=== PATIENT | male | born 1945 | race African-American/Black ===

== ENCOUNTER 2016-12-17 09:57 | Inpatient (IN) | payer MEDICARE ==
[~2016-12-17] VITALS: Ht 193 cm; Wt 99.3 kg
[2016-12-30] MEDS ORDERED: ASPI1TAB69 PO (10:43)
[2016-12-30] MEDS ORDERED: DICL75TA PO (10:43)
[2016-12-30] MEDS ORDERED: ALPR0.5T3 PO (10:43)
[2016-12-30] MEDS ORDERED: ALLO100T PO (10:43)
[2016-12-30] MEDS ORDERED: ALBU.5I NEB (10:43)
[2016-12-30] MEDS ORDERED: VENTAER INH (10:43)
[2016-12-30] MEDS ORDERED: GABA400C5 PO (10:43)
[2016-12-30] MEDS ORDERED: CALC1TAB55 PO (10:43)
[2016-12-30] MEDS ORDERED: LABE200T2 PO (10:44)
[2016-12-30] MEDS ORDERED: HYDR-3583 PO (10:44)
[2016-12-30] MEDS ORDERED: LOSA50TA PO (10:44)
[2016-12-30] MEDS ORDERED: MULT1TAB84 PO (10:46)
[2016-12-30] MEDS ORDERED: VITA10002 PO (10:46)
[2016-12-30] MEDS ORDERED: NITR0.4D2 T-DERMAL (10:46)
[2016-12-30] MEDS ORDERED: PYRI100T PO (10:46)
[2016-12-30] MEDS ORDERED: OMEP20TA PO (10:47)
[2016-12-31 06:30] VITALS: BP 112/68; PULSE 115; RESP 20; TEMP 98.7; O2SAT 94
[2016-12-31] MEDS ORDERED: METOPROLOL TARTRATE 25 MG TAB PO PRN (06:45)
[2016-12-31] MEDS ORDERED: INSULIN HUMAN REGULAR 1,000 UNITS/10 ML VIAL SQ PRN (06:45)
[2016-12-31] MEDS ORDERED: LACTATED RINGER'S 1000 ML IV SCH (06:45)
[2016-12-31] MEDS ORDERED: SODIUM CHLORID 0.9% 500 ML IV SCH (06:45)
[2016-12-31] MEDS ORDERED: CHLORHEXIDINE GLUCONATE 4% SOLN 120 ML BTL TOP SCH (07:00)
[2016-12-31] MEDS ORDERED: ceFAZolin 2 GM PREMIX 50 ML IV SCH (07:00)
[2016-12-31] MEDS ORDERED: VANCOMYCIN 1000 MG/NS 250 ML (for <70 kg) IV SCH ×2 (07:00)
[2016-12-31] MEDS ORDERED: BUPIVACAINE/EPINEPHRINE 0.25% PF 30 ML VIAL ONE (07:07)
[2016-12-31] MEDS ORDERED: GENTAMICIN SULFATE 80 MG/2 ML VIAL ONE (07:07)
[2016-12-31] MEDS ORDERED: ACETAMINOPHEN 1000 MG/100 ML VIAL IV ONE (08:08)
[2016-12-31] MEDS ORDERED: FAMOTIDINE 20 MG/2 ML VIAL ONE (08:08)
[2016-12-31] MEDS ORDERED: TRANEXAMIC ACID IV SCH (09:00)
[2016-12-31] MEDS ORDERED: SODIUM CHLORIDE 0.9% IV SCH (09:00)
[2016-12-31] MEDS ORDERED: EXPAREL PERI-ARTICULAR INJECTION (TOTAL VOL. 60 ML) P-ARTICULR SCH ×2 (09:00)
[2016-12-31] MEDS ORDERED: DICLOFENAC SODIUM 37.5 MG/ML VIAL IV PUSH ONE (09:53)
[2016-12-31] MEDS ORDERED: HYDROmorphone HCL PF 2 MG/ML VIAL ONE (09:53)
[2016-12-31] MEDS ORDERED: KETAMINE HCL 500 MG/5 ML VIAL ONE (09:53)
[2016-12-31] MEDS ORDERED: ALBUTEROL SULFATE 90 MCG/ACT HFA 8 GM INHALER INH PRN (10:30)
[2016-12-31] MEDS ORDERED: ALPRAZolam 0.5 MG TAB PO PRN (10:30)
--- NOTE | 2016-12-31 10:42 | PD.OP ---
cc: Yamil Willoughby MD Operative Report Date of Surgery: Dec 31, 2016 Preoperative Diagnosis: Impending pathologic fracture of left proximal femur secondary to metastatic lesion in proximal femur Postoperative Diagnosis: Procedure: Intramedullary nail fixation of left femur Surgeon: Yamil Willoughby Eye Specialist(s): ERICA Cruz PA-C The surgical procedure was assisted by my physician real estate assistant. My P.A. presence was necessary throughout this case for the manipulation and positioning of the surgical extremity. My P.A. was assisting me throughout the duration of this procedure. The skill set of a physician real estate assistant was medically necessary to complete this procedure. During the surgical case the surgical supply assistant was working at the back table and the physician real estate assistant was directly assisting me. Operation and Findings: Implants used: 12mm x [440]mm Synthes TFNA troch nail Plan of activity: Weight-bear as tolerated Patient was seen and evaluated preoperatively. The patient has significant hip pain from proximal femur impending pathologic fracture. The risk and benefits of surgery were discussed in depth with the patient to include bleeding, infection, nonunion, malunion, need for hip replacement, painful hardware, as well as medical competitions including blood clots, stroke, heart attack, and . Informed consent was obtained. Operative site was marked. Patient was brought to the operating room and placed on fracture table. IV sedation was administered by anesthesiologist. Timeout procedure was performed. Hip and leg were prepped with alcohol followed by DuraPrep and draped in the usual sterile fashion. IV antibiotics were given prior to incision. A 2 inch incision was made proximal to the trochanter. Subcutaneous tissue was dissected bluntly. Guidepin was placed at the tip of the trochanter and advanced into the femoral canal. Fluoroscopy confirmed appropriate guidepin placement. A opening reamer was placed over the guidepin. A long ball tipped guide pin was now placed down the femoral canal into the center of the distal femur. The nail length was now measured. Fluoroscopy confirmed appropriate guidepin placement. Flexible reamers were now passed over the guidepin to ream the intramedullary canal. The Synthes TFNA nail was attached to the insertion handle. Nail was now placed over the guidepin into the femoral canal. Fluoroscopy confirmed appropriate nail placement. A second incision was made over the lateral thigh. Cannulas were placed through the insertion handle down to the femur. Guidepin was now placed through the femoral nail into the center of the femoral head. Fluoroscopy confirmed appropriate guidepin placement. Screw length was measured. Cannulated drill was placed over the guidepin. Appropriate length lag screw was now placed. The set screw was now tightened in static mode. Next, using perfect [place] technique two distal interlocking screws were placed. Screw holes were predrilled and screw lengths were measured. Final fluoroscopy revealed well aligned fracture with well-placed hardware. Incision was closed with 3-0 Vicryl and yessica. Sterile dressings were applied. Patient was awakened and transferred to recovery room. Yamil Willoughby MD Dec 31, 2016 10:42
[2016-12-31] MEDS ORDERED: ONDANSETRON HCL 4 MG/2 ML VIAL IVP PRN (10:45)
[2016-12-31] MEDS ORDERED: SODIUM CHLORIDE 0.9% FLUSH 5 ML FLUSH IVF PRN (10:45)
[2016-12-31] MEDS ORDERED: MIDAZOLAM HCL 2 MG/2 ML VIAL ONE (10:57)
[2016-12-31] MEDS ORDERED: fentaNYL CITRATE 250 MCG/5 ML AMP ONE (10:58)
[2016-12-31] MEDS ORDERED: MORPHINE SULFATE 4 MG/ML INJ ONE (10:58)
--- NOTE | 2016-12-31 11:02 | HHI.FF ---
Face to Face Verification Diagnosis: (1) Lytic bone lesion of left femur Physical Therapy Gait training Hip: Hip fracture, Protocol: Left, Progress to weight bearing Left LE Weight Bearing: WB as tolerated Nursing Dressing Changes: Daily dressing change, 4x4s, Paper tape, Xeroform I have seen patient Roscoe Lombardo on 12/31/16. My clinical findings support the need for the requested home health care services because: Ltd mobility - disease progression I certify that my clinical findings support that this patient is homebound because: Post-op weakness Kodak Howard Dec 31, 2016 11:02
[2016-12-31] MEDS ORDERED: *RESP: ALBUTEROL 2.5 MG/3 ML NEB (PRN) PERIprocedural Use ONLY NEB ONE (11:25)
[2016-12-31] MEDS ORDERED: DO NOT ADM ANY ANTICOAGULANT DRUGS XX PRN (11:30)
[2016-12-31] MEDS: CALCIUM/VITAMIN D 250 MG/125 U TAB PO SCH ×2 (13:00→20:33)
[2016-12-31] MEDS: MORPHINE SULFATE 4 MG/ML INJ IV PUSH PRN ×2 (13:13→20:46)
[2016-12-31] MEDS ORDERED: PHENYLEPH/NS 1000 MCG/10 ML SYR IV ONE (14:06)
[2016-12-31] MEDS ORDERED: PROPOFOL 200 MG/20 ML AMP IV ONE (14:06)
[2016-12-31] MEDS ORDERED: LACTATED RINGER'S 1000 ML INJ 1,000 ML IV ONE (14:07)
--- NOTE | 2016-12-31 14:53 | RADRPT ---
EXAM DATE/TIME: 12/31/2016 10:22 [facility] COMPARISON: No previous studies available for comparison. INDICATIONS : ORIF left femur IM darrian. MEDICAL HISTORY : None. SURGICAL HISTORY : None. ENCOUNTER: Initial ACUITY: 1 day PAIN SCORE: Non-responsive. LOCATION: Left femur. FINDINGS: The patient is status post ORIF of left femur fracture. Surgical hardware appears to be in good posi tion. CONCLUSION: Status post ORIF with hardware in good position. Enmanuel Cooper MD on December 31, 2016 at 14:42 Board Certified Radiologist. This report was verified electronically.
[2016-12-31 17:50] VITALS: BP 120/65; PULSE 96; RESP 18; TEMP 97.3; O2SAT 96
[2016-12-31 19:45] VITALS: BP 112/62; PULSE 98; RESP 16; TEMP 96.8; O2SAT 95
[2016-12-31] MEDS: SODIUM CHLORIDE 0.9% FLUSH 5 ML FLUSH IVF SCH (20:33)
[2016-12-31] MEDS: GABAPENTIN 300 MG CAP PO SCH (20:33)
[2016-12-31] MEDS ORDERED: CALCIUM CARBONATE CHOLECALCIFEROL PO SCH (21:00)
[2017-01-01] VITALS (8 sets, daily range): BP systolic 94–123; BP diastolic 58–67; PULSE 110–132; RESP 17–19; TEMP 97–100.2; O2SAT 90–98
[2017-01-01] MEDS: MORPHINE SULFATE 4 MG/ML INJ IV PUSH PRN ×2 (04:16→08:29)
[2017-01-01] MEDS ORDERED: HYDR-3583 PO (06:38)
[2017-01-01] MEDS ORDERED: XARE10TA PO (06:38)
[2017-01-01] MEDS ORDERED: WALKER WHEELS/F1 MIS (06:39)
--- NOTE | 2017-01-01 07:20 | PD.ORT.PN ---
Subjective Subjective Remarks Pain controlled and doing well overnight Objective Vitals Vital Signs Date Time Temp Pulse Resp B/P Pulse Ox O2 Delivery O2 Flow Rate FiO2 01/01/17 04:00 100.2 110 17 119/63 94 01/01/17 00:00 100.0 123 18 123/67 93 12/31/16 20:51 Nasal Cannula 2.00 12/31/16 19:45 96.8 98 16 112/62 95 12/31/16 17:50 97.3 96 18 120/65 96 12/31/16 17:00 97.8 89 16 118/70 95 Nasal Cannula 3 12/31/16 16:00 88 15 112/69 94 Nasal Cannula 3 12/31/16 15:00 90 15 108/68 93 Nasal Cannula 3 12/31/16 14:00 92 15 107/67 92 Nasal Cannula 3 12/31/16 13:18 16 12/31/16 13:00 98 16 102/67 96 Nasal Cannula 4 12/31/16 12:30 99 16 104/69 95 Nasal Cannula 4 12/31/16 12:00 97.6 100 16 108/69 95 Nasal Cannula 4 12/31/16 11:45 103 16 108/68 94 Nasal Cannula 4 12/31/16 11:30 102 16 115/69 93 Nasal Cannula 4 12/31/16 11:15 101 16 117/72 92 Nasal Cannula 4 12/31/16 11:00 107 16 118/70 98 Simple Mask 8 12/31/16 10:50 97.4 103 27 129/72 97 Simple Mask 8 I/O 12/31/16 12/31/16 12/31/16 01/01/17 01/01/17 01/01/17 07:00 15:00 23:00 07:00 15:00 23:00 Intake Total 1100 ml 630 ml 720 ml Output Total 500 ml 600 ml 1800 ml Balance 600 ml 30 ml -1080 ml Intake Oral 480 ml 720 ml IV Total 150 ml Other 1100 ml Output Urine Total 400 ml 600 ml 1800 ml Estimated Blood Loss 100 ml # Bowel Movements 0 0 Imaging Last Impressions Femur X-Ray 12/31/16 0000 Signed Impressions: Service Date/Time: Saturday, December 31, 2016 10:22 - CONCLUSION: Status post ORIF with hardware in good position. Enmanuel Cooper MD Objective Remarks Left lower extremity: Clean dry dressings intact. Minimal swelling. Minimal pain with movement of hip knee or ankle. Distally intact sensation with good capillary refills Assessment & Plan Ortho Post Op Day #: 1 Problem List: (1) Lytic bone lesion of left femur Assessment and Plan Status post IM nail left femur Physical therapy for weightbearing as tolerated Begin daily dressing changes beginning POD 2 Incentive spirometry Plan for discharge to home with home health care tomorrow if doing well with physical therapy Follow-up with Dr. Willoughby or [place] in 2 weeks SHAHID COLMENARES PA-C Jan 01, 2017 07:20
[2017-01-01] MEDS: PYRIDOXINE HCL 50 MG TAB PO SCH (08:21)
[2017-01-01] MEDS: CYANOCOBALAMIN 1,000 MCG TAB PO SCH (08:21)
[2017-01-01] MEDS: ALLOPURINOL 100 MG TAB PO SCH (08:22)
[2017-01-01] MEDS: ASPIRIN EC 81 MG TABEC PO SCH (08:22)
[2017-01-01] MEDS: CALCIUM/VITAMIN D 250 MG/125 U TAB PO SCH ×3 (08:22→17:54)
[2017-01-01] MEDS: LOSARTAN 50 MG TAB PO SCH (08:22)
[2017-01-01] MEDS: PANTOPRAZOLE SOD 20 MG DELAYED RELEASE TAB PO SCH (08:22)
[2017-01-01] MEDS: GABAPENTIN 300 MG CAP PO SCH ×2 (08:22→21:24)
[2017-01-01 08:27] LABS: HEMATOCRIT 22.6 % (39.0-51.0); REVIEW FLAG FINAL
[2017-01-01] MEDS: ENOXAPARIN SODIUM 30 MG/0.3 ML SYRINGE SQ SCH (08:29)
[2017-01-01] MEDS: REMOVE OLD NITRO-DUR (NITROGLYCERIN) PATCH TD SCH (09:00)
[2017-01-01] MEDS: LABETALOL HCL 200 MG TAB PO SCH (09:00)
[2017-01-01] MEDS: NITROGLYCERIN 0.4 MG/HR PATCH T-DERMAL SCH (09:00)
[2017-01-01] MEDS: SODIUM CHLORIDE 0.9% FLUSH 5 ML FLUSH IVF SCH ×2 (09:00→21:25)
[2017-01-01] MEDS ORDERED: RESP: ALBUTEROL 2.5 MG/3 ML NEB (PRN) NEB (10:15)
[2017-01-01] MEDS: ACETAMINOPHEN/HYDROcodone 325 MG/10 MG TAB PO PRN ×2 (12:37→17:05)
[2017-01-02] VITALS (15 sets, daily range): BP systolic 92–121; BP diastolic 53–83; PULSE 109–131; RESP 16–20; TEMP 96.3–101.4; O2SAT 88–95
[2017-01-02] MEDS: ACETAMINOPHEN/HYDROcodone 325 MG/10 MG TAB PO PRN ×4 (00:19→13:38)
[2017-01-02] MEDS: ACETAMINOPHEN 325 MG TAB PO PRN ×2 (04:08→16:40)
[2017-01-02 04:46] LABS: BLOOD, URINE NEG (NEG); COMMENT (UR) CULT NOT INDICATED; CULTURE IF INDICATED CULT NOT INDICATED; GLUCOSE,URINE NEG (NEG); HYALINE CAST, URINE 1 /lpf (RARE); KETONE, URINE NEG (NEG); MUCUS URINE FEW /lpf (OCC); NITRITE,URINE NEG (NEG); PH, URINE 5.5 (5.0-8.5); URINE COLOR DARK-YELLOW (YELLW/STRAW)
[2017-01-02 05:23] LABS: AUTOMATED NEUTROPHIL # 7.6 TH/MM3 (1.8-7.7); BASOPHIL # 0.1 TH/MM3 (0-0.2); BASOPHIL % 0.6 % (0.0-2.0); EOSINOPHIL # 0.1 TH/MM3 (0-0.4); EOSINOPHIL % 0.9 % (0.0-4.0); LYMPH % 7.7 % (9.0-44.0); LYMPHOCYTE # 0.7 TH/MM3 (1.0-4.8); MEAN CELL VOLUME 84.8 FL (80.0-100.0); MEAN CORPUSCULAR HEMOGLOBIN 27.9 PG (27.0-34.0); MEAN CORPUSCULAR HGB CONC 32.8 % (32.0-36.0); MONO % 10.7 % (0.0-8.0); NEUT % 80.1 % (16.0-70.0); PLATELET COUNT 317 TH/MM3 (150-450); RED BLOOD COUNT 2.48 MIL/MM3 (4.50-5.90); RED CELL DISTRIBUTION WIDTH 17.9 % (11.6-17.2); WHITE BLOOD COUNT 9.5 TH/MM3 (4.0-11.0)
[2017-01-02 05:32] LABS: HEMO FLAGS DIFF FINAL
[2017-01-02 05:59] LABS: BICARBONATE 21.5 MEQ/L (21.0-32.0); POTASSIUM 4.1 MEQ/L (3.5-5.1)
[2017-01-02] MEDS ORDERED: FUROSEMIDE 20 MG/2 ML VIAL IV PUSH PRN (06:15)
--- NOTE | 2017-01-02 06:21 | RADRPT ---
EXAM DATE/TIME: 01/02/2017 05:43 [facility] COMPARISON: CHEST SINGLE AP, June 25, 2016, 15:56. INDICATIONS : Shortness of breath, chest congestion. MEDICAL HISTORY : Congestive heart failure. Carcinoma, lung. SURGICAL HISTORY : None. ENCOUNTER: Subsequent ACUITY: 4 - 6 months PAIN SCORE: 0/10 LOCATION: Bilateral chest FINDINGS: Left upper lobe mass area again seen. Cardiomegaly, nonacute right rib fracture and right-sided phillip catheter are noted. Mild interstitial prominence. CONCLUSION: No significant change has occurred. Jorgito Lynne MD on January 02, 2017 at 6:19 Board Certified Radiologist. This report was verified electronically.
--- NOTE | 2017-01-02 06:37 | PD.ORT.PN ---
Subjective Subjective Remarks POD 2 s/p IMN left hip doing well. pain controlled. out of bed with walker yesterday had critical H/H last night. hospitalist consulted. Objective Vitals Vital Signs Date Time Temp Pulse Resp B/P Pulse Ox O2 Delivery O2 Flow Rate FiO2 01/02/17 04:20 100.9 125 18 115/62 93 01/02/17 01:25 100.5 01/02/17 00:25 101.4 131 18 99/63 93 01/01/17 20:17 97.0 123 19 106/63 96 01/01/17 19:15 97.5 126 18 94/58 95 01/01/17 18:09 Nasal Cannula 3.00 01/01/17 15:25 97.0 122 18 106/65 98 01/01/17 13:14 95 Nasal Cannula 3.00 01/01/17 12:00 99.0 132 18 99/62 90 01/01/17 08:00 100.1 127 18 118/64 94 I/O 01/01/17 01/01/17 01/01/17 01/02/17 01/02/17 01/02/17 07:00 15:00 23:00 07:00 15:00 23:00 Intake Total 720 ml 1200 ml 480 ml Output Total 1800 ml 900 ml Balance -1080 ml 1200 ml -420 ml Intake Oral 720 ml 1200 ml 480 ml Output Urine Total 1800 ml 900 ml # Voids 3 # Bowel Movements 0 0 0 Result Diagram: 01/02/17 0513 01/02/17 0513 Imaging Last Impressions Femur X-Ray 12/31/16 0000 Signed Impressions: Service Date/Time: Saturday, December 31, 2016 10:22 - CONCLUSION: Status post ORIF with hardware in good position. Enmanuel Cooper MD Objective Remarks Left lower extremity: Clean dry dressings intact. Minimal swelling. Minimal pain with movement of hip knee or ankle. Distally intact sensation with good capillary refills Assessment & Plan Problem List: (1) Lytic bone lesion of left femur Assessment and Plan 1) Status post IM nail left femur - POD 2 Physical therapy for weightbearing as tolerated Begin daily dressing changes beginning POD 2 Incentive spirometry Plan for discharge to home with home health care tomorrow if doing well with physical therapy will receive blood today per medical plan for DC after H/H stabilized Follow-up with Dr. Willoughby or [place] in 2 weeks Kodak Howard Jan 02, 2017 06:36
[2017-01-02] MEDS: REMOVE OLD NITRO-DUR (NITROGLYCERIN) PATCH TD SCH (09:00)
[2017-01-02] MEDS: PYRIDOXINE HCL 50 MG TAB PO SCH (10:04)
[2017-01-02] MEDS: GABAPENTIN 300 MG CAP PO SCH ×2 (10:04→20:46)
[2017-01-02] MEDS: LABETALOL HCL 200 MG TAB PO SCH (10:05)
[2017-01-02] MEDS: PANTOPRAZOLE SOD 20 MG DELAYED RELEASE TAB PO SCH (10:05)
[2017-01-02] MEDS: ASPIRIN EC 81 MG TABEC PO SCH (10:05)
[2017-01-02] MEDS: ALLOPURINOL 100 MG TAB PO SCH (10:05)
[2017-01-02] MEDS: CALCIUM/VITAMIN D 250 MG/125 U TAB PO SCH ×3 (10:05→17:28)
[2017-01-02] MEDS: CYANOCOBALAMIN 1,000 MCG TAB PO SCH (10:06)
[2017-01-02] MEDS: LOSARTAN 50 MG TAB PO SCH (10:06)
[2017-01-02] MEDS: NITROGLYCERIN 0.4 MG/HR PATCH T-DERMAL SCH (10:07)
[2017-01-02] MEDS: ENOXAPARIN SODIUM 30 MG/0.3 ML SYRINGE SQ SCH (10:07)
[2017-01-02] MEDS: SODIUM CHLORIDE 0.9% FLUSH 5 ML FLUSH IVF SCH ×2 (10:09→21:00)
[2017-01-02] MEDS ORDERED: BISACODYL EC 5 MG TABEC PO PRN (11:15)
--- NOTE | 2017-01-02 11:37 | PD.CONS ---
HPI Service [facility] Hospitalists Consult Requested By Dr. Yamil Odell Reason for Consult Anemia, Medical management Primary Care Physician Ravin De Paz MD Diagnoses: History of Present Illness Mr. 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 He has completed six cycles of carboplatin, Alimta and bevacizumab but was found to have disease progression in 05/2016. Pt has also received focal radiation treatment to the chest wall. Pt follows with Dr. Cordon and is on second line therapy with IV Zometa for bony disease and immunotherapy with Nivolumab. Review of outpt records revealed his most recent PET/CT on 12/12/16 revealed new metastatic disease in the left proximal femur and right anterior 7th rib costochondral junction. Pt was admitted to [facility] on 12/31/16 for impending pathologic fracture of left proximal femur secondary to metastatic lesion in proximal femur and underwent intramedullary nail fixation of left femur with Dr. Odell. Pt had post-operative labs which noted a decrease to his H/H to 7.5/22.6 which further decreased today to 6.9/21.0. Pt is currently receiving 2 units of PRBCs. He received his last Immunotherapy on 12/17/[address] Cordon. His Hgb at that time was 9.0. Review of Systems Constitutional: COMPLAINS OF: Fever, DENIES: Chills Eyes: DENIES: Vision loss Ears, nose, mouth, throat: DENIES: Hearing loss Cardiovascular: COMPLAINS OF: Palpitations, Lower Extremity Edema (chronic) Gastrointestinal: DENIES: Abdominal pain, Nausea, Vomiting Genitourinary: DENIES: Hematuria, Dysuria Musculoskeletal: COMPLAINS OF: Joint pain Integumentary: DENIES: Rash Neurologic: DENIES: Headache Psychiatric: DENIES: Confusion Past Family Social History Past Medical History Stage IV poorly differentiated [id number] lung cancer diagnosed in early 2015 with mets to the chest wall and bones. Anemia secondary to chemotherapy Chronic left lower extremity edema Osteoarthritis of the left shoulder COPD Systolic and diastolic CHF Gout Hypertension Peripheral Neuropathy Pneumonia in 2014 2D echo (November 2015) - EF 40-45% - Grade 1 diastolic dysfunction Past Surgical History Robotic lung surgery and biopsy of the left chest mass and left upper lung mass on January 02, 2016. Back surgery in 1977 Reported Medications Omeprazole 20 Mg Tab 20 Mg PO DAILY Vitamin B-6 (Pyridoxine HCl) 100 Mg Tab 100 Mg PO DAILY Vitamin B-12 (Cyanocobalamin) 1,000 Mcg Tab 1,000 Mcg PO DAILY Nitroglycerin Patch 24 HR (Nitroglycerin) 0.4 Mg/Hr Patch 0.4 Mg T-DERMAL DAILY 12 HOURS ON AND THEN OFF FOR 12 HOURS Multivitamin Adults (Multiple Vitamins W/ Minerals) 1 Tab 1 Tab PO DAILY Losartan (Losartan Potassium) 50 Mg Tab 50 Mg PO DAILY Labetalol (Labetalol HCl) 200 Mg Tab 200 Mg PO DAILY Gabapentin 400 Mg Cap 400 Cap PO BID Diclofenac Sodium DR (Diclofenac Sodium) 75 Mg Tabdr 75 Mg PO DAILY Calcium 500 +D3 (Calcium Carbonate-Cholecalciferol) 500-600 Mg-Unit Tab 1 Tab PO BID Alprazolam 0.5 Mg Tab 0.5 Mg PO Q6H PRN Ventolin Hfa 18 GM Inh (Albuterol Sulfate) 90 Mcg/Act Aer 2 Puff INH Q4-6H PRN Aspirin 81 Mg Tabdr 81 Mg PO DAILY Allopurinol 100 Mg Tab 100 Mg PO DAILY Albuterol Neb (Albuterol Sulfate) 2.5 Mg/0.5 Ml Neb 2.5 Mg NEB DAILY PRN Note: The Albuterol Sulfate Inhalation Solution is concentrated and must be diluted. Read complete instructions carefully before using. Allergies: Coded Allergies: Contrast Media (Verified Allergy, Severe, ANAPHYLAXIS, 12/31/16) Lisinopril (Unverified Allergy, Severe, VERTIGO, SYNCOPE, 12/31/16) Family History Noncontributory Social History Denies any alcohol or illicit drug use Pt has a hx of tobacco use Physical Exam Vital Signs Vital Signs Date Time Temp Pulse Resp B/P Pulse Ox O2 Delivery O2 Flow Rate FiO2 01/02/17 10:16 97.0 117 16 121/71 95 01/02/17 09:47 97.3 112 20 106/65 93 01/02/17 08:00 97.3 112 20 106/65 93 01/02/17 05:55 98.8 116 18 104/60 94 01/02/17 04:20 100.9 125 18 115/62 93 2/9/17 01:25 100.5 01/02/17 00:25 101.4 131 18 99/63 93 01/01/17 20:17 97.0 123 19 106/63 96 01/01/17 19:15 97.5 126 18 94/58 95 01/01/17 18:09 Nasal Cannula 3.00 01/01/17 15:25 97.0 122 18 106/65 98 01/01/17 13:14 95 Nasal Cannula 3.00 01/01/17 12:00 99.0 132 18 99/62 90 Physical Exam GENERAL: This is a well-nourished, well-developed patient, in no apparent distress. HEENT: Atraumatic. Normocephalic. No temporal or scalp tenderness. No scleral icterus. Airway patent. NECK: Trachea midline, supple, nontender. CARDIO: Regular, tachy. RESP: CTA bilaterally. No wheezes, rales, or rhonchi. ABD: +BS, soft, non-tender, nondistended. EXT: Extremities without clubbing, cyanosis, or edema. NEURO: Awake and alert. Motor and sensory grossly within normal limits. Normal speech. Laboratory Laboratory Tests Test 01/02/17 01/02/17 01/02/17 04:20 05:13 06:05 Urine Color DARK-YELLOW Urine Turbidity HAZY Urine pH 5.5 Urine Specific [place] 1.019 Urine Protein 30 Urine Glucose (UA) NEG Urine Ketones NEG Urine Occult Blood NEG Urine Nitrite NEG Urine Bilirubin SMALL Urine Urobilinogen 8.0 Urine Leukocyte Esterase NEG Urine RBC 1 Urine WBC 4 Urine Hyaline Casts 1 Urine Mucus FEW Microscopic Urinalysis Comment CULT NOT INDICATED White Blood Count 9.5 Red Blood Count 2.48 Hemoglobin 6.9 Hematocrit 21.0 Mean Corpuscular Volume 84.8 Mean Corpuscular Hemoglobin 27.9 Mean Corpuscular Hemoglobin 32.8 Concent Red Cell Distribution Width 17.9 Platelet Count 317 Mean Platelet Volume 6.8 Neutrophils (%) (Auto) 80.1 Lymphocytes (%) (Auto) 7.7 Monocytes (%) (Auto) 10.7 Eosinophils (%) (Auto) 0.9 Basophils (%) (Auto) 0.6 Neutrophils # (Auto) 7.6 Lymphocytes # (Auto) 0.7 Monocytes # (Auto) 1.0 Eosinophils # (Auto) 0.1 Basophils # (Auto) 0.1 CBC Comment DIFF FINAL Differential Comment Sodium Level 131 Potassium Level 4.1 Chloride Level 97 Carbon Dioxide Level 21.5 Anion Gap 13 Blood Urea Nitrogen 17 Creatinine 1.15 Estimat Glomerular Filtration 76 Rate Random Glucose 99 Calcium Level 8.2 Blood Type O POSITIVE Crossmatch Leukocyte-Reduced Red Blood Cells Blood Bank Comment Date/Time Procedure Status Source Growth 01/02/17 05:13 Aerobic Blood Culture Received Blood Peripheral Pending 01/02/17 05:13 Anaerobic Blood Culture Received Blood Peripheral Pending Result Diagram: 01/02/17 0513 01/02/1713 Imaging Last Impressions Chest X-Ray 01/02/17 0000 Signed Impressions: Service Date/Time: December 05:43 - CONCLUSION: No significant change has occurred. Jorgito Lynne MD Femur X-Ray 12/31/16 0000 Signed Impressions: Service Date/Time: Saturday, December 31, 2016 10:22 - CONCLUSION: Status post ORIF with hardware in good position. 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 Odell. - Post-op pain control per Ortho - Pt had post-operative labs which noted a decrease to his H/H to 7.5/22.6 which further decreased today to 6.9/21.0. - Pt is currently receiving 2 units of PRBCs. - He received his last Immunotherapy on 12/17/[address] Cordon. His Hgb at that time was 9.0. - Pt also noted to have some fevers post-operatively, last night Tmax was 101.4 - Blood cultures drawn on 01/02/17 are pending. - Encouraged IS use - Pt has not had a BM in 3 days and requesting laxatives. Colace, MOM PRN, Dulcolax PRN - Pt is noted to be tachycardic, sinus rhythm currently, likely secondary to above. - Will monitor vital signs closely. - Supportive care - DVT prophylaxis with Xarelto (2) Anemia Status: Chronic Plan: - See above. 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 - Post-operatively his H/H decreased today to 6.9/21.0 and is currently receiving 2 units of PRBCs - Monitor H/H closely (3) Non-small cell carcinoma of lung, stage 4 Status: Chronic Plan: - Pt has stage IV poorly differentiated [id number] lung cancer diagnosed in early 2015 with mets to the chest wall and bones - He has completed six cycles of carboplatin, Alimta and bevacizumab but was found to have disease progression in 05/2016. - Pt has also received focal radiation treatment to the chest wall. - Pt follows with Dr. Cordon and is on second line therapy with IV Zometa for bony disease and immunotherapy with Nivolumab. - Review of outpt records revealed his most recent PET/CT on 12/12/16 revealed new metastatic disease in the left proximal femur and right anterior 7th rib costochondral junction. - He last received immunotherapy on 12/17/16 (4) Hypertension Status: Chronic Plan: - Pt is on Labetalol 200mg po daily and Cozaar 50mg po BID as an outpt. - BP is currently low normal (5) COPD (chronic obstructive pulmonary disease) Status: Chronic (6) CHF (congestive heart failure) Status: Chronic Plan: - Pt has chronic systolic and diastolic CHF - 2D echo (November 2015) --> EF 40-45% and Grade 1 diastolic dysfunction - He has chronic LE edema - He is not currently on any diuretic therapy Assessment and Plan Patient examined. Assessment and plan formulated with Hollie Ching PA-C. I agree with the above. pathological femur fx from stage 4 nsclca. pt very painful sinus tach from pain/severe anemia/fever fever down after tylenol. f/u blood cx 2 units blood ordered. pain control. hold d/c today. Problem Qualifiers (1) CHF (congestive heart failure): Qualified Code: I50.42 - Chronic combined systolic and diastolic congestive heart failure Hollie Ching Jan 02, 2017 11:37 Fortunato Demarco MD Jan 02, 2017 12:24
[2017-01-02] MEDS: DOCUSATE SODIUM 100 MG CAP PO SCH ×2 (11:58→20:46)
[2017-01-02] MEDS: MAGNESIUM HYDROXIDE SUSP 30 ML CUP PO PRN ×2 (11:58→20:46)
[2017-01-02] MEDS ORDERED: MORPHINE SULFATE 4 MG/ML INJ IV PUSH PRN (12:30)
[2017-01-02] MEDS: diphenhydrAMINE HCL 25 MG CAP PO PRN (13:01)
[2017-01-02] MEDS: MORPHINE SULFATE 4 MG/ML INJ IV PUSH PRN (13:02)
[2017-01-03] VITALS (10 sets, daily range): BP systolic 87–128; BP diastolic 60–73; PULSE 108–118; RESP 16–22; TEMP 96.5–99; O2SAT 90–98
[2017-01-03] MEDS: ACETAMINOPHEN/HYDROcodone 325 MG/10 MG TAB PO PRN ×4 (05:34→22:51)
[2017-01-03 06:50] LABS: BICARBONATE 28.2 MEQ/L (21.0-32.0); POTASSIUM 4.2 MEQ/L (3.5-5.1)
--- NOTE | 2017-01-03 07:11 | PD.ORT.PN ---
Subjective Subjective Remarks Pain controlled and doing well overnight Objective Vitals Vital Signs Date Time Temp Pulse Resp B/P Pulse Ox O2 Delivery O2 Flow Rate FiO2 01/03/17 06:50 Nasal Cannula 2.00 01/03/17 04:16 94/63 01/03/17 00:20 98.4 108 19 93/60 97 01/02/17 22:25 2.00 01/02/17 21:17 88 Nasal Cannula 01/02/17 20:19 98.9 109 19 94/83 95 01/02/17 16:25 100.3 119 20 92/53 91 01/02/17 16:00 100.0 119 20 94/53 91 01/02/17 13:32 94 Nasal Cannula 2.00 01/02/17 13:32 99.2 121 17 107/69 95 01/02/17 13:17 96.3 123 20 116/70 92 01/02/17 12:34 96.3 123 20 116/70 92 01/02/17 11:37 95 Nasal Cannula 3.00 01/02/17 10:16 97.0 117 16 121/71 95 01/02/17 09:47 97.3 112 20 106/65 93 01/02/17 08:00 97.3 112 20 106/65 93 I/O 01/02/17 01/02/17 01/02/17 01/03/17 01/03/17 01/03/17 07:00 15:00 23:00 07:00 15:00 23:00 Intake Total 120 ml 545 ml 587 ml 240 ml Output Total 200 ml 400 ml 300 ml Balance -80 ml 145 ml 287 ml 240 ml Intake Oral 120 ml 240 ml 240 ml 240 ml Packed Cells 305 ml 347 ml Output Urine Total 200 ml 400 ml 300 ml # Voids 1 # Bowel Movements 0 0 0 1 Result Diagram: 01/02/17 0513 01/03/17 0515 Imaging Last Impressions Femur X-Ray 12/31/16 0000 Signed Impressions: Service Date/Time: Saturday, December 31, 2016 10:22 - CONCLUSION: Status post ORIF with hardware in good position. Enmanuel Cooper MD Objective Remarks Left lower extremity: Clean dry dressings intact. Minimal swelling. Minimal pain with movement of hip knee or ankle. Distally intact sensation with good capillary refills Assessment & Plan Problem List: (1) Lytic bone lesion of left femur Assessment and Plan 1) Status post IM nail left femur - POD 3 Physical therapy for weightbearing as tolerated Begin daily dressing changes beginning POD 3 Incentive spirometry Plan for discharge to home with home health care tomorrow when cleared by medical plan for DC after H/H stabilized Follow-up with Dr. Willoughby or [facility] in 2 weeks SHAHID COLMENARES PA-C Jan 03, 2017 07:11
[2017-01-03] MEDS: SODIUM CHLORIDE 0.9% FLUSH 5 ML FLUSH IVF SCH ×2 (07:50→20:21)
[2017-01-03] MEDS: CALCIUM/VITAMIN D 250 MG/125 U TAB PO SCH ×3 (07:50→16:46)
[2017-01-03] MEDS: ALLOPURINOL 100 MG TAB PO SCH (07:50)
[2017-01-03] MEDS: ASPIRIN EC 81 MG TABEC PO SCH (07:50)
[2017-01-03] MEDS: ENOXAPARIN SODIUM 30 MG/0.3 ML SYRINGE SQ SCH (07:50)
[2017-01-03] MEDS: PANTOPRAZOLE SOD 20 MG DELAYED RELEASE TAB PO SCH (07:50)
[2017-01-03] MEDS: DOCUSATE SODIUM 100 MG CAP PO SCH ×2 (07:50→20:21)
[2017-01-03] MEDS: CYANOCOBALAMIN 1,000 MCG TAB PO SCH (07:50)
[2017-01-03] MEDS: GABAPENTIN 300 MG CAP PO SCH ×2 (07:51→20:21)
[2017-01-03] MEDS: PYRIDOXINE HCL 50 MG TAB PO SCH (07:51)
[2017-01-03] MEDS: NITROGLYCERIN 0.4 MG/HR PATCH T-DERMAL SCH (07:59)
[2017-01-03] MEDS: REMOVE OLD NITRO-DUR (NITROGLYCERIN) PATCH TD SCH (07:59)
[2017-01-03 08:10] LABS: AUTOMATED NEUTROPHIL # 8.2 TH/MM3 (1.8-7.7); BASOPHIL % 0.2 % (0.0-2.0); EOSINOPHIL # 0.1 TH/MM3 (0-0.4); EOSINOPHIL % 0.9 % (0.0-4.0); HEMO FLAGS DIFF FINAL; LYMPHOCYTE # 0.7 TH/MM3 (1.0-4.8); MEAN CORPUSCULAR HGB CONC 32.6 % (32.0-36.0); MONO % 10.9 % (0.0-8.0); PLATELET COUNT 331 TH/MM3 (150-450); RED BLOOD COUNT 3.03 MIL/MM3 (4.50-5.90); RED CELL DISTRIBUTION WIDTH 17.6 % (11.6-17.2); WHITE BLOOD COUNT 10.2 TH/MM3 (4.0-11.0)
--- NOTE | 2017-01-03 09:59 | HHI.PR ---
Subjective Remarks seems less painful. bp running low. Objective Vitals intermittent wincing from pain heart reg lung course bs abd s/nt ext no edema Vital Signs Date Time Temp Pulse Resp B/P Pulse Ox O2 Delivery O2 Flow Rate FiO2 01/03/17 08:00 97.9 110 16 115/67 94 01/03/17 06:50 Nasal Cannula 2.00 01/03/17 04:16 94/63 01/03/17 00:20 98.4 108 19 93/60 97 01/02/17 22:25 2.00 01/02/17 21:17 88 Nasal Cannula 01/02/17 20:19 98.9 109 19 94/83 95 01/02/17 16:25 100.3 119 20 92/53 91 01/02/17 16:00 100.0 119 20 94/53 91 01/02/17 13:32 94 Nasal Cannula 2.00 01/02/17 13:32 99.2 121 17 107/69 95 01/02/17 13:17 96.3 123 20 116/70 92 01/02/17 12:34 96.3 123 20 116/70 92 01/02/17 11:37 95 Nasal Cannula 3.00 01/02/17 10:16 97.0 117 16 121/71 95 01/02/17 01/02/17 01/03/17 15:00 23:00 07:00 Intake Total 545 ml 587 ml 240 ml Output Total 400 ml 300 ml Balance 145 ml 287 ml 240 ml Intake Oral 240 ml 240 ml 240 ml Packed Cells 305 ml 347 ml Output Urine Total 400 ml 300 ml # Voids 1 # Bowel Movements 0 0 1 Result Diagram: 01/03/17 0515 01/03/17 0515 Imaging Last Impressions Chest X-Ray 01/02/17 0000 Signed Impressions: Service Date/Time: December 05:43 - CONCLUSION: No significant change has occurred. Jorgito Lynne MD Femur X-Ray 12/31/16 0000 Signed Impressions: Service Date/Time: Saturday, December 31, 2016 10:22 - CONCLUSION: Status post ORIF with hardware in good position. 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 Odell. - Post-op pain control per Ortho - Pt had post-operative labs which noted a decrease to his H/H to 7.5/22.6 which further decreased today to 6.9/21.0. - sp 2 units of PRBCs. - He received his last Immunotherapy on 12/17/[address] Cordon. His Hgb at that time was 9.0. - Pt also noted to have some fevers post-operatively, Tmax was 101.4 - Blood cultures drawn on 01/02/17 are pending. - Encouraged IS use - Pt has not had a BM in 3 days and requesting laxatives. Colace, MOM PRN, Dulcolax PRN - Pt is noted to be tachycardic, sinus rhythm currently, likely secondary to above. -will give 1 more unit blood prior to d/c due to low bp and mild tachycardia. - Supportive care - DVT prophylaxis with Xarelto medically stable for d/c on 01/04 hold bp meds due to low bp. (2) Anemia Status: Chronic Plan: - See above. 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 - Post-operatively his H/H decreased today to 6.9/21.0 s/p 2 units. give 1 more unit prior to d/c (3) Non-small cell carcinoma of lung, stage 4 Status: Chronic Plan: - Pt has stage IV poorly differentiated [id number] lung cancer diagnosed in early 2015 with mets to the chest wall and bones - He has completed six cycles of carboplatin, Alimta and bevacizumab but was found to have disease progression in 05/2016. - Pt has also received focal radiation treatment to the chest wall. - Pt follows with Dr. Cordon and is on second line therapy with IV Zometa for bony disease and immunotherapy with Nivolumab. - Review of outpt records revealed his most recent PET/CT on 12/12/16 revealed new metastatic disease in the left proximal femur and right anterior 7th rib costochondral junction. - He last received immunotherapy on 12/17/16 (4) Hypertension Status: Chronic Plan: - bp has been low. hold bp meds. (5) COPD (chronic obstructive pulmonary disease) Status: Chronic (6) CHF (congestive heart failure) Status: Chronic Plan: - Pt has chronic systolic and diastolic CHF - 2D echo (November 2015) --> EF 40-45% and Grade 1 diastolic dysfunction - He has chronic LE edema - He is not currently on any diuretic therapy Problem Qualifiers (1) CHF (congestive heart failure): Qualified Code: I50.42 - Chronic combined systolic and diastolic congestive heart failure Fortunato Demarco MD Jan 03, 2017 09:59
[2017-01-03] MEDS: diphenhydrAMINE HCL 25 MG CAP PO PRN (12:47)
[2017-01-04] VITALS: BP 129/71; PULSE 123; RESP 24; TEMP 99.6; O2SAT 90
[2017-01-04] MEDS: ACETAMINOPHEN/HYDROcodone 325 MG/10 MG TAB PO PRN ×2 (04:12→10:14)
--- NOTE | 2017-01-04 07:24 | PD.ORT.PN ---
Subjective Post Op Day #: 4 Subjective Remarks Pt awake and alert, answering questions appropriately. He admits he received blood yesterday and is feeling well. Admits to well controlled left leg pain. No other complaints noted. Objective Vitals Vital Signs Date Time Temp Pulse Resp B/P Pulse Ox O2 Delivery O2 Flow Rate FiO2 01/04/17 00:00 99.6 123 24 129/71 90 01/03/17 21:16 Nasal Cannula 2.00 01/03/17 20:00 99.0 115 22 119/67 90 01/03/17 18:10 98 21 01/03/17 16:55 97.2 114 16 128/73 98 01/03/17 16:00 97.2 114 16 128/73 98 01/03/17 14:19 93 Nasal Cannula 2.00 01/03/17 13:13 96.5 118 16 87/61 98 01/03/17 12:58 96.8 117 16 107/65 96 01/03/17 12:58 96.7 117 16 107/65 96 01/03/17 11:59 Nasal Cannula 2.00 01/03/17 08:00 97.9 110 16 115/67 94 I/O 01/03/17 01/03/17 01/03/17 01/04/17 01/04/17 01/04/17 07:00 15:00 23:00 07:00 15:00 23:00 Intake Total 240 ml 480 ml 150 ml Output Total 400 ml 275 ml Balance 240 ml 80 ml -125 ml Intake Oral 240 ml 480 ml 150 ml Output Urine Total 400 ml 275 ml # Voids 1 # Bowel Movements 1 1 0 Result Diagram: 01/03/17 0515 01/03/17 0515 Imaging Last Impressions Femur X-Ray 12/31/16 0000 Signed Impressions: Service Date/Time: Saturday, December 31, 2016 10:22 - CONCLUSION: Status post ORIF with hardware in good position. Enmanuel Cooper MD Procedures IM nail left femur Objective Remarks Left lower extremity: Clean dry dressings intact. Minimal swelling. Minimal pain with movement of hip knee or ankle. Distally intact sensation with good capillary refills Assessment & Plan Ortho Post Op Day #: 4 Problem List: (1) Lytic bone lesion of left femur Assessment and Plan Status post IM nail left femur - POD 4 Physical therapy for weightbearing as tolerated Daily dressing changes Incentive spirometry Plan for discharge to home with home health care most likely today when cleared by medical plan for DC after H/H stabilized - levels have increased after blood transfusion Follow-up with Dr. Willoughby or [place] in 2 weeks Lily Benítez Jan 04, 2017 07:24
[2017-01-04 08:00] VITALS: BP 125/75; PULSE 111; RESP 18; TEMP 98; O2SAT 92
[2017-01-04] MEDS: DOCUSATE SODIUM 100 MG CAP PO SCH (09:00)
[2017-01-04] MEDS: REMOVE OLD NITRO-DUR (NITROGLYCERIN) PATCH TD SCH (09:00)
[2017-01-04] MEDS: PYRIDOXINE HCL 50 MG TAB PO SCH (10:12)
[2017-01-04] MEDS: PANTOPRAZOLE SOD 20 MG DELAYED RELEASE TAB PO SCH (10:13)
[2017-01-04] MEDS: GABAPENTIN 300 MG CAP PO SCH (10:13)
[2017-01-04] MEDS: CALCIUM/VITAMIN D 250 MG/125 U TAB PO SCH ×2 (10:13→13:00)
[2017-01-04] MEDS: ALLOPURINOL 100 MG TAB PO SCH (10:13)
[2017-01-04] MEDS: ASPIRIN EC 81 MG TABEC PO SCH (10:13)
[2017-01-04] MEDS: CYANOCOBALAMIN 1,000 MCG TAB PO SCH (10:13)
[2017-01-04] MEDS: SODIUM CHLORIDE 0.9% FLUSH 5 ML FLUSH IVF SCH (10:14)
[2017-01-04] MEDS: ENOXAPARIN SODIUM 30 MG/0.3 ML SYRINGE SQ SCH (10:19)
[2017-01-04] MEDS: NITROGLYCERIN 0.4 MG/HR PATCH T-DERMAL SCH (10:20)
[2017-01-04 12:01] VITALS: BP 102/66; PULSE 118; RESP 18; TEMP 97.1; O2SAT 97
--- NOTE | 2017-02-02 12:33 | HHI.DS ---
Discharge Summary Admission Date Dec 31, 2016 at 06:17 Discharge Date: Jan 04, 2017 Admitting Diagnosis Metastatic lesion of left femur Diagnosis: (1) Lytic bone lesion of left femur Diagnosis: Principal Procedures IM nail left femur PE at Discharge Left lower extremity: Clean dry dressings intact. Minimal swelling. Minimal pain with movement of hip knee or ankle. Distally intact sensation with good capillary refills Hospital Course Patient admitted from outpatient setting for prophylactic nailing of left hip due to lytic lesions. Patient tolerated the procedure well. He was admitted to [address] [place] [address]. He had difficulty with pain issues. Later it was well-controlled. He was out of bed with therapy and fully weightbearing. He was hemodynamically stable. He is fit for discharge to a group home facility. He'll remain weightbearing as tolerated and perform daily dressing changes. He'll follow-up in the office Dr. Odell or his PA in 2 weeks Pt Condition on Discharge: Fair Discharge Disposition: Disch w/ Home Health Serv Discharge Instructions Diet Instructions: As Tolerated, No Restrictions Activities You Can Perform: Weight Bearing as Jocelyn Follow up Referrals: Orthopedics - 2 Weeks @ [facility] with Yamil Odell MD New Medications: Rivaroxaban (Xarelto) 10 Mg Tab 10 MG PO DAILY Blood Clot Prevention #14 Ref 0 TAB Continued Medications: Albuterol 18 GM Inh (Ventolin Hfa 18 GM Inh) 90 Mcg/Act Aer 2 PUFF INH Q4-6H PRN SHORTNESS OF BREATH #1 Ref 0 INHALER Albuterol Neb (Albuterol Neb) 2.5 Mg/0.5 Ml Neb 2.5 MG NEB DAILY Note: The Albuterol Sulfate Inhalation Solution is concentrated and must be diluted. Read complete instructions carefully before using. PRN SHORTNESS OF BREATH #1 Ref 0 NEBULE Allopurinol (Allopurinol) 100 Mg Tab 100 MG PO DAILY Gout #30 Ref 0 TAB Alprazolam (Alprazolam) 0.5 Mg Tab 0.5 MG PO Q6H PRN ANXIETY Ref 0 TAB Aspirin (Aspirin) 81 Mg Tabdr 81 MG PO DAILY TAB Calcium Carbonate-Cholecalciferol (Calcium 500 +D3) 500-600 Mg-Unit Tab 1 TAB PO BID TAB Cyanocobalamin (Vitamin B-12) 1,000 Mcg Tab 1000 MCG PO DAILY Nutritional Supplement #1 Ref [address] (Diclofen[address] Sodium DR) 75 Mg Tabdr 75 MG PO DAILY #30 Ref 0 TAB Gabapentin (Gabapentin) 400 Mg Cap 400 CAP PO BID #30 Ref 0 CAP Hydrocodone-Acetaminophen (Hydrocodone-Acetaminophen) 10-325 mg Tab 1 TAB PO Q4H PRN PAIN #60 Ref 0 TAB (This prescription has been renewed) Multiple Vitamins W/ Minerals (Multivitamin Adults) 1 Tab 1 TAB PO DAILY Nutritional Supplement Ref 0 TAB Nitroglycerin Patch 24 HR (Nitroglycerin Patch 24 HR) 0.4 Mg/Hr Patch 0.4 MG T-DERMAL DAILY 12 HOURS ON AND THEN OFF FOR 12 HOURS Chest Pain #30 Ref 0 PATCH Omeprazole (Omeprazole) 20 Mg Tab 20 MG PO DAILY #30 Ref 0 TAB Pyridoxine (Vitamin B-6) 100 Mg Tab 100 MG PO DAILY Nutritional Supplement #30 Ref 0 TAB Discontinued Medications: Labetalol (Labetalol) 200 Mg Tab 200 MG PO DAILY Blood Pressure Management Ref 0 TAB Losartan (Losartan) 50 Mg Tab 50 MG PO DAILY Blood Pressure Management #30 Ref 0 TAB [employer] Feb 02, 2017 12:33
== END 2017-01-04 13:25 | disposition home health service (06) | DRG 481 ==
LOC: HSDI 12-31 06:17 → N06A 12-31 17:29
PROVIDERS: ADMIT Orthopaedic Surgery Orthopaedic Trauma; ATTEND Orthopaedic Surgery Orthopaedic Trauma
PROC: 0QH706Z Insertion of Intramedullary Internal Fixation Device into Left Upper Femur, Open Approach (ICD-10-PCS; principal; 2016-12-31 09:01)
PROC: 30233N1 Transfusion of Nonautologous Red Blood Cells into Peripheral Vein, Percutaneous Approach (ICD-10-PCS; 2017-01-02)
DX: C79.51 Secondary malignant neoplasm of bone (principal); I50.42 Chronic combined systolic (congestive) and diastolic (congestive) heart failure; D64.81 Anemia due to antineoplastic chemotherapy; J44.9 Chronic obstructive pulmonary disease, unspecified; C34.12 Malignant neoplasm of upper lobe, left bronchus or lung; R00.0 Tachycardia, unspecified; M54.9 Dorsalgia, unspecified; G89.29 Other chronic pain; I10 Essential (primary) hypertension; M10.9 Gout, unspecified; G62.9 Polyneuropathy, unspecified; M19.012 Primary osteoarthritis, left shoulder; T45.1X5A Adverse effect of antineoplastic and immunosuppressive drugs, initial encounter; Z87.891 Personal history of nicotine dependence; Z91.041 Radiographic dye allergy status; Z92.3 Personal history of irradiation
CPT/HCPCS: 36430; 71010; 73552; 76000; 80048; 81001; 83735; 85014; 85018; 85025; 86850; 86900; 86901; 86920; 86922; 87040; 88307; 88309; 88311; 94664; C1713; J0131; J0690; J1130; J1170; J1580; J1650; J1940; J2250; J2270; J2370; J3010; J3370; J7050; J7120; J7613; P9016

== ENCOUNTER 2017-01-15 09:44 | Inpatient (IN) | payer MEDICARE ==
[~2017-01-15] VITALS: Ht 193 cm; Wt 93.2 kg
[~2017-01-15 09:44] MED LIST: ALBU.5I NEB; ALLO100T PO; ALPR0.5T3 PO; ASPI1TAB69 PO; CALC1TAB55 PO; DICL75TA PO; GABA400C5 PO; HYDR-3583 PO; MULT1TAB84 PO; NITR0.4D2 T-DERMAL; OMEP20TA PO; PYRI100T PO; VENTAER INH; VITA10002 PO; WALKER WHEELS/F1 MIS; XARE10TA PO
[2017-01-15 09:46] VITALS: BP 113/71; PULSE 86; RESP 17; TEMP 97.8; O2SAT 98
[2017-01-15] MEDS ORDERED: MORPHINE SULFATE 4 MG/ML INJ IV PUSH ONE (10:00)
--- NOTE | 2017-01-15 10:01 | PD ---
HPI Chief Complaint: Fall Time Seen by Provider: 09:53 Travel History International Travel<30 days: No Contact w/Intl Traveler<30days: No Traveled to known affect area: No History of Present Illness HPI This 71-year-old man who presents to the emergency department complaining of bilateral hip pain and low back pain after a fall. Patient has metastatic poorly differentiated non-small cell lung CA, on palliative chemotherapy, with a bony metastasis and impending pathologic fracture to the left femur, now status post IM nail with Dr. Willoughby on December 31. He was discharged to home. He is been walking with a walker. He states he got unsteady and fell today. He 's been also generally weak. He has pain on his left hip, and has been having some right hip pain. He also complains of low back pain. History Past Medical History Narrative Medical Stage IV poorly differentiated [id number] lung cancer diagnosed in early 2015 with mets to the chest wall and bones. Anemia secondary to chemotherapy Chronic left lower extremity edema Osteoarthritis of the left shoulder COPD Systolic and diastolic CHF Gout Hypertension Peripheral Neuropathy Pneumonia in 2014 2D echo (November 2015) - EF 40-45% - Grade 1 diastolic dysfunction Social History Alcohol Use: No Tobacco Use: No Allergies-Medications (Allergen,Severity, Reaction): Coded Allergies: Contrast Media (Verified Allergy, Severe, ANAPHYLAXIS, 12/31/16) Lisinopril (Unverified Allergy, Severe, VERTIGO, SYNCOPE, 12/31/16) Reported Meds & Prescriptions Reported Meds & Active Scripts Active Xarelto (Rivaroxaban) 10 Mg Tab 10 Mg PO DAILY Hydrocodone-Acetaminophen 10-325 mg Tab 1 Tab PO Q4H PRN Reported Omeprazole 20 Mg Tab 20 Mg PO DAILY Vitamin B-6 (Pyridoxine HCl) 100 Mg Tab 100 Mg PO DAILY Vitamin B-12 (Cyanocobalamin) 1,000 Mcg Tab 1,000 Mcg PO DAILY Nitroglycerin Patch 24 HR (Nitroglycerin) 0.4 Mg/Hr Patch 0.4 Mg T-DERMAL DAILY 12 HOURS ON AND THEN OFF FOR 12 HOURS Multivitamin Adults (Multiple Vitamins W/ Minerals) 1 Tab 1 Tab PO DAILY Gabapentin 400 Mg Cap 400 Cap PO BID Diclofenac Sodium DR (Diclofenac Sodium) 75 Mg Tabdr 75 Mg PO DAILY Calcium 500 +D3 (Calcium Carbonate-Cholecalciferol) 500-600 Mg-Unit Tab 1 Tab PO BID Alprazolam 0.5 Mg Tab 0.5 Mg PO Q6H PRN Ventolin Hfa 18 GM Inh (Albuterol Sulfate) 90 Mcg/Act Aer 2 Puff INH Q4-6H PRN Aspirin 81 Mg Tabdr 81 Mg PO DAILY Allopurinol 100 Mg Tab 100 Mg PO DAILY Albuterol Neb (Albuterol Sulfate) 2.5 Mg/0.5 Ml Neb 2.5 Mg NEB DAILY PRN Note: The Albuterol Sulfate Inhalation Solution is concentrated and must be diluted. Read complete instructions carefully before using. Review of Systems Except as stated in HPI: all other systems reviewed are Neg Physical Exam Narrative GENERAL: Well-appearing 8-year-old man, uncomfortable but nontoxic. SKIN: Warm and dry. HEAD: Atraumatic. Normocephalic. EYES: Pupils equal and round. No scleral icterus. No injection or drainage. ENT: No nasal bleeding or discharge. Mucous membranes pink and moist. NECK: Trachea midline. No JVD. CARDIOVASCULAR: Regular rate and rhythm. No murmur appreciated. RESPIRATORY: No accessory muscle use. Clear to auscultation. Breath sounds equal bilaterally. GASTROINTESTINAL: Abdomen soft, non-tender, nondistended. Hepatic and splenic margins not palpable. MUSCULOSKELETAL: No obvious deformities. There is no shortening or rotation. Surgical sites on the left lateral thigh are intact, yessica in place, with good wound approximation and no erythema redness or drainage. He has pain with any movement of the left hip. He has pain with some movement right hip but is able to range it still fairly well. No apparent injury to the knees. He has minimal diffuse tenderness in the lower back, with no obvious bony step-offs deformities or ecchymosis or bruising. NEUROLOGICAL: Awake and alert. No obvious cranial nerve deficits. Motor grossly within normal limits. Normal speech. PSYCHIATRIC: Appropriate mood and affect; insight and judgment normal. Data Data Last Documented VS Vital Signs Date Time Temp Pulse Resp B/P Pulse Ox O2 Delivery O2 Flow Rate FiO2 01/15/17 10:55 106 17 120/71 99 01/15/17 09:46 97.8 Orders Complete Blood Count With Diff (01/15/17 09:56) Comprehensive Metabolic Panel (01/15/17 09:56) Act Partial Throm Time (Ptt) (01/15/17 09:56) Prothrombin Time / Inr (Pt) (01/15/17 09:56) Iv Access Insert/Monitor (01/15/17 09:56) Spine, Lumbar Comp W/Obliq (01/15/17 ) Hip, Uni(Ap&Lat) W Ap Pelvis (01/15/17 ) Femur (Ap & Lat/2vws) (01/15/17 ) Morphine Inj (Morphine Inj) (01/15/17 10:00) Electrocardiogram (01/15/17 ) Admit Order (Ed Use Only) (01/15/17 ) Labs Laboratory Tests Test 01/15/17 10:00 White Blood Count 9.8 TH/MM3 Red Blood Count 2.95 MIL/MM3 Hemoglobin 8.0 GM/DL Hematocrit 24.7 % Mean Corpuscular Volume 83.5 FL Mean Corpuscular Hemoglobin 27.1 PG Mean Corpuscular Hemoglobin 32.5 % Concent Red Cell Distribution Width 17.7 % Platelet Count 412 TH/MM3 Mean Platelet Volume 6.6 FL Neutrophils (%) (Auto) 82.0 % Lymphocytes (%) (Auto) 7.8 % Monocytes (%) (Auto) 9.8 % Eosinophils (%) (Auto) 0.1 % Basophils (%) (Auto) 0.3 % Neutrophils # (Auto) 8.1 TH/MM3 Lymphocytes # (Auto) 0.8 TH/MM3 Monocytes # (Auto) 1.0 TH/MM3 Eosinophils # (Auto) 0.0 TH/MM3 Basophils # (Auto) 0.0 TH/MM3 CBC Comment DIFF FINAL Differential Comment Prothrombin Time 14.7 SEC Prothromb Time International 1.3 RATIO Ratio Activated Partial 39.9 SEC Thromboplast Time Sodium Level 129 MEQ/L Potassium Level 3.7 MEQ/L Chloride Level 95 MEQ/L Carbon Dioxide Level 22.7 MEQ/L Anion Gap 11 MEQ/L Blood Urea Nitrogen 10 MG/DL Creatinine 1.06 MG/DL Estimat Glomerular Filtration 84 ML/MIN Rate Random Glucose 110 MG/DL Calcium Level 8.5 MG/DL Total Bilirubin 1.0 MG/DL Aspartate Amino Transf 147 U/L (AST/SGOT) Alanine Aminotransferase 122 U/L (ALT/SGPT) Alkaline Phosphatase 433 U/L Total Protein 8.2 GM/DL Albumin 1.6 GM/DL [facility] Medical Decision Making Medical Screen Exam Complete: Yes Emergency Medical Condition: Yes Interpretation(s) LABS: CBC remarkable for mild anemia. CMP remarkable for elevated AST ALT and alkaline phosphatase Coags INR 1.3 X-ray left femur left hip and AP pelvis and lumbar spine show no bony injury. Differential Diagnosis Hip injury, leg injury, back injury, occult head injury, other Narrative Course Medical decision making 71 year-old man presents to the emergency department after trip and fall, 15 days after IM nail for impending pathologic fracture and a pathologic in a bony metastasis of the left femur. Concern for injury to the bone, or pelvic fracture. We'll check labs, x-rays, x-ray back, reassess. FINAL: No evidence of bony injury. Family states worsening general weakness, confusion, ongoing.I don't see any recent cerebral imaging. No known cervical metastasis. We'll plan on admission for further evaluation. Diagnosis Primary Impression: Generalized weakness Additional Impressions: Fall Qualified Code: W19.XXXA - Fall, initial encounter Confusion Louis Calabrese MD Jan 15, 2017 10:01
[2017-01-15 10:36] LABS: AUTOMATED NEUTROPHIL # 8.1 TH/MM3 (1.8-7.7); BASOPHIL % 0.3 % (0.0-2.0); EOSINOPHIL % 0.1 % (0.0-4.0); HEMATOCRIT 24.7 % (39.0-51.0); HEMO FLAGS DIFF FINAL; LYMPH % 7.8 % (9.0-44.0); LYMPHOCYTE # 0.8 TH/MM3 (1.0-4.8); MEAN CELL VOLUME 83.5 FL (80.0-100.0); MEAN CORPUSCULAR HEMOGLOBIN 27.1 PG (27.0-34.0); MEAN CORPUSCULAR HGB CONC 32.5 % (32.0-36.0); MONO % 9.8 % (0.0-8.0); PLATELET COUNT 412 TH/MM3 (150-450); RED BLOOD COUNT 2.95 MIL/MM3 (4.50-5.90); RED CELL DISTRIBUTION WIDTH 17.7 % (11.6-17.2); WHITE BLOOD COUNT 9.8 TH/MM3 (4.0-11.0)
[2017-01-15 10:46] LABS: APTT (PATIENT) 39.9 SEC (24.3-30.1); INTERNATIONAL NORMALIZED RATIO 1.3 RATIO; PROTHROMBIN TIME - PATIENT 14.7 SEC (9.8-11.6)
[2017-01-15 10:55] VITALS: BP 120/71; PULSE 106; RESP 17; O2SAT 99
[2017-01-15 10:55] LABS: ANION GAP 11 MEQ/L (5-15); AST (GOT) 147 U/L (15-37); BICARBONATE 22.7 MEQ/L (21.0-32.0); BLOOD UREA NITROGEN 10 MG/DL (7-18); CHLORIDE 95 MEQ/L (98-107); GLOMERULAR FILTRATION RATE 84 ML/MIN (>89); POTASSIUM 3.7 MEQ/L (3.5-5.1); SODIUM (NA) 129 MEQ/L (136-145)
[2017-01-15 10:59] LABS: ALKALINE PHOSPHATASE 433 U/L (45-117); ALT (GPT) 122 U/L (12-78)
--- NOTE | 2017-01-15 11:01 | RADRPT ---
EXAM DATE/TIME: 01/15/2017 10:21 [facility] COMPARISON: FEMUR LEFT (AP & LAT/2VWS), December 31, 2016, 10:22. INDICATIONS : Left femur pain, fall. MEDICAL HISTORY : None. SURGICAL HISTORY : Left femur, troch nail ENCOUNTER: Initial ACUITY: 1 day PAIN SCORE: 10/10 LOCATION: Left proximal femur FINDINGS: 6 images of the left femur reveal a femoral neck screw with long intramedullary darrian and distal anchor ing screws. Good alignment is noted. Osteoarthritis involving the hip and knee. Surgical yessica over lie the distal lateral thigh. Diffuse osteopenia. CONCLUSION: Intramedullary darrian and femoral neck screw with good alignment. Osteoarthritis of the hip and knee. Raj Nair Jr., MD on January 15, 2017 at 10:57 Board Certified Radiologist. This report was verified electronically.
--- NOTE | 2017-01-15 11:02 | RADRPT ---
EXAM DATE/TIME: 01/15/2017 10:21 [facility] COMPARISON: No previous studies available for comparison. INDICATIONS : Left hip pain, fall. MEDICAL HISTORY : None. SURGICAL HISTORY : Left femur, troch nail ENCOUNTER: Initial ACUITY: 1 day PAIN SCORE: 10/10 LOCATION: Left proximal hip FINDINGS: 3 views of the pelvis and left hip show an intramedullary darrian with femoral necks group on the left. T he femoral neck screw is contained within the cortical confines of the femoral head. The alignment of the intertrochanteric fracture noted. Degenerative changes of the hips and SI joints bilaterally. No acute fracture or dislocation. Soft tissues are unremarkable. CONCLUSION: Orthopedic hardware involving the left hip with good alignment. No acute abnormality. Raj Nair Jr., MD on January 15, 2017 at 10:59 Board Certified Radiologist. This report was verified electronically.
--- NOTE | 2017-01-15 11:23 | RADRPT ---
EXAM DATE/TIME: 01/15/2017 10:32 [facility] COMPARISON: CHEST SINGLE AP, November 30, 2015, 15:04. INDICATIONS : Lower back pain, fall. MEDICAL HISTORY : None. SURGICAL HISTORY : None. ENCOUNTER: Initial ACUITY: 1 day PAIN SCORE: 0/10 LOCATION: Bilateral lumbar FINDINGS: A complete lumbar spine series shows a grade 1 anterolisthesis of L4 on L5. No definitive pars defect s observed. There is a scoliotic curvature with concavity towards the patient's left centered at L4. There is mild anterior wedging of the T12 and L1 vertebral bodies. No cortical or trabecular irregula rities. Remaining vertebral body heights are maintained. Disc space narrowing without significant ost eophyte production at L4-L5 and L5-S1 no significant facet arthropathy changes at these 2 levels. Mil d scattered calcified plaque of the abdominal aorta. CONCLUSION: 1. No acute abnormality. 2. Degenerative changes and scoliotic curvature as detailed above. 3. Wedge deformities involving T12 and L1. These either relate to old compression deformities or coul d relate to anatomical variance which is not uncommon at the cortical lumbar junction. Raj Nair Jr., MD on January 15, 2017 at 11:19 Board Certified Radiologist. This report was verified electronically.
[2017-01-15 12:36] VITALS: BP 145/79; PULSE 101; RESP 17; TEMP 97.8; O2SAT 97
--- NOTE | 2017-01-15 13:03 | HHI.HP ---
HPI Service [facility] Hospitalists Primary Care Physician Ravin De Paz MD Admission Diagnosis weakness, falls Chief Complaint: Fall, hip pain Travel History International Travel<30 Days: No Contact w/Intl Traveler <30 Da: No Traveled to Known Affected Are: No History of Present Illness Mr. 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 He has completed six cycles of carboplatin, Alimta and bevacizumab but was found to have disease progression in 05/2016. Pt has also received focal radiation treatment to the chest wall. Pt follows with Dr. Cordon and is on second line therapy with IV Zometa for bony disease and immunotherapy with Nivolumab. Review of outpt records revealed his most recent PET/CT on 12/12/16 revealed new metastatic disease in the left proximal femur and right anterior 7th rib costochondral junction. Pt was recently admitted to [facility] on 12/31/16 for impending pathologic fracture of left proximal femur secondary to metastatic lesion in proximal femur and underwent intramedullary nail fixation of left femur with Dr. Odell. Pt had post-operative anemia and received 2 units of PRBCs. He was discharged on 01/04/17 to home with [facility]/PT. Pt presented to the ED at [facility] on 01/15/17 with complaints of bilateral hip pain and lower back pain after a fall today at home. He states he has been using a walker to get around at home but today he was unsteady and felt generally weak and fell. He is unable to tell me any specific details about his fall. He complains more of pain on his left but also notes pain in the right hip and lower back. XRays in the ED did not reveal any acute fractures or issues with the recent hardware placement. Pt seems somewhat confused and unable to give a lot of details to me at the time of the exam. Review of Systems Constitutional: DENIES: Fever, Chills Ears, nose, mouth, throat: DENIES: Vertigo, Hoarseness Respiratory: DENIES: Cough, Sputum production, Shortness of breath Cardiovascular: DENIES: Chest pain, Syncope, Lower Extremity Edema Gastrointestinal: DENIES: Abdominal pain, Diarrhea, Nausea, Vomiting Genitourinary: DENIES: Hematuria Musculoskeletal: COMPLAINS OF: Joint pain, Back pain Integumentary: DENIES: Abnormal pigmentation, Rash Hematologic/lymphatic: DENIES: Lymphadenopathy Neurologic: DENIES: Paresthesias Psychiatric: COMPLAINS OF: Confusion Past Family Social History Past Medical History Stage IV poorly differentiated [id number] lung cancer diagnosed in early 2015 with mets to the chest wall and bones. Anemia secondary to chemotherapy Chronic left lower extremity edema Osteoarthritis of the left shoulder COPD Systolic and diastolic CHF Gout Hypertension Peripheral Neuropathy Pneumonia in 2014 2D echo (November 2015) - EF 40-45% - Grade 1 diastolic dysfunction Past Surgical History Robotic lung surgery and biopsy of the left chest mass and left upper lung mass on January 02, 2016. Back surgery in 1977 Reported Medications Xarelto (Rivaroxaban) 10 Mg Tab 10 Mg PO DAILY Hydrocodone-Acetaminophen 10-325 mg Tab 1 Tab PO Q4H PRN Omeprazole 20 Mg Tab 20 Mg PO DAILY Vitamin B-6 (Pyridoxine HCl) 100 Mg Tab 100 Mg PO DAILY Vitamin B-12 (Cyanocobalamin) 1,000 Mcg Tab 1,000 Mcg PO DAILY Nitroglycerin Patch 24 HR (Nitroglycerin) 0.4 Mg/Hr Patch 0.4 Mg T-DERMAL DAILY 12 HOURS ON AND THEN OFF FOR 12 HOURS Multivitamin Adults (Multiple Vitamins W/ Minerals) 1 Tab 1 Tab PO DAILY Gabapentin 400 Mg Cap 400 Cap PO BID Diclofenac Sodium DR (Diclofenac Sodium) 75 Mg Tabdr 75 Mg PO DAILY Calcium 500 +D3 (Calcium Carbonate-Cholecalciferol) 500-600 Mg-Unit Tab 1 Tab PO BID Alprazolam 0.5 Mg Tab 0.5 Mg PO Q6H PRN Ventolin Hfa 18 GM Inh (Albuterol Sulfate) 90 Mcg/Act Aer 2 Puff INH Q4-6H PRN Aspirin 81 Mg Tabdr 81 Mg PO DAILY Allopurinol 100 Mg Tab 100 Mg PO DAILY Albuterol Neb (Albuterol Sulfate) 2.5 Mg/0.5 Ml Neb 2.5 Mg NEB DAILY PRN Note: The Albuterol Sulfate Inhalation Solution is concentrated and must be diluted. Read complete instructions carefully before using. Allergies: Coded Allergies: Contrast Media (Verified Allergy, Severe, ANAPHYLAXIS, 12/31/16) Lisinopril (Unverified Allergy, Severe, VERTIGO, SYNCOPE, 2/7/17) Family History Noncontributory Social History Denies any alcohol or illicit drug use Pt has a hx of tobacco use Physical Exam Vital Signs Vital Signs Date Time Temp Pulse Resp B/P Pulse Ox O2 Delivery O2 Flow Rate FiO2 01/15/17 12:36 97.8 101 17 145/79 97 Room Air 01/15/17 10:55 106 17 120/71 99 01/15/17 10:08 17 01/15/17 09:50 99 17 01/15/17 09:46 97.8 86 17 113/71 98 Physical Exam GENERAL: This is a well-nourished, well-developed patient, in no apparent distress. HEENT: Atraumatic. Normocephalic. No temporal or scalp tenderness. No scleral icterus. Airway patent. NECK: Trachea midline, supple, nontender. CARDIO: Regular, tachy. RESP: CTA bilaterally. No wheezes, rales, or rhonchi. ABD: +BS, soft, non-tender, nondistended. EXT: Extremities without clubbing, cyanosis, or edema. NEURO: Awake and alert. Motor and sensory grossly within normal limits. Normal speech. Laboratory Laboratory Tests Test 01/15/17 10:00 White Blood Count 9.8 Red Blood Count 2.95 Hemoglobin 8.0 Hematocrit 24.7 Mean Corpuscular Volume 83.5 Mean Corpuscular Hemoglobin 27.1 Mean Corpuscular Hemoglobin 32.5 Concent Red Cell Distribution Width 17.7 Platelet Count 412 Mean Platelet Volume 6.6 Neutrophils (%) (Auto) 82.0 Lymphocytes (%) (Auto) 7.8 Monocytes (%) (Auto) 9.8 Eosinophils (%) (Auto) 0.1 Basophils (%) (Auto) 0.3 Neutrophils # (Auto) 8.1 Lymphocytes # (Auto) 0.8 Monocytes # (Auto) 1.0 Eosinophils # (Auto) 0.0 Basophils # (Auto) 0.0 CBC Comment DIFF FINAL Differential Comment Prothrombin Time 14.7 Prothromb Time International 1.3 Ratio Activated Partial 39.9 Thromboplast Time Sodium Level 129 Potassium Level 3.7 Chloride Level 95 Carbon Dioxide Level 22.7 Anion Gap 11 Blood Urea Nitrogen 10 Creatinine 1.06 Estimat Glomerular Filtration 84 Rate Random Glucose 110 Calcium Level 8.5 Total Bilirubin 1.0 Aspartate Amino Transf 147 (AST/SGOT) Alanine Aminotransferase 122 (ALT/SGPT) Alkaline Phosphatase 433 Total Protein 8.2 Albumin 1.6 Result Diagram: 01/15/17 1000 01/15/17 1000 Imaging Last Impressions Lumbar Spine X-Ray 01/15/17 0000 Signed Impressions: Service Date/Time: Sunday, January 15, 2017 10:32 - CONCLUSION: 1. No acute abnormality. 2. Degenerative changes and scoliotic curvature as detailed above. 3. Wedge deformities involving T12 and L1. These either relate to old compression deformities or could relate to anatomical variance which is not uncommon at the cortical lumbar junction. Raj Nair Jr., MD Hip and Pelvis X-Ray 01/15/17 0000 Signed Impressions: Service Date/Time: Sunday, January 15, 2017 10:21 - CONCLUSION: Orthopedic hardware involving the left hip with good alignment. No acute abnormality. Raj Nair Jr., MD Femur X-Ray 01/15/17 0000 Signed Impressions: Service Date/Time: Sunday, January 15, 2017 10:21 - CONCLUSION: Intramedullary darrian and femoral neck screw with good alignment. Osteoarthritis of the hip and knee. Raj Nair Jr., MD Septic Shock Reassessment Heart: Regular rate and rhythm Lungs: Clear Skin: Warm Peripheral Pulses: Bounding Right Radial Bounding Left Radial Bounding Right Popliteal Bounding Left Popliteal Bounding Right Dorsalis Pedis Bounding Left Dorsalis Pedis Bounding Right Posterior Tibial Bounding Left Posterior Tibial Capillary Refill: <2 seconds Assessment and Plan Problem List: (1) Generalized weakness Status: Chronic Plan: - Pt admitted with bilateral hip pain (L>R) and low back pain after a fall at home. - No acute fractures noted on Hip and pelvic Xray and the intramedullary darrian and femoral neck screw noted to be in good alignment on femur Xray. - No acute abnormalities on lumbar spine Xray - Pt seems to be somewhat confused compared to previous admission. - Gentle IVF hydration - PT evaluation - Consult Palliative care medicine. Pt with metastatic NSC lung cancer with bony mets. - Now with elevated LFTs ?mets. Check Liver US - Monitor labs - Encourage oral intake. - Supportive care - DVT prophylaxis with Xarelto which he had been on post-operatively until 01/18 (2) Non-small cell carcinoma of lung, stage 4 Status: Chronic Plan: - Pt has stage IV poorly differentiated [id number] lung cancer diagnosed in early 2015 with mets to the chest wall and bones - He has completed six cycles of carboplatin, Alimta and bevacizumab but was found to have disease progression in 05/2016. - Pt has also received focal radiation treatment to the chest wall. - Pt follows with Dr. Cordon and is on second line therapy with IV Zometa for bony disease and immunotherapy with Nivolumab. - Review of outpt records revealed his most recent PET/CT on 12/12/16 revealed new metastatic disease in the left proximal femur and right anterior 7th rib costochondral junction. - We will consult Dr. Cordon, the pts Oncologist - We will also consult Palliative Care medicine for clarification of goals. (3) Elevated liver enzymes Status: Acute Plan: - Etiology unclear. ?metastatic disease - Check Liver US - Monitor labs (4) COPD (chronic obstructive pulmonary disease) Status: Chronic Plan: - Duonebs PRn (5) Anemia Status: Chronic Plan: - Pt received 2 units of PRBCs post-operatively during recent admission. - Currently his H/H is stable. (6) Hypertension Status: Chronic Plan: - Cont. home meds Assessment and Plan Patient examined. Assessment and plan formulated with Hollie Ching PA-C. I agree with the above. stage 4 lung ca. recent darrian to left femur for impending fx's present after fall. c/o leg pain. no fx on xrays. some confusion\ and hyponatremia. consult oncology and palliative. PT consult. decide on placement in snf vs comfort care. Hollie Ching Jan 15, 2017 13:02 Fortunato Demarco MD Jan 15, 2017 14:37
[2017-01-15] MEDS ORDERED: ACETAMINOPHEN 325 MG TAB PO PRN (13:15)
[2017-01-15] MEDS ORDERED: SODIUM CHLOR 0.9% 1000 ML INJ 1,000 ML IV SCH (13:15)
[2017-01-15] MEDS ORDERED: ONDANSETRON HCL 4 MG/2 ML VIAL IV PRN (13:15)
[2017-01-15] MEDS ORDERED: ACETAMINOPHEN/HYDROcodone 325 MG/5 MG TAB PO PRN ×2 (13:15)
[2017-01-15] MEDS ORDERED: ALBUTEROL SULFATE 90 MCG/ACT HFA 8 GM INHALER INH PRN (13:15)
[2017-01-15] MEDS ORDERED: RESP: ALBUTEROL 2.5 MG/IPRATROPIUM 0.5 MG NEB (PRN) NEB (13:30)
[2017-01-15 14:34] VITALS: BP 140/81; TEMP 97.8
[2017-01-15 15:00] VITALS: BP 101/62; PULSE 107; RESP 20; TEMP 99; O2SAT 95
--- NOTE | 2017-01-15 15:25 | RADRPT ---
EXAM DATE/TIME: 01/15/2017 13:28 [facility] COMPARISON: CT ABDOMEN & PELVIS W/O CONTRAST, December 01, 2015, 13:44. EXTERNAL COMPARISON : [facility], PET/CT - TUMOR METABOLISM, December 12, 2016. CT ABDOMEN, W/O CONTRAST, November 12, 2016, PET/CT - TUMOR METABOLISM, August 12, 2016 INDICATIONS : Abnormal lab values. MEDICAL HISTORY : Congestive heart failure. Hypertension. Arthritis. COPD. Right and left lung ma ss. COPD. Dyspnea. GERD. Right inguinal hernia. Gout. Chronic back pain. Lung cancer with mets to bon e. Chemotherapy. Hearing loss right ear. Neuropathy bilateral feet. Anemia secondary to chemo. Chroni c left lower extremity edema. Osteoarthritis of left shoulder. SURGICAL HISTORY : Lumbar surgery. Intramedullary nail fixation of left femur - 3 rods. Righ t chest implanted device. Blood transfusion. Focal radiation to chest wall. Lung surgery and biopsy o f left chest mass and upper lung mass. ENCOUNTER: Subsequent ACUITY: 1 day PAIN SCORE: 0/10 LOCATION: Bilateral upper quadrant MEASUREMENTS: LIVER: 20.9 cm length COMMON DUCT: 6 mm RIGHT KIDNEY: 13.7 x 4.7 x 6.4 cm SPLEEN: 12.0 cm length FINDINGS: LIVER: Normal echotexture without focal lesion or ductal dilatation. COMMON DUCT: No intraluminal mass or stone visualized. GALLBLADDER: Gallbladder wall may be mildly thickened at 4 mm and low level echoes debris or slud ge is noted. PANCREAS: Nonvisualized due to overlying bowel gas. RIGHT KIDNEY: No hydronephrosis, stone or mass. SPLEEN: No focal lesion. CONCLUSION: Hepatomegaly nonspecific. Gallbladder suggests borderline wall thickening of 4 mm and sludge with no evidence of stones and bile ducts appear normal. Jose J Nuñez MD on January 15, 2017 at 15:21 Board Certified Radiologist. This report was verified electronically.
[2017-01-15 20:00] VITALS: BP 136/73; PULSE 108; RESP 18; TEMP 97.2; O2SAT 94
[2017-01-15] MEDS: GABAPENTIN 400 MG CAP PO SCH (21:03)
[2017-01-15] MEDS: CALCIUM/VITAMIN D 250 MG/125 U TAB PO SCH (21:03)
--- NOTE | 2017-01-15 21:42 | EKG ---
Date Performed: 01/15/2017 Time Performed: 10:47:54 PTAGE: 71 years EKG: SINUS TACHYCARDIA NONSPECIFIC T-WAVE ABNORMALITY ABNORMAL RHYTHM ECG PREVIOUS TRACING : 06/25/2016 15.19 Compared to prior tracing no significant change DOCTOR: Oliver Murillo Interpretating Date/Time 01/15/2017 21:40:08
--- NOTE | 2017-01-15 23:00 | MB ---
cc: AVIS DRUMMOND DATE OF CONSULTATION: 01/15/2017 Date of : 1945 REASON FOR CONSULTATION Patient with a history of metastatic lung cancer who presents with a fall. CHIEF COMPLAINT Weakness, dizziness and fall. HISTORY OF PRESENT ILLNESS: Mr. Lombardo is a 71-year-old male who has a diagnosis of stage IV non-small cell lung cancer. He was diagnosed in early 2015. On presentation he had metastatic disease to bilateral lungs as well as rib bones. He was initially treated with carboplatin, Alimta and bevacizuimab, but he had disease progression in May of 2016. He has been treated with immunotherapy treatment with IV Nivolumab and has had mixed response, but overall his tumor burden has significantly decreased. He does have metastatic disease to the bone. He was found to have new metastatic disease in the left proximal femur and right anterior 7th rib costochondral junction. There was risk for fracture in the left proximal femur. He was referred to orthopedics for an evaluation. He recently underwent stabilization of his femur with a darrian placement due to an impending fracture. He was anemic postoperatively and received two units of packed red blood cells. He was discharged from the hospital on 01/04/2017. He presented to the emergency department with complaints of bilateral hip pain and lower back pain as well as weakness and fall. He was getting home physical therapy. I have been consulted to make further recommendations. REVIEW OF SYSTEMS: A comprehensive 14-point review of systems was completed which is negative except as described in HPI. PAST MEDICAL HISTORY 1. Stage IV poorly differentiated non-small cell lung cancer diagnosed in 2016 with mets to chest wall and bones. 2. History of anemia. 3. Chronic lower extremity edema. 4. Osteoarthritis of the left shoulder. 5. COPD. 6. Systolic and diastolic CHF. 7. Gout. 8. Hypertension. 9. Peripheral neuropathy. PAST SURGICAL HISTORY: 1. Recent orthopedic surgery to the femur. 2. Robotic lung surgery and biopsy of the left chest mass. 3. Left upper lobe mass in December of 2015. 4. Back surgery 1977. HOME MEDICATIONS: 1. Xarelto 10 milligrams daily. 2. Lortab 10/325 milligrams one tablet p.o. q4 hours p.r.n. 3. Omeprazole 20 milligrams daily. 4. Vitamin B6 and B12. 5. Multivitamins. 6. Gabapentin 400 milligrams p.o. b.i.d. 7. Diclofenac 75 milligrams one tablet p.o. daily 8. Calcium 9. Vitamin D. 10. Alprazolam 0.5 milligrams one tablet p.o. q6 hours p.r.n. 11. Ventolin HFA, 18 grams INH q4-6 hours. 12. Aspirin 81 milligrams one tablet p.o. daily 13. Allopurinol 100 milligrams one tablet p.o. daily ALLERGIES: CONTRAST LISINOPRIL FAMILY HISTORY: Noncontributory to this admission. SOCIAL HISTORY: He lives with his family. He does not smoke or drink. He does have a history of tobacco abuse in the past. PHYSICAL EXAMINATION: VITAL SIGNS: Blood pressure is 145/79, pulse in the 100s, temperature 97.8. GENERAL: Elderly male who is acutely ill in no apparent distress. HEENT: Pupils are equal, round, reactive to light. EOMI. No oral thrush. No oral lesions. Neck: Supple. No JVD, no bruits. No lymphadenopathy. Chest is clear to auscultation bilaterally. Cardiac: S1-S2, regular rate and rhythm. Abdomen: Soft, nontender, nondistended. Bowel sounds are present. Extremities: Without any edema, erythema or cyanosis. Skin: Without any petechiae, lesion or bruises. Musculoskeletal: Left hip pain. Neuro: No focal deficits. LABORATORY DATA WBCs 9.8, hemoglobin 8, platelet count is 412, MCV is 83.5. Serum chemistries show sodium of 129, chloride 95, BUN is 10, creatinine is 1.06, glucose is 110, AST is 147, ALT is 122, alk phos is 433, albumin is 1.6. Coags show INR 1.3. PT is 14.7, PTT 39.9. IMAGING STUDIES Femur x-ray shows intramedullary darrian and femoral neck screw with good alignment, osteoarthritis of the hip and knee. Hip and pelvic x-ray shows orthopedic hardware along the left hip without any abnormality. Liver ultrasound shows hepatomegaly. Gallbladder shows some wall thickening, 4 millimeter, and sludge with no evidence of stones and bile duct is normal. X-ray of the lumbar spine shows no acute abnormalities. Degenerative changes were seen, deformities involving T12 and L1 were seen. ASSESSMENT/PLAN This is 71-year-old male with a history of metastatic lung cancer who is currently being treated with IV Nivolumab and IV Zometa for bony metastatic disease. He is admitted with generalized weakness, hip pain and a fall. 1. Weakness/s/p Fall. Combination of deconditioning, recent hip surgery, anemia and dehydration. I would recommend IV fluids. We will give him one unit of packed red blood cells. Consult physical therapy. We need to make sure he does not have any underlying infection. 2. Elevated liver enzymes. Abdominal ultrasound did not show any abnormality. If the liver enzymes do not trend down, we will obtain CT of the abdomen and pelvis. We will check hepatitis profile. 3. Hyponatremia secondary to dehydration. Agree with IV hydration. 4. Non-small cell lung cancer. Overall his disease burden is very low. He does have bony metastatic disease. We need to medically optimize him. He will need physical therapy. He will see me outpatient in the clinic for further management of his lung cancer. 5. Pain control. Avoid Tylenol at this time due to elevated liver functions. I will DC [place] which was ordered on admission. Start Oxycodone 5mg q4-6 prn pain 6. 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 I will continue to follow this patient along. MD JAIME Jj/ROLANDO /6:00 PM /10:18 PM CHERISE
[2017-01-16] VITALS (13 sets, daily range): BP systolic 99–130; BP diastolic 63–79; PULSE 101–112; RESP 16–20; TEMP 97.5–101.3; O2SAT 87–96
[2017-01-16] MEDS ORDERED: ACETAMINOPHEN 500 MG CPLT PO ONE ×2 (01:45→23:15)
--- NOTE | 2017-01-16 02:16 | RADRPT ---
EXAM DATE/TIME: 01/16/2017 01:42 [facility] COMPARISON: CHEST SINGLE AP, January 02, 2017, 5:43. INDICATIONS : Fever. MEDICAL HISTORY : Carcinoma, lung. Hypertension Chronic obstructive pulmonary disease. SURGICAL HISTORY : None. ENCOUNTER: Initial ACUITY: 1 day PAIN SCORE: 0/10 LOCATION: Bilateral chest FINDINGS: The heart size is borderline enlarged. There is increased density along the superior lateral left deonte st there is a mild left effusion. Lungs are grossly clear otherwise. There is a right subclavian Infu se-a-Port in place. There is degenerative changes seen at the right glenohumeral joint. There is frac turing of the second left rib. CONCLUSION: 1. Masslike area seen at the superior lateral left chest. The overlying left second rib is fractured. 2. Mild left effusion. Magdy Davis MD on January 16, 2017 at 2:12 Board Certified Radiologist. This report was verified electronically.
[2017-01-16 04:11] LABS: AUTOMATED NEUTROPHIL # 7.3 TH/MM3 (1.8-7.7); BASOPHIL % 0.3 % (0.0-2.0); EOSINOPHIL % 0.3 % (0.0-4.0); HEMO FLAGS DIFF FINAL; LYMPH % 7.6 % (9.0-44.0); LYMPHOCYTE # 0.7 TH/MM3 (1.0-4.8); MEAN CELL VOLUME 83.7 FL (80.0-100.0); MEAN CORPUSCULAR HEMOGLOBIN 27.7 PG (27.0-34.0); MEAN CORPUSCULAR HGB CONC 33.1 % (32.0-36.0); MONO % 10.4 % (0.0-8.0); NEUT % 81.4 % (16.0-70.0); PLATELET COUNT 394 TH/MM3 (150-450); RED BLOOD COUNT 2.74 MIL/MM3 (4.50-5.90); RED CELL DISTRIBUTION WIDTH 17.8 % (11.6-17.2); WHITE BLOOD COUNT 8.9 TH/MM3 (4.0-11.0)
[2017-01-16 04:29] LABS: ALT (GPT) 132 U/L (12-78); ANION GAP 9 MEQ/L (5-15); AST (GOT) 138 U/L (15-37); BICARBONATE 22.8 MEQ/L (21.0-32.0); BLOOD UREA NITROGEN 10 MG/DL (7-18); CHLORIDE 99 MEQ/L (98-107); GLOMERULAR FILTRATION RATE 118 ML/MIN (>89); POTASSIUM 3.3 MEQ/L (3.5-5.1); SODIUM (NA) 131 MEQ/L (136-145)
[2017-01-16 04:55] LABS: ALKALINE PHOSPHATASE 369 U/L (45-117); TOTAL BILIRUBIN ADULT 0.9 MG/DL (0.2-1.0)
[2017-01-16 06:06] LABS: BLOOD, URINE NEG (NEG); COMMENT (UR) CULT NOT INDICATED; CULTURE IF INDICATED CULT NOT INDICATED; GLUCOSE,URINE NEG (NEG); KETONE, URINE NEG (NEG); NITRITE,URINE NEG (NEG); PH, URINE 5.5 (5.0-8.5); SQUAMOUS EPITHELIAL CELL URINE 1 /hpf (0-5); URINE COLOR YELLOW (YELLW/STRAW)
[2017-01-16] MEDS ORDERED: POTASSIUM CHLORIDE 20 MEQ CONTROLLED RELEASE TAB PO ONE (07:45)
[2017-01-16] MEDS: RIVAROXABAN 10 MG TAB PO SCH (08:49)
[2017-01-16] MEDS: GABAPENTIN 400 MG CAP PO SCH ×2 (08:49→19:55)
[2017-01-16] MEDS: PYRIDOXINE HCL 50 MG TAB PO SCH (08:49)
[2017-01-16] MEDS: PANTOPRAZOLE SOD 20 MG DELAYED RELEASE TAB PO SCH (08:49)
[2017-01-16] MEDS: CYANOCOBALAMIN 1,000 MCG TAB PO SCH (08:49)
[2017-01-16] MEDS: ASPIRIN EC 81 MG TABEC PO SCH (08:49)
[2017-01-16] MEDS: CALCIUM/VITAMIN D 250 MG/125 U TAB PO SCH ×2 (08:50→19:56)
--- NOTE | 2017-01-16 09:39 | HHI.PR ---
Subjective Remarks more oriented today. denies abdomen pain. says he will talk with daughter about snf. Objective Vitals heart reg lung cta abd s/nt ext no edema Vital Signs Date Time Temp Pulse Resp B/P Pulse Ox O2 Delivery O2 Flow Rate FiO2 01/16/17 06:31 97.5 102 16 117/75 93 01/16/17 06:12 98.2 103 16 117/77 95 01/16/17 04:00 99.2 107 16 99/65 92 01/16/17 01:15 101.0 01/16/17 00:59 87 01/16/17 00:57 101.3 112 18 115/67 92 01/15/17 20:00 97.2 108 18 136/73 94 01/15/17 15:00 99.0 107 20 101/62 95 01/15/17 14:37 17 01/15/17 14:34 97.8 98 17 140/81 98 01/15/17 12:36 97.8 101 17 145/79 97 Room Air 01/15/17 10:55 106 17 120/71 99 01/15/17 10:08 17 01/15/17 09:50 99 17 01/15/17 09:46 97.8 86 17 113/71 98 01/15/17 01/15/17 01/16/17 15:00 23:00 07:00 Intake Total 150 ml 250 ml Output Total 0 ml 500 ml Balance 150 ml -250 ml Intake Oral 150 ml 250 ml Output Urine Total 500 ml Stool Total 0 ml # Voids 0 # Bowel Movements 0 Result Diagram: 01/16/17 0357 01/16/17 0357 Imaging Last Impressions Lumbar Spine X-Ray 01/15/17 0000 Signed Impressions: Service Date/Time: Sunday, January 15, 2017 10:32 - CONCLUSION: 1. No acute abnormality. 2. Degenerative changes and scoliotic curvature as detailed above. 3. Wedge deformities involving T12 and L1. These either relate to old compression deformities or could relate to anatomical variance which is not uncommon at the cortical lumbar junction. Raj Nair Jr., MD Hip and Pelvis X-Ray 01/15/17 0000 Signed Impressions: Service Date/Time: Sunday, January 15, 2017 10:21 - CONCLUSION: Orthopedic hardware involving the left hip with good alignment. No acute abnormality. Raj Nair Jr., MD Femur X-Ray 01/15/17 0000 Signed Impressions: Service Date/Time: Sunday, January 15, 2017 10:21 - CONCLUSION: Intramedullary darrian and femoral neck screw with good alignment. Osteoarthritis of the hip and knee. 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 Recent orif to left fumur for pathological fx Pt has been falling at home, more confused. Noted to have hyponatremia probably volume depletion elevated lft...?mets. u/s liver noted. anemia related to malignancy. prbc ordered by oncology. general weakness. blood transfusion in progress cont NS. monitor na. replace kcl consider ct abdomen to eval for liver mets Pt eval. probably will need snf. xrays of pelvis/spine neg for new fx after fall. (2) Non-small cell carcinoma of lung, stage 4 Status: Chronic Plan: - Pt has stage IV poorly differentiated [id number] lung cancer diagnosed in early 2015 with mets to the chest wall and bones - He has completed six cycles of carboplatin, Alimta and bevacizumab but was found to have disease progression in 05/2016. - Pt has also received focal radiation treatment to the chest wall. - Pt follows with Dr. Cordon and is on second line therapy with IV Zometa for bony disease and immunotherapy with Nivolumab. - Review of outpt records revealed his most recent PET/CT on 12/12/16 revealed new metastatic disease in the left proximal femur and right anterior 7th rib costochondral junction. - We will consult Dr. Cordon, the pts Oncologist - We will also consult Palliative Care medicine for clarification of goals. (3) Elevated liver enzymes Status: Acute Plan: - Etiology unclear. ?metastatic disease -liver us noted. (4) COPD (chronic obstructive pulmonary disease) Status: Chronic Plan: - Duonebs PRn (5) Anemia Status: Chronic Plan: - Pt received 2 units of PRBCs post-operatively during recent admission. - 1 unit ordered per oncology (6) Hypertension Status: Chronic Plan: - Cont. home meds Fortunato Demarco MD Jan 16, 2017 09:39
[2017-01-16 10:02] LABS: HEPATITIS B SURFACE ANTIBODY 0.2 mIU/mL
--- NOTE | 2017-01-16 12:17 | PD.ONC.PN ---
Subjective Subjective Remarks Afebrile overnight. Patient resting comfortably without complaint. He just received pain meds and states he is comfortable. Objective Data Date Time Temp Pulse Resp B/P Pulse Ox O2 Delivery O2 Flow Rate FiO2 01/16/17 10:20 98.8 102 16 118/76 95 01/16/17 10:10 98.8 102 16 118/76 95 01/16/17 10:05 93 Nasal Cannula 2.00 01/16/17 08:00 98.0 101 16 130/79 96 01/16/17 06:31 97.5 102 16 117/75 93 01/16/17 06:12 98.2 103 16 117/77 95 01/16/17 04:00 99.2 107 16 99/65 92 01/16/17 01:15 101.0 01/16/17 00:59 87 01/16/17 00:57 101.3 112 18 115/67 92 01/15/17 20:00 97.2 108 18 136/73 94 01/15/17 15:00 99.0 107 20 101/62 95 01/15/17 14:37 17 01/15/17 14:34 97.8 98 17 140/81 98 01/15/17 12:36 97.8 101 17 145/79 97 Room Air Result Diagram: 01/16/17 0357 01/16/17 0357 Laboratory Results Laboratory Tests Test 01/16/17 01/16/17 03:57 05:45 White Blood Count 8.9 TH/MM3 Red Blood Count 2.74 MIL/MM3 Hemoglobin 7.6 GM/DL Hematocrit 23.0 % Mean Corpuscular Volume 83.7 FL Mean Corpuscular Hemoglobin 27.7 PG Mean Corpuscular Hemoglobin 33.1 % Concent Red Cell Distribution Width 17.8 % Platelet Count 394 TH/MM3 Mean Platelet Volume 6.2 FL Neutrophils (%) (Auto) 81.4 % Lymphocytes (%) (Auto) 7.6 % Monocytes (%) (Auto) 10.4 % Eosinophils (%) (Auto) 0.3 % Basophils (%) (Auto) 0.3 % Neutrophils # (Auto) 7.3 TH/MM3 Lymphocytes # (Auto) 0.7 TH/MM3 Monocytes # (Auto) 0.9 TH/MM3 Eosinophils # (Auto) 0.0 TH/MM3 Basophils # (Auto) 0.0 TH/MM3 CBC Comment DIFF FINAL Differential Comment Sodium Level 131 MEQ/L Potassium Level 3.3 MEQ/L Chloride Level 99 MEQ/L Carbon Dioxide Level 22.8 MEQ/L Anion Gap 9 MEQ/L Blood Urea Nitrogen 10 MG/DL Creatinine 0.79 MG/DL Estimat Glomerular Filtration 118 ML/MIN Rate Random Glucose 100 MG/DL Calcium Level 8.2 MG/DL Total Bilirubin 0.9 MG/DL Aspartate Amino Transf 138 U/L (AST/SGOT) Alanine Aminotransferase 132 U/L (ALT/SGPT) Alkaline Phosphatase 369 U/L Total Protein 7.7 GM/DL Albumin 1.5 GM/DL Vitamin B12 Level 1252 PG/ML Hepatitis B Surface Antibody, 0.2 mIU/mL Quant Hepatitis B Core IgM Antibody NEGATIVE Hepatitis C Antibody NEGATIVE Blood Type O POSITIVE Antibody Screen NEGATIVE Crossmatch Leukocyte-Reduced Red Blood Cells Blood Bank Comment Urine Color YELLOW Urine Turbidity CLEAR Urine pH 5.5 Urine Specific [place] 1.013 Urine Protein TRACE mg/dL Urine Glucose (UA) NEG mg/dL Urine Ketones NEG mg/dL Urine Occult Blood NEG Urine Nitrite NEG Urine Bilirubin NEG Urine Urobilinogen 4.0 MG/DL Urine Leukocyte Esterase NEG Urine RBC 1 /hpf Urine WBC 3 /hpf Urine Squamous Epithelial 1 /hpf Cells Microscopic Urinalysis Comment CULT NOT INDICATED Imaging Studies Last 24 hours Impressions Chest X-Ray 01/16/17 0000 Signed Impressions: Service Date/Time: December 01:42 - CONCLUSION: 1. Masslike area seen at the superior lateral left chest. The overlying left second rib is fractured. 2. Mild left effusion. Magdy Davis MD Administered Medications Medications (Trade) Dose Ordered Sig/Shirin Route PRN Reason Start Time Stop Time Status Last Admin Dose Admin Aspirin (Ecotrin Ec) 81 mg DAILY PO 01/16/17 09:00 01/16/17 08:49 Cyanocobalamin (Vitamin B12) 1,000 mcg DAILY PO 01/16/17 09:00 01/16/17 08:49 Gabapentin (Neurontin) 400 mg BID PO 01/15/17 21:00 01/16/17 08:49 Pantoprazole Sodium (Protonix) 20 mg DAILY PO 01/16/17 09:00 01/16/17 08:49 Pyridoxine HCl (Vitamin B6) 100 mg DAILY PO 01/16/17 09:00 01/16/17 08:49 Rivaroxaban (Xarelto) 10 mg DAILY PO 01/16/17 09:00 01/16/17 08:49 Calcium/Vitamin D (Oscal-D 250-125) 500 mg BID PO 01/15/17 21:00 01/16/17 08:50 Oxycodone HCl (Roxicodone) 5 mg Q4H PRN PO pain 01/15/17 18:15 01/16/17 08:49 Objective Remarks GENERAL: Elderly male, lying in bed resting. SKIN: Warm and dry. HEAD: Normocephalic. EYES: No scleral icterus. No injection or drainage. NECK: Supple, trachea midline. CARDIOVASCULAR: Regular rate and rhythm without murmurs. RESPIRATORY: Breath sounds equal bilaterally. No accessory muscle use. GASTROINTESTINAL: Abdomen soft, non-tender, nondistended. EXTREMITIES: No cyanosis MUSCULOSKELETAL: Adequate muscle tone. NEUROLOGICAL: No obvious focal deficit. Awake, alert, and oriented x3. Assessment/Plan Problem List: (1) Generalized weakness Status: Chronic Plan: due to deconditioning, recent hip surgery, anemia and dehydration. --continue IVF, supportive care --PT consulted (2) Non-small cell carcinoma of lung, stage 4 Status: Chronic Plan: --Overall his disease burden is very low. +bony metastatic disease. --need to medically optimize him. will consult PT (3) Elevated LFTs Status: Acute Plan: --Abdominal ultrasound did not show any abnormality. --If the liver enzymes do not trend down, we will obtain CT of the abdomen and pelvis. --hepatitis profile negative (4) Hyponatremia Status: Acute Plan: --monitor (5) Pain Status: Acute Plan: --Avoid Tylenol at this time due to elevated liver functions. --Oxycodone 5mg q4-6 prn pain (6) Malnutrition Status: Acute Plan: --Parts [employer] consult --supplements with diet Assessment 71y/o with metastatic NSCLC admitted for weakness, hip pain and a fall. h/o Stage IV poorly differentiated non-small cell lung cancer diagnosed in 2016 with mets to chest wall and bones. History of anemia. Chronic lower extremity edema. Osteoarthritis of the left shoulder. COPD. Systolic and diastolic CHF. Gout. Hypertension. Peripheral neuropathy. Plan 1. continue supportive care 2. encourage nutrition 3. physical therapy 4. monitor CBC, CMP Attending Statement The exam, history, and the medical decision-making described in the above note were completed with the assistance of the mid-level provider. I reviewed and agree with the findings presented. I attest that I had a [id number] encounter with the patient on the same day, and personally performed and documented my assessment and findings in the medical record. poor prognosis.Wants to be DNR. palliative care consulted. appreciate their assistance. 1. Weakness/s/p Fall. Combination of deconditioning, recent hip surgery, anemia and dehydration. - Receiving PRBC - PT eval 2. Elevated liver enzymes. Abdominal ultrasound did not show any abnormality. - Stable--Hep profile negative - Check CMV serology - CT abdo/pelvis if no improvement in liver enzymes - Avoid Tylenol and related products 3. Hyponatremia secondary to dehydration. improving with IV hydration. 4. Non-small cell lung cancer. Overall his disease burden is very low. He does have bony metastatic disease. Continue medical optimization/nutrition/PT physical therapy. O/P f/u for further management 5. Pain control. Avoid Tylenol at this time due to elevated liver functions. - Oxycodone 5mg q4-6 prn pain 6. 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
--- NOTE | 2017-01-16 15:53 | PD.CONS ---
Consult Service Palliative Care Consult Requested By Dr. Dav MD. Primary Care Physician Ravin De Paz MD Reason for Consultation a. To assist with evaluation and management of symptoms including: pain, constipation and debility b. To assist medical decision maker(s) with: better understanding of current medical conditions; weighing benefits/burdens of medical treatment options; making medical treatment decisions. . HPI History of Present Illness Mr. 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 As per history, patient was initially treated with chemotherapy and immunotherapy but had disease progression in May 2016. Patient has also received radiation treatment to the chest wall. Most recent PET /CT on 12/12/16 revealed new metastatic disease in the left proximal femur and right anterior 7th rib costochondral junction, he underwent intramedullary nail fixation of left femur on 12/31/16 for impending pathologic fracture of left proximal femur secondary to metastatic lesion. Patient was discharge home with home health/PT on 01/04/17. On 01/15/17, patient presented to ED endorsing bilateral hip pain and lower back pain secondary to mechanical fall at home. ED workup as follow: * Lumbar spine x-ray revealing no acute abnormalities. * Hip and pelvis x-ray negative for acute process. Orthopedic hardware involving the left hip with good alignment. * Femur x-ray showing intramedullary darrian and femoral neck screw with good alignment, OA of left hip and knee. * Liver US revealing nonspecific hepatomegaly and gallbladder wall thickening of 4mm with no evidence of stones. * WBC 9.8, Hgb 8.0, Pl count 412. Na 129, K 3.7, Bun/creat 10/1.06. Elevated LFT 's AST 147, ALT 122 and alk phos 433. Albumin 1.6. Oncology -Dr. Cordon consulted on 01/15/17, plan for medical optimization. PT consulted. plan for outpatient management of lung cancer. palliative care has been consulted to assist with clarification of goals of care in the setting of metastatic lung disease and physical deconditioning. Met patient in his room. Daughter February at bedside. Patient endorsing bilateral hips pain and low back pain that is worse with any movement. pain is sharp and currently rated at 10/10. feels that Oxycodone is helping somewhat but takes more than half an hour to take effect. Denies nausea, vomiting or abdominal discomfort. Reports constipation, last BM over a week ago. Takes stool softeners at home. Denies shortness of breath. Reports that his appetite is still poor but is trying to eat more. Medical update provided. Reviewed that patient's disease is metastatic and not curable. Reviewed that goal of therapy is for palliation of symptoms and prolongation of survival given his low burden disease. Patient reports that he has not bee feeling well since discharge from prior hospitalization on 01/04/17. He reports feeling weaker, with very low appetite, low oral intake and increasing pain. Reviewed discharge options of rehab/SNF vs home with home health/PT. patient wishing to discuss further with family. Discussed concerns of patient's decline in functional status and his ability to tolerate rehab/PT. Encouraged patient and daughter to discuss limitations of treatment in the setting of his progressive metastatic disease. Discussed the future role of hospice should his symptom burden increases or he has additional functional decline. Assisted patient to complete HCS designation document. Patient and daughter appreciative of my visit. Contact information has been provided. . Function/Cognitive Trajectory Residing with stepdaughter Briseida and patient's sister. Discharged from acute hospitalization on 01/04/17 with home health and PT. Requiring assistance with most ADL's. Using walker to ambulate short distances. Daughter February assisting most of the time. Daughter reports some intermittent confusion for the past week. . Review of Systems Constitutional: COMPLAINS OF: Fatigue, Change in appetite, Pain, Generalized weakness Endocrine: DENIES: Heat/cold intolerance Eyes: DENIES: Vision loss Ears, nose, mouth, throat: DENIES: Hearing loss, Oral lesions Respiratory: DENIES: Cough, Wheezing, Shortness of breath Cardiovascular: DENIES: Chest pain, Dyspnea on Exertion Gastrointestinal: COMPLAINS OF: Constipation, DENIES: Nausea, Vomiting, Difficulty Swallowing Musculoskeletal: COMPLAINS OF: Stiffness, Back pain Integumentary: DENIES: Abnormal pigmentation Hematologic/Lymphatics: DENIES: Bruising Immunologic/Allergic: DENIES: Eczema Neurologic: COMPLAINS OF: Poor Balance, DENIES: Seizures Psychiatric: COMPLAINS OF: Confusion Past Family Social History Coded Allergies: Contrast Media (Verified Allergy, Severe, ANAPHYLAXIS, 12/31/16) Lisinopril (Unverified Allergy, Severe, VERTIGO, SYNCOPE, 12/31/16) Past Medical History 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 Past Surgical History Intramedullary nail fixation of left femur on 12/31/16 Robotic lung surgery and biopsy of left chest wall mass Back surgery in 1977 . Reported Medications Xarelto (Rivaroxaban) 10 Mg Tab 10 Mg PO DAILY Hydrocodone-Acetaminophen 10-325 mg Tab 1 Tab PO Q4H PRN Omeprazole 20 Mg Tab 20 Mg PO DAILY Vitamin B-6 (Pyridoxine HCl) 100 Mg Tab 100 Mg PO DAILY Vitamin B-12 (Cyanocobalamin) 1,000 Mcg Tab 1,000 Mcg PO DAILY Nitroglycerin Patch 24 HR (Nitroglycerin) 0.4 Mg/Hr Patch 0.4 Mg T-DERMAL DAILY Multivitamin Adults (Multiple Vitamins W/ Minerals) 1 Tab 1 Tab PO DAILY Gabapentin 400 Mg Cap 400 Cap PO BID Diclofenac Sodium DR (Diclofenac Sodium) 75 Mg Tabdr 75 Mg PO DAILY Calcium 500 +D3 (Calcium Carbonate-Cholecalciferol) 500-600 Mg-Unit Tab 1 Tab PO BID Alprazolam 0.5 Mg Tab 0.5 Mg PO Q6H PRN Ventolin Hfa 18 GM Inh (Albuterol Sulfate) 90 Mcg/Act Aer 2 Puff INH Q4-6H PRN Aspirin 81 Mg Tabdr 81 Mg PO DAILY Allopurinol 100 Mg Tab 100 Mg PO DAILY Albuterol Neb (Albuterol Sulfate) 2.5 Mg/0.5 Ml Neb 2.5 Mg NEB DAILY PRN . Current Medications Medications (Trade) Dose Ordered Sig/Shirin Route Start Time Stop Time Status Last Admin (Zofran Inj) 4 mg Q6H PRN IV 01/15/17 13:15 (Proair Hfa Inh) 2 puff Q6H PRN INH 01/15/17 13:15 (Xanax) 0.5 mg Q6H PRN PO 01/15/17 13:15 (Ecotrin Ec) 81 mg DAILY PO 01/16/17 09:00 01/16/17 08:49 (Vitamin B12) 1,000 mcg DAILY PO 01/16/17 09:00 01/16/17 08:49 (Neurontin) 400 mg BID PO 01/15/17 21:00 01/16/17 08:49 (Protonix) 20 mg DAILY PO 01/16/17 09:00 01/16/17 08:49 (Vitamin B6) 100 mg DAILY PO 01/16/17 09:00 01/16/17 08:49 (Xarelto) 10 mg DAILY PO 01/16/17 09:00 01/16/17 08:49 (Oscal-D 250-125) 500 mg BID PO 01/15/17 21:00 01/16/17 08:50 (Roxicodone) 5 mg Q4H PRN PO 01/15/17 18:15 01/16/17 13:44 Substance Use Tobacco: former smoker. Quit in 2016. Alcohol: denies. Prescription med abuse: denies. Illicits: denies. . Psychosocial History . His last year. he has 1 biological son: Roscoe and 3 stepchildren, Whit, Briseida and Jose J. 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 He was living with his stepdaughter Briseida and her 's sister. . Spiritual/Cultural Factors Restorationism. . Living Will: Never completed Health Care Surrogate: Copy in medical record Durable Power of Sludge Filtration Attendant: Never completed Date completed: 01/16/2017. . Health Care Surrogate(s): Whit Yeimi as primary HCS and Jose J Marques as alternate surrogate. . Documented care wishes: No living will has been completed. . Today's verbally stated goals: full code. Goal is to improve functional status in order to continue antineoplastic therapy. . Family/friends goals: See above. . Ethical and Legal Issues No ethical or legal issues have been identified. . Physical Exam Vital Signs Date Time Temp Pulse Resp B/P Pulse Ox O2 Delivery O2 Flow Rate FiO2 01/16/17 12:00 99.0 103 16 125/75 96 01/16/17 10:20 98.8 102 16 118/76 95 01/16/17 10:10 98.8 102 16 118/76 95 01/16/17 10:05 93 Nasal Cannula 2.00 01/16/17 08:00 98.0 101 16 130/79 96 01/16/17 06:31 97.5 102 16 117/75 93 01/16/17 06:12 98.2 103 16 117/77 95 01/16/17 04:00 99.2 107 16 99/65 92 01/16/17 01:15 101.0 01/16/17 00:59 87 01/16/17 00:57 101.3 112 18 115/67 92 01/15/17 20:00 97.2 108 18 136/73 94 01/15/17 15:00 99.0 107 20 101/62 95 01/15/17 01/16/17 19:00 07:00 Intake Total 400 ml Output Total 500 ml Balance -100 ml Intake Oral 400 ml Output Urine Total 500 ml Stool Total 0 ml # Voids 0 # Bowel Movements 0 Exam CONSTITUTIONAL/GENERAL: This is an adequately nourished patient, in moderate distress secondary to pain. TUBES/LINES/DRAINS: PIV's. SKIN: No jaundice, rashes, or lesions. No wounds seen anteriorly. Skin temperature appropriate. Not diaphoretic. HEAD: Atraumatic. Normocephalic. EYES: Pupils equal and round and reactive. Extraocular motions intact. No scleral icterus. No injection or drainage. ENT: Hearing grossly normal. Nose without bleeding or purulent drainage. NECK: Trachea midline. Supple, nontender. CARDIOVASCULAR: Regular rate and rhythm without murmurs, gallops, or rubs. No JVD. Peripheral pulses symmetric. RESPIRATORY/CHEST: Symmetric, unlabored respirations. Clear to auscultation. Breath sounds equal bilaterally. No wheezes, rales, or rhonchi. GASTROINTESTINAL: Abdomen soft, non-tender, distended. No guarding. Bowel sounds present. GENITOURINARY: Without palpable bladder distension. MUSCULOSKELETAL: Extremities without clubbing, cyanosis. No mottling or clubbing. NEUROLOGICAL: Awake and alert. Follows commands. Moves all extremities. verbal and able to communicate needs. PSYCHIATRIC: calm. . Diagnostic Tests Laboratory Laboratory Tests Test 01/15/17 01/16/17 01/16/17 10:00 03:57 05:45 White Blood Count 9.8 TH/MM3 8.9 TH/MM3 (4.0-11.0) (4.0-11.0) Red Blood Count 2.95 MIL/MM3 2.74 MIL/MM3 (4.50-5.90) (4.50-5.90) Hemoglobin 8.0 GM/DL 7.6 GM/DL (13.0-17.0) (13.0-17.0) Hematocrit 24.7 % 23.0 % (39.0-51.0) (39.0-51.0) Mean Corpuscular Volume 83.5 FL 83.7 FL (80.0-100.0) (80.0-100.0) Mean Corpuscular Hemoglobin 27.1 PG 27.7 PG (27.0-34.0) (27.0-34.0) Mean Corpuscular Hemoglobin 32.5 % 33.1 % Concent (32.0-36.0) (32.0-36.0) Red Cell Distribution Width 17.7 % 17.8 % (11.6-17.2) (11.6-17.2) Platelet Count 412 TH/MM3 394 TH/MM3 (150-450) (150-450) Mean Platelet Volume 6.6 FL 6.2 FL (7.0-11.0) (7.0-11.0) Neutrophils (%) (Auto) 82.0 % 81.4 % (16.0-70.0) (16.0-70.0) Lymphocytes (%) (Auto) 7.8 % 7.6 % (9.0-44.0) (9.0-44.0) Monocytes (%) (Auto) 9.8 % (0.0-8.0) 10.4 % (0.0-8.0) Eosinophils (%) (Auto) 0.1 % (0.0-4.0) 0.3 % (0.0-4.0) Basophils (%) (Auto) 0.3 % (0.0-2.0) 0.3 % (0.0-2.0) Neutrophils # (Auto) 8.1 TH/MM3 7.3 TH/MM3 (1.8-7.7) (1.8-7.7) Lymphocytes # (Auto) 0.8 TH/MM3 0.7 TH/MM3 (1.0-4.8) (1.0-4.8) Monocytes # (Auto) 1.0 TH/MM3 0.9 TH/MM3 (0-0.9) (0-0.9) Eosinophils # (Auto) 0.0 TH/MM3 0.0 TH/MM3 (0-0.4) (0-0.4) Basophils # (Auto) 0.0 TH/MM3 0.0 TH/MM3 (0-0.2) (0-0.2) CBC Comment DIFF FINAL DIFF FINAL Differential Comment Prothrombin Time 14.7 SEC (9.8-11.6) Prothromb Time International 1.3 RATIO Ratio Activated Partial 39.9 SEC Thromboplast Time (24.3-30.1) Sodium Level 129 MEQ/L 131 MEQ/L (136-145) (136-145) Potassium Level 3.7 MEQ/L 3.3 MEQ/L (3.5-5.1) (3.5-5.1) Chloride Level 95 MEQ/L 99 MEQ/L (98-107) (98-107) Carbon Dioxide Level 22.7 MEQ/L 22.8 MEQ/L (21.0-32.0) (21.0-32.0) Anion Gap 11 MEQ/L (5-15) 9 MEQ/L (5-15) Blood Urea Nitrogen 10 MG/DL (7-18) 10 MG/DL (7-18) Creatinine 1.06 MG/DL 0.79 MG/DL (0.60-1.30) (0.60-1.30) Estimat Glomerular Filtration 84 ML/MIN (>89) 118 ML/MIN Rate (>89) Random Glucose 110 MG/DL 100 MG/DL (74-106) (74-106) Calcium Level 8.5 MG/DL 8.2 MG/DL (8.5-10.1) (8.5-10.1) Total Bilirubin 1.0 MG/DL 0.9 MG/DL (0.2-1.0) (0.2-1.0) Aspartate Amino Transf 147 U/L (15-37) 138 U/L (15-37) (AST/SGOT) Alanine Aminotransferase 122 U/L (12-78) 132 U/L (12-78) (ALT/SGPT) Alkaline Phosphatase 433 U/L 369 U/L (45-117) (45-117) Total Protein 8.2 GM/DL 7.7 GM/DL (6.4-8.2) (6.4-8.2) Albumin 1.6 GM/DL 1.5 GM/DL (3.4-5.0) (3.4-5.0) Vitamin B12 Level 1252 PG/ML (193-986) Hepatitis B Surface Antibody, 0.2 mIU/mL Quant Hepatitis B Core IgM Antibody NEGATIVE (NEGATIVE) Hepatitis C Antibody NEGATIVE (NEGATIVE) Blood Type O POSITIVE Antibody Screen NEGATIVE Crossmatch Leukocyte-Reduced Red Blood Cells Blood Bank Comment Urine Color YELLOW (YELLW/STRAW) Urine Turbidity CLEAR (CLEAR) Urine pH 5.5 (5.0-8.5) Urine Specific [place] 1.013 (1.002-1.035) Urine Protein TRACE mg/dL (NEG-TRACE) Urine Glucose (UA) NEG mg/dL (NEG) Urine Ketones NEG mg/dL (NEG) Urine Occult Blood NEG (NEG) Urine Nitrite NEG (NEG) Urine Bilirubin NEG (NEG) Urine Urobilinogen 4.0 MG/DL (LESS THAN 2.0) Urine Leukocyte Esterase NEG (NEG) Urine RBC 1 /hpf (0-3) Urine WBC 3 /hpf (0-5) Urine Squamous Epithelial 1 /hpf (0-5) Cells Microscopic Urinalysis Comment CULT NOT INDICATED Result Diagram: 01/16/1735601/16/17 0357 Imaging Last Impressions Chest X-Ray 01/16/17 0000 Signed Impressions: Service Date/Time: December 01:42 - CONCLUSION: 1. Masslike area seen at the superior lateral left chest. The overlying left second rib is fractured. 2. Mild left effusion. Magdy Davis MD Lumbar Spine X-Ray 01/15/17 0000 Signed Impressions: Service Date/Time: Sunday, January 15, 2017 10:32 - CONCLUSION: 1. No acute abnormality. 2. Degenerative changes and scoliotic curvature as detailed above. 3. Wedge deformities involving T12 and L1. These either relate to old compression deformities or could relate to anatomical variance which is not uncommon at the cortical lumbar junction. Raj Nair Jr., MD Liver Ultrasound 01/15/17 0000 Signed Impressions: Service Date/Time: Sunday, January 15, 2017 13:28 - CONCLUSION: Hepatomegaly nonspecific. Gallbladder suggests borderline wall thickening of 4 mm and sludge with no evidence of stones and bile ducts appear normal. Jose J Nuñez MD Hip and Pelvis X-Ray 01/15/17 0000 Signed Impressions: Service Date/Time: Sunday, January 15, 2017 10:21 - CONCLUSION: Orthopedic hardware involving the left hip with good alignment. No acute abnormality. Raj Nair Jr., MD Femur X-Ray 01/15/17 0000 Signed Impressions: Service Date/Time: Sunday, January 15, 2017 10:21 - CONCLUSION: Intramedullary darrian and femoral neck screw with good alignment. Osteoarthritis of the hip and knee. Raj Nair Jr., MD Patient/Family Conference Present at Family Conference: Daughter February Family Conference Time (mins): 35 Family Conference Location: Bedside Issues Discussed: * Palliative care role, purpose, approach * Additional medical, psychosocial, and spiritual history * Patients general health, functional status, and cognitive changes in the months leading up to the current hospitalization * Patient/family understanding of the current medical problems * Patient/family understanding of prognosis -disease is metastatic and not curable * Advanced directives to include [facility] designation * Current medical treatment options and benefits/burdens of those options - discussed discharge options * Future role of hospice should symptom burden increases or there is additional functional decline. * Questions answered to the best of my ability * Palliative care contact information provided . Assessment and Plan Disease Oriented Problem List: (1) Non-small cell carcinoma of lung, stage 4 (2) Elevated LFTs (3) COPD (chronic obstructive pulmonary disease) Symptom Scale: (1) Pain 0-10 Scale: 10 Comment: Secondary to burden of disease and recent orthopedic surgery. (2) Generalized weakness Comment: progressive. (3) Constipation Comment: Chronic, opioid use. (4) Malnutrition Comment: Albumin 1.5 Pertinent Non-Medical Issues Psychosocial: . Has 4 children. Independent living. Spiritual: Restorationism. Legal: No living will completed. Ethical issues impacting care: No living will completed. . Important Contacts [facility] Whit Marques Alt [facility] Jose J Marques . . Prognosis Mr. Lombardo is a 71 y/o male with a medical history significant for stage IV poorly differentiated [id number] lung cancer diagnosed in early 2015 with mets to the bones. As per history, patient was initially treated with chemotherapy and immunotherapy but had disease progression in May 2016. Patient has also received radiation treatment to the chest wall. Most recent PET /CT on 12/12/16 revealed new metastatic disease in the left proximal femur and right anterior 7th rib costochondral junction, he underwent intramedullary nail fixation of left femur on 12/31/16 for impending pathologic fracture of left proximal femur secondary to metastatic lesion. Patient at high risk for further decline, complications and given his metastatic lung cancer, age, physical deconditioning, malnutrition and multiple comorbidities. . Code Status: Full Code Plan * CODE STATUS: FULL CODE. * HEALTHCARE DECISION-MAKER: palliative care assisted patient in completing HCS designation. Patient designated Whit Lezamaanson as primary HCS and Jose J Mohan as alternate surrogate. Copy provided to daughter and sent to HIM. * GOALS OF CARE: Patient's goal is to improve functional status in order to continue antineoplastic therapy. Patient and family considering options for discharge to include home with home health/PT or rehab/SNF for physical strengthening. Reviewed with patient and daughter that his disease is metastatic and not curable. Reviewed that goal of therapy is for palliation of symptoms and prolongation of survival given his low disease burden. Discussed concerns of patient's decline in functional status and his ability to tolerate rehab/PT. Encouraged patient and daughter to discuss limitations of treatment in the setting of his progressive metastatic disease. * Discussed the future role of hospice should symptom burden increases or there is additional functional decline. * SYMPTOMS: ==Pain, secondary to burden of disease, recent ortho surgical intervention. Home regimen of Phelan. same changed to Oxycodone secondary to elevated LFT's. ==Weakness, physical deconditioning. PT has been consulted. Pending recommendations. ==Constipation, secondary to opioids and bedrest. Adding daily Senna-s and PRN Dulcolax sup. ==malnutrition, albumin 1.5, poor oral intake. Supervisor Estimator And Drafter consulted for recommendations. * case discussed with bedside RN. * Palliative care contact information has been provided to patient and daughter. * Palliative care to f/u as needed for further clarification of goals of care. . Time Spent Total Floor Time (mins): 75 (Total time to include review and summarization ofavailable medical records to include prior hospitalizations, physical exam, conversation with patient and daughter and case discussion with bedside RN. ) >50% Counseling/Coord of Care: Yes Thank you for the opportunity to participate in the care of Mr. Lombardo. Attestation To help prompt me to consider important information that might be impacting today's encounter and assessment, information from prior notes written by myself or my colleagues may have been "brought forward" into today's note. My signature on this note, however, is an attestation that I personally performed the exam, history, and/or decision-making noted today, and, unless otherwise indicated, the interactions with patient, family, and staff as well as the review of records all occurred today. I also attest that the listed assessment and stated plan reflect my best clinical judgment today based on the combination of historical information, prior notes, and today's exam/ interactions. When time spent is documented, it refers only to time spent today by the signer, or if indicated, combined time spent today by collaborating physician/nurse practitioner. Alesia Montague Jan 16, 2017 15:52
[2017-01-16] MEDS ORDERED: BISACODYL 10 MG SUPP RECTAL PRN (16:00)
[2017-01-16] MEDS: DOCUSATE SODIUM 50 MG/SENNA 8.6 MG TAB PO SCH (19:56)
[2017-01-17] VITALS (10 sets, daily range): BP systolic 100–121; BP diastolic 59–71; PULSE 107–123; RESP 16–20; TEMP 98.9–102; O2SAT 91–97
[2017-01-17 08:16] LABS: BICARBONATE 23.4 MEQ/L (21.0-32.0); POTASSIUM 3.5 MEQ/L (3.5-5.1)
[2017-01-17 08:19] LABS: INDIRECT BILIRUBIN 0.6 MG/DL (0.0-0.8); TOTAL BILIRUBIN ADULT 1.4 MG/DL (0.2-1.0)
[2017-01-17] MEDS: GABAPENTIN 400 MG CAP PO SCH ×2 (08:26→20:37)
[2017-01-17] MEDS: PYRIDOXINE HCL 50 MG TAB PO SCH (08:27)
[2017-01-17] MEDS: ASPIRIN EC 81 MG TABEC PO SCH (08:27)
[2017-01-17] MEDS: CYANOCOBALAMIN 1,000 MCG TAB PO SCH (08:27)
[2017-01-17] MEDS: PANTOPRAZOLE SOD 20 MG DELAYED RELEASE TAB PO SCH (08:27)
[2017-01-17] MEDS: RIVAROXABAN 10 MG TAB PO SCH (08:27)
[2017-01-17] MEDS: CALCIUM/VITAMIN D 250 MG/125 U TAB PO SCH ×2 (08:27→20:38)
--- NOTE | 2017-01-17 09:07 | HHI.PR ---
Subjective Remarks fevers overnight. denies abdomen pain or n/v Objective Vitals heart reg lung cta abd s/nabs ext no edema Vital Signs Date Time Temp Pulse Resp B/P Pulse Ox O2 Delivery O2 Flow Rate FiO2 01/17/17 08:00 99.9 109 18 116/71 95 01/17/17 04:00 98.9 107 16 121/69 96 01/17/17 01:44 93 Nasal Cannula 01/17/17 01:16 99.4 01/17/17 00:26 100.7 01/17/17 00:09 102.0 118 18 100/65 91 01/16/17 20:56 101.0 112 18 106/63 96 01/16/17 16:00 98.6 102 20 122/77 95 01/16/17 12:00 99.0 103 16 125/75 96 01/16/17 10:20 98.8 102 16 118/76 95 01/16/17 10:10 98.8 102 16 118/76 95 01/16/17 10:05 93 Nasal Cannula 2.00 01/16/17 01/16/17 01/17/17 15:00 23:00 07:00 Intake Total 100 ml 440 ml 250 ml Output Total 300 ml 1100 ml Balance 100 ml 140 ml -850 ml Intake Oral 100 ml 440 ml 250 ml Output Urine Total 300 ml 1100 ml # Voids 1 1 # Bowel Movements 0 0 Result Diagram: 01/16/17 0357 01/17/17 0635 Imaging Last Impressions Lumbar Spine X-Ray 01/15/17 0000 Signed Impressions: Service Date/Time: Sunday, January 15, 2017 10:32 - CONCLUSION: 1. No acute abnormality. 2. Degenerative changes and scoliotic curvature as detailed above. 3. Wedge deformities involving T12 and L1. These either relate to old compression deformities or could relate to anatomical variance which is not uncommon at the cortical lumbar junction. Raj Nair Jr., MD Hip and Pelvis X-Ray 01/15/17 0000 Signed Impressions: Service Date/Time: Sunday, January 15, 2017 10:21 - CONCLUSION: Orthopedic hardware involving the left hip with good alignment. No acute abnormality. Raj Nair Jr., MD Femur X-Ray 01/15/17 0000 Signed Impressions: Service Date/Time: Sunday, January 15, 2017 10:21 - CONCLUSION: Intramedullary darrian and femoral neck screw with good alignment. Osteoarthritis of the hip and knee. 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 Recent orif to left fumur for pathological fx Pt has been falling at home, more confused. Noted to have hyponatremia from dehydration. better. elevated lft...?mets. u/s liver noted. anemia related to malignancy. prbc ordered by oncology. general weakness. persistent fever. with elevated lft will evaluate for cholecystitis or tumor invasion. cont ns. kcl ct a/p to eval liver. reported contrast allergy. might need mrcp or GI eval. abx for now until biliary obstruction excluded. pain control PT. deciding on snf. (2) Non-small cell carcinoma of lung, stage 4 Status: Chronic Plan: - Pt has stage IV poorly differentiated qsc-[id number]-fsti lung cancer diagnosed in early 2015 with mets to the chest wall and bones - He has completed six cycles of carboplatin, Alimta and bevacizumab but was found to have disease progression in 05/2016. - Pt has also received focal radiation treatment to the chest wall. - Pt follows with Dr. Cordon and is on second line therapy with IV Zometa for bony disease and immunotherapy with Nivolumab. - Review of outpt records revealed his most recent PET/CT on 12/12/16 revealed new metastatic disease in the left proximal femur and right anterior 7th rib costochondral junction. - We will consult Dr. Cordon, the pts Oncologist - We will also consult Palliative Care medicine for clarification of goals. (3) Elevated liver enzymes Status: Acute Plan: see above (4) COPD (chronic obstructive pulmonary disease) Status: Chronic Plan: - Duonebs PRn (5) Anemia Status: Chronic Plan: - Pt received 2 units of PRBCs post-operatively during recent admission. - 1 unit ordered per oncology (6) Hypertension Status: Chronic Plan: - Cont. home meds Fortunato Demarco MD Jan 17, 2017 09:07
--- NOTE | 2017-01-17 09:33 | PD.ONC.PN ---
Subjective Subjective Remarks MAXIMUM TEMPERATURE 102 overnight. Patient is lying on his right side complaining of left buttock and leg pain. He tells me he just took something for pain about 10 minutes ago. He denies abdominal pain. He tells me that he is still very weak and is anxious about getting out of bed. Objective Data Date Time Temp Pulse Resp B/P Pulse Ox O2 Delivery O2 Flow Rate FiO2 01/17/17 08:00 99.9 109 18 116/71 95 01/17/17 04:00 98.9 107 16 121/69 96 01/17/17 01:44 93 Nasal Cannula 01/17/17 01:16 99.4 01/17/17 00:26 100.7 01/17/17 00:09 102.0 118 18 100/65 91 01/16/17 20:56 101.0 112 18 106/63 96 01/16/17 16:00 98.6 102 20 122/77 95 01/16/17 12:00 99.0 103 16 125/75 96 01/16/17 10:20 98.8 102 16 118/76 95 01/16/17 10:10 98.8 102 16 118/76 95 01/16/17 10:05 93 Nasal Cannula 2.00 01/17/17 01/17/17 01/17/17 07:00 15:00 23:00 Intake Total 250 ml Output Total 1100 ml Balance -850 ml Result Diagram: 01/16/17 0357 01/17/17 0635 Laboratory Results Laboratory Tests Test 01/17/17 06:35 Sodium Level 132 MEQ/L Potassium Level 3.5 MEQ/L Chloride Level 98 MEQ/L Carbon Dioxide Level 23.4 MEQ/L Anion Gap 11 MEQ/L Blood Urea Nitrogen 10 MG/DL Creatinine 0.77 MG/DL Estimat Glomerular Filtration 121 ML/MIN Rate Random Glucose 102 MG/DL Calcium Level 8.9 MG/DL Total Bilirubin 1.4 MG/DL Direct Bilirubin 0.8 MG/DL Indirect Bilirubin 0.6 MG/DL Aspartate Amino Transf 219 U/L (AST/SGOT) Alanine Aminotransferase 191 U/L (ALT/SGPT) Alkaline Phosphatase 420 U/L Total Protein 8.0 GM/DL Albumin 1.5 GM/DL Administered Medications Medications (Trade) Dose Ordered Sig/Shirin Route PRN Reason Start Time Stop Time Status Last Admin Dose Admin Aspirin (Ecotrin Ec) 81 mg DAILY PO 01/16/17 09:00 01/17/17 08:27 Cyanocobalamin (Vitamin B12) 1,000 mcg DAILY PO 01/16/17 09:00 01/17/17 08:27 Gabapentin (Neurontin) 400 mg BID PO 01/15/17 21:00 01/17/17 08:26 Pantoprazole Sodium (Protonix) 20 mg DAILY PO 01/16/17 09:00 01/17/17 08:27 Pyridoxine HCl (Vitamin B6) 100 mg DAILY PO 01/16/17 09:00 01/17/17 08:27 Rivaroxaban (Xarelto) 10 mg DAILY PO 01/16/17 09:00 01/17/17 08:27 Calcium/Vitamin D (Oscal-D 250-125) 500 mg BID PO 01/15/17 21:00 01/17/17 08:27 Oxycodone HCl (Roxicodone) 5 mg Q4H PRN PO pain 01/15/17 18:15 01/17/17 08:27 Senna/Docusate Sodium (Claudia-Colace) 2 tab HS PO 01/16/17 21:00 01/16/17 19:56 Objective Remarks GENERAL: Chronically ill appearing male, lying in bed. He looks uncomfortable. SKIN: Warm and dry. HEAD: Normocephalic. EYES: No injection or drainage. NECK: Supple, trachea midline. CARDIOVASCULAR: +S1/S2. No murmur noted. RESPIRATORY: Lungs clear, diminished. GASTROINTESTINAL: Abdomen soft, non-tender, nondistended. EXTREMITIES: No edema. NEUROLOGICAL: No obvious focal deficit. Awake, alert, and oriented x3. Assessment/Plan Problem List: (1) Generalized weakness Status: Chronic Plan: due to deconditioning, recent hip surgery, anemia and dehydration. --continue IVF, supportive care --PT consulted (2) Non-small cell carcinoma of lung, stage 4 Status: Chronic Plan: --Overall his disease burden is very low. +bony metastatic disease. --need to medically optimize him. (3) Elevated LFTs Status: Acute Plan: --Abdominal ultrasound did not show any abnormality. --Will obtain CT abdomen pelvis today. (4) Hyponatremia Status: Acute Plan: --Improving (5) Pain Status: Acute Plan: --Avoid Tylenol at this time due to elevated liver functions. --Oxycodone 5mg q4h prn pain (6) Malnutrition Status: Acute Plan: --Gluer Machine Setup Operator consult --supplements with diet Assessment 71y/o with metastatic NSCLC admitted for weakness, hip pain and a fall. h/o Stage IV poorly differentiated non-small cell lung cancer diagnosed in 2016 with mets to chest wall and bones. History of anemia. Chronic lower extremity edema. Osteoarthritis of the left shoulder. COPD. Systolic and diastolic CHF. Gout. Hypertension. Peripheral neuropathy. Plan 1. CT Abdomen/ Pelvis today for increasing liver enzymes. 2. Blood cultures x 1 today for fever of 102 overnight. 3. Continue PT, supportive care. 4. Labs in am. Attending Statement The exam, history, and the medical decision-making described in the above note were completed with the assistance of the mid-level provider. I reviewed and agree with the findings presented. I attest that I had a [id number] encounter with the patient on the same day, and personally performed and documented my assessment and findings in the medical record. CT abdomen and pelvis did not show any metastatic disease. Hepatitis panel was negative. Had fever overnight check blood cultures/on IV abx MRCP was ordered [facility] nutrition and PT over the weekend, will need rehab on d/c May need TPN if oral intake does not improve Gertrude Butler Jan 17, 2017 09:33 Tim Cordon MD Jan 17, 2017 21:43
[2017-01-17] MEDS ORDERED: POTASSIUM CHLORIDE 20 MEQ CONTROLLED RELEASE TAB PO ONE (10:00)
[2017-01-17 10:55] LABS: AUTOMATED NEUTROPHIL # 7.6 TH/MM3 (1.8-7.7); BASOPHIL % 0.4 % (0.0-2.0); EOSINOPHIL % 0.3 % (0.0-4.0); HEMATOCRIT 24.8 % (39.0-51.0); HEMO FLAGS DIFF FINAL; LYMPHOCYTE # 0.7 TH/MM3 (1.0-4.8); MEAN CORPUSCULAR HEMOGLOBIN 27.4 PG (27.0-34.0); MEAN CORPUSCULAR HGB CONC 32.6 % (32.0-36.0); MONO % 9.7 % (0.0-8.0); NEUT % 81.6 % (16.0-70.0); PLATELET COUNT 378 TH/MM3 (150-450); RED BLOOD COUNT 2.95 MIL/MM3 (4.50-5.90); RED CELL DISTRIBUTION WIDTH 17.2 % (11.6-17.2); WHITE BLOOD COUNT 9.3 TH/MM3 (4.0-11.0)
[2017-01-17 11:22] LABS: ALT (GPT) 179 U/L (12-78); ANION GAP 10 MEQ/L (5-15); AST (GOT) 193 U/L (15-37); BICARBONATE 23.8 MEQ/L (21.0-32.0); BLOOD UREA NITROGEN 10 MG/DL (7-18); CHLORIDE 98 MEQ/L (98-107); GLOMERULAR FILTRATION RATE 131 ML/MIN (>89); POTASSIUM 3.5 MEQ/L (3.5-5.1); SODIUM (NA) 132 MEQ/L (136-145)
[2017-01-17 11:24] LABS: ALKALINE PHOSPHATASE 405 U/L (45-117); TOTAL BILIRUBIN ADULT 1.4 MG/DL (0.2-1.0)
--- NOTE | 2017-01-17 12:35 | RADRPT ---
EXAM DATE/TIME: 01/17/2017 12:06 [facility] COMPARISON: CT ABDOMEN & PELVIS W/O CONTRAST, December 01, 2015, 13:44. INDICATIONS : Fever, history of left hip surgery 2 weeks ago ORAL CONTRAST: No oral contrast ingested. RADIATION DOSE: 10.08 CTDIvol (mGy) MEDICAL HISTORY : Congestive heart failure. Hypertension. Chronic obstructive pulmonary disease.Lung cancer with bone m ets SURGICAL HISTORY : Left hip surgery 2 weeks ago ENCOUNTER: Initial ACUITY: 4 - 6 days PAIN SCALE: 5/10 LOCATION: abdominal TECHNIQUE: Volumetric scanning of the abdomen and pelvis was performed. Using automated exposure control and ad justment of the mA and/or kV according to patient size, radiation dose was kept as low as reasonably achievable to obtain optimal diagnostic quality images. The lack of IV contrast limits the diagnosis for certain organ pathology. FINDINGS: LOWER LUNGS: Chronic stable changes in the lung bases compared to the prior study. There is evidence of bullous em physema. No acute infiltrates. LIVER: Homogeneous density without lesion. There is no dilation of the biliary tree. No calcified gallston es. SPLEEN: Normal size without lesion. PANCREAS: Within normal limits. KIDNEYS: Normal in size and shape. There is no mass, stone, or hydronephrosis. ADRENAL GLANDS: Within normal limits. VASCULAR: There is no aortic aneurysm. Atherosclerotic changes. BOWEL/MESENTERY: The stomach, small bowel, and colon demonstrate no acute abnormality. There is no free intraperitone al air or fluid. There is stool in colon. ABDOMINAL WALL: The previously noted umbilical hernia has improved. RETROPERITONEUM: There is no lymphadenopathy. BLADDER: No wall thickening or mass. REPRODUCTIVE: Within normal limits. INGUINAL: There continues to be a large right-sided inguinal hernia containing a loop of colon as well as a por tion of the urinary bladder. This was described and demonstrated on the prior study from 12/01/2015. MUSCULOSKELETAL: Within normal limits for patient age. Status post left hip surgery 2 weeks ago. Internal fixation dev ices noted in place in the proximal left femur. Normal appearing postsurgical changes are demonstrate d. No evidence of any free fluid or loculated fluid collections are seen in the region of the left hi p joint. No definite joint effusion is seen. Primary bony degenerative changes of the lumbar spine an d pelvis. CONCLUSION: 1. Large right-sided inguinal hernia containing a portion of the colon as well as the urinary bladder . This was present on the prior examination. 2. Postsurgical changes involving the left hip joint. No free fluid or loculated fluid collections ar e seen in the region of the left hip joint. 3. No calcified renal stones or hydronephrosis. Alistair Carrillo MD on January 17, 2017 at 12:26 Board Certified Radiologist. This report was verified electronically.
[2017-01-17] MEDS: PIPERACIL-TAZO 3.375 GM PREMIX 50 ML IV SCH ×3 (12:54→22:40)
[2017-01-17] MEDS ORDERED: LACTULOSE SYRUP 20 GM/30 ML CUP PO ONE (16:00)
[2017-01-17] MEDS: DOCUSATE SODIUM 50 MG/SENNA 8.6 MG TAB PO SCH (20:38)
[2017-01-18] VITALS: BP 128/71; PULSE 121; RESP 20; TEMP 99.6; O2SAT 92
[2017-01-18 04:00] VITALS: BP 136/71; PULSE 122; RESP 20; TEMP 101; O2SAT 94
[2017-01-18] MEDS: PIPERACIL-TAZO 3.375 GM PREMIX 50 ML IV SCH ×4 (05:10→22:00)
[2017-01-18 06:46] LABS: INDIRECT BILIRUBIN 0.5 MG/DL (0.0-0.8); TOTAL BILIRUBIN ADULT 1.6 MG/DL (0.2-1.0)
[2017-01-18 08:00] VITALS: BP 98/53; PULSE 115; RESP 22; TEMP 99.5; O2SAT 93
--- NOTE | 2017-01-18 08:12 | RADRPT ---
EXAM DATE/TIME: 01/18/2017 07:26 [facility] COMPARISON: CT ABDOMEN & PELVIS W/O CONTRAST, January 17, 2017, 12:06. INDICATIONS : Obstruction. MEDICAL HISTORY : Carcinoma, lung. Chronic obstructive pulmonary disease. Hypertension. SURGICAL HISTORY : Fusion, lumbar. ENCOUNTER: Subsequent ACUITY: 3 day PAIN SCORE: 0/10 LOCATION: upper quadrant TECHNIQUE: Multiplanar, multisequence magnetic resonance imaging of the abdomen was performed. High-resolution 3D dataset was utilized to reconstruct maximum-intensity projection (MIP) images. FINDINGS: INTRAHEPATIC BILE DUCTS: Within normal limits. No significant anatomical variant is present. EXTRAHEPATIC BILE DUCTS: The common bile duct measures 7-8 mm proximally, 5 mm at its midpoint, and 4-5 mm distally. No stone or filling defect is identified. GALLBLADDER: No stones, wall thickening, or pericholecystic fluid. LIVER: Normal size and signal intensity. No concerning liver lesion is identified on this non-contrast exam. PANCREAS: The main pancreatic duct is normal in size. There is no significant anatomical variant. Signal inte nsity is within normal limits. No mass is visualized on this non-contrast exam. OTHER: The remaining visualized structures demonstrate no acute abnormality on this non-contrast exam. CONCLUSION: Common duct mildly increased in diameter proximally. Exam otherwise within normal limits. Дмитрий Britt MD on January 18, 2017 at 7:58 Board Certified Radiologist. This report was verified electronically.
--- NOTE | 2017-01-18 09:05 | HHI.PR ---
Subjective Remarks doing ok. just came back from [facility] Objective Vitals heart reg lung cta abd s/nt ext no edema Vital Signs Date Time Temp Pulse Resp B/P Pulse Ox O2 Delivery O2 Flow Rate FiO2 01/18/17 04:00 101.0 122 20 136/71 94 01/18/17 00:00 99.6 121 20 128/71 92 01/17/17 20:00 99.2 123 19 115/69 92 01/17/17 16:00 100.5 116 20 121/68 95 01/17/17 12:00 99.4 112 18 104/59 95 01/17/17 10:22 97 21 01/17/17 01/17/17 01/18/17 15:00 23:00 07:00 Intake Total 240 ml 120 ml 100 ml Output Total 250 ml 575 ml Balance -10 ml 120 ml -475 ml Intake Oral 240 ml 120 ml 0 ml IV Total 100 ml Output Urine Total 250 ml 575 ml # Bowel Movements 1 Result Diagram: 01/17/17 1002 01/17/17 1002 Imaging Last Impressions Lumbar Spine X-Ray 01/15/17 0000 Signed Impressions: Service Date/Time: Sunday, January 15, 2017 10:32 - CONCLUSION: 1. No acute abnormality. 2. Degenerative changes and scoliotic curvature as detailed above. 3. Wedge deformities involving T12 and L1. These either relate to old compression deformities or could relate to anatomical variance which is not uncommon at the cortical lumbar junction. Raj Nair Jr., MD Hip and Pelvis X-Ray 01/15/17 0000 Signed Impressions: Service Date/Time: Sunday, January 15, 2017 10:21 - CONCLUSION: Orthopedic hardware involving the left hip with good alignment. No acute abnormality. Raj Nair Jr., MD Femur X-Ray 01/15/17 0000 Signed Impressions: Service Date/Time: Sunday, January 15, 2017 10:21 - CONCLUSION: Intramedullary darrian and femoral neck screw with good alignment. Osteoarthritis of the hip and knee. 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 Recent orif to left fumur for pathological fx Pt has been falling at home, more confused. Noted to have hyponatremia from dehydration. better. elevated lft...?mets. u/s liver noted. still rising lft. anemia related to malignancy. prbc ordered by oncology. general weakness. persistent fever. with elevated lft will evaluate for cholecystitis biliary obstruction or tumor invasion. cont ns. kcl f/u [facility] result cont abx to cover biliary tract. fevers noted GI consult pain control PT. deciding on snf. (2) Non-small cell carcinoma of lung, stage 4 Status: Chronic Plan: - Pt has stage IV poorly differentiated [id number] lung cancer diagnosed in early 2015 with mets to the chest wall and bones - He has completed six cycles of carboplatin, Alimta and bevacizumab but was found to have disease progression in 05/2016. - Pt has also received focal radiation treatment to the chest wall. - Pt follows with Dr. Cordon and is on second line therapy with IV Zometa for bony disease and immunotherapy with Nivolumab. - Review of outpt records revealed his most recent PET/CT on 12/12/16 revealed new metastatic disease in the left proximal femur and right anterior 7th rib costochondral junction. - We will consult Dr. Cordon, the pts Oncologist - We will also consult Palliative Care medicine for clarification of goals. (3) Elevated liver enzymes Status: Acute Plan: see above (4) COPD (chronic obstructive pulmonary disease) Status: Chronic Plan: - Duonebs PRn (5) Anemia Status: Chronic Plan: - Pt received 2 units of PRBCs post-operatively during recent admission. - 1 unit ordered per oncology (6) Hypertension Status: Chronic Plan: - Cont. home meds Fortunato Demarco MD Jan 18, 2017 09:05
--- NOTE | 2017-01-18 09:13 | PD.ONC.PN ---
Subjective Subjective Remarks Tmax 101 overnight. Pt tells me he just came back from MRI. He continues to have pain in his left buttock and hip pain. No abdominal pain. Objective Data Date Time Temp Pulse Resp B/P Pulse Ox O2 Delivery O2 Flow Rate FiO2 01/18/17 04:00 101.0 122 20 136/71 94 01/18/17 00:00 99.6 121 20 128/71 92 01/17/17 20:00 99.2 123 19 115/69 92 01/17/17 16:00 100.5 116 20 121/68 95 01/17/17 12:00 99.4 112 18 104/59 95 01/17/17 10:22 97 21 Result Diagram: 01/17/17 1002 01/17/17 1002 Laboratory Results Laboratory Tests Test 01/17/17 01/18/17 10:02 05:22 White Blood Count 9.3 TH/MM3 Red Blood Count 2.95 MIL/MM3 Hemoglobin 8.1 GM/DL Hematocrit 24.8 % Mean Corpuscular Volume 84.0 FL Mean Corpuscular Hemoglobin 27.4 PG Mean Corpuscular Hemoglobin 32.6 % Concent Red Cell Distribution Width 17.2 % Platelet Count 378 TH/MM3 Mean Platelet Volume 6.7 FL Neutrophils (%) (Auto) 81.6 % Lymphocytes (%) (Auto) 8.0 % Monocytes (%) (Auto) 9.7 % Eosinophils (%) (Auto) 0.3 % Basophils (%) (Auto) 0.4 % Neutrophils # (Auto) 7.6 TH/MM3 Lymphocytes # (Auto) 0.7 TH/MM3 Monocytes # (Auto) 0.9 TH/MM3 Eosinophils # (Auto) 0.0 TH/MM3 Basophils # (Auto) 0.0 TH/MM3 CBC Comment DIFF FINAL Differential Comment Sodium Level 132 MEQ/L Potassium Level 3.5 MEQ/L Chloride Level 98 MEQ/L Carbon Dioxide Level 23.8 MEQ/L Anion Gap 10 MEQ/L Blood Urea Nitrogen 10 MG/DL Creatinine 0.72 MG/DL Estimat Glomerular Filtration 131 ML/MIN Rate Random Glucose 96 MG/DL Calcium Level 8.8 MG/DL Total Bilirubin 1.4 MG/DL 1.6 MG/DL Aspartate Amino Transf 193 U/L 236 U/L (AST/SGOT) Alanine Aminotransferase 179 U/L 210 U/L (ALT/SGPT) Alkaline Phosphatase 405 U/L 467 U/L Total Protein 7.9 GM/DL 7.9 GM/DL Albumin 1.5 GM/DL 1.4 GM/DL Direct Bilirubin 1.1 MG/DL Indirect Bilirubin 0.5 MG/DL Culture Results Microbiology Date/Time Procedure Status Source Growth 01/17/17 10:02 Aerobic Blood Culture Received Blood Peripheral Pending 01/17/17 10:02 Anaerobic Blood Culture Received Blood Peripheral Pending 01/17/17 11:14 Aerobic Blood Culture Received Blood Peripheral Pending 01/17/17 11:14 Anaerobic Blood Culture Received Blood Peripheral Pending Imaging Studies Last 24 hours Impressions Cholangiopancreatography MRI 01/18/17 0000 Signed Impressions: Service Date/Time: Wednesday, January 18, 2017 07:26 - CONCLUSION: Common duct mildly increased in diameter proximally. Exam otherwise within normal limits. Дмитрий Britt MD Administered Medications Medications (Trade) Dose Ordered Sig/Shirin Route PRN Reason Start Time Stop Time Status Last Admin Dose Admin Aspirin (Ecotrin Ec) 81 mg DAILY PO 01/16/17 09:00 01/17/17 08:27 Cyanocobalamin (Vitamin B12) 1,000 mcg DAILY PO 01/16/17 09:00 01/17/17 08:27 Gabapentin (Neurontin) 400 mg BID PO 01/15/17 21:00 01/17/17 20:37 Pantoprazole Sodium (Protonix) 20 mg DAILY PO 01/16/17 09:00 01/17/17 08:27 Pyridoxine HCl (Vitamin B6) 100 mg DAILY PO 01/16/17 09:00 01/17/17 08:27 Rivaroxaban (Xarelto) 10 mg DAILY PO 01/16/17 09:00 01/17/17 08:27 Calcium/Vitamin D (Oscal-D 250-125) 500 mg BID PO 01/15/17 21:00 01/17/17 20:38 Oxycodone HCl (Roxicodone) 5 mg Q4H PRN PO pain 01/15/17 18:15 01/18/17 03:43 Senna/Docusate Sodium 2 tab 2 tab HS PO 01/16/17 21:00 01/17/17 20:38 Piperacillin Sod/ Tazobactam Sod (Zosyn 3.375 Gm Premix) 50 ml @ 100 mls/hr Q6H IV 01/17/17 11:00 01/18/17 05:10 Objective Remarks GENERAL: Chronically ill appearing male, lying in bed. SKIN: Warm and dry. HEAD: Normocephalic. EYES: No injection or drainage. NECK: Supple, trachea midline. CARDIOVASCULAR: +S1/S2. No murmur noted. RESPIRATORY: Lungs clear, diminished. GASTROINTESTINAL: Abdomen soft, non-tender, nondistended. EXTREMITIES: No edema. NEUROLOGICAL: No obvious focal deficit. Awake, alert, and oriented x3. Assessment/Plan Problem List: (1) Elevated LFTs Status: Acute Plan: - MRCP showed mildly dilated common bile duct, otherwise no concerns - GI consulted for continued elevated enzymes; plan for liver biopsy. (2) Non-small cell carcinoma of lung, stage 4 Status: Chronic Plan: --Overall his disease burden is very low. +bony metastatic disease. --need to medically optimize him. (3) Generalized weakness Status: Chronic Plan: due to deconditioning, recent hip surgery, anemia and dehydration. (4) Hyponatremia Status: Acute Plan: --Improving (5) Pain Status: Acute Plan: --Avoid Tylenol at this time due to elevated liver functions. --Oxycodone 5mg q4h prn pain (6) Malnutrition Status: Acute Plan: --Personal Injury Law Specialist consult --supplements with diet Assessment 71y/o with metastatic NSCLC admitted for weakness, hip pain and a fall. h/o Stage IV poorly differentiated non-small cell lung cancer diagnosed in 2016 with mets to chest wall and bones. History of anemia. Chronic lower extremity edema. Osteoarthritis of the left shoulder. COPD. Systolic and diastolic CHF. Gout. Hypertension. Peripheral neuropathy. Plan 1. Hold Xarelto and Aspirin for planned liver biopsy. 2. GI consulted for elevated liver enzymes 3. Continue pain medication, supportive care. 4. CBC in am. 5. UA C&S ordered for source of fever; blood cultures pending; continue Zosyn for now. Attending Statement The exam, history, and the medical decision-making described in the above note were completed with the assistance of the mid-level provider. I reviewed and agree with the findings presented. I attest that I had a [id number] encounter with the patient on the same day, and personally performed and documented my assessment and findings in the medical record. Pt seen and examined. Discussed case at [facility] with GI, concern about autoimmune toxicity of Nivolumab , ? autoimmune hepatitis. Evaluation may require liver biopsy, for that Xarelto and ASA need to place on hold. Follow progress. Consult w/ XRT for pain in L femur, stabilized by ortho. Gertrude Butler Jan 18, 2017 09:13 Greta Saenz MD Jan 18, 2017 16:46
[2017-01-18] MEDS: CALCIUM/VITAMIN D 250 MG/125 U TAB PO SCH ×2 (10:55→22:00)
[2017-01-18] MEDS: PYRIDOXINE HCL 50 MG TAB PO SCH (10:55)
[2017-01-18] MEDS: LACTULOSE SYRUP 20 GM/30 ML CUP PO SCH (10:56)
[2017-01-18] MEDS: CYANOCOBALAMIN 1,000 MCG TAB PO SCH (10:56)
[2017-01-18] MEDS: GABAPENTIN 400 MG CAP PO SCH ×2 (10:56→22:01)
[2017-01-18] MEDS: PANTOPRAZOLE SOD 20 MG DELAYED RELEASE TAB PO SCH (10:56)
[2017-01-18] MEDS: NS + KCL 20 MEQ INJ 1,000 ML IV SCH (11:05)
[2017-01-18 12:00] VITALS: BP 104/65; PULSE 110; RESP 18; TEMP 98.1; O2SAT 93
[2017-01-18 17:00] VITALS: BP 118/72; PULSE 113; RESP 18; TEMP 100.3; O2SAT 94
[2017-01-18 21:01] VITALS: BP 102/70; PULSE 110; RESP 22; TEMP 100.1; O2SAT 98
[2017-01-18] MEDS: DOCUSATE SODIUM 50 MG/SENNA 8.6 MG TAB PO SCH (22:00)
[2017-01-18] MEDS: ALPRAZolam 0.5 MG TAB PO PRN (22:01)
--- NOTE | 2017-01-18 22:23 | MB ---
cc: PINA FUCHS MD DATE OF CONSULTATION 01/18/[address] Demarco. REASON FOR REFERRAL Elevated liver function test. HISTORY OF PRESENT ILLNESS Thank you for the consultation. A pleasant 71-year-old gentleman who has lung cell cancer with metastasis to the bone. The patient had some dizziness and weakness. He had a fall, presented at the hospital for that. During hospitalization in the last few days he had elevated liver function test and started going up, mostly transaminase, mild elevation of the total bilirubin up to 1.6. The patient denied any abdominal pain, denied any other GI symptoms. The patient was on chemotherapy and he failed and the disease progressed and he was started with nivolumab with reduction in tumor burden. REVIEW OF SYSTEMS All 12-point negative except HPI. PAST MEDICAL HISTORY 1. History of anemia 2. Lower extremity edema, 3. Chronic obstructive pulmonary disease 4. Systolic and diastolic congestive heart failure 5. Gout. 6. Hypertension, 7. Peripheral neuropathy, 8. Osteoarthritis of left shoulder PAST SURGICAL HISTORY 1. Surgery to the femur 2. Lung surgery 3. Biopsy of left chest mass 4. Back surgery 5. Left upper lobe mass resection MEDICATIONS Reviewed in the chart. ALLERGIES LISINOPRIL CONTRAST FAMILY HISTORY Noncontributory SOCIAL HISTORY He used to smoke but no alcohol or drug at this time. PHYSICAL EXAMINATION GENERAL: Alert, oriented, generally weak, laying comfortably in bed. HEENT: Pupils round, reactive to light. NECK: Supple. VITAL SIGNS: Stable. CHEST: Clear to auscultation bilaterally at this time. CARDIAC: Regular rate and rhythm. ABDOMEN: Soft, nondistended. Minimal discomfort with deep palpation. No hepatosplenomegaly. EXTREMITIES: No edema or clubbing at this time. NEUROLOGIC: Nonfocal PSYCHIATRIC: Psychologically appropriate. LABORATORY DATA White count 9.3, hemoglobin 8.1, platelet 378, INR 1.3. Liver function tests 1.64 for total bilirubin, AST 236, it was 138 on admission, 210 today. It was 132 on the admission and alk phos 467 and albumin 1.4. Hepatitis profile B and C are negative. IMAGING STUDIES Abdominal CT scan - large right side inguinal hernia containing portion of the colon. No significant abnormality in the liver. ASSESSMENT/PLAN 1. A 71-year-old male with anemia most likely related to chemotherapy. The patient is not interested in having any endoscopy at this time. 2. Elevated liver function test. I had a discussion with Dr. Hernandes. This could be related to the Nivolumab because it is known to cause elevated liver function tests in a form of autoimmune hepatitis. I am going to obtain liver biopsy and we will do that on Friday and also we will do immuno hepatitis marker. Dr. Hernandes agreed with the plan and we will follow up with you. MD ESE Mao/ /11:44 AM /9:52 PM
[2017-01-19] VITALS (8 sets, daily range): BP systolic 109–135; BP diastolic 64–81; PULSE 109–115; RESP 17–24; TEMP 98.1–100.5; O2SAT 93–96
[2017-01-19] MEDS: NS + KCL 20 MEQ INJ 1,000 ML IV SCH (01:40)
[2017-01-19 02:13] LABS: BACTERIA, URINE RARE /hpf; BLOOD, URINE NEG (NEG); COMMENT (UR) CULT NOT INDICATED; CULTURE IF INDICATED CULT NOT INDICATED; GLUCOSE,URINE NEG (NEG); HYALINE CAST, URINE 1 /lpf (RARE); KETONE, URINE NEG (NEG); NITRITE,URINE NEG (NEG); PH, URINE 5.5 (5.0-8.5); SQUAMOUS EPITHELIAL CELL URINE 2 /hpf (0-5); URINE COLOR YELLOW (YELLW/STRAW)
[2017-01-19] MEDS: PIPERACIL-TAZO 3.375 GM PREMIX 50 ML IV SCH ×4 (05:33→21:29)
[2017-01-19] MEDS: CALCIUM/VITAMIN D 250 MG/125 U TAB PO SCH ×2 (09:42→21:29)
[2017-01-19] MEDS: GABAPENTIN 400 MG CAP PO SCH ×2 (09:42→21:29)
[2017-01-19] MEDS: PANTOPRAZOLE SOD 20 MG DELAYED RELEASE TAB PO SCH (09:42)
[2017-01-19] MEDS: CYANOCOBALAMIN 1,000 MCG TAB PO SCH (09:42)
[2017-01-19] MEDS: PYRIDOXINE HCL 50 MG TAB PO SCH (09:42)
[2017-01-19] MEDS: LACTULOSE SYRUP 20 GM/30 ML CUP PO SCH (09:42)
--- NOTE | 2017-01-19 09:56 | HHI.PR ---
Subjective Remarks no new complaints Objective Vitals heart reg lung cta abd s/nt ext no edema Vital Signs Date Time Temp Pulse Resp B/P Pulse Ox O2 Delivery O2 Flow Rate FiO2 01/19/17 04:00 99.9 113 20 115/67 94 01/19/17 00:13 99.9 113 20 115/67 94 01/18/17 21:01 100.1 110 22 102/70 98 01/18/17 17:00 100.3 113 18 118/72 94 01/18/17 12:00 98.1 110 18 104/65 93 01/18/17 01/18/17 01/19/17 15:00 23:00 07:00 Intake Total 600 ml 317 ml Output Total 625 ml 350 ml Balance -25 ml 317 ml -350 ml Intake Oral 600 ml IV Total 317 ml Output Urine Total 625 ml 350 ml # Voids 4 # Bowel Movements 2 1 Result Diagram: 01/17/17 1002 01/17/17 1002 Imaging Last Impressions Lumbar Spine X-Ray 01/15/17 0000 Signed Impressions: Service Date/Time: Sunday, January 15, 2017 10:32 - CONCLUSION: 1. No acute abnormality. 2. Degenerative changes and scoliotic curvature as detailed above. 3. Wedge deformities involving T12 and L1. These either relate to old compression deformities or could relate to anatomical variance which is not uncommon at the cortical lumbar junction. Raj Nair Jr., MD Hip and Pelvis X-Ray 01/15/17 0000 Signed Impressions: Service Date/Time: Sunday, January 15, 2017 10:21 - CONCLUSION: Orthopedic hardware involving the left hip with good alignment. No acute abnormality. Raj Nair Jr., MD Femur X-Ray 01/15/17 0000 Signed Impressions: Service Date/Time: Sunday, January 15, 2017 10:21 - CONCLUSION: Intramedullary darrian and femoral neck screw with good alignment. Osteoarthritis of the hip and knee. 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 Recent orif to left fumur for pathological fx Pt has been falling at home, more confused. Noted to have hyponatremia from dehydration. better. elevated LFT with fever...no obvious mets or biliary obstruction on imaging ..GI questioning hepatitis related to chemo anemia related to malignancy. prbc ordered by oncology. general weakness. cont ns. kcl GI following and w/up pending cont abx to cover biliary tract. pain control PT. deciding on snf. (2) Non-small cell carcinoma of lung, stage 4 Status: Chronic Plan: - Pt has stage IV poorly differentiated [id number] lung cancer diagnosed in early 2015 with mets to the chest wall and bones - He has completed six cycles of carboplatin, Alimta and bevacizumab but was found to have disease progression in 05/2016. - Pt has also received focal radiation treatment to the chest wall. - Pt follows with Dr. Cordon and is on second line therapy with IV Zometa for bony disease and immunotherapy with Nivolumab. - Review of outpt records revealed his most recent PET/CT on 12/12/16 revealed new metastatic disease in the left proximal femur and right anterior 7th rib costochondral junction. - We will consult Dr. Cordon, the pts Oncologist - We will also consult Palliative Care medicine for clarification of goals. (3) Elevated liver enzymes Status: Acute Plan: see above (4) COPD (chronic obstructive pulmonary disease) Status: Chronic Plan: - Duonebs PRn (5) Anemia Status: Acute Plan: - Pt received 2 units of PRBCs post-operatively during recent admission. - 1 unit ordered per oncology this admission. see above (6) Hypertension Status: Chronic Plan: - Cont. home meds Fortunato Demarco MD Jan 19, 2017 09:56
[2017-01-19 10:46] LABS: AUTOMATED NEUTROPHIL # 7.7 TH/MM3 (1.8-7.7); BASOPHIL % 0.4 % (0.0-2.0); EOSINOPHIL % 0.3 % (0.0-4.0); HEMATOCRIT 23.6 % (39.0-51.0); HEMO FLAGS DIFF FINAL; LYMPH % 7.1 % (9.0-44.0); LYMPHOCYTE # 0.7 TH/MM3 (1.0-4.8); MEAN CELL VOLUME 84.4 FL (80.0-100.0); MEAN CORPUSCULAR HGB CONC 31.9 % (32.0-36.0); MONO % 10.2 % (0.0-8.0); PLATELET COUNT 342 TH/MM3 (150-450); WHITE BLOOD COUNT 9.4 TH/MM3 (4.0-11.0)
[2017-01-19 11:05] LABS: ALT (GPT) 185 U/L (12-78); ANION GAP 12 MEQ/L (5-15); AST (GOT) 182 U/L (15-37); BICARBONATE 22.1 MEQ/L (21.0-32.0); BLOOD UREA NITROGEN 14 MG/DL (7-18); CHLORIDE 100 MEQ/L (98-107); GLOMERULAR FILTRATION RATE 97 ML/MIN (>89); POTASSIUM 3.5 MEQ/L (3.5-5.1); SODIUM (NA) 134 MEQ/L (136-145)
[2017-01-19 11:07] LABS: ALKALINE PHOSPHATASE 375 U/L (45-117); TOTAL BILIRUBIN ADULT 1.8 MG/DL (0.2-1.0)
--- NOTE | 2017-01-19 12:36 | HHI.GIFU ---
Subjective Remarks 71 yo male lying in bed in no apparent distress. No abdominal pain. Objective Vitals I&O Vital Signs Date Time Temp Pulse Resp B/P Pulse Ox O2 Delivery O2 Flow Rate FiO2 01/19/17 08:00 99.6 111 24 114/67 94 01/19/17 04:00 99.9 113 20 115/67 94 01/19/17 00:13 99.9 113 20 115/67 94 01/18/17 21:01 100.1 110 22 102/70 98 01/18/17 17:00 100.3 113 18 118/72 94 I/O 01/18/17 01/18/17 01/18/17 01/19/17 01/19/17 01/19/17 07:00 15:00 23:00 07:00 15:00 23:00 Intake Total 100 ml 600 ml 317 ml 1086 ml Output Total 575 ml 625 ml 350 ml Balance -475 ml -25 ml 317 ml -350 ml 1086 ml Intake Oral 0 ml 600 ml IV Total 100 ml 317 ml 1086 ml Output Urine Total 575 ml 625 ml 350 ml # Voids 4 # Bowel Movements 1 2 1 Laboratory Laboratory Tests Test 01/19/17 01/19/17 01:45 09:20 Urine Color YELLOW Urine Turbidity CLEAR Urine pH 5.5 Urine Specific Ector 1.017 Urine Protein 30 Urine Glucose (UA) NEG Urine Ketones NEG Urine Occult Blood NEG Urine Nitrite NEG Urine Bilirubin SMALL Urine Urobilinogen 2.0 Urine Leukocyte Esterase NEG Urine RBC 2 Urine WBC 4 Urine Squamous Epithelial 2 Cells Urine Bacteria RARE Urine Hyaline Casts 1 Microscopic Urinalysis Comment CULT NOT INDICATED White Blood Count 9.4 Red Blood Count 2.80 Hemoglobin 7.5 Hematocrit 23.6 Mean Corpuscular Volume 84.4 Mean Corpuscular Hemoglobin 27.0 Mean Corpuscular Hemoglobin 31.9 Concent Red Cell Distribution Width 17.0 Platelet Count 342 Mean Platelet Volume 6.9 Neutrophils (%) (Auto) 82.0 Lymphocytes (%) (Auto) 7.1 Monocytes (%) (Auto) 10.2 Eosinophils (%) (Auto) 0.3 Basophils (%) (Auto) 0.4 Neutrophils # (Auto) 7.7 Lymphocytes # (Auto) 0.7 Monocytes # (Auto) 1.0 Eosinophils # (Auto) 0.0 Basophils # (Auto) 0.0 CBC Comment DIFF FINAL Differential Comment Sodium Level 134 Potassium Level 3.5 Chloride Level 100 Carbon Dioxide Level 22.1 Anion Gap 12 Blood Urea Nitrogen 14 Creatinine 0.93 Estimat Glomerular Filtration 97 Rate Random Glucose 89 Calcium Level 8.9 Total Bilirubin 1.8 Aspartate Amino Transf 182 (AST/SGOT) Alanine Aminotransferase 185 (ALT/SGPT) Alkaline Phosphatase 375 Total Protein 7.5 Albumin 1.4 Date/Time Procedure Status Source Growth 01/17/17 11:14 Aerobic Blood Culture - Preliminary Resulted Blood Peripheral NO GROWTH IN 2 DAYS 01/17/17 11:14 Anaerobic Blood Culture - Preliminary Resulted Blood Peripheral NO GROWTH IN 2 DAYS Imaging Last Impressions Cholangiopancreatography MRI 01/18/17 0000 Signed Impressions: Service Date/Time: Wednesday, January 18, 2017 07:26 - CONCLUSION: Common duct mildly increased in diameter proximally. Exam otherwise within normal limits. Дмитрий Britt MD Abdomen/Pelvis CT 01/17/17 0000 Signed Impressions: Service Date/Time: Tuesday, January 17, 2017 12:06 - CONCLUSION: 1. Large right-sided inguinal hernia containing a portion of the colon as well as the urinary bladder. This was present on the prior examination. 2. Postsurgical changes involving the left hip joint. No free fluid or loculated fluid collections are seen in the region of the left hip joint. 3. No calcified renal stones or hydronephrosis. Alistair Carrillo MD Chest X-Ray 01/16/17 0000 Signed Impressions: Service Date/Time: December 01:42 - CONCLUSION: 1. Masslike area seen at the superior lateral left chest. The overlying left second rib is fractured. 2. Mild left effusion. Magdy Davis MD Lumbar Spine X-Ray 01/15/17 0000 Signed Impressions: Service Date/Time: Sunday, January 15, 2017 10:32 - CONCLUSION: 1. No acute abnormality. 2. Degenerative changes and scoliotic curvature as detailed above. 3. Wedge deformities involving T12 and L1. These either relate to old compression deformities or could relate to anatomical variance which is not uncommon at the cortical lumbar junction. Raj Nair Jr., MD Liver Ultrasound 01/15/17 0000 Signed Impressions: Service Date/Time: Sunday, January 15, 2017 13:28 - CONCLUSION: Hepatomegaly nonspecific. Gallbladder suggests borderline wall thickening of 4 mm and sludge with no evidence of stones and bile ducts appear normal. Jose J Nuñez MD Hip and Pelvis X-Ray 01/15/17 0000 Signed Impressions: Service Date/Time: Sunday, January 15, 2017 10:21 - CONCLUSION: Orthopedic hardware involving the left hip with good alignment. No acute abnormality. Raj Nair Jr., MD Femur X-Ray 01/15/17 0000 Signed Impressions: Service Date/Time: Sunday, January 15, 2017 10:21 - CONCLUSION: Intramedullary darrian and femoral neck screw with good alignment. Osteoarthritis of the hip and knee. Raj Nari Jr., MD Physical Exam HEENT: PERRLA; normocephalic; atraumatic; no jaundice. NECK: Neck is supple, no JVD, no lymphadenopathy. CHEST: CTA CARDIAC: RRR ABDOMEN: Soft, nondistended, nontender; no hepatosplenomegaly; bowel sounds x 4 quadrants. EXTREMITIES: No clubbing, cyanosis, or edema. SKIN: Normal; no rash; no jaundice. 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 Assessment and Plan Plan ASSESSMENT: -Anemia, related to malignancy. S/P blood transfusion 01/16/17. Hemoglobin 7.5, Hematocrit 23.6. Patient continues to refuse endoscopy at this time. -Elevated LFTs, secondary to Nivolumab? LFTs improving today. AST 182, ALT 185, T Bili 1.8, Pt 14.7. BRIDGET pending, Mitochondria Ab pending, Anti-Smooth Muscle Ab pending. Cholangiopancreatography MRI 01/18/17-->Common duct mildly increased in diameter proximally. Exam otherwise within normal limits. Abdomen/Pelvis CT --> 1. Large right-sided inguinal hernia containing a portion of the colon as well as the urinary bladder. This was present on the prior examination. 2. Postsurgical changes involving the left hip joint. No free fluid or loculated fluid collections are seen in the region of the left hip joint. 3. No calcified renal stones or hydronephrosis. Liver US 01/15/17--> Hepatomegaly nonspecific. Gallbladder suggests borderline wall thickening of 4 mm and sludge with no evidence of stones and bile ducts appear normal. -Non-small cell carcinoma of lung, stage 4, with mets to chest wall and bones. Diagnosed in early 2015. Failed chemotherapy with disease progression. Started on Nivolumab. Followed by Dr. Cordon. Oncology and Palliative Care consulted. PLAN: -Liver bx Friday -Immuno Hepatitis markers pending -Monitor HH, transfuse as needed. -Further recommendation to follow based on results of above. Patient seen and examined by Dr. Esteban and myself and this not is written on his behalf. Margo Rdz Jan 19, 2017 12:36
[2017-01-19] MEDS: DOCUSATE SODIUM 50 MG/SENNA 8.6 MG TAB PO SCH (21:00)
[2017-01-19] MEDS: ALPRAZolam 0.5 MG TAB PO PRN (21:30)
[2017-01-20] VITALS (11 sets, daily range): BP systolic 108–179; BP diastolic 66–81; PULSE 98–124; RESP 14–22; TEMP 97.7–99.7; O2SAT 90–96
[2017-01-20] MEDS: PIPERACIL-TAZO 3.375 GM PREMIX 50 ML IV SCH ×4 (05:10→22:37)
[2017-01-20] MEDS: ALPRAZolam 0.5 MG TAB PO PRN (05:10)
[2017-01-20] MEDS: CYANOCOBALAMIN 1,000 MCG TAB PO SCH (09:00)
[2017-01-20] MEDS: PANTOPRAZOLE SOD 20 MG DELAYED RELEASE TAB PO SCH (09:00)
[2017-01-20] MEDS: PYRIDOXINE HCL 50 MG TAB PO SCH (09:00)
[2017-01-20] MEDS: GABAPENTIN 400 MG CAP PO SCH ×2 (09:00→22:37)
[2017-01-20] MEDS: CALCIUM/VITAMIN D 250 MG/125 U TAB PO SCH ×2 (09:00→22:37)
--- NOTE | 2017-01-20 12:57 | PD.ONC.PN ---
Subjective Subjective Remarks Afebrile overnight. Patient complaining of pain in his left hip. He is NPO for liver biopsy today. he states he did eat some dinner last night. Objective Data Date Time Temp Pulse Resp B/P Pulse Ox O2 Delivery O2 Flow Rate FiO2 01/20/17 10:44 93 21 01/20/17 08:00 99.6 124 14 111/69 94 01/20/17 04:35 99.7 109 20 108/66 94 01/20/17 02:15 97.7 108 20 116/70 93 01/20/17 01:50 98.9 109 18 123/69 93 01/19/17 23:10 98.1 113 18 135/81 95 01/19/17 22:55 98.8 115 18 135/68 96 01/19/17 20:00 100.5 112 17 114/71 94 01/19/17 16:00 100.1 111 20 115/70 95 01/20/17 01/20/17 01/20/17 07:00 15:00 23:00 Intake Total 240 ml 500 ml Output Total 2000 ml Balance -1760 ml 500 ml Result Diagram: 01/19/1791901/19/1720 Laboratory Results Laboratory Tests Test 01/19/17 20:48 Blood Type O POSITIVE Antibody Screen NEGATIVE Crossmatch Leukocyte-Reduced Red Blood Cells Blood Bank Comment Administered Medications Medications (Trade) Dose Ordered Sig/Shirin Route PRN Reason Start Time Stop Time Status Last Admin Dose Admin Alprazolam (Xanax) 0.5 mg Q6H PRN PO ANXIETY 01/15/17 13:15 01/20/17 05:10 Cyanocobalamin (Vitamin B12) 1,000 mcg DAILY PO 01/16/17 09:00 01/19/17 09:42 Gabapentin (Neurontin) 400 mg BID PO 01/15/17 21:00 01/19/17 21:29 Pantoprazole Sodium (Protonix) 20 mg DAILY PO 01/16/17 09:00 01/19/17 09:42 Pyridoxine HCl (Vitamin B6) 100 mg DAILY PO 01/16/17 09:00 01/19/17 09:42 Calcium/Vitamin D (Oscal-D 250-125) 500 mg BID PO 01/15/17 21:00 01/19/17 21:29 Oxycodone HCl (Roxicodone) 5 mg Q4H PRN PO pain 01/15/17 18:15 01/20/17 05:10 Senna/Docusate Sodium 2 tab 2 tab HS PO 01/16/17 21:00 01/18/17 22:00 Piperacillin Sod/ Tazobactam Sod (Zosyn 3.375 Gm Premix) 50 ml @ 100 mls/hr Q6H IV 01/17/17 11:00 01/20/17 05:10 Objective Remarks GENERAL: Elderly male, lying supine in bed. SKIN: Warm and dry. HEAD: Normocephalic. EYES: No injection or drainage. NECK: Supple, trachea midline. CARDIOVASCULAR: Regular rate and rhythm RESPIRATORY: diminished at bases. anterior eng clear. GASTROINTESTINAL: Abdomen soft, non-tender, nondistended. EXTREMITIES: No cyanosis NEUROLOGICAL: awake and alert, normal speech. Assessment/Plan Problem List: (1) Elevated LFTs Status: Acute Plan: --01/20: liver --MRCP showed mildly dilated common bile duct, otherwise no concerns --GI consulted for continued elevated enzymes; plan for liver biopsy. (2) Non-small cell carcinoma of lung, stage 4 Status: Chronic Plan: --Overall his disease burden is very low. +bony metastatic disease. --originally diagnosed in early 2015--at that point already had mets to bilateral lungs, and rib bones. Had treatment with Carboplatin, Alimta and Bevacizumab. --May 2016: disease progression, treatment with Nivolumab reduced disease burden --01/04/17: had prophylactic stabilizing of left femur --01/15/17: admitted with bilateral hip pain, and low back pain, weakness and frequent falls (3) Generalized weakness Status: Chronic Plan: due to deconditioning, recent hip surgery, anemia and dehydration. (4) Hyponatremia Status: Acute Plan: --Improving (5) Pain Status: Acute Plan: --Avoid Tylenol at this time due to elevated liver functions. --Oxycodone 5mg q4h prn pain (6) Malnutrition Status: Acute Plan: --[employer] Room Service Supervisor consult --supplements with diet Assessment 71y/o with metastatic NSCLC admitted for weakness, hip pain and a fall. h/o Stage IV poorly differentiated non-small cell lung cancer diagnosed in 2015 with mets to chest wall and bones. History of anemia. Chronic lower extremity edema. Osteoarthritis of the left shoulder. COPD. Systolic and diastolic CHF. Gout. Hypertension. Peripheral neuropathy. Plan 1. d/w Dr. Ramos--potentially will receive radiation to left hip 2. continue pain management 3. await liver biopsy for elevated LFT's 4. monitor BC. continue abx Attending Statement The exam, history, and the medical decision-making described in the above note were completed with the assistance of the mid-level provider. I reviewed and agree with the findings presented. I attest that I had a [id number] encounter with the patient on the same day, and personally performed and documented my assessment and findings in the medical record. Angela Reed Jan 20, 2017 12:57 Tim Cordon MD Jan 20, 2017 22:56
--- NOTE | 2017-01-20 12:59 | HHI.PR ---
Subjective Remarks Pt has continued left hip pain, improved with Roxicodone. Objective Vitals Vital Signs Date Time Temp Pulse Resp B/P Pulse Ox O2 Delivery O2 Flow Rate FiO2 01/20/17 10:44 93 21 01/20/17 08:00 99.6 124 14 111/69 94 01/20/17 04:35 99.7 109 20 108/66 94 01/20/17 02:15 97.7 108 20 116/70 93 01/20/17 01:50 98.9 109 18 123/69 93 01/19/17 23:10 98.1 113 18 135/81 95 01/19/17 22:55 98.8 115 18 135/68 96 01/19/17 20:00 100.5 112 17 114/71 94 01/19/17 16:00 100.1 111 20 115/70 95 01/19/17 01/19/17 01/20/17 15:00 23:00 07:00 Intake Total 1566 ml 240 ml 240 ml Output Total 500 ml 850 ml 2000 ml Balance 1066 ml -610 ml -1760 ml Intake Oral 480 ml 240 ml 240 ml IV Total 1086 ml Output Urine Total 500 ml 850 ml 2000 ml # Voids 1 # Bowel Movements 2 2 1 Result Diagram: 01/19/1720 01/19/1720 Imaging Last Impressions Cholangiopancreatography MRI 01/18/17 0000 Signed Impressions: Service Date/Time: Wednesday, January 18, 2017 07:26 - CONCLUSION: Common duct mildly increased in diameter proximally. Exam otherwise within normal limits. Дмитрий Britt MD Abdomen/Pelvis CT 01/17/17 0000 Signed Impressions: Service Date/Time: Tuesday, January 17, 2017 12:06 - CONCLUSION: 1. Large right-sided inguinal hernia containing a portion of the colon as well as the urinary bladder. This was present on the prior examination. 2. Postsurgical changes involving the left hip joint. No free fluid or loculated fluid collections are seen in the region of the left hip joint. 3. No calcified renal stones or hydronephrosis. Alistair Carrillo MD Chest X-Ray 01/16/17 0000 Signed Impressions: Service Date/Time: December 01:42 - CONCLUSION: 1. Masslike area seen at the superior lateral left chest. The overlying left second rib is fractured. 2. Mild left effusion. Magdy Davis MD Lumbar Spine X-Ray 01/15/17 0000 Signed Impressions: Service Date/Time: Sunday, January 15, 2017 10:32 - CONCLUSION: 1. No acute abnormality. 2. Degenerative changes and scoliotic curvature as detailed above. 3. Wedge deformities involving T12 and L1. These either relate to old compression deformities or could relate to anatomical variance which is not uncommon at the cortical lumbar junction. Raj Nair Jr., MD Liver Ultrasound 01/15/17 0000 Signed Impressions: Service Date/Time: Sunday, January 15, 2017 13:28 - CONCLUSION: Hepatomegaly nonspecific. Gallbladder suggests borderline wall thickening of 4 mm and sludge with no evidence of stones and bile ducts appear normal. Jose J Nuñez MD Hip and Pelvis X-Ray 01/15/17 0000 Signed Impressions: Service Date/Time: Sunday, January 15, 2017 10:21 - CONCLUSION: Orthopedic hardware involving the left hip with good alignment. No acute abnormality. Raj Nair Jr., MD Femur X-Ray 01/15/17 0000 Signed Impressions: Service Date/Time: Sunday, January 15, 2017 10:21 - CONCLUSION: Intramedullary darrian and femoral neck screw with good alignment. Osteoarthritis of the hip and knee. 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 Recent orif to left fumur for pathological fx Pt has been falling at home, more confused. Noted to have hyponatremia from dehydration. better. elevated LFT with fever...no obvious mets or biliary obstruction on imaging ..GI questioning hepatitis related to chemo anemia related to malignancy. prbc ordered by oncology. general weakness. 01/20/17 - liver Bx ordered by GI - IVF: NS with KCL - zosyn for possible biliary tract infection - oxycodone prn - pt wants continued aggressive care - Dr. Ramos will see pt tomorrow to decide on possible radiation therapy to pt 's hip - Pt will need SNF upon hospital discharge (2) Non-small cell carcinoma of lung, stage 4 Status: Chronic Plan: - comgmt with Oncology and Palliative Medicine - Pt has stage IV poorly differentiated [id number] lung cancer diagnosed in early 2015 with mets to the chest wall and bones - He has completed six cycles of carboplatin, Alimta and bevacizumab but was found to have disease progression in 05/2016. - Pt has also received focal radiation treatment to the chest wall. - Pt follows with Dr. Cordon and is on second line therapy with IV Zometa for bony disease and immunotherapy with Nivolumab. - Review of outpt records revealed his most recent PET/CT on 12/12/16 revealed new metastatic disease in the left proximal femur and right anterior 7th rib costochondral junction. (3) Elevated liver enzymes Status: Acute Plan: see above (4) COPD (chronic obstructive pulmonary disease) Status: Chronic Plan: - Duonebs PRn (5) Anemia Status: Acute Plan: - Pt received 2 units of PRBCs post-operatively during recent admission. - Pt transfused additional 2 units PRBCs - await repeat CBC (6) Hypertension Status: Chronic Plan: - BP stable to low normal - pt currently off BP medications. Bill Eaton DO Jan 20, 2017 12:59
[2017-01-20] MEDS ORDERED: ARTIFICIAL TEARS OPTH SOLN 15 ML BTL RIGHT EYE PRN (14:00)
[2017-01-20 14:13] LABS: AUTOMATED NEUTROPHIL # 7.2 TH/MM3 (1.8-7.7); BASOPHIL % 0.4 % (0.0-2.0); EOSINOPHIL % 0.4 % (0.0-4.0); HEMATOCRIT 26.4 % (39.0-51.0); HEMO FLAGS DIFF FINAL; LYMPHOCYTE # 0.7 TH/MM3 (1.0-4.8); MEAN CELL VOLUME 84.1 FL (80.0-100.0); MEAN CORPUSCULAR HEMOGLOBIN 27.2 PG (27.0-34.0); MEAN CORPUSCULAR HGB CONC 32.4 % (32.0-36.0); MONO % 11.2 % (0.0-8.0); PLATELET COUNT 365 TH/MM3 (150-450); RED BLOOD COUNT 3.14 MIL/MM3 (4.50-5.90); RED CELL DISTRIBUTION WIDTH 17.4 % (11.6-17.2)
--- NOTE | 2017-01-20 14:28 | HHI.GIFU ---
Subjective Remarks Resting in bed. Confused. No active bleeding. No vomiting. Denies abdominal pain. (Vivienne Wong) Objective Vitals I&O Vital Signs Date Time Temp Pulse Resp B/P Pulse Ox O2 Delivery O2 Flow Rate FiO2 01/20/17 12:00 99.0 98 16 110/73 93 01/20/17 10:44 93 21 01/20/17 08:00 99.6 124 14 111/69 94 01/20/17 04:35 99.7 109 20 108/66 94 01/20/17 02:15 97.7 108 20 116/70 93 01/20/17 01:50 98.9 109 18 123/69 93 01/19/17 23:10 98.1 113 18 135/81 95 01/19/17 22:55 98.8 115 18 135/68 96 01/19/17 20:00 100.5 112 17 114/71 94 01/19/17 16:00 100.1 111 20 115/70 95 I/O 01/19/17 01/19/17 01/19/17 01/20/17 01/20/17 01/20/17 07:00 15:00 23:00 07:00 15:00 23:00 Intake Total 1566 ml 240 ml 240 ml 500 ml Output Total 350 ml 500 ml 850 ml 2000 ml Balance -350 ml 1066 ml -610 ml -1760 ml 500 ml Intake Oral 480 ml 240 ml 240 ml IV Total 1086 ml Packed Cells 500 ml Output Urine Total 350 ml 500 ml 850 ml 2000 ml # Voids 4 1 2 # Bowel Movements 1 2 2 1 2 Laboratory Laboratory Tests Test 01/19/17 01/20/17 20:48 14:00 Blood Type O POSITIVE Antibody Screen NEGATIVE Crossmatch Leukocyte-Reduced Red Blood Cells Blood Bank Comment White Blood Count 9.0 Red Blood Count 3.14 Hemoglobin 8.5 Hematocrit 26.4 Mean Corpuscular Volume 84.1 Mean Corpuscular Hemoglobin 27.2 Mean Corpuscular Hemoglobin 32.4 Concent Red Cell Distribution Width 17.4 Platelet Count 365 Mean Platelet Volume 6.9 Neutrophils (%) (Auto) 80.0 Lymphocytes (%) (Auto) 8.0 Monocytes (%) (Auto) 11.2 Eosinophils (%) (Auto) 0.4 Basophils (%) (Auto) 0.4 Neutrophils # (Auto) 7.2 Lymphocytes # (Auto) 0.7 Monocytes # (Auto) 1.0 Eosinophils # (Auto) 0.0 Basophils # (Auto) 0.0 CBC Comment DIFF FINAL Differential Comment Date/Time Procedure Status Source Growth 01/17/17 11:14 Aerobic Blood Culture - Preliminary Resulted Blood Peripheral NO GROWTH IN 3 DAYS 01/17/17 11:14 Anaerobic Blood Culture - Preliminary Resulted Blood Peripheral NO GROWTH IN 3 DAYS Imaging Last Impressions Cholangiopancreatography MRI 01/18/17 0000 Signed Impressions: Service Date/Time: Wednesday, January 18, 2017 07:26 - CONCLUSION: Common duct mildly increased in diameter proximally. Exam otherwise within normal limits. Дмитрий Britt MD Abdomen/Pelvis CT 01/17/17 0000 Signed Impressions: Service Date/Time: Tuesday, January 17, 2017 12:06 - CONCLUSION: 1. Large right-sided inguinal hernia containing a portion of the colon as well as the urinary bladder. This was present on the prior examination. 2. Postsurgical changes involving the left hip joint. No free fluid or loculated fluid collections are seen in the region of the left hip joint. 3. No calcified renal stones or hydronephrosis. Alistair Carrillo MD Chest X-Ray 01/16/17 0000 Signed Impressions: Service Date/Time: December 01:42 - CONCLUSION: 1. Masslike area seen at the superior lateral left chest. The overlying left second rib is fractured. 2. Mild left effusion. Magdy Davis MD Lumbar Spine X-Ray 01/15/17 0000 Signed Impressions: Service Date/Time: Sunday, January 15, 2017 10:32 - CONCLUSION: 1. No acute abnormality. 2. Degenerative changes and scoliotic curvature as detailed above. 3. Wedge deformities involving T12 and L1. These either relate to old compression deformities or could relate to anatomical variance which is not uncommon at the cortical lumbar junction. Raj Nair Jr., MD Liver Ultrasound 01/15/17 0000 Signed Impressions: Service Date/Time: Sunday, January 15, 2017 13:28 - CONCLUSION: Hepatomegaly nonspecific. Gallbladder suggests borderline wall thickening of 4 mm and sludge with no evidence of stones and bile ducts appear normal. Jose J Nuñez MD Hip and Pelvis X-Ray 01/15/17 0000 Signed Impressions: Service Date/Time: Sunday, January 15, 2017 10:21 - CONCLUSION: Orthopedic hardware involving the left hip with good alignment. No acute abnormality. Raj Nair Jr., MD Femur X-Ray 01/15/17 0000 Signed Impressions: Service Date/Time: Sunday, January 15, 2017 10:21 - CONCLUSION: Intramedullary darrian and femoral neck screw with good alignment. Osteoarthritis of the hip and knee. Raj Nair Jr., MD Physical Exam HEENT: PERRLA; normocephalic; atraumatic CHEST: CTA CARDIAC: RRR ABDOMEN: Soft, nondistended, nontender; enlarged liver bowel sounds x 4 quadrants. EXTREMITIES: No clubbing, cyanosis, or edema. SKIN: Normal; no rash; no jaundice. STONE DECORATOR: No focal deficits; A & O x 3. (Vivienne Wong) Assessment and Plan Plan ASSESSMENT: - Anemia, related to malignancy. S/P blood transfusion 01/16/17. Pt has refused endoscopy. S/P 3 units PRBC. HH 7.5/23.6. - Elevated LFTs, ? secondary to Nivolumab. T. Bili 1.8, AST 182, ALT 185, Alk Phosph 375. Hepatitis B IgM, HCV Ab negative, BRIDGET negative, Mitochondria Ab pending, Anti-Smooth Muscle Ab pending. MRCP ()----->Common duct mildly increased in diameter proximally. Exam otherwise within normal limits. Abdomen/Pelvis CT ( 01/17/17) --> 1. Large right-sided inguinal hernia containing a portion of the colon as well as the urinary bladder. This was present on the prior examination. 2. Postsurgical changes involving the left hip joint. No free fluid or loculated fluid collections are seen in the region of the left hip joint. 3. No calcified renal stones or hydronephrosis. Liver US 01/15/17--> Hepatomegaly nonspecific. Gallbladder suggests borderline wall thickening of 4 mm and sludge with no evidence of stones and bile ducts appear normal. -Non-small cell carcinoma of lung, stage 4, with mets to chest wall and bones. Diagnosed in early 2015. Failed chemotherapy with disease progression. Started on Nivolumab. Followed by Dr. Cordon. Oncology and Palliative Care following. PLAN: - NPO for liver biopsy - CT guided liver biopsy to evaluate for hepatitis r/t chemotherapy - Await ASMA, AMA - PPI - Monitor HH - Transfuse as necessary - Monitor LFTs - Further recommendation to follow based on results of above. - Patient seen and examined by Dr. Alonso and myself and this not is written on his behalf. (Vivienne Wong) Physician Comments Patient seen and examined Agree with above Continue with current supportive care Monitor labs (Ambrocio Alonso MD) Vivienne Wong Jan 20, 2017 14:28 Ambrocio Alonso MD Jan 20, 2017 23:53
[2017-01-20] MEDS ORDERED: LIDOCAINE 1%/EPINEPHrine 1:100,000 SOLN 20 ML VIAL ONE (14:30)
[2017-01-20 14:34] LABS: BICARBONATE 20.9 MEQ/L (21.0-32.0); POTASSIUM 3.2 MEQ/L (3.5-5.1)
[2017-01-20] MEDS ORDERED: fentaNYL CITRATE 250 MCG/5 ML AMP ONE (14:34)
[2017-01-20] MEDS ORDERED: MIDAZOLAM HCL 5 MG/5 ML VIAL ONE (14:34)
--- NOTE | 2017-01-20 15:07 | HHI.HCPN ---
Reason for visit a. To assist with evaluation and management of symptoms including: pain, constipation and debility b. To assist medical decision maker(s) with: better understanding of current medical conditions; weighing benefits/burdens of medical treatment options; making medical treatment decisions. . Subjective/Interval History Patient seen in his room, endorsing pain to lower back. Worse with movement, somewhat alleviated by Oxycodone and rest. Has been taking Oxycodone 5mg q4h PRN. One dose given today and 4 given yesterday. Patient denies shortness of breath, n/v or abdominal pain. Cont endorsing poor appetite, eating 25-50% of his meals. Afebrile, stable BP. Tachycardic with heart rate in the low 110s. Laboratory today including WBC 9.0, Hgb 8.5 -after transfusion of 1 pack of red blood cells for hemoglobin of 7.5, platelet 365. Sodium 134, potassium 3.2, BUN /creatinine 12/0.84. Liver function still elevated, AST 182, ALTs 185, alkaline phosphatase 375. Albumin 1.4. LFTs remain elevated, GI following, hepatitis panel negative. Cholangiopancreatography MRI obtained on 01/18/17, within normal limits with the exception of common duct mildly increased in diameter. Patient scheduled for liver biopsy today to evaluate for hepatitis related to chemotherapy. Oncology following, patient to be seen by radiation oncology Dr. Ramos tomorrow for possible radiation to hip. Most recent PET/CT on 12/12/16 revealed new metastatic disease in the left proximal femur. Met patient's daughter Whit at bedside. Medical update provided. She reports concern of patient's continued decline, she states that patient told her that he may not survive these hospitalization. Discussed concerns regarding progression of disease and patient's continued decline. Reviewed concerns about patient's ability to tolerate rehab and additional antineoplastic treatment. Daughter verbalized being aware that patient's condition is not curable but is hoping that radiation will provide some symptom management and improve his quality of life. Family wishing to wait for results of liver biopsy before goals of care can be reassessed. Patient to remain a full code at this time. . Family/friend interactions See interval note. . Advance Directives Living Will: Never completed Health Care Surrogate: Copy in medical record Durable Power of Nurse Sane: Never completed Advance Directive Specifics Date completed: 01/16/2017. . Health Care Surrogate(s): Whit Jalloh as primary HCS and Jose J Mohan as alternate surrogate. . Documented care wishes: No living will has been completed. . Significant change in goals: Goals remain unchanged. . Objective Vital Signs Date Time Temp Pulse Resp B/P Pulse Ox O2 Delivery O2 Flow Rate FiO2 01/20/17 12:00 99.0 98 16 110/73 93 01/20/17 10:44 93 21 01/20/17 08:00 99.6 124 14 111/69 94 01/20/17 04:35 99.7 109 20 108/66 94 01/20/17 02:15 97.7 108 20 116/70 93 01/20/17 01:50 98.9 109 18 123/69 93 01/19/17 23:10 98.1 113 18 135/81 95 01/19/17 22:55 98.8 115 18 135/68 96 01/19/17 20:00 100.5 112 17 114/71 94 01/19/17 16:00 100.1 111 20 115/70 95 Intake & Output 01/20/17 01/20/17 07:00 19:00 Intake Total 480 ml 500 ml Output Total 2850 ml Balance -2370 ml 500 ml Intake Oral 480 ml 0 ml Packed Cells 500 ml Output Urine Total 2850 ml # Voids 1 3 # Bowel Movements 3 2 Physical Exam CONSTITUTIONAL/GENERAL: This is an adequately nourished patient, in moderate distress secondary to pain. TUBES/LINES/DRAINS: PIV's. SKIN: No jaundice, rashes, or lesions. No wounds seen anteriorly. Skin temperature appropriate. Not diaphoretic. HEAD: Atraumatic. Normocephalic. EYES: Pupils equal and round and reactive. Extraocular motions intact. No scleral icterus. No injection or drainage. ENT: Hearing grossly normal. Nose without bleeding or purulent drainage. NECK: Trachea midline. Supple, nontender. CARDIOVASCULAR: Regular rate and rhythm without murmurs, gallops, or rubs. No JVD. Peripheral pulses symmetric. RESPIRATORY/CHEST: Symmetric, unlabored respirations. Clear to auscultation. Breath sounds equal bilaterally. No wheezes, rales, or rhonchi. GASTROINTESTINAL: Abdomen soft, non-tender, distended. No guarding. Bowel sounds present. GENITOURINARY: Without palpable bladder distension. MUSCULOSKELETAL: Extremities without clubbing, cyanosis. No mottling or clubbing. NEUROLOGICAL: Awake and alert. Follows commands. Moves all extremities. verbal and able to communicate needs. PSYCHIATRIC: calm. . Diagnostic Tests Laboratory Laboratory Tests Test 01/18/17 01/18/17 01/19/17 01/19/17 05:22 12:33 01:45 09:20 Total Bilirubin 1.6 MG/DL 1.8 MG/DL (0.2-1.0) (0.2-1.0) Direct Bilirubin 1.1 MG/DL (0.0-0.2) Indirect Bilirubin 0.5 MG/DL (0.0-0.8) Aspartate Amino Transf 236 U/L (15-37) 182 U/L (15-37) (AST/SGOT) Alanine Aminotransferase 210 U/L (12-78) 185 U/L (12-78) (ALT/SGPT) Alkaline Phosphatase 467 U/L 375 U/L (45-117) (45-117) Total Protein 7.9 GM/DL 7.5 GM/DL (6.4-8.2) (6.4-8.2) Albumin 1.4 GM/DL 1.4 GM/DL (3.4-5.0) (3.4-5.0) Anti-Nuclear Antibody Screen NEG (NEG) Urine Color YELLOW (YELLW/STRAW) Urine Turbidity CLEAR (CLEAR) Urine pH 5.5 (5.0-8.5) Urine Specific Gray 1.017 (1.002-1.035) Urine Protein 30 mg/dL (NEG-TRACE) Urine Glucose (UA) NEG mg/dL (NEG) Urine Ketones NEG mg/dL (NEG) Urine Occult Blood NEG (NEG) Urine Nitrite NEG (NEG) Urine Bilirubin SMALL (NEG) Urine Urobilinogen 2.0 MG/DL (LESS THAN 2.0) Urine Leukocyte Esterase NEG (NEG) Urine RBC 2 /hpf (0-3) Urine WBC 4 /hpf (0-5) Urine Squamous Epithelial 2 /hpf (0-5) Cells Urine Bacteria RARE /hpf (NONE) Urine Hyaline Casts 1 /lpf (RARE) Microscopic Urinalysis Comment CULT NOT INDICATED White Blood Count 9.4 TH/MM3 (4.0-11.0) Red Blood Count 2.80 MIL/MM3 (4.50-5.90) Hemoglobin 7.5 GM/DL (13.0-17.0) Hematocrit 23.6 % (39.0-51.0) Mean Corpuscular Volume 84.4 FL (80.0-100.0) Mean Corpuscular Hemoglobin 27.0 PG (27.0-34.0) Mean Corpuscular Hemoglobin 31.9 % Concent (32.0-36.0) Red Cell Distribution Width 17.0 % (11.6-17.2) Platelet Count 342 TH/MM3 (150-450) Mean Platelet Volume 6.9 FL (7.0-11.0) Neutrophils (%) (Auto) 82.0 % (16.0-70.0) Lymphocytes (%) (Auto) 7.1 % (9.0-44.0) Monocytes (%) (Auto) 10.2 % (0.0-8.0) Eosinophils (%) (Auto) 0.3 % (0.0-4.0) Basophils (%) (Auto) 0.4 % (0.0-2.0) Neutrophils # (Auto) 7.7 TH/MM3 (1.8-7.7) Lymphocytes # (Auto) 0.7 TH/MM3 (1.0-4.8) Monocytes # (Auto) 1.0 TH/MM3 (0-0.9) Eosinophils # (Auto) 0.0 TH/MM3 (0-0.4) Basophils # (Auto) 0.0 TH/MM3 (0-0.2) CBC Comment DIFF FINAL Differential Comment Sodium Level 134 MEQ/L (136-145) Potassium Level 3.5 MEQ/L (3.5-5.1) Chloride Level 100 MEQ/L (98-107) Carbon Dioxide Level 22.1 MEQ/L (21.0-32.0) Anion Gap 12 MEQ/L (5-15) Blood Urea Nitrogen 14 MG/DL (7-18) Creatinine 0.93 MG/DL (0.60-1.30) Estimat Glomerular Filtration 97 ML/MIN (>89) Rate Random Glucose 89 MG/DL (74-106) Calcium Level 8.9 MG/DL (8.5-10.1) Test 01/19/17 01/20/17 20:48 14:00 Blood Type O POSITIVE Antibody Screen NEGATIVE Crossmatch Leukocyte-Reduced Red Blood Cells Blood Bank Comment White Blood Count 9.0 TH/MM3 (4.0-11.0) Red Blood Count 3.14 MIL/MM3 (4.50-5.90) Hemoglobin 8.5 GM/DL (13.0-17.0) Hematocrit 26.4 % (39.0-51.0) Mean Corpuscular Volume 84.1 FL (80.0-100.0) Mean Corpuscular Hemoglobin 27.2 PG (27.0-34.0) Mean Corpuscular Hemoglobin 32.4 % Concent (32.0-36.0) Red Cell Distribution Width 17.4 % (11.6-17.2) Platelet Count 365 TH/MM3 (150-450) Mean Platelet Volume 6.9 FL (7.0-11.0) Neutrophils (%) (Auto) 80.0 % (16.0-70.0) Lymphocytes (%) (Auto) 8.0 % (9.0-44.0) Monocytes (%) (Auto) 11.2 % (0.0-8.0) Eosinophils (%) (Auto) 0.4 % (0.0-4.0) Basophils (%) (Auto) 0.4 % (0.0-2.0) Neutrophils # (Auto) 7.2 TH/MM3 (1.8-7.7) Lymphocytes # (Auto) 0.7 TH/MM3 (1.0-4.8) Monocytes # (Auto) 1.0 TH/MM3 (0-0.9) Eosinophils # (Auto) 0.0 TH/MM3 (0-0.4) Basophils # (Auto) 0.0 TH/MM3 (0-0.2) CBC Comment DIFF FINAL Differential Comment Sodium Level 134 MEQ/L (136-145) Potassium Level 3.2 MEQ/L (3.5-5.1) Chloride Level 100 MEQ/L (98-107) Carbon Dioxide Level 20.9 MEQ/L (21.0-32.0) Anion Gap 13 MEQ/L (5-15) Blood Urea Nitrogen 12 MG/DL (7-18) Creatinine 0.84 MG/DL (0.60-1.30) Estimat Glomerular Filtration 109 ML/MIN Rate (>89) Random Glucose 90 MG/DL (74-106) Calcium Level 9.0 MG/DL (8.5-10.1) Result Diagram: 01/20/17 1400 01/20/17 1400 Imaging Last Impressions Cholangiopancreatography MRI 01/18/17 0000 Signed Impressions: Service Date/Time: Wednesday, January 18, 2017 07:26 - CONCLUSION: Common duct mildly increased in diameter proximally. Exam otherwise within normal limits. Дмитрий Britt MD Abdomen/Pelvis CT 01/17/17 0000 Signed Impressions: Service Date/Time: Tuesday, January 17, 2017 12:06 - CONCLUSION: 1. Large right-sided inguinal hernia containing a portion of the colon as well as the urinary bladder. This was present on the prior examination. 2. Postsurgical changes involving the left hip joint. No free fluid or loculated fluid collections are seen in the region of the left hip joint. 3. No calcified renal stones or hydronephrosis. Alistair Carrillo MD Chest X-Ray 01/16/17 0000 Signed Impressions: Service Date/Time: December 01:42 - CONCLUSION: 1. Masslike area seen at the superior lateral left chest. The overlying left second rib is fractured. 2. Mild left effusion. Magdy Davis MD Lumbar Spine X-Ray 01/15/17 0000 Signed Impressions: Service Date/Time: Sunday, January 15, 2017 10:32 - CONCLUSION: 1. No acute abnormality. 2. Degenerative changes and scoliotic curvature as detailed above. 3. Wedge deformities involving T12 and L1. These either relate to old compression deformities or could relate to anatomical variance which is not uncommon at the cortical lumbar junction. Raj Nair Jr., MD Liver Ultrasound 01/15/17 0000 Signed Impressions: Service Date/Time: Sunday, January 15, 2017 13:28 - CONCLUSION: Hepatomegaly nonspecific. Gallbladder suggests borderline wall thickening of 4 mm and sludge with no evidence of stones and bile ducts appear normal. Jose J Nuñez MD Hip and Pelvis X-Ray 01/15/17 0000 Signed Impressions: Service Date/Time: Sunday, January 15, 2017 10:21 - CONCLUSION: Orthopedic hardware involving the left hip with good alignment. No acute abnormality. Raj Nair Jr., MD Femur X-Ray 01/15/17 0000 Signed Impressions: Service Date/Time: Sunday, January 15, 2017 10:21 - CONCLUSION: Intramedullary darrian and femoral neck screw with good alignment. Osteoarthritis of the hip and knee. Raj Nair Jr., MD Procedures Assessment and Plan Disease Oriented Problem List: (1) Non-small cell carcinoma of lung, stage 4 (2) Elevated LFTs (3) COPD (chronic obstructive pulmonary disease) Symptom Scale: (1) Pain 0-10 Scale: 10 Comment: Secondary to burden of disease and recent orthopedic surgery. (2) Generalized weakness Comment: progressive. (3) Constipation Comment: Chronic, opioid use. (4) Malnutrition Comment: Albumin 1.5 Pertinent Non-Medical Issues Psychosocial: . Has 4 children. Independent living. Spiritual: Evangelical. Legal: No living will completed. Ethical issues impacting care: No living will completed. . Important Contacts [facility] Whit Marques [facility] Jose J Mohan . . Prognosis Mr. Lombardo is a 71 y/o male with a medical history significant for stage IV poorly differentiated [id number] lung cancer diagnosed in early 2015 with mets to the bones. As per history, patient was initially treated with chemotherapy and immunotherapy but had disease progression in May 2016. Patient has also received radiation treatment to the chest wall. Most recent PET /CT on 12/12/16 revealed new metastatic disease in the left proximal femur and right anterior 7th rib costochondral junction, he underwent intramedullary nail fixation of left femur on 12/31/16 for impending pathologic fracture of left proximal femur secondary to metastatic lesion. Patient at high risk for further decline, complications and given his metastatic lung cancer, age, physical deconditioning, malnutrition and multiple comorbidities. . Code Status: Full Code Plan * CODE STATUS: FULL CODE. * HEALTHCARE DECISION-MAKER: Patient designated Whit Jalloh as primary HCS and Jose J Mohan as alternate surrogate. * GOALS OF CARE: Patient's goal is to improve functional status in order to continue antineoplastic therapy. Patient verbalizing that he may not survive this hospitalization. Family wishing to wait for liver biopsy results before readdressing CODE STATUS and goals of care. Daughter Whit reporting that family would like for patient to be discharged to acute rehabilitation for physical straightening, discussed concerns regarding patient's ability to tolerate acute therapy at this time. Encouraged patient and daughter to continue discussing limitations of treatment in the setting of his progressive metastatic disease. * Discussed the future role of hospice should symptom burden increases or there is additional functional decline. * SYMPTOMS: ==Pain, secondary to burden of disease, recent ortho surgical intervention. Home regimen of Mcneal. same changed to Oxycodone secondary to elevated LFT's. ==Weakness, physical deconditioning. Likely require acute rehabilitation upon discharge ==Constipation, secondary to opioids and bedrest. Senna-s and PRN Dulcolax sup. ==Malnutrition, albumin 1.5, poor oral intake. * Palliative care contact information has been provided to patient and daughter. * Palliative care to follow-up to assist with symptom management and to further evaluate goals of medical treatment as the clinical course evolves. . . Time Spent Total Floor Time (mins): 42 (Total time to include review medical records, physical exam, and telephone conversation with patient's daughter ) >50% Counseling/Coord of Care: Yes Attestation To help prompt me to consider important information that might be impacting today's encounter and assessment, information from prior notes written by myself or my colleagues may have been "brought forward" into today's note. My signature on this note, however, is an attestation that I personally performed the exam, history, and/or decision-making noted today, and, unless otherwise indicated, the interactions with patient, family, and staff as well as the review of records all occurred today. I also attest that the listed assessment and stated plan reflect my best clinical judgment today based on the combination of historical information, prior notes, and today's exam/ interactions. When time spent is documented, it refers only to time spent today by the signer, or if indicated, combined time spent today by collaborating physician/nurse practitioner. lAesia Montague Jan 20, 2017 15:07
--- NOTE | 2017-01-20 15:53 | RADRPT ---
EXAM DATE/TIME: 01/20/2017 14:58 [facility] COMPARISON: No previous studies available for comparison. INDICATIONS : Elevated liver function tests. SEDATION TIME: 30 minutes BIOPSY SITE: Liver MEDICATION(S): 1.) 1.5 mg midazolam (Versed) IV 2.) 75 mcg fentanyl (Sublimaze) IV DEVICE(S): 1.) 18 gauge Temno core biopsy needle MEDICAL HISTORY : Carcinoma, lung. Metastatic, bone. Chronic obstructive pulmonary disease. Hypertension. Congestive h eart failure. SURGICAL HISTORY : None. ENCOUNTER: Initial ACUITY: 1 day PAIN SCORE: 0/10 LOCATION: Liver A total of two core specimen(s) were obtained and sent to the laboratory for pathologic evaluation. PROCEDURE: 1. CT guided liver biopsy. 2. Conscious sedation with continuous EKG and oximetry monitoring. 3. EKG and oximetry remained stable throughout the procedure. Prior to the procedure informed consent was obtained. Any appropriate prior imaging studies were rev iewed. The site was prepped in a sterile fashion. Full sterile technique was used, including cap, mask, aman rile gloves and gown and a large sterile sheet. Hand hygiene and 2% chlorhexidine and/or betadine/al cohol prep was utilized per protocol for cutaneous antisepsis. The skin and subcutaneous tissues wer e infiltrated with local anesthetic solution. With CT guidance the previously identified target was localized. Biopsy was performed using the presc ribed needle as above. Adequate hemostasis was obtained with compression at the puncture site. Follow-up CT scan reveals no hemorrhage. The patient tolerated the procedure well and there were no complications. The patient was returned to the Radiology Outpatient Unit in stable condition. CONCLUSION: Uncomplicated CT guided biopsy. Brian Villanueva MD on January 20, 2017 at 15:50 Board Certified Radiologist. This report was verified electronically.
[2017-01-20] MEDS: DOCUSATE SODIUM 50 MG/SENNA 8.6 MG TAB PO SCH (21:00)
[2017-01-21] VITALS: BP 120/73; PULSE 117; RESP 22; TEMP 100.2; O2SAT 94
[2017-01-21 04:00] VITALS: BP 109/65; PULSE 118; RESP 20; TEMP 99.9; O2SAT 94
[2017-01-21] MEDS: PIPERACIL-TAZO 3.375 GM PREMIX 50 ML IV SCH ×4 (05:57→23:58)
[2017-01-21 07:15] LABS: AUTOMATED NEUTROPHIL # 6.5 TH/MM3 (1.8-7.7); BASOPHIL % 0.2 % (0.0-2.0); EOSINOPHIL % 0.3 % (0.0-4.0); HEMATOCRIT 24.2 % (39.0-51.0); HEMO FLAGS DIFF FINAL; LYMPH % 8.3 % (9.0-44.0); LYMPHOCYTE # 0.7 TH/MM3 (1.0-4.8); MEAN CELL VOLUME 83.2 FL (80.0-100.0); MEAN CORPUSCULAR HEMOGLOBIN 27.3 PG (27.0-34.0); MEAN CORPUSCULAR HGB CONC 32.8 % (32.0-36.0); MONO % 10.4 % (0.0-8.0); NEUT % 80.8 % (16.0-70.0); PLATELET COUNT 320 TH/MM3 (150-450); RED CELL DISTRIBUTION WIDTH 17.2 % (11.6-17.2); WHITE BLOOD COUNT 8.1 TH/MM3 (4.0-11.0)
[2017-01-21 07:53] LABS: ALKALINE PHOSPHATASE 345 U/L (45-117); ALT (GPT) 113 U/L (12-78); ANION GAP 15 MEQ/L (5-15); AST (GOT) 90 U/L (15-37); BICARBONATE 21.4 MEQ/L (21.0-32.0); BLOOD UREA NITROGEN 13 MG/DL (7-18); CHLORIDE 98 MEQ/L (98-107); GLOMERULAR FILTRATION RATE 113 ML/MIN (>89); MAGNESIUM 1.6 MG/DL (1.5-2.5); SODIUM (NA) 134 MEQ/L (136-145); TOTAL BILIRUBIN ADULT 2.3 MG/DL (0.2-1.0)
[2017-01-21 07:56] LABS: POTASSIUM 2.9 MEQ/L (3.5-5.1)
[2017-01-21 08:00] VITALS: BP 106/65; PULSE 109; RESP 18; TEMP 96; O2SAT 95
--- NOTE | 2017-01-21 09:00 | PD.ORT.PN ---
Subjective Subjective Remarks s/p fall at home last week. admitted for medical care s/p IMN left hip 3 weeks ago doing well. pain controlled. altered mental status. Objective Vitals Vital Signs Date Time Temp Pulse Resp B/P Pulse Ox O2 Delivery O2 Flow Rate FiO2 01/21/17 08:00 96.0 109 18 106/65 95 01/21/17 04:00 99.9 118 20 109/65 94 01/21/17 00:00 100.2 117 22 120/73 94 01/20/17 20:00 98.2 111 22 120/69 92 01/20/17 18:47 18 01/20/17 16:45 109 18 167/81 92 01/20/17 16:15 105 18 176/76 96 01/20/17 15:45 103 18 179/76 96 01/20/17 15:30 101 18 175/77 90 01/20/17 12:00 99.0 98 16 110/73 93 01/20/17 10:44 93 21 I/O 01/20/17 01/20/17 01/20/17 01/21/17 01/21/17 01/21/17 07:00 15:00 23:00 07:00 15:00 23:00 Intake Total 240 ml 500 ml 120 ml Output Total 2000 ml 200 ml Balance -1760 ml 500 ml -80 ml Intake Oral 240 ml 0 ml 120 ml Packed Cells 500 ml Output Urine Total 2000 ml 200 ml # Voids 1 3 2 # Bowel Movements 1 2 1 Result Diagram: 01/21/17 0634 01/21/17 0634 Objective Remarks LLE: incisions clean and dry. intact. no drainage. healed well. nvi Assessment & Plan Assessment and Plan 1) Left Hip IMN - 3 weeks -WBAT -DC yessica today -work with PT on gait training -f/u with Dr Hernandez or PA in 3 weeks Kodak Howard Jan 21, 2017 09:00
[2017-01-21] MEDS: PYRIDOXINE HCL 50 MG TAB PO SCH (10:26)
[2017-01-21] MEDS: CYANOCOBALAMIN 1,000 MCG TAB PO SCH (10:26)
[2017-01-21] MEDS: CALCIUM/VITAMIN D 250 MG/125 U TAB PO SCH ×2 (10:27→20:42)
[2017-01-21] MEDS: GABAPENTIN 400 MG CAP PO SCH ×2 (10:27→20:42)
[2017-01-21] MEDS: POTASSIUM CHLORIDE 20 MEQ CONTROLLED RELEASE TAB PO SCH ×2 (10:28→14:23)
[2017-01-21] MEDS: PANTOPRAZOLE SOD 20 MG DELAYED RELEASE TAB PO SCH (10:28)
--- NOTE | 2017-01-21 10:57 | PD.ONC.PN ---
Subjective Subjective Remarks Tmax 100.2 overnight. Patient without overnight events. Awaiting results of liver biopsy. cleared by ortho to start weight bearing today. Objective Data Date Time Temp Pulse Resp B/P Pulse Ox O2 Delivery O2 Flow Rate FiO2 01/21/17 08:00 96.0 109 18 106/65 95 01/21/17 04:00 99.9 118 20 109/65 94 01/21/17 00:00 100.2 117 22 120/73 94 01/20/17 20:00 98.2 111 22 120/69 92 01/20/17 18:47 18 01/20/17 16:45 109 18 167/81 92 01/20/17 16:15 105 18 176/76 96 01/20/17 15:45 103 18 179/76 96 01/20/17 15:30 101 18 175/77 90 01/20/17 12:00 99.0 98 16 110/73 93 01/21/17 01/21/17 01/21/17 07:00 15:00 23:00 Intake Total 120 ml Output Total 200 ml Balance -80 ml Result Diagram: 01/21/17 0634 01/21/17 0634 Laboratory Results Laboratory Tests Test 01/20/17 01/21/17 14:00 06:34 White Blood Count 9.0 TH/MM3 8.1 TH/MM3 Red Blood Count 3.14 MIL/MM3 2.90 MIL/MM3 Hemoglobin 8.5 GM/DL 7.9 GM/DL Hematocrit 26.4 % 24.2 % Mean Corpuscular Volume 84.1 FL 83.2 FL Mean Corpuscular Hemoglobin 27.2 PG 27.3 PG Mean Corpuscular Hemoglobin 32.4 % 32.8 % Concent Red Cell Distribution Width 17.4 % 17.2 % Platelet Count 365 TH/MM3 320 TH/MM3 Mean Platelet Volume 6.9 FL 7.0 FL Neutrophils (%) (Auto) 80.0 % 80.8 % Lymphocytes (%) (Auto) 8.0 % 8.3 % Monocytes (%) (Auto) 11.2 % 10.4 % Eosinophils (%) (Auto) 0.4 % 0.3 % Basophils (%) (Auto) 0.4 % 0.2 % Neutrophils # (Auto) 7.2 TH/MM3 6.5 TH/MM3 Lymphocytes # (Auto) 0.7 TH/MM3 0.7 TH/MM3 Monocytes # (Auto) 1.0 TH/MM3 0.8 TH/MM3 Eosinophils # (Auto) 0.0 TH/MM3 0.0 TH/MM3 Basophils # (Auto) 0.0 TH/MM3 0.0 TH/MM3 CBC Comment DIFF FINAL DIFF FINAL Differential Comment Sodium Level 134 MEQ/L 134 MEQ/L Potassium Level 3.2 MEQ/L 2.9 MEQ/L Chloride Level 100 MEQ/L 98 MEQ/L Carbon Dioxide Level 20.9 MEQ/L 21.4 MEQ/L Anion Gap 13 MEQ/L 15 MEQ/L Blood Urea Nitrogen 12 MG/DL 13 MG/DL Creatinine 0.84 MG/DL 0.82 MG/DL Estimat Glomerular Filtration 109 ML/MIN 113 ML/MIN Rate Random Glucose 90 MG/DL 103 MG/DL Calcium Level 9.0 MG/DL 8.6 MG/DL Magnesium Level 1.6 MG/DL Total Bilirubin 2.3 MG/DL Aspartate Amino Transf 90 U/L (AST/SGOT) Alanine Aminotransferase 113 U/L (ALT/SGPT) Alkaline Phosphatase 345 U/L Total Protein 7.6 GM/DL Albumin 1.4 GM/DL Administered Medications Medications (Trade) Dose Ordered Sig/Shirin Route PRN Reason Start Time Stop Time Status Last Admin Dose Admin Alprazolam (Xanax) 0.5 mg Q6H PRN PO ANXIETY 01/15/17 13:15 01/20/17 05:10 Cyanocobalamin (Vitamin B12) 1,000 mcg DAILY PO 01/16/17 09:00 01/21/17 10:26 Gabapentin (Neurontin) 400 mg BID PO 01/15/17 21:00 01/21/17 10:27 Pantoprazole Sodium (Protonix) 20 mg DAILY PO 01/16/17 09:00 01/21/17 10:28 Pyridoxine HCl (Vitamin B6) 100 mg DAILY PO 01/16/17 09:00 01/21/17 10:26 Calcium/Vitamin D (Oscal-D 250-125) 500 mg BID PO 01/15/17 21:00 01/21/17 10:27 Oxycodone HCl (Roxicodone) 5 mg Q4H PRN PO pain 01/15/17 18:15 01/21/17 10:27 Senna/Docusate Sodium 2 tab 2 tab HS PO 01/16/17 21:00 01/18/17 22:00 Piperacillin Sod/ Tazobactam Sod (Zosyn 3.375 Gm Premix) 50 ml @ 100 mls/hr Q6H IV 01/17/17 11:00 01/21/17 10:28 Potassium Chloride (KCl) 40 meq Q4H PO 01/21/17 08:30 01/21/17 12:31 01/21/17 10:28 Objective Remarks GENERAL: Elderly male, sitting upright in room. SKIN: Warm and dry. HEAD: Normocephalic. EYES: No injection or drainage. NECK: Supple, trachea midline. CARDIOVASCULAR: Regular rate and rhythm RESPIRATORY: diminished at bases. anterior eng clear. GASTROINTESTINAL: Abdomen soft, non-tender, nondistended. EXTREMITIES: No cyanosis NEUROLOGICAL: Awake and alert, normal speech. moving all extremities. Assessment/Plan Problem List: (1) Elevated LFTs Status: Acute Plan: --01/21: liver biopsy pending. GI following. --MRCP showed mildly dilated common bile duct, otherwise no concerns --GI consulted for continued elevated enzymes; plan for liver biopsy. (2) Non-small cell carcinoma of lung, stage 4 Status: Chronic Plan: --Rad Onc to evaluate for XRT to left hip --Overall his disease burden is very low. +bony metastatic disease. --originally diagnosed in early 2015--at that point already had mets to bilateral lungs, and rib bones. Had treatment with Carboplatin, Alimta and Bevacizumab. --May 2016: disease progression, treatment with Nivolumab reduced disease burden --01/04/17: had prophylactic stabilizing of left femur --01/15/17: admitted with bilateral hip pain, and low back pain, weakness and frequent falls (3) Generalized weakness Status: Chronic Plan: due to deconditioning, recent hip surgery, anemia and dehydration. (4) Hyponatremia Status: Acute Plan: --Improving (5) Pain Status: Acute Plan: --Avoid Tylenol at this time due to elevated liver functions. --Oxycodone 5mg q4h prn pain Assessment 71y/o with metastatic NSCLC admitted for weakness, hip pain and a fall. h/o Stage IV poorly differentiated non-small cell lung cancer diagnosed in 2015 with mets to chest wall and bones. History of anemia. Chronic lower extremity edema. Osteoarthritis of the left shoulder. COPD. Systolic and diastolic CHF. Gout. Hypertension. Peripheral neuropathy. Plan 1. continue supportive care 2. await radiation oncology evaluation 3. pain management. Attending Statement The exam, history, and the medical decision-making described in the above note were completed with the assistance of the mid-level provider. I reviewed and agree with the findings presented. I attest that I had a [id number] encounter with the patient on the same day, and personally performed and documented my assessment and findings in the medical record. complains of hip pain. poor oral intake. Weak. Anemia worse. Transfuse 1 unit of pRBC. Will start Megace for appetite stimulation Fentanyl patch low dose 12.5mcg for pain. discussed with RN Continue PT. Will need discharge to rehab. Angela Reed Jan 21, 2017 10:57 Tim Cordon MD Jan 21, 2017 23:55
--- NOTE | 2017-01-21 11:30 | HHI.PR ---
Subjective Remarks No new complaints. Objective Vitals Vital Signs Date Time Temp Pulse Resp B/P Pulse Ox O2 Delivery O2 Flow Rate FiO2 01/21/17 08:00 96.0 109 18 106/65 95 01/21/17 04:00 99.9 118 20 109/65 94 01/21/17 00:00 100.2 117 22 120/73 94 01/20/17 20:00 98.2 111 22 120/69 92 01/20/17 18:47 18 01/20/17 16:45 109 18 167/81 92 01/20/17 16:15 105 18 176/76 96 01/20/17 15:45 103 18 179/76 96 01/20/17 15:30 101 18 175/77 90 01/20/17 12:00 99.0 98 16 110/73 93 01/20/17 01/20/17 01/21/17 15:00 23:00 07:00 Intake Total 500 ml 120 ml Output Total 200 ml Balance 500 ml -80 ml Intake Oral 0 ml 120 ml Packed Cells 500 ml Output Urine Total 200 ml # Voids 3 2 # Bowel Movements 2 1 Result Diagram: 01/21/17 0634 01/21/17 0634 Imaging Last Impressions Liver Biopsy CT 01/20/17 0000 Signed Impressions: Service Date/Time: Friday, January 20, 2017 14:58 - CONCLUSION: Uncomplicated CT guided biopsy. Brian Villanueva MD Cholangiopancreatography MRI 01/18/17 0000 Signed Impressions: Service Date/Time: Wednesday, January 18, 2017 07:26 - CONCLUSION: Common duct mildly increased in diameter proximally. Exam otherwise within normal limits. Дмитрий Britt MD Abdomen/Pelvis CT 01/17/17 0000 Signed Impressions: Service Date/Time: Tuesday, January 17, 2017 12:06 - CONCLUSION: 1. Large right-sided inguinal hernia containing a portion of the colon as well as the urinary bladder. This was present on the prior examination. 2. Postsurgical changes involving the left hip joint. No free fluid or loculated fluid collections are seen in the region of the left hip joint. 3. No calcified renal stones or hydronephrosis. Alistair Carrillo MD Chest X-Ray 01/16/17 0000 Signed Impressions: Service Date/Time: December 01:42 - CONCLUSION: 1. Masslike area seen at the superior lateral left chest. The overlying left second rib is fractured. 2. Mild left effusion. Magdy Davis MD Lumbar Spine X-Ray 01/15/17 0000 Signed Impressions: Service Date/Time: Sunday, January 15, 2017 10:32 - CONCLUSION: 1. No acute abnormality. 2. Degenerative changes and scoliotic curvature as detailed above. 3. Wedge deformities involving T12 and L1. These either relate to old compression deformities or could relate to anatomical variance which is not uncommon at the cortical lumbar junction. Raj Nair Jr., MD Liver Ultrasound 01/15/17 0000 Signed Impressions: Service Date/Time: Sunday, January 15, 2017 13:28 - CONCLUSION: Hepatomegaly nonspecific. Gallbladder suggests borderline wall thickening of 4 mm and sludge with no evidence of stones and bile ducts appear normal. Jose J Nuñez MD Hip and Pelvis X-Ray 01/15/17 0000 Signed Impressions: Service Date/Time: Sunday, January 15, 2017 10:21 - CONCLUSION: Orthopedic hardware involving the left hip with good alignment. No acute abnormality. Raj Nair Jr., MD Femur X-Ray 01/15/17 0000 Signed Impressions: Service Date/Time: Sunday, January 15, 2017 10:21 - CONCLUSION: Intramedullary darrian and femoral neck screw with good alignment. Osteoarthritis of the hip and knee. Raj Nair Jr., MD Objective Remarks GENERAL: This is a well-nourished, well-developed patient, in no apparent distress. CARDIOVASCULAR: Regular rate and rhythm without murmurs, gallops, or rubs. RESPIRATORY: Clear to auscultation. Breath sounds equal bilaterally. No wheezes , rales, or rhonchi. GASTROINTESTINAL: Abdomen soft, non-tender, nondistended. Normal active bowel sounds MUSCULOSKELETAL: Extremities without clubbing, cyanosis, or edema. NEURO: Alert & Oriented x4 to person, place, time, situation. 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 - Recent orif to left fumur for pathological fx - Prior to admission Pt had been falling at home, more confused. - Pt noted to have hyponatremia on admission NA 129, now improved 134 (01/21/17) - elevated LFT with fever...no obvious mets or biliary obstruction on imaging - GI questioning hepatitis related to chemo - liver Bx (01/20/17) --> results pending - anemia d/t malignancy. Pt has been transfused 3 units PRBCs --> Hg 7.9 () - PT - Pt will need SNF at the end of this hospitalization - Pt receiving zosyn for possible biliary tract infection - oxycodone prn - pt wants continued aggressive care - Case d/w Dr. Ramos (01/21/17). If performance status improves then Radiation therapy 3-4 weeks following pt's ORIF (12/31), 10-15 treatments - Case d/w Dr. Cordon (01/21/17) (2) Non-small cell carcinoma of lung, stage 4 Status: Chronic Plan: - comgmt with Oncology and Palliative Medicine - Pt has stage IV poorly differentiated [id number] lung cancer diagnosed in early 2015 with mets to the chest wall and bones - He has completed six cycles of carboplatin, Alimta and bevacizumab but was found to have disease progression in 05/2016. - Pt has also received focal radiation treatment to the chest wall. - Pt follows with Dr. Cordon and is on second line therapy with IV Zometa for bony disease and immunotherapy with Nivolumab. - Review of outpt records revealed his most recent PET/CT on 12/12/16 revealed new metastatic disease in the left proximal femur and right anterior 7th rib costochondral junction. (3) Elevated liver enzymes Status: Acute Plan: see above (4) COPD (chronic obstructive pulmonary disease) Status: Chronic Plan: - Duonebs PRn (5) Anemia Status: Acute Plan: - Pt received 2 units of PRBCs post-operatively during recent admission. - Pt transfused additional 3 units PRBCs - repeat CBC in AM (6) Hypertension Status: Chronic Plan: - BP stable to low normal - pt currently off BP medications. Problem Qualifiers (1) Anemia: Qualified Code: D64.9 - Anemia, unspecified type Bill Eaton DO Jan 21, 2017 11:29
[2017-01-21 12:00] VITALS: BP 103/69; PULSE 100; RESP 18; TEMP 97.8; O2SAT 92
--- NOTE | 2017-01-21 14:15 | RADRPT ---
EXAM DATE/TIME: 01/21/2017 13:19 [facility] COMPARISON: Prior study 01/16/2017 used for comparison. INDICATIONS : Fever. MEDICAL HISTORY : Congestive heart failure. Hypertension. Chronic obstructive pulmonary disease. Lung cancer SURGICAL HISTORY : None. ENCOUNTER: Subsequent ACUITY: 1 week PAIN SCORE: 0/10 LOCATION: Bilateral chest FINDINGS: Single view of the chest demonstrates a pleural based mass in the left upper lobe measuring 6.9 x 10. 3 cm across. It is unchanged from the previous study. There is mild perivascular congestion. There is a healing rib fracture on the right. There is a loose body of the right shoulder and severe oste oarthritis of the glenohumeral joint. Right subclavian central line in good position. No visible pn eumothorax. CONCLUSION: Large pleural based density left upper lobe is unchanged. Healing rib fracture on the right is uncha nged. Diffuse interstitial prominence unchanged. Louis Potts MD on January 21, 2017 at 13:56 Board Certified Radiologist. This report was verified electronically.
[2017-01-21 16:00] VITALS: BP 116/79; PULSE 111; RESP 20; TEMP 95.8; O2SAT 93
--- NOTE | 2017-01-21 17:30 | HHI.GIFU ---
Subjective Remarks Patient is resting in bed, accompanied by daughter, denies nausea, vomiting or abd pain. no bleeding reported (GreerHazel RICHARD) Objective Vitals I&O Vital Signs Date Time Temp Pulse Resp B/P Pulse Ox O2 Delivery O2 Flow Rate FiO2 01/21/17 16:00 95.8 111 20 116/79 93 01/21/17 12:00 97.8 100 18 103/69 92 01/21/17 08:00 96.0 109 18 106/65 95 01/21/17 04:00 99.9 118 20 109/65 94 01/21/17 00:00 100.2 117 22 120/73 94 01/20/17 20:00 98.2 111 22 120/69 92 01/20/17 18:47 18 I/O 01/20/17 01/20/17 01/20/17 01/21/17 01/21/17 01/21/17 07:00 15:00 23:00 07:00 15:00 23:00 Intake Total 240 ml 500 ml 120 ml 360 ml Output Total 2000 ml 200 ml Balance -1760 ml 500 ml -80 ml 360 ml Intake Oral 240 ml 0 ml 120 ml 360 ml Packed Cells 500 ml Output Urine Total 2000 ml 200 ml # Voids 1 3 2 4 # Bowel Movements 1 2 1 1 Laboratory Laboratory Tests Test 01/21/17 06:34 White Blood Count 8.1 Red Blood Count 2.90 Hemoglobin 7.9 Hematocrit 24.2 Mean Corpuscular Volume 83.2 Mean Corpuscular Hemoglobin 27.3 Mean Corpuscular Hemoglobin 32.8 Concent Red Cell Distribution Width 17.2 Platelet Count 320 Mean Platelet Volume 7.0 Neutrophils (%) (Auto) 80.8 Lymphocytes (%) (Auto) 8.3 Monocytes (%) (Auto) 10.4 Eosinophils (%) (Auto) 0.3 Basophils (%) (Auto) 0.2 Neutrophils # (Auto) 6.5 Lymphocytes # (Auto) 0.7 Monocytes # (Auto) 0.8 Eosinophils # (Auto) 0.0 Basophils # (Auto) 0.0 CBC Comment DIFF FINAL Differential Comment Sodium Level 134 Potassium Level 2.9 Chloride Level 98 Carbon Dioxide Level 21.4 Anion Gap 15 Blood Urea Nitrogen 13 Creatinine 0.82 Estimat Glomerular Filtration 113 Rate Random Glucose 103 Calcium Level 8.6 Magnesium Level 1.6 Total Bilirubin 2.3 Aspartate Amino Transf 90 (AST/SGOT) Alanine Aminotransferase 113 (ALT/SGPT) Alkaline Phosphatase 345 Total Protein 7.6 Albumin 1.4 Date/Time Procedure Status Source Growth 01/21/17 15:27 Aerobic Blood Culture Received Blood Peripheral Pending 01/21/17 15:27 Anaerobic Blood Culture Received Blood Peripheral Pending 01/17/17 11:14 Aerobic Blood Culture - Preliminary Resulted Blood Peripheral NO GROWTH IN 4 DAYS 01/17/17 11:14 Anaerobic Blood Culture - Preliminary Resulted Blood Peripheral NO GROWTH IN 4 DAYS Imaging Last Impressions Chest X-Ray 01/21/17 0000 Signed Impressions: Service Date/Time: Saturday, January 21, 2017 13:19 - CONCLUSION: Large pleural based density left upper lobe is unchanged. Healing rib fracture on the right is unchanged. Diffuse interstitial prominence unchanged. Louis Potts MD Liver Biopsy CT 01/20/17 0000 Signed Impressions: Service Date/Time: Friday, January 20, 2017 14:58 - CONCLUSION: Uncomplicated CT guided biopsy. Brian Villanueva MD Cholangiopancreatography MRI 01/18/17 0000 Signed Impressions: Service Date/Time: Wednesday, January 18, 2017 07:26 - CONCLUSION: Common duct mildly increased in diameter proximally. Exam otherwise within normal limits. Дмитрий Britt MD Abdomen/Pelvis CT 01/17/17 0000 Signed Impressions: Service Date/Time: Tuesday, January 17, 2017 12:06 - CONCLUSION: 1. Large right-sided inguinal hernia containing a portion of the colon as well as the urinary bladder. This was present on the prior examination. 2. Postsurgical changes involving the left hip joint. No free fluid or loculated fluid collections are seen in the region of the left hip joint. 3. No calcified renal stones or hydronephrosis. Alistair Carrillo MD Lumbar Spine X-Ray 01/15/17 0000 Signed Impressions: Service Date/Time: Sunday, January 15, 2017 10:32 - CONCLUSION: 1. No acute abnormality. 2. Degenerative changes and scoliotic curvature as detailed above. 3. Wedge deformities involving T12 and L1. These either relate to old compression deformities or could relate to anatomical variance which is not uncommon at the cortical lumbar junction. Raj Nair Jr., MD Liver Ultrasound 01/15/17 0000 Signed Impressions: Service Date/Time: Sunday, January 15, 2017 13:28 - CONCLUSION: Hepatomegaly nonspecific. Gallbladder suggests borderline wall thickening of 4 mm and sludge with no evidence of stones and bile ducts appear normal. Jose J Nuñez MD Hip and Pelvis X-Ray 01/15/17 0000 Signed Impressions: Service Date/Time: Sunday, January 15, 2017 10:21 - CONCLUSION: Orthopedic hardware involving the left hip with good alignment. No acute abnormality. Raj Nair Jr., MD Femur X-Ray 01/15/17 0000 Signed Impressions: Service Date/Time: Sunday, January 15, 2017 10:21 - CONCLUSION: Intramedullary darrian and femoral neck screw with good alignment. Osteoarthritis of the hip and knee. Raj Nair Jr., MD Physical Exam HEENT: PERRLA; normocephalic; atraumatic CHEST: CTA CARDIAC: RRR ABDOMEN: Soft, nondistended, nontender; enlarged liver bowel sounds x 4 quadrants. EXTREMITIES: No clubbing, cyanosis, or edema. SKIN: Normal; no rash; no jaundice. WASH AND GREASER: No focal deficits; A & O x 3. (Hazel Butterfield NETWORK PROJECT MANAGER) Assessment and Plan Plan ASSESSMENT: - Anemia, related to malignancy. S/P 3 units of blood transfusion 01/16/17. Pt has refused endoscopy. HH stable, no bleeding reported - Elevated LFTs, trending down, ? secondary to Nivolumab. liver bx pending. Hepatitis B IgM, HCV Ab negative, BRIDGET negative, Mitochondria Ab pending, Anti-Smooth Muscle Ab negative. MRCP (01/18/17)----->Common duct mildly increased in diameter proximally. Exam otherwise within normal limits. Abdomen/Pelvis CT ( 01/17/17) --> 1. Large right-sided inguinal hernia containing a portion of the colon as well as the urinary bladder. This was present on the prior examination. 2. Postsurgical changes involving the left hip joint. No free fluid or loculated fluid collections are seen in the region of the left hip joint. 3. No calcified renal stones or hydronephrosis. Liver US 01/15/17--> Hepatomegaly nonspecific. Gallbladder suggests borderline wall thickening of 4 mm and sludge with no evidence of stones and bile ducts appear normal. -Non-small cell carcinoma of lung, stage 4, with mets to chest wall and bones. Diagnosed in early 2015. Failed chemotherapy with disease progression. Started on Nivolumab. Followed by Dr. Cordon. Oncology and Palliative Care following. PLAN: - LILY - Await liver biopsy - Await , AMA - PPI - Monitor HH - Transfuse as necessary - Monitor LFTs - Further recommendation to follow based on results of above. - Patient seen and examined by Dr. Alonso and myself and this not is written on his behalf. (Hazel Butterfield) Physician Comments Patient seen and examined Agree with above Continue with current supportive care Monitor labs (Ambrocio Alonso MD) Hazel Butterfield Jan 21, 2017 17:29 Ambrocio Alonso MD Jan 21, 2017 20:52
[2017-01-21 20:00] VITALS: BP 108/67; PULSE 113; RESP 18; TEMP 100.4; O2SAT 94
[2017-01-21] MEDS: DOCUSATE SODIUM 50 MG/SENNA 8.6 MG TAB PO SCH (20:44)
[2017-01-22] VITALS (15 sets, daily range): BP systolic 100–121; BP diastolic 61–80; PULSE 79–115; RESP 15–24; TEMP 95.9–99.4; O2SAT 92–99
[2017-01-22] MEDS ORDERED: ACETAMINOPHEN 325 MG TAB PO PRN (02:15)
[2017-01-22] MEDS ORDERED: diphenhydrAMINE HCL 25 MG CAP PO PRN (02:15)
[2017-01-22] MEDS: ALPRAZolam 0.5 MG TAB PO PRN ×2 (02:18→20:04)
[2017-01-22] MEDS: PIPERACIL-TAZO 3.375 GM PREMIX 50 ML IV SCH ×4 (05:33→22:15)
[2017-01-22] MEDS: fentaNYL 25 MCG/HR PATCH TD SCH (09:35)
[2017-01-22] MEDS: CYANOCOBALAMIN 1,000 MCG TAB PO SCH (09:35)
[2017-01-22] MEDS: PYRIDOXINE HCL 50 MG TAB PO SCH (09:35)
[2017-01-22] MEDS: GABAPENTIN 400 MG CAP PO SCH ×2 (09:35→20:04)
[2017-01-22] MEDS: PANTOPRAZOLE SOD 20 MG DELAYED RELEASE TAB PO SCH (09:35)
[2017-01-22] MEDS: CALCIUM/VITAMIN D 250 MG/125 U TAB PO SCH ×2 (09:36→20:04)
[2017-01-22] MEDS: MEGESTROL ACETATE SUSP 400 MG/10 ML CUP PO SCH (09:36)
--- NOTE | 2017-01-22 14:54 | PD.ONC.PN ---
Subjective Subjective Remarks Afebrile overnight. Patient lethargic today. Per PT, he was not able to weight bear and required max assist for movement to side of bed. He reports some pain in the left side. No family members at bedside. He states he did eat breakfast and lunch. Objective Data Date Time Temp Pulse Resp B/P Pulse Ox O2 Delivery O2 Flow Rate FiO2 01/22/17 14:24 93 21 01/22/17 13:50 97.2 99 20 100/64 99 01/22/17 12:00 97.4 98 24 121/67 99 01/22/17 10:11 97.6 97 20 103/65 97 01/22/17 09:51 96.9 95 20 106/61 96 01/22/17 08:00 95.9 79 20 108/67 97 01/22/17 05:32 97.7 99 20 117/64 93 01/22/17 04:32 97.4 102 20 114/62 92 01/22/17 04:03 97.8 103 16 112/65 94 01/22/17 03:39 99.2 104 15 113/65 94 01/22/17 03:23 99.4 104 15 118/80 95 01/22/17 00:00 98.9 115 18 108/69 94 01/21/17 20:00 100.4 113 18 108/67 94 01/21/17 16:00 95.8 111 20 116/79 93 01/22/17 01/22/17 01/22/17 07:00 15:00 23:00 Intake Total 240 ml Balance 240 ml Result Diagram: 01/21/17 0634 01/21/17 0634 Culture Results Microbiology Date/Time Procedure Status Source Growth 01/21/17 15:16 Aerobic Blood Culture - Preliminary Resulted Blood Peripheral NO GROWTH IN 1 DAY 01/21/17 15:16 Anaerobic Blood Culture - Preliminary Resulted Blood Peripheral NO GROWTH IN 1 DAY 01/21/17 15:27 Aerobic Blood Culture - Preliminary Resulted Blood Peripheral NO GROWTH IN 1 DAY 01/21/17 15:27 Anaerobic Blood Culture - Preliminary Resulted Blood Peripheral NO GROWTH IN 1 DAY Administered Medications Medications (Trade) Dose Ordered Sig/Shirin Route PRN Reason Start Time Stop Time Status Last Admin Dose Admin Alprazolam (Xanax) 0.5 mg Q6H PRN PO ANXIETY 01/15/17 13:15 01/22/17 02:18 Cyanocobalamin (Vitamin B12) 1,000 mcg DAILY PO 01/16/17 09:00 01/22/17 09:35 Gabapentin (Neurontin) 400 mg BID PO 01/15/17 21:00 01/22/17 09:35 Pantoprazole Sodium (Protonix) 20 mg DAILY PO 01/16/17 09:00 01/22/17 09:35 Pyridoxine HCl (Vitamin B6) 100 mg DAILY PO 01/16/17 09:00 01/22/17 09:35 Calcium/Vitamin D (Oscal-D 250-125) 500 mg BID PO 01/15/17 21:00 01/22/17 09:36 Oxycodone HCl (Roxicodone) 5 mg Q4H PRN PO pain 01/15/17 18:15 01/22/17 00:54 Senna/Docusate Sodium 2 tab 2 tab HS PO 01/16/17 21:00 01/18/17 22:00 Piperacillin Sod/ Tazobactam Sod (Zosyn 3.375 Gm Premix) 50 ml @ 100 mls/hr Q6H IV 01/17/17 11:00 01/22/17 05:33 Megestrol Acetate (Megace Liq) 400 mg DAILY PO 01/22/17 09:00 01/22/17 09:36 Fentanyl (Duragesic 25 Mcg Patch.72 Hr) 1 patch Q3D TD 01/22/17 09:00 01/22/17 09:35 Diphenhydramine HCl (Benadryl) 25 mg Q4H PRN PO SEE LABEL COMMENTS 01/22/17 02:15 01/23/17 02:14 01/22/17 02:19 Acetaminophen (Tylenol) 650 mg Q4H PRN PO SEE LABEL COMMENTS 01/22/17 02:15 01/23/17 02:14 01/22/17 02:19 Objective Remarks GENERAL: Elderly male, lying supine in room SKIN: Warm and dry. HEAD: Normocephalic. EYES: No injection or drainage. NECK: Supple, trachea midline. CARDIOVASCULAR: Regular rate and rhythm RESPIRATORY: anterior eng clear. GASTROINTESTINAL: Abdomen soft, non-tender, nondistended. EXTREMITIES: No cyanosis NEUROLOGICAL: Awake and alert, but lethargic. Assessment/Plan Problem List: (1) Elevated LFTs Status: Acute Plan: --01/22: liver biopsy pending. GI following. --MRCP showed mildly dilated common bile duct, otherwise no concerns --GI following for elevated LFTs (2) Non-small cell carcinoma of lung, stage 4 Status: Chronic Plan: --very deconditioned after femur surgery --Overall his disease burden is very low. +bony metastatic disease. --originally diagnosed in early 2015--at that point already had mets to bilateral lungs, and rib bones. Had treatment with Carboplatin, Alimta and Bevacizumab. --May 2016: disease progression, treatment with Nivolumab reduced disease burden --01/04/17: had prophylactic stabilizing of left femur --01/15/17: admitted with bilateral hip pain, and low back pain, weakness and frequent falls (3) Generalized weakness Status: Chronic Plan: due to deconditioning, recent hip surgery, anemia and dehydration. (4) Hyponatremia Status: Acute Plan: --Improving (5) Pain Status: Acute Plan: --Avoid Tylenol at this time due to elevated liver functions. --currently on Fentanyl patch 25mcg + Oxycodone 5mg q4h prn pain Assessment 71y/o with metastatic NSCLC admitted for weakness, hip pain and a fall. h/o Stage IV poorly differentiated non-small cell lung cancer diagnosed in 2015 with mets to chest wall and bones. History of anemia. Chronic lower extremity edema. Osteoarthritis of the left shoulder. COPD. Systolic and diastolic CHF. Gout. Hypertension. Peripheral neuropathy. Plan 1. continue supportive care 2. continue pain management 3. will need discharge to SNF or rehab 4. await labs today. Attending Statement The exam, history, and the medical decision-making described in the above note were completed with the assistance of the mid-level provider. I reviewed and agree with the findings presented. I attest that I had a [id number] encounter with the patient on the same day, and personally performed and documented my assessment and findings in the medical record. some improvement in pain poor appetite- on megace. add steroids dex 4mg po BID continue PT Low grade fever--blood cx negative. Continues to have left femur pain. Will get CT of left hip/femur to r/o any underlying infection continue zosyn for now LFts slightly better 'Liver bx results pending. d/w RN Coye,Angela Lily PA Jan 22, 2017 14:54 Tim Cordon MD Jan 23, 2017 00:11
[2017-01-22 16:38] LABS: HEMATOCRIT 30.9 % (39.0-51.0); REVIEW FLAG FINAL
--- NOTE | 2017-01-22 16:49 | HHI.PR ---
Subjective Remarks No new complaints. Pt started on fentanyl transdermal Poor PO intake. Objective Vitals Vital Signs Date Time Temp Pulse Resp B/P Pulse Ox O2 Delivery O2 Flow Rate FiO2 01/22/17 15:50 96.6 104 20 120/71 92 01/22/17 14:24 93 21 01/22/17 13:50 97.2 99 20 100/64 99 01/22/17 12:00 97.4 98 24 121/67 99 01/22/17 10:11 97.6 97 20 103/65 97 01/22/17 09:51 96.9 95 20 106/61 96 01/22/17 08:00 95.9 79 20 108/67 97 01/22/17 05:32 97.7 99 20 117/64 93 01/22/17 04:32 97.4 102 20 114/62 92 01/22/17 04:03 97.8 103 16 112/65 94 01/22/17 03:39 99.2 104 15 113/65 94 01/22/17 03:23 99.4 104 15 118/80 95 01/22/17 00:00 98.9 115 18 108/69 94 01/21/17 20:00 100.4 113 18 108/67 94 01/21/17 01/21/17 01/22/17 15:00 23:00 07:00 Intake Total 360 ml 240 ml Output Total 900 ml Balance 360 ml -900 ml 240 ml Intake Oral 360 ml 240 ml Output Urine Total 900 ml # Voids 4 # Bowel Movements 1 1 Result Diagram: 01/22/17 1622 01/21/17 0634 Imaging Last Impressions Chest X-Ray 01/21/17 0000 Signed Impressions: Service Date/Time: Saturday, January 21, 2017 13:19 - CONCLUSION: Large pleural based density left upper lobe is unchanged. Healing rib fracture on the right is unchanged. Diffuse interstitial prominence unchanged. Louis Potts MD Liver Biopsy CT 01/20/17 0000 Signed Impressions: Service Date/Time: Friday, January 20, 2017 14:58 - CONCLUSION: Uncomplicated CT guided biopsy. Brian Villanueva MD Cholangiopancreatography MRI 01/18/17 0000 Signed Impressions: Service Date/Time: Wednesday, January 18, 2017 07:26 - CONCLUSION: Common duct mildly increased in diameter proximally. Exam otherwise within normal limits. Дмитрий Britt MD Abdomen/Pelvis CT 01/17/17 Signed Impressions: Service Date/Time: Tuesday, January 17, 2017 12:06 - CONCLUSION: 1. Large right-sided inguinal hernia containing a portion of the colon as well as the urinary bladder. This was present on the prior examination. 2. Postsurgical changes involving the left hip joint. No free fluid or loculated fluid collections are seen in the region of the left hip joint. 3. No calcified renal stones or hydronephrosis. Alistair Carrillo MD Lumbar Spine X-Ray 01/15/17 Signed Impressions: Service Date/Time: Sunday, January 15, 2017 10:32 - CONCLUSION: 1. No acute abnormality. 2. Degenerative changes and scoliotic curvature as detailed above. 3. Wedge deformities involving T12 and L1. These either relate to old compression deformities or could relate to anatomical variance which is not uncommon at the cortical lumbar junction. Raj Nair Jr., MD Liver Ultrasound 01/15/17 Signed Impressions: Service Date/Time: Sunday, January 15, 2017 13:28 - CONCLUSION: Hepatomegaly nonspecific. Gallbladder suggests borderline wall thickening of 4 mm and sludge with no evidence of stones and bile ducts appear normal. Jose J Nuñez MD Hip and Pelvis X-Ray 01/15/17 Signed Impressions: Service Date/Time: Sunday, January 15, 2017 10:21 - CONCLUSION: Orthopedic hardware involving the left hip with good alignment. No acute abnormality. Raj Nair Jr., MD Femur X-Ray 01/15/17 Signed Impressions: Service Date/Time: Sunday, January 15, 2017 10:21 - CONCLUSION: Intramedullary darrian and femoral neck screw with good alignment. Osteoarthritis of the hip and knee. Raj Nair Jr., MD Objective Remarks GENERAL: This is a well-nourished, well-developed patient, in no apparent distress. CARDIOVASCULAR: Regular rate and rhythm without murmurs, gallops, or rubs. RESPIRATORY: Clear to auscultation. Breath sounds equal bilaterally. No wheezes , rales, or rhonchi. GASTROINTESTINAL: Abdomen soft, non-tender, nondistended. Normal active bowel sounds MUSCULOSKELETAL: Extremities without clubbing, cyanosis, or edema. NEURO: Alert & Oriented x4 to person, place, time, situation. 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 - Recent orif to left fumur for pathological fx - Prior to admission Pt had been falling at home, more confused. - Pt noted to have hyponatremia on admission NA 129, now improved 134 (01/21/17) - elevated LFT with fever...no obvious mets or biliary obstruction on imaging - GI questioning hepatitis related to chemo - liver Bx (01/20/17) --> results pending - anemia d/t malignancy. Pt has been transfused 3 units PRBCs --> Hg 9.1 () - PT - Pt will need SNF at the end of this hospitalization - Pt receiving zosyn for possible biliary tract infection - oxycodone prn - pt wants continued aggressive care - Case d/w Dr. Ramos (01/21/17). If performance status improves then Radiation therapy 3-4 weeks following pt's ORIF (12/31), 10-15 treatments - Case d/w Dr. Cordon (01/21/17) - Pt started on fentanyl - Pt started on megace (2) Non-small cell carcinoma of lung, stage 4 Status: Chronic Plan: - comgmt with Oncology and Palliative Medicine - Pt has stage IV poorly differentiated [id number] lung cancer diagnosed in early 2015 with mets to the chest wall and bones - He has completed six cycles of carboplatin, Alimta and bevacizumab but was found to have disease progression in 05/2016. - Pt has also received focal radiation treatment to the chest wall. - Pt follows with Dr. Cordon and is on second line therapy with IV Zometa for bony disease and immunotherapy with Nivolumab. - Review of outpt records revealed his most recent PET/CT on 12/12/16 revealed new metastatic disease in the left proximal femur and right anterior 7th rib costochondral junction. - Case d/w pt & daughter Whit Saeed, Health Care Surrogate, at bedside - Pt asked if he would want resuscitation if needed. Pt answered clearly that he does NOT want that. - will change code status to DNR - Pt/daughter do want continued aggressive care short of resuscitation at this point. (3) Elevated liver enzymes Status: Acute Plan: see above (4) COPD (chronic obstructive pulmonary disease) Status: Chronic Plan: - Duonebs PRn (5) Anemia Status: Acute Plan: - Pt received 2 units of PRBCs post-operatively during recent admission. - Pt transfused additional 3 units PRBCs - repeat CBC in AM (6) Hypertension Status: Chronic Plan: - BP stable to low normal - pt currently off BP medications. Problem Qualifiers (1) Anemia: Qualified Code: D64.9 - Anemia, unspecified type Bill Eaton DO Jan 22, 2017 16:49
[2017-01-22 17:06] LABS: BICARBONATE 23.6 MEQ/L (21.0-32.0); POTASSIUM 3.3 MEQ/L (3.5-5.1)
--- NOTE | 2017-01-22 17:40 | HHI.GIFU ---
Subjective Remarks Patient is resting in bed, seems comfortable, accompanied by daughter, he denies nausea, vomiting, abdomen pain, hematochezia or melena, liver bx pending (Hazel Butterfield) Objective Vitals I&O Vital Signs Date Time Temp Pulse Resp B/P Pulse Ox O2 Delivery O2 Flow Rate FiO2 01/22/17 17:07 93 21 01/22/17 15:50 96.6 104 20 120/71 92 01/22/17 14:24 93 21 01/22/17 13:50 97.2 99 20 100/64 99 01/22/17 12:00 97.4 98 24 121/67 99 01/22/17 10:11 97.6 97 20 103/65 97 01/22/17 09:51 96.9 95 20 106/61 96 01/22/17 08:00 95.9 79 20 108/67 97 01/22/17 05:32 97.7 99 20 117/64 93 01/22/17 04:32 97.4 102 20 114/62 92 01/22/17 04:03 97.8 103 16 112/65 94 01/22/17 03:39 99.2 104 15 113/65 94 01/22/17 03:23 99.4 104 15 118/80 95 01/22/17 00:00 98.9 115 18 108/69 94 01/21/17 20:00 100.4 113 18 108/67 94 I/O 01/21/17 01/21/17 01/21/17 01/22/17 01/22/17 01/22/17 07:00 15:00 23:00 07:00 15:00 23:00 Intake Total 120 ml 360 ml 240 ml 140 ml Output Total 200 ml 900 ml 1100 ml Balance -80 ml 360 ml -900 ml 240 ml -960 ml Intake Oral 120 ml 360 ml 240 ml 140 ml Output Urine Total 200 ml 900 ml 1100 ml # Voids 4 # Bowel Movements 1 1 1 2 Laboratory Laboratory Tests Test 01/22/17 16:22 Hemoglobin 9.9 Hematocrit 30.9 Sodium Level 135 Potassium Level 3.3 Chloride Level 99 Carbon Dioxide Level 23.6 Anion Gap 12 Blood Urea Nitrogen 12 Creatinine 0.79 Estimat Glomerular Filtration 118 Rate Random Glucose 104 Calcium Level 9.0 Date/Time Procedure Status Source Growth 01/21/17 15:27 Aerobic Blood Culture - Preliminary Resulted Blood Peripheral NO GROWTH IN 1 DAY 01/21/17 15:27 Anaerobic Blood Culture - Preliminary Resulted Blood Peripheral NO GROWTH IN 1 DAY Imaging Last Impressions Chest X-Ray 01/21/17 0000 Signed Impressions: Service Date/Time: Saturday, January 21, 2017 13:19 - CONCLUSION: Large pleural based density left upper lobe is unchanged. Healing rib fracture on the right is unchanged. Diffuse interstitial prominence unchanged. Louis Potts MD Liver Biopsy CT 01/20/17 0000 Signed Impressions: Service Date/Time: Friday, January 20, 2017 14:58 - CONCLUSION: Uncomplicated CT guided biopsy. Brian Villanueva MD Cholangiopancreatography MRI 01/18/17 0000 Signed Impressions: Service Date/Time: Wednesday, January 18, 2017 07:26 - CONCLUSION: Common duct mildly increased in diameter proximally. Exam otherwise within normal limits. Дмитрий Britt MD Abdomen/Pelvis CT 01/17/17 0000 Signed Impressions: Service Date/Time: Tuesday, January 17, 2017 12:06 - CONCLUSION: 1. Large right-sided inguinal hernia containing a portion of the colon as well as the urinary bladder. This was present on the prior examination. 2. Postsurgical changes involving the left hip joint. No free fluid or loculated fluid collections are seen in the region of the left hip joint. 3. No calcified renal stones or hydronephrosis. Alistair Carrillo MD Lumbar Spine X-Ray 01/15/17 0000 Signed Impressions: Service Date/Time: Sunday, January 15, 2017 10:32 - CONCLUSION: 1. No acute abnormality. 2. Degenerative changes and scoliotic curvature as detailed above. 3. Wedge deformities involving T12 and L1. These either relate to old compression deformities or could relate to anatomical variance which is not uncommon at the cortical lumbar junction. Raj Nair Jr., MD Liver Ultrasound 01/15/17 0000 Signed Impressions: Service Date/Time: Sunday, January 15, 2017 13:28 - CONCLUSION: Hepatomegaly nonspecific. Gallbladder suggests borderline wall thickening of 4 mm and sludge with no evidence of stones and bile ducts appear normal. Jose J Nuñez MD Hip and Pelvis X-Ray 01/15/17 0000 Signed Impressions: Service Date/Time: Sunday, January 15, 2017 10:21 - CONCLUSION: Orthopedic hardware involving the left hip with good alignment. No acute abnormality. Raj Nair Jr., MD Femur X-Ray 01/15/17 0000 Signed Impressions: Service Date/Time: Sunday, January 15, 2017 10:21 - CONCLUSION: Intramedullary darrian and femoral neck screw with good alignment. Osteoarthritis of the hip and knee. Raj Nair Jr., MD Physical Exam HEENT: PERRLA; normocephalic; atraumatic CHEST: CTA CARDIAC: RRR ABDOMEN: Soft, nondistended, nontender; enlarged liver bowel sounds x 4 quadrants. EXTREMITIES: No clubbing, cyanosis, or edema. SKIN: Normal; no rash; no jaundice. RESOURCE PARAPROFESSIONAL: No focal deficits; A & O x 3. (Hazel Butterfield) Assessment and Plan Plan ASSESSMENT: - Anemia, related to malignancy. S/P 3 units of blood transfusion 01/16/17. Pt has refused endoscopy. HH stable, no bleeding reported - Elevated LFTs, trending down, ? secondary to Nivolumab. liver bx pending. Hepatitis B IgM, HCV Ab negative, BRIDGET negative, Mitochondria Ab pending, Anti-Smooth Muscle Ab negative. MRCP (01/18/17)----->Common duct mildly increased in diameter proximally. Exam otherwise within normal limits. Abdomen/Pelvis CT ( 01/17/17) --> 1. Large right-sided inguinal hernia containing a portion of the colon as well as the urinary bladder. This was present on the prior examination. 2. Postsurgical changes involving the left hip joint. No free fluid or loculated fluid collections are seen in the region of the left hip joint. 3. No calcified renal stones or hydronephrosis. Liver US 01/15/17--> Hepatomegaly nonspecific. Gallbladder suggests borderline wall thickening of 4 mm and sludge with no evidence of stones and bile ducts appear normal. -Non-small cell carcinoma of lung, stage 4, with mets to chest wall and bones. Diagnosed in early 2015. Failed chemotherapy with disease progression. Started on Nivolumab. Followed by Dr. Cordon. Oncology and Palliative Care following. PLAN: - LILY - Await liver biopsy - Await , AMA - PPI - Monitor HH - Transfuse as necessary - Monitor LFTs - Further recommendation to follow based on results of above. - Patient seen and examined by Dr. Alonso and myself and this not is written on his behalf. (Hazel Butterfield) Physician Comments Patient seen and examined Agree with above Continue with current supportive care Monitor labs (Ambrocio Alonso MD) Hazel Butterfield Jan 22, 2017 17:40 Ambrocio Alonso MD Jan 22, 2017 21:35
[2017-01-22] MEDS: DOCUSATE SODIUM 50 MG/SENNA 8.6 MG TAB PO SCH (20:04)
[2017-01-23] VITALS: BP 110/65; PULSE 108; RESP 18; TEMP 101; O2SAT 92
--- NOTE | 2017-01-23 00:23 | HHI.PR ---
Subjective Remarks Called to see patient with swelling testicular area with temperature ,patient in hospital with metastatic lung cancer and is currently on zoysn antibiotic Objective Vitals GENERAL: SKIN: Warm and dry. HEAD: Atraumatic. Normocephalic. EYES: Pupils equal and round. No scleral icterus. No injection or drainage. ENT: No nasal bleeding or discharge. Mucous membranes pink and moist. NECK: Trachea midline. No JVD. CARDIOVASCULAR: Regular rate and rhythm. RESPIRATORY: No accessory muscle use. Clear to auscultation. Breath sounds equal bilaterally. GASTROINTESTINAL: Abdomen soft, non-tender, nondistended. Hepatic and splenic margins not palpable. significant swelling testicular area MUSCULOSKELETAL: Extremities without clubbing, cyanosis, or edema. No obvious deformities. NEUROLOGICAL: Awake and alert. No obvious cranial nerve deficits. Motor grossly within normal limits. Five out of 5 muscle strength in the arms and legs. Normal speech. PSYCHIATRIC: Appropriate mood and affect; insight and judgment normal. Vital Signs Date Time Temp Pulse Resp B/P Pulse Ox O2 Delivery O2 Flow Rate FiO2 01/23/17 00:00 101.0 108 18 110/65 92 01/22/17 20:00 99.4 106 18 108/72 94 01/22/17 17:07 93 21 01/22/17 15:50 96.6 104 20 120/71 92 01/22/17 14:24 93 21 01/22/17 13:50 97.2 99 20 100/64 99 01/22/17 12:00 97.4 98 24 121/67 99 01/22/17 10:11 97.6 97 20 103/65 97 01/22/17 09:51 96.9 95 20 106/61 96 01/22/17 08:00 95.9 79 20 108/67 97 01/22/17 05:32 97.7 99 20 117/64 93 01/22/17 04:32 97.4 102 20 114/62 92 01/22/17 04:03 97.8 103 16 112/65 94 01/22/17 03:39 99.2 104 15 113/65 94 01/22/17 03:23 99.4 104 15 118/80 95 01/22/17 01/22/17 01/23/17 15:00 23:00 07:00 Intake Total 140 ml Output Total 1100 ml 200 ml Balance -960 ml -200 ml Intake Oral 140 ml Output Urine Total 1100 ml 200 ml # Bowel Movements 2 Result Diagram: 01/22/17 1622 01/22/17 1622 Imaging Last Impressions Chest X-Ray 01/21/17 0000 Signed Impressions: Service Date/Time: Saturday, January 21, 2017 13:19 - CONCLUSION: Large pleural based density left upper lobe is unchanged. Healing rib fracture on the right is unchanged. Diffuse interstitial prominence unchanged. Louis Potts MD Liver Biopsy CT 01/20/17 0000 Signed Impressions: Service Date/Time: Friday, January 20, 2017 14:58 - CONCLUSION: Uncomplicated CT guided biopsy. Brian Villanueva MD Cholangiopancreatography MRI 01/18/17 0000 Signed Impressions: Service Date/Time: Wednesday, January 18, 2017 07:26 - CONCLUSION: Common duct mildly increased in diameter proximally. Exam otherwise within normal limits. Дмитрий Britt MD Abdomen/Pelvis CT 01/17/17 0000 Signed Impressions: Service Date/Time: Tuesday, January 17, 2017 12:06 - CONCLUSION: 1. Large right-sided inguinal hernia containing a portion of the colon as well as the urinary bladder. This was present on the prior examination. 2. Postsurgical changes involving the left hip joint. No free fluid or loculated fluid collections are seen in the region of the left hip joint. 3. No calcified renal stones or hydronephrosis. Alistair Carrillo MD Lumbar Spine X-Ray 01/15/17 0000 Signed Impressions: Service Date/Time: Sunday, January 15, 2017 10:32 - CONCLUSION: 1. No acute abnormality. 2. Degenerative changes and scoliotic curvature as detailed above. 3. Wedge deformities involving T12 and L1. These either relate to old compression deformities or could relate to anatomical variance which is not uncommon at the cortical lumbar junction. Raj Nair Jr., MD Liver Ultrasound 01/15/17 0000 Signed Impressions: Service Date/Time: Sunday, January 15, 2017 13:28 - CONCLUSION: Hepatomegaly nonspecific. Gallbladder suggests borderline wall thickening of 4 mm and sludge with no evidence of stones and bile ducts appear normal. Jose J Nuñez MD Hip and Pelvis X-Ray 01/15/17 0000 Signed Impressions: Service Date/Time: Sunday, January 15, 2017 10:21 - CONCLUSION: Orthopedic hardware involving the left hip with good alignment. No acute abnormality. Raj Nair Jr., MD Femur X-Ray 01/15/17 0000 Signed Impressions: Service Date/Time: Sunday, January 15, 2017 10:21 - CONCLUSION: Intramedullary darrian and femoral neck screw with good alignment. Osteoarthritis of the hip and knee. Raj Nair Jr., MD Objective Remarks GENERAL: This is a well-nourished, well-developed patient, in no apparent distress. CARDIOVASCULAR: Regular rate and rhythm without murmurs, gallops, or rubs. RESPIRATORY: Clear to auscultation. Breath sounds equal bilaterally. No wheezes , rales, or rhonchi. GASTROINTESTINAL: Abdomen soft, non-tender, nondistended. Normal active bowel sounds MUSCULOSKELETAL: Extremities without clubbing, cyanosis, or edema. NEURO: Alert & Oriented x4 to person, place, time, situation. 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 - Recent orif to left fumur for pathological fx - Prior to admission Pt had been falling at home, more confused. - Pt noted to have hyponatremia on admission NA 129, now improved 134 (01/21/17) - elevated LFT with fever...no obvious mets or biliary obstruction on imaging - GI questioning hepatitis related to chemo - liver Bx (01/20/17) --> results pending - anemia d/t malignancy. Pt has been transfused 3 units PRBCs --> Hg 9.1 () - PT - Pt will need SNF at the end of this hospitalization - Pt receiving zosyn for possible biliary tract infection - oxycodone prn - pt wants continued aggressive care - Case d/w Dr. Ramos (01/21/17). If performance status improves then Radiation therapy 3-4 weeks following pt's ORIF (12/31), 10-15 treatments - Case d/w Dr. Cordon (01/21/17) - Pt started on fentanyl - Pt started on megace (2) Non-small cell carcinoma of lung, stage 4 Status: Chronic Plan: - comgmt with Oncology and Palliative Medicine - Pt has stage IV poorly differentiated [id number] lung cancer diagnosed in early 2015 with mets to the chest wall and bones - He has completed six cycles of carboplatin, Alimta and bevacizumab but was found to have disease progression in 05/2016. - Pt has also received focal radiation treatment to the chest wall. - Pt follows with Dr. Cordon and is on second line therapy with IV Zometa for bony disease and immunotherapy with Nivolumab. - Review of outpt records revealed his most recent PET/CT on 12/12/16 revealed new metastatic disease in the left proximal femur and right anterior 7th rib costochondral junction. - Case d/w pt & daughter Whit Saeed, [facility], at bedside - Pt asked if he would want resuscitation if needed. Pt answered clearly that he does NOT want that. - will change code status to DNR - Pt/daughter do want continued aggressive care short of resuscitation at this point. (3) Elevated liver enzymes Status: Acute Plan: see above (4) COPD (chronic obstructive pulmonary disease) Status: Chronic Plan: - Duonebs PRn (5) Anemia Status: Acute Plan: - Pt received 2 units of PRBCs post-operatively during recent admission. - Pt transfused additional 3 units PRBCs - repeat CBC in AM (6) Hypertension Status: Chronic Plan: - BP stable to low normal - pt currently off BP medications. (7) Testicular swelling Status: Acute Plan: testicular swelling with increase in temp will use cooling blanket as has elevated LFT and just had bx liver already on antibiotics will get u/a , patient is urinating and has no retention will also get urology evaluation and ultrasound Assessment and Plan as above Problem Qualifiers (1) Anemia: Qualified Code: D64.9 - Anemia, unspecified type Ravin De Paz MD Jan 23, 2017 00:23
[2017-01-23 03:52] LABS: MITOCHONDRIAL ABS LESS THAN 20.0 U (())
[2017-01-23 04:00] VITALS: BP 114/70; PULSE 107; RESP 18; TEMP 99.5; O2SAT 94
[2017-01-23] MEDS: ALPRAZolam 0.5 MG TAB PO PRN ×2 (04:59→21:11)
[2017-01-23] MEDS: PIPERACIL-TAZO 3.375 GM PREMIX 50 ML IV SCH ×2 (05:00→10:59)
[2017-01-23 07:54] LABS: BASOPHIL % 0.3 % (0.0-2.0); EOSINOPHIL % 0.2 % (0.0-4.0); HEMATOCRIT 26.6 % (39.0-51.0); HEMO FLAGS DIFF FINAL; LYMPH % 7.8 % (9.0-44.0); LYMPHOCYTE # 0.7 TH/MM3 (1.0-4.8); MEAN CELL VOLUME 81.8 FL (80.0-100.0); MEAN CORPUSCULAR HEMOGLOBIN 27.2 PG (27.0-34.0); MEAN CORPUSCULAR HGB CONC 33.3 % (32.0-36.0); MONO % 8.7 % (0.0-8.0); PLATELET COUNT 324 TH/MM3 (150-450); RED BLOOD COUNT 3.26 MIL/MM3 (4.50-5.90); RED CELL DISTRIBUTION WIDTH 17.2 % (11.6-17.2); WHITE BLOOD COUNT 8.5 TH/MM3 (4.0-11.0)
[2017-01-23 07:57] LABS: BICARBONATE 23.3 MEQ/L (21.0-32.0)
[2017-01-23 08:04] LABS: POTASSIUM 2.8 MEQ/L (3.5-5.1)
[2017-01-23 08:37] VITALS: BP 109/69; PULSE 109; RESP 18; TEMP 97.7; O2SAT 94
--- NOTE | 2017-01-23 08:49 | PD.CONS ---
HPI Service Urology Consult Requested By Reason for Consult Testicular swelling Primary Care Physician Ravin De Paz MD Diagnosis: (1) Generalized weakness ICD Code: R53.1 (2) Non-small cell carcinoma of lung, stage 4 ICD Code: C34.90 (3) Elevated liver enzymes ICD Code: R74.8 (4) COPD (chronic obstructive pulmonary disease) ICD Code: J44.9 (5) Anemia ICD Code: D64.9 (6) Hypertension ICD Code: I10 (7) Testicular swelling ICD Code: N50.89 History of Present Illness 71yo male with history of COPD, CHF and metastatic nonsmall cell lung cancer who completed chemotherapy and immunotherapy with bony metastasis now seen in consultation for testicular swelling. Patient currently denies any pain in the testicles. Daughter at bedside mentions he has had a hernia on the right side for a long time, usually small, but he usually wears a hernia belt. Currently without fevers. Voiding well, no hematuria, no dysuria. The scrotum was noticed to be quite large last night, different than usual appearance, mainly on the right. Review of Systems ROS Limitations: Clinical Condition Constitutional: DENIES: Fever Endocrine: DENIES: Polyuria Eyes: DENIES: Blurred vision Ears, nose, mouth, throat: DENIES: Hearing loss Respiratory: DENIES: Cough Cardiovascular: DENIES: Chest pain Gastrointestinal: DENIES: Abdominal pain Genitourinary: DENIES: Hematuria, Dysuria Musculoskeletal: COMPLAINS OF: Joint pain, Back pain Integumentary: DENIES: Rash Neurologic: DENIES: Headache Psychiatric: DENIES: Anxiety Except as stated in HPI: all other systems reviewed are Neg Past Family Social History Past Medical History Stage IV poorly differentiated [id number] lung cancer diagnosed in early 2015 with mets to the chest wall and bones. Anemia secondary to chemotherapy Chronic left lower extremity edema Osteoarthritis of the left shoulder COPD Systolic and diastolic CHF Gout Hypertension Peripheral Neuropathy Pneumonia in 2014 2D echo (November 2015) - EF 40-45% - Grade 1 diastolic dysfunction Past Surgical History Robotic lung surgery and biopsy of the left chest mass and left upper lung mass on January 02, 2016. Back surgery in 1977 Reported Medications Reported Meds & Active Scripts Active Xarelto (Rivaroxaban) 10 Mg Tab 10 Mg PO DAILY Hydrocodone-Acetaminophen 10-325 mg Tab 1 Tab PO Q4H PRN Reported Omeprazole 20 Mg Tab 20 Mg PO DAILY Vitamin B-6 (Pyridoxine HCl) 100 Mg Tab 100 Mg PO DAILY Vitamin B-12 (Cyanocobalamin) 1,000 Mcg Tab 1,000 Mcg PO DAILY Nitroglycerin Patch 24 HR (Nitroglycerin) 0.4 Mg/Hr Patch 0.4 Mg T-DERMAL DAILY 12 HOURS ON AND THEN OFF FOR 12 HOURS Multivitamin Adults (Multiple Vitamins W/ Minerals) 1 Tab 1 Tab PO DAILY Gabapentin 400 Mg Cap 400 Cap PO BID Diclofenac Sodium DR (Diclofenac Sodium) 75 Mg Tabdr 75 Mg PO DAILY Calcium 500 +D3 (Calcium Carbonate-Cholecalciferol) 500-600 Mg-Unit Tab 1 Tab PO BID Alprazolam 0.5 Mg Tab 0.5 Mg PO Q6H PRN Ventolin Hfa 18 GM Inh (Albuterol Sulfate) 90 Mcg/Act Aer 2 Puff INH Q4-6H PRN Aspirin 81 Mg Tabdr 81 Mg PO DAILY Allopurinol 100 Mg Tab 100 Mg PO DAILY Albuterol Neb (Albuterol Sulfate) 2.5 Mg/0.5 Ml Neb 2.5 Mg NEB DAILY PRN Note: The Albuterol Sulfate Inhalation Solution is concentrated and must be diluted. Read complete instructions carefully before using. Allergies: Coded Allergies: Contrast Media (Verified Allergy, Severe, ANAPHYLAXIS, 12/31/16) Lisinopril (Unverified Allergy, Severe, VERTIGO, SYNCOPE, 12/31/16) Active Ordered Medications Current Medications Medications (Trade) Dose Ordered Sig/Shirin Route Start Time Stop Time Status Last Admin (Zofran Inj) 4 mg Q6H PRN IV 01/15/17 13:15 (Proair Hfa Inh) 2 puff Q6H PRN INH 01/15/17 13:15 (Xanax) 0.5 mg Q6H PRN PO 01/15/17 13:15 01/23/17 04:59 (Vitamin B12) 1,000 mcg DAILY PO 01/16/17 09:00 01/22/17 09:35 (Neurontin) 400 mg BID PO 01/15/17 21:00 01/22/17 20:04 (Protonix) 20 mg DAILY PO 01/16/17 09:00 01/22/17 09:35 (Vitamin B6) 100 mg DAILY PO 01/16/17 09:00 01/22/17 09:35 (Oscal-D 250-125) 500 mg BID PO 01/15/17 21:00 01/22/17 20:04 (Roxicodone) 5 mg Q4H PRN PO 01/15/17 18:15 01/23/17 04:59 (Claudia-Colace) 2 tab HS PO 01/16/17 21:00 01/18/17 22:00 Bisacodyl 10 mg 10 mg DAILY PRN RECTAL 01/16/17 16:00 (Zosyn 3.375 Gm Premix) 50 ml @ 100 mls/hr Q6H IV 01/17/17 11:00 01/23/17 05:00 (Tears Naturale Opth Soln) 1 drop Q4H PRN RIGHT EYE 01/20/17 14:00 01/22/17 20:04 (Megace Liq) 400 mg DAILY PO 01/22/17 09:00 01/22/17 09:36 (Duragesic 25 Mcg Patch.72 Hr) 1 patch Q3D TD 01/22/17 09:00 01/22/17 09:35 Miscellaneous Information 1 Q3D T-DERMAL 01/25/17 09:00 (Decadron) 4 mg Q12HR PO 01/23/17 09:00 Family History Family history reviewed an noncontributory to present illness Social History Denies any alcohol or illicit drug use Pt has a hx of tobacco use Physical Exam Vital Signs Vital Signs Date Time Temp Pulse Resp B/P Pulse Ox O2 Delivery O2 Flow Rate FiO2 01/23/17 04:00 99.5 107 18 114/70 94 01/23/17 00:00 101.0 108 18 110/65 92 01/22/17 20:00 99.4 106 18 108/72 94 01/22/17 17:07 93 21 01/22/17 15:50 96.6 104 20 120/71 92 01/22/17 14:24 93 21 01/22/17 13:50 97.2 99 20 100/64 99 01/22/17 12:00 97.4 98 24 121/67 99 01/22/17 10:11 97.6 97 20 103/65 97 01/22/17 09:51 96.9 95 20 106/61 96 Physical Exam GENERAL: This is a well-nourished, well-developed patient, in no apparent distress. SKIN: No rashes, ecchymoses or lesions. Cool and dry. HEAD: Atraumatic. Normocephalic. EYES: Extraocular motions intact. No scleral icterus. No injection or drainage. ENT: Nose without bleeding, purulent drainage. Airway patent. NECK: Trachea midline. No JVD or lymphadenopathy CARDIOVASCULAR: Normal pulses RESPIRATORY: Nonlabored respirations, equal chest rise GASTROINTESTINAL: Abdomen soft, non-tender, nondistended. GENITOURINARY: significant right scrotal and groin swelling, consistent with large right inguinal hernia. Normal palpable bilateral testis, uncircumcised phallus MUSCULOSKELETAL: Extremities without clubbing, cyanosis, or edema. NEUROLOGICAL: Awake and alert. Motor and sensory grossly within normal limits. Normal speech. Laboratory Laboratory Tests Test 01/22/17 01/23/17 16:22 07:07 Hemoglobin 9.9 8.9 Hematocrit 30.9 26.6 Sodium Level 135 134 Potassium Level 3.3 2.8 Chloride Level 99 99 Carbon Dioxide Level 23.6 23.3 Anion Gap 12 12 Blood Urea Nitrogen 12 11 Creatinine 0.79 0.76 Estimat Glomerular Filtration 118 123 Rate Random Glucose 104 121 Calcium Level 9.0 8.6 White Blood Count 8.5 Red Blood Count 3.26 Mean Corpuscular Volume 81.8 Mean Corpuscular Hemoglobin 27.2 Mean Corpuscular Hemoglobin 33.3 Concent Red Cell Distribution Width 17.2 Platelet Count 324 Mean Platelet Volume 7.0 Neutrophils (%) (Auto) 83.0 Lymphocytes (%) (Auto) 7.8 Monocytes (%) (Auto) 8.7 Eosinophils (%) (Auto) 0.2 Basophils (%) (Auto) 0.3 Neutrophils # (Auto) 7.0 Lymphocytes # (Auto) 0.7 Monocytes # (Auto) 0.7 Eosinophils # (Auto) 0.0 Basophils # (Auto) 0.0 CBC Comment DIFF FINAL Differential Comment Date/Time Procedure Status Source Growth 01/23/17 02:39 Urine Culture Received Urine Random Urine Pending 01/21/17 15:27 Aerobic Blood Culture - Preliminary Resulted Blood Peripheral NO GROWTH IN 1 DAY 01/21/17 15:27 Anaerobic Blood Culture - Preliminary Resulted Blood Peripheral NO GROWTH IN 1 DAY Result Diagram: 01/23/17 0707 01/23/17 0707 Imaging Last 72 hours Impressions Chest X-Ray 01/21/17 0000 Signed Impressions: Service Date/Time: Saturday, January 21, 2017 13:19 - CONCLUSION: Large pleural based density left upper lobe is unchanged. Healing rib fracture on the right is unchanged. Diffuse interstitial prominence unchanged. Louis Potts MD Assessment and Plan Problem List: (1) Lung cancer ICD Code: C34.90 Status: Acute (2) Testicular swelling ICD Code: N50.89 Status: Acute Assessment and Plan -Testicular swelling consistent with large right inguinal hernia -Agree with scrotal ultrasound to confirm -Recommend scrotal support and consider hernia belt -No surgical intervention recommended at this time given patient's current clinical status and as it is nonpainful and large with minimal risk of strangulation -Please call with questions Problem Qualifiers (1) Anemia: Qualified Code: D64.9 - Anemia, unspecified type Adams Rich MD Jan 23, 2017 08:49
[2017-01-23] MEDS: DEXAMETHASONE 4 MG TAB PO SCH ×2 (10:46→21:11)
[2017-01-23] MEDS: GABAPENTIN 400 MG CAP PO SCH ×2 (10:46→21:11)
[2017-01-23] MEDS: PANTOPRAZOLE SOD 20 MG DELAYED RELEASE TAB PO SCH (10:46)
[2017-01-23] MEDS: CYANOCOBALAMIN 1,000 MCG TAB PO SCH (10:46)
[2017-01-23] MEDS: PYRIDOXINE HCL 50 MG TAB PO SCH (10:46)
[2017-01-23] MEDS: MEGESTROL ACETATE SUSP 400 MG/10 ML CUP PO SCH (10:47)
[2017-01-23] MEDS: CALCIUM/VITAMIN D 250 MG/125 U TAB PO SCH ×2 (10:47→21:11)
[2017-01-23] MEDS: POTASSIUM CHLORIDE 20 MEQ CONTROLLED RELEASE TAB PO SCH ×2 (10:54→17:55)
[2017-01-23 12:00] VITALS: BP 116/71; PULSE 102; RESP 18; TEMP 98.4; O2SAT 94
--- NOTE | 2017-01-23 12:56 | PD.ONC.PN ---
Subjective Subjective Remarks Tmax 101F overnight. Patient had some testicular swelling yesterday, urology has seen the patient and attributes the swelling to a right inguinal hernia. He continues to have left hip pain, CT hip is pending. Objective Data Date Time Temp Pulse Resp B/P Pulse Ox O2 Delivery O2 Flow Rate FiO2 01/23/17 08:37 97.7 109 18 109/69 94 01/23/17 04:00 99.5 107 18 114/70 94 01/23/17 00:00 101.0 108 18 110/65 92 01/22/17 20:00 99.4 106 18 108/72 94 01/22/17 17:07 93 21 01/22/17 15:50 96.6 104 20 120/71 92 01/22/17 14:24 93 21 01/22/17 13:50 97.2 99 20 100/64 99 01/23/17 01/23/17 01/23/17 07:00 15:00 23:00 Intake Total 240 ml Output Total 425 ml Balance -185 ml Result Diagram: 01/23/17 0707 01/23/17 07 Laboratory Results Laboratory Tests Test 01/22/17 01/23/17 16:22 07:07 Hemoglobin 9.9 GM/DL 8.9 GM/DL Hematocrit 30.9 % 26.6 % Sodium Level 135 MEQ/L 134 MEQ/L Potassium Level 3.3 MEQ/L 2.8 MEQ/L Chloride Level 99 MEQ/L 99 MEQ/L Carbon Dioxide Level 23.6 MEQ/L 23.3 MEQ/L Anion Gap 12 MEQ/L 12 MEQ/L Blood Urea Nitrogen 12 MG/DL 11 MG/DL Creatinine 0.79 MG/DL 0.76 MG/DL Estimat Glomerular Filtration 118 ML/MIN 123 ML/MIN Rate Random Glucose 104 MG/DL 121 MG/DL Calcium Level 9.0 MG/DL 8.6 MG/DL White Blood Count 8.5 TH/MM3 Red Blood Count 3.26 MIL/MM3 Mean Corpuscular Volume 81.8 FL Mean Corpuscular Hemoglobin 27.2 PG Mean Corpuscular Hemoglobin 33.3 % Concent Red Cell Distribution Width 17.2 % Platelet Count 324 TH/MM3 Mean Platelet Volume 7.0 FL Neutrophils (%) (Auto) 83.0 % Lymphocytes (%) (Auto) 7.8 % Monocytes (%) (Auto) 8.7 % Eosinophils (%) (Auto) 0.2 % Basophils (%) (Auto) 0.3 % Neutrophils # (Auto) 7.0 TH/MM3 Lymphocytes # (Auto) 0.7 TH/MM3 Monocytes # (Auto) 0.7 TH/MM3 Eosinophils # (Auto) 0.0 TH/MM3 Basophils # (Auto) 0.0 TH/MM3 CBC Comment DIFF FINAL Differential Comment Culture Results Microbiology Date/Time Procedure Status Source Growth 01/21/17 15:16 Aerobic Blood Culture - Preliminary Resulted Blood Peripheral NO GROWTH IN 2 DAYS 01/21/17 15:16 Anaerobic Blood Culture - Preliminary Resulted Blood Peripheral NO GROWTH IN 2 DAYS 01/21/17 15:27 Aerobic Blood Culture - Preliminary Resulted Blood Peripheral NO GROWTH IN 2 DAYS 01/21/17 15:27 Anaerobic Blood Culture - Preliminary Resulted Blood Peripheral NO GROWTH IN 2 DAYS 01/23/17 02:39 Urine Culture Received Urine Random Urine Pending Administered Medications Medications (Trade) Dose Ordered Sig/Shirin Route PRN Reason Start Time Stop Time Status Last Admin Dose Admin Alprazolam (Xanax) 0.5 mg Q6H PRN PO ANXIETY 01/15/17 13:15 01/23/17 04:59 Cyanocobalamin (Vitamin B12) 1,000 mcg DAILY PO 01/16/17 09:00 01/23/17 10:46 Gabapentin (Neurontin) 400 mg BID PO 01/15/17 21:00 01/23/17 10:46 Pantoprazole Sodium (Protonix) 20 mg DAILY PO 01/16/17 09:00 01/23/17 10:46 Pyridoxine HCl (Vitamin B6) 100 mg DAILY PO 01/16/17 09:00 01/23/17 10:46 Calcium/Vitamin D (Oscal-D 250-125) 500 mg BID PO 01/15/17 21:00 01/23/17 10:47 Oxycodone HCl (Roxicodone) 5 mg Q4H PRN PO pain 01/15/17 18:15 01/23/17 10:55 Senna/Docusate Sodium 2 tab 2 tab HS PO 01/16/17 21:00 01/18/17 22:00 Piperacillin Sod/ Tazobactam Sod (Zosyn 3.375 Gm Premix) 50 ml @ 100 mls/hr Q6H IV 01/17/17 11:00 01/23/17 10:59 Artificial Tears (Tears Naturale Opth Soln) 1 drop Q4H PRN RIGHT EYE irritation 01/20/17 14:00 01/22/17 20:04 Megestrol Acetate (Megace Liq) 400 mg DAILY PO 01/22/17 09:00 01/23/17 10:47 Fentanyl (Duragesic 25 Mcg Patch.72 Hr) 1 patch Q3D TD 01/22/17 09:00 01/22/17 09:35 Dexamethasone (Decadron) 4 mg Q12HR PO 01/23/17 09:00 01/23/17 10:46 Potassium Chloride (KCl) 40 meq Q4H PO 01/23/17 10:30 01/23/17 14:31 01/23/17 10:54 Objective Remarks GENERAL: Elderly male, lying in bed in nad. SKIN: Warm and dry. HEAD: Normocephalic. EYES: No injection or drainage. NECK: Supple, trachea midline. CARDIOVASCULAR: Regular rate and rhythm RESPIRATORY: anterior eng clear. GASTROINTESTINAL: Abdomen soft, non-tender, nondistended. EXTREMITIES: No cyanosis NEUROLOGICAL: Awake, able to move extremities. normal speech. Assessment/Plan Problem List: (1) Elevated LFTs Status: Acute Plan: -liver biopsy pending. GI following. --MRCP showed mildly dilated common bile duct, otherwise no concerns --GI following for elevated LFTs (2) Non-small cell carcinoma of lung, stage 4 Status: Chronic Plan: --very deconditioned after femur surgery --Overall his disease burden is very low. +bony metastatic disease. --originally diagnosed in early 2015--at that point already had mets to bilateral lungs, and rib bones. Had treatment with Carboplatin, Alimta and Bevacizumab. --May 2016: disease progression, treatment with Nivolumab reduced disease burden --01/04/17: had prophylactic stabilizing of left femur --01/15/17: admitted with bilateral hip pain, and low back pain, weakness and frequent falls (3) Generalized weakness Status: Chronic Plan: due to deconditioning, recent hip surgery, anemia and dehydration. (4) Hyponatremia Status: Acute Plan: --stable (5) Pain Status: Acute Plan: --Avoid Tylenol at this time due to elevated liver functions. --currently on Fentanyl patch 25mcg + Oxycodone 5mg q4h prn pain (6) Febrile Status: Acute Plan: --?inflammatory fever --unclear etiology --will obtain CT hip, (recent surgery) --urine culture pending --remains on Zosyn Assessment 71y/o with metastatic NSCLC admitted for weakness, hip pain and a fall. h/o Stage IV poorly differentiated non-small cell lung cancer diagnosed in 2016 with mets to chest wall and bones. History of anemia. Chronic lower extremity edema. Osteoarthritis of the left shoulder. COPD. Systolic and diastolic CHF. Gout. Hypertension. Peripheral neuropathy. Plan 1. await CT hip 2. monitor CBC 3. await liver biopsy 4. continue antibiotics Attending Statement The exam, history, and the medical decision-making described in the above note were completed with the assistance of the mid-level provider. I reviewed and agree with the findings presented. I attest that I had a [id number] encounter with the patient on the same day, and personally performed and documented my assessment and findings in the medical record. Hip pain--CT scans did not show any abscess/no acute findings Drowsiness/Lethargy: D/C gabapentin. multiple issues contributing Fever: no fevers today. no evidence of infection Anemia: s/p pRBC transfusion. some drop in Hb today. check LDH/Haptoglobin. Check stool heme-occult Deconditioning: continue PT Pain control: on fentanyl patch, Roxicodone prn. Malnutrition: poor oral intake-- will consider TPN d.w Dr. Eaton. d/w Angela Grissom Jan 23, 2017 12:56 Tim Cordon MD Jan 23, 2017 22:21
--- NOTE | 2017-01-23 13:14 | HHI.HCPN ---
Reason for visit a. To assist with evaluation and management of symptoms including: pain, constipation and debility b. To assist medical decision maker(s) with: better understanding of current medical conditions; weighing benefits/burdens of medical treatment options; making medical treatment decisions. . Subjective/Interval History Patient seen in his room, endorsing pain to lower back and left hip. Worse with movement, alleviated by Oxycodone and rest. Patient started yesterday on Fentanyl 25mcg patch in addition to Oxycodone 5mg PRN. Has taken 2 doses today and 3 doses yesterday with moderate effect. Patient was unable to tell me if Fentanyl patch is helping with his pain. Patient denies shortness of breath, n/ v or abdominal pain. Continue endorsing poor appetite, eating 50% of his meals. Has been seen by urology -Dr. Rich for evaluation of testicular swelling, likely secondary to inguinal hernia. Pending confirmatory ultrasound. No surgical intervention recommended at this time. Max temperature 101.0 this morning, tachycardic with HR in the low 110's. Stable blood pressure. Blood culture 01/21/17 with no growth thus far. Tolerating RA. Laboratory today including WBC 8.5, Hgb 8.9, platelet 334. Sodium 134, potassium 2.8, BUN/ creatinine 11/0.76. Pending results of liver biopsy. Oncology following, patient has been seen by radiation oncology Dr. Ramos with plan for palliative radiation to hip is performance status improves. . Family/friend interactions Telephone conversation with patient's daughter February. Medical update provided. Daughter tells me that after much discussion with attending, consulting physicians and palliative care, patient is electing DNR/DNI given his progressive metastatic disease. Patient's goals remains to improve functional status in order to continue systemic therapy and/or palliative radiation to hip. Daughter verbalized awareness that patient's condition is not curable but is hoping that radiation will provide some symptom management and improve his quality of life. Plan is to discharge to [facility] once medically cleared. patient and family amenable to hospice services should patient's clinical condition worsen or there is increased symptom burden. Palliative care to assist in completion of community DNR. Code status changed to reflect new goals of care. . Advance Directives Living Will: Never completed Health Care Surrogate: Copy in medical record Durable Power of Folding Machine Feeder: Never completed Advance Directive Specifics Date completed: 01/16/2017. . Health Care Surrogate(s): Whit Jalloh as primary HCS and Jose J Mohan as alternate surrogate. . Documented care wishes: No living will has been completed. . Significant change in goals: NO CODE. DNR/DNI. Continue current medical management with the goal of improving functional status in order to continue systemic antineoplastic therapy and/or palliative radiation. . Objective Vital Signs Date Time Temp Pulse Resp B/P Pulse Ox O2 Delivery O2 Flow Rate FiO2 01/23/17 08:37 97.7 109 18 109/69 94 01/23/17 04:00 99.5 107 18 114/70 94 01/23/17 00:00 101.0 108 18 110/65 92 01/22/17 20:00 99.4 106 18 108/72 94 01/22/17 17:07 93 21 01/22/17 15:50 96.6 104 20 120/71 92 01/22/17 14:24 93 21 01/22/17 13:50 97.2 99 20 100/64 99 Intake & Output 01/23/17 01/23/17 07:00 19:00 Intake Total 240 ml Output Total 625 ml Balance -385 ml Intake Oral 240 ml Output Urine Total 625 ml Physical Exam CONSTITUTIONAL/GENERAL: This is a thin, elderly patient in no acute distress. TUBES/LINES/DRAINS: PIV's. SKIN: No jaundice, rashes, or lesions. No wounds seen anteriorly. Skin temperature appropriate. Not diaphoretic. HEAD: Atraumatic. Normocephalic. EYES: Pupils equal and round and reactive. Extraocular motions intact. No scleral icterus. No injection or drainage. ENT: Hearing grossly normal. Nose without bleeding or purulent drainage. NECK: Trachea midline. Supple, nontender. CARDIOVASCULAR: Regular rate and rhythm without murmurs, gallops, or rubs. No JVD. Peripheral pulses symmetric. RESPIRATORY/CHEST: Symmetric, unlabored respirations. Clear to auscultation. Breath sounds equal bilaterally. No wheezes, rales, or rhonchi. GASTROINTESTINAL: Abdomen soft, non-tender, distended. No guarding. Bowel sounds present. GENITOURINARY: Without palpable bladder distension. MUSCULOSKELETAL: Extremities without clubbing, cyanosis. No mottling or clubbing. NEUROLOGICAL: Awake and alert. Follows commands. Moves all extremities. verbal and able to communicate needs. PSYCHIATRIC: calm. . Diagnostic Tests Laboratory Laboratory Tests Test 01/20/17 01/21/17 01/21/17 01/22/17 14:00 00:28 06:34 16:22 White Blood Count 9.0 TH/MM3 8.1 TH/MM3 (4.0-11.0) (4.0-11.0) Red Blood Count 3.14 MIL/MM3 2.90 MIL/MM3 (4.50-5.90) (4.50-5.90) Hemoglobin 8.5 GM/DL 7.9 GM/DL 9.9 GM/DL (13.0-17.0) (13.0-17.0) (13.0-17.0) Hematocrit 26.4 % 24.2 % 30.9 % (39.0-51.0) (39.0-51.0) (39.0-51.0) Mean Corpuscular Volume 84.1 FL 83.2 FL (80.0-100.0) (80.0-100.0) Mean Corpuscular Hemoglobin 27.2 PG 27.3 PG (27.0-34.0) (27.0-34.0) Mean Corpuscular Hemoglobin 32.4 % 32.8 % Concent (32.0-36.0) (32.0-36.0) Red Cell Distribution Width 17.4 % 17.2 % (11.6-17.2) (11.6-17.2) Platelet Count 365 TH/MM3 320 TH/MM3 (150-450) (150-450) Mean Platelet Volume 6.9 FL 7.0 FL (7.0-11.0) (7.0-11.0) Neutrophils (%) (Auto) 80.0 % 80.8 % (16.0-70.0) (16.0-70.0) Lymphocytes (%) (Auto) 8.0 % 8.3 % (9.0-44.0) (9.0-44.0) Monocytes (%) (Auto) 11.2 % 10.4 % (0.0-8.0) (0.0-8.0) Eosinophils (%) (Auto) 0.4 % (0.0-4.0) 0.3 % (0.0-4.0) Basophils (%) (Auto) 0.4 % (0.0-2.0) 0.2 % (0.0-2.0) Neutrophils # (Auto) 7.2 TH/MM3 6.5 TH/MM3 (1.8-7.7) (1.8-7.7) Lymphocytes # (Auto) 0.7 TH/MM3 0.7 TH/MM3 (1.0-4.8) (1.0-4.8) Monocytes # (Auto) 1.0 TH/MM3 0.8 TH/MM3 (0-0.9) (0-0.9) Eosinophils # (Auto) 0.0 TH/MM3 0.0 TH/MM3 (0-0.4) (0-0.4) Basophils # (Auto) 0.0 TH/MM3 0.0 TH/MM3 (0-0.2) (0-0.2) CBC Comment DIFF FINAL DIFF FINAL Differential Comment Sodium Level 134 MEQ/L 134 MEQ/L 135 MEQ/L (136-145) (136-145) (136-145) Potassium Level 3.2 MEQ/L 2.9 MEQ/L 3.3 MEQ/L (3.5-5.1) (3.5-5.1) (3.5-5.1) Chloride Level 100 MEQ/L 98 MEQ/L 99 MEQ/L (98-107) (98-107) (98-107) Carbon Dioxide Level 20.9 MEQ/L 21.4 MEQ/L 23.6 MEQ/L (21.0-32.0) (21.0-32.0) (21.0-32.0) Anion Gap 13 MEQ/L (5-15) 15 MEQ/L (5-15) 12 MEQ/L (5-15) Blood Urea Nitrogen 12 MG/DL (7-18) 13 MG/DL (7-18) 12 MG/DL (7-18) Creatinine 0.84 MG/DL 0.82 MG/DL 0.79 MG/DL (0.60-1.30) (0.60-1.30) (0.60-1.30) Estimat Glomerular Filtration 109 ML/MIN 113 ML/MIN 118 ML/MIN Rate (>89) (>89) (>89) Random Glucose 90 MG/DL 103 MG/DL 104 MG/DL (74-106) (74-106) (74-106) Calcium Level 9.0 MG/DL 8.6 MG/DL 9.0 MG/DL (8.5-10.1) (8.5-10.1) (8.5-10.1) Blood Type O POSITIVE Crossmatch Leukocyte-Reduced Red Blood Cells Blood Bank Comment Magnesium Level 1.6 MG/DL (1.5-2.5) Total Bilirubin 2.3 MG/DL (0.2-1.0) Aspartate Amino Transf 90 U/L (15-37) (AST/SGOT) Alanine Aminotransferase 113 U/L (12-78) (ALT/SGPT) Alkaline Phosphatase 345 U/L (45-117) Total Protein 7.6 GM/DL (6.4-8.2) Albumin 1.4 GM/DL (3.4-5.0) Test 01/23/17 07:07 White Blood Count 8.5 TH/MM3 (4.0-11.0) Red Blood Count 3.26 MIL/MM3 (4.50-5.90) Hemoglobin 8.9 GM/DL (13.0-17.0) Hematocrit 26.6 % (39.0-51.0) Mean Corpuscular Volume 81.8 FL (80.0-100.0) Mean Corpuscular Hemoglobin 27.2 PG (27.0-34.0) Mean Corpuscular Hemoglobin 33.3 % Concent (32.0-36.0) Red Cell Distribution Width 17.2 % (11.6-17.2) Platelet Count 324 TH/MM3 (150-450) Mean Platelet Volume 7.0 FL (7.0-11.0) Neutrophils (%) (Auto) 83.0 % (16.0-70.0) Lymphocytes (%) (Auto) 7.8 % (9.0-44.0) Monocytes (%) (Auto) 8.7 % (0.0-8.0) Eosinophils (%) (Auto) 0.2 % (0.0-4.0) Basophils (%) (Auto) 0.3 % (0.0-2.0) Neutrophils # (Auto) 7.0 TH/MM3 (1.8-7.7) Lymphocytes # (Auto) 0.7 TH/MM3 (1.0-4.8) Monocytes # (Auto) 0.7 TH/MM3 (0-0.9) Eosinophils # (Auto) 0.0 TH/MM3 (0-0.4) Basophils # (Auto) 0.0 TH/MM3 (0-0.2) CBC Comment DIFF FINAL Differential Comment Sodium Level 134 MEQ/L (136-145) Potassium Level 2.8 MEQ/L (3.5-5.1) Chloride Level 99 MEQ/L (98-107) Carbon Dioxide Level 23.3 MEQ/L (21.0-32.0) Anion Gap 12 MEQ/L (5-15) Blood Urea Nitrogen 11 MG/DL (7-18) Creatinine 0.76 MG/DL (0.60-1.30) Estimat Glomerular Filtration 123 ML/MIN Rate (>89) Random Glucose 121 MG/DL (74-106) Calcium Level 8.6 MG/DL (8.5-10.1) Result Diagram: 01/23/17 0707 01/23/17 0707 Microbiology Microbiology Date/Time Procedure Status Source Growth 01/21/17 15:16 Aerobic Blood Culture - Preliminary Resulted Blood Peripheral NO GROWTH IN 2 DAYS 01/21/17 15:16 Anaerobic Blood Culture - Preliminary Resulted Blood Peripheral NO GROWTH IN 2 DAYS 01/21/17 15:27 Aerobic Blood Culture - Preliminary Resulted Blood Peripheral NO GROWTH IN 2 DAYS 01/21/17 15:27 Anaerobic Blood Culture - Preliminary Resulted Blood Peripheral NO GROWTH IN 2 DAYS 01/23/17 02:39 Urine Culture Received Urine Random Urine Pending Procedures * 01/20/17 -Liver biopsy . Assessment and Plan Disease Oriented Problem List: (1) Non-small cell carcinoma of lung, stage 4 (2) Elevated LFTs (3) COPD (chronic obstructive pulmonary disease) Symptom Scale: (1) Pain 0-10 Scale: 10 Comment: Secondary to burden of disease and recent orthopedic surgery. (2) Generalized weakness Comment: progressive. (3) Constipation Comment: Chronic, opioid use. (4) Malnutrition Comment: Albumin 1.5 Pertinent Non-Medical Issues Psychosocial: . Has 4 children. Independent living. Spiritual: Yazdanism. Legal: No living will completed. Ethical issues impacting care: No living will completed. . Important Contacts [facility] Whit Mohan [facility] Jose J Mohan . . Prognosis Mr. Lombardo is a 71 y/o male with a medical history significant for stage IV poorly differentiated [id number] lung cancer diagnosed in early 2015 with mets to the bones. As per history, patient was initially treated with chemotherapy and immunotherapy but had disease progression in May 2016. Patient has also received radiation treatment to the chest wall. Most recent PET /CT on 12/12/16 revealed new metastatic disease in the left proximal femur and right anterior 7th rib costochondral junction, he underwent intramedullary nail fixation of left femur on 12/31/16 for impending pathologic fracture of left proximal femur secondary to metastatic lesion. Patient at high risk for further decline, complications and given his metastatic lung cancer, age, physical deconditioning, malnutrition and multiple comorbidities. . Code Status: No Code Plan * CODE STATUS: no code. DNR/DNI. * HEALTHCARE DECISION-MAKER: Patient designated Whit Jalloh as primary HCS and Jose J Mohan as alternate surrogate. * GOALS OF CARE: Continue current medical management short of no code with the goal of improving functional status to permit continuation of systemic antineoplastic therapy and/or palliative radiation. Telephone conversation with patient's daughter February. Medical update provided. Daughter tells me that after much discussion with attending, consulting physicians and palliative care, patient is electing DNR/DNI given his progressive metastatic disease. Family in full support of this decision. Patient's goal of treatment remains to improve functional status in order to continue systemic therapy and/or palliative radiation to hip. Daughter verbalized awareness that patient's condition is not curable but is hoping that radiation will provide some symptom management and improve his quality of life. Plan is to discharge to [facility] once medically cleared. Future role of hospice reviewed with patient and family should patient's clinical condition worsen or there is an increase in symptom burden. * Palliative care to assist in completion of community DNR. Code status changed to reflect new goals of care. * SYMPTOMS: ==Pain, secondary to burden of disease, recent ortho surgical intervention. Home regimen of [place]. same changed to Oxycodone secondary to elevated LFT's. Fentanyl patch 25mcg added 01/22/17. ==Weakness, physical deconditioning. Will discharge to SNF. ==Constipation, secondary to opioids and bedrest. Senna-s and PRN Dulcolax sup. ==Malnutrition, albumin 1.5, poor oral intake. * Palliative care contact information has been provided to patient and daughter. * Palliative care to follow-up to assist with symptom management and to further evaluate goals of medical treatment as the clinical course evolves. . Time Spent Total Floor Time (mins): 38 (Total time to include review of medical records, physical exam and telephone conversation with patient's daughter ) >50% Counseling/Coord of Care: Yes Attestation To help prompt me to consider important information that might be impacting today's encounter and assessment, information from prior notes written by myself or my colleagues may have been "brought forward" into today's note. My signature on this note, however, is an attestation that I personally performed the exam, history, and/or decision-making noted today, and, unless otherwise indicated, the interactions with patient, family, and staff as well as the review of records all occurred today. I also attest that the listed assessment and stated plan reflect my best clinical judgment today based on the combination of historical information, prior notes, and today's exam/ interactions. When time spent is documented, it refers only to time spent today by the signer, or if indicated, combined time spent today by collaborating physician/nurse practitioner. Alesia Montague Jan 23, 2017 13:14
--- NOTE | 2017-01-23 14:05 | HHI.GIFU ---
Subjective Remarks Resting in bed. No distress. Denies any abdominal pain. Lethargic. (Vivienne Wong) Objective Vitals I&O Vital Signs Date Time Temp Pulse Resp B/P Pulse Ox O2 Delivery O2 Flow Rate FiO2 01/23/17 12:00 98.4 102 18 116/71 94 01/23/17 08:37 97.7 109 18 109/69 94 01/23/17 04:00 99.5 107 18 114/70 94 01/23/17 00:00 101.0 108 18 110/65 92 01/22/17 20:00 99.4 106 18 108/72 94 01/22/17 17:07 93 21 01/22/17 15:50 96.6 104 20 120/71 92 01/22/17 14:24 93 21 I/O 01/22/17 01/22/17 01/22/17 01/23/17 01/23/17 01/23/17 07:00 15:00 23:00 07:00 15:00 23:00 Intake Total 240 ml 140 ml 240 ml Output Total 1100 ml 200 ml 425 ml Balance 240 ml -960 ml -200 ml -185 ml Intake Oral 240 ml 140 ml 240 ml Output Urine Total 1100 ml 200 ml 425 ml # Bowel Movements 2 Laboratory Laboratory Tests Test 01/22/17 01/23/17 16:22 07:07 Hemoglobin 9.9 8.9 Hematocrit 30.9 26.6 Sodium Level 135 134 Potassium Level 3.3 2.8 Chloride Level 99 99 Carbon Dioxide Level 23.6 23.3 Anion Gap 12 12 Blood Urea Nitrogen 12 11 Creatinine 0.79 0.76 Estimat Glomerular Filtration 118 123 Rate Random Glucose 104 121 Calcium Level 9.0 8.6 White Blood Count 8.5 Red Blood Count 3.26 Mean Corpuscular Volume 81.8 Mean Corpuscular Hemoglobin 27.2 Mean Corpuscular Hemoglobin 33.3 Concent Red Cell Distribution Width 17.2 Platelet Count 324 Mean Platelet Volume 7.0 Neutrophils (%) (Auto) 83.0 Lymphocytes (%) (Auto) 7.8 Monocytes (%) (Auto) 8.7 Eosinophils (%) (Auto) 0.2 Basophils (%) (Auto) 0.3 Neutrophils # (Auto) 7.0 Lymphocytes # (Auto) 0.7 Monocytes # (Auto) 0.7 Eosinophils # (Auto) 0.0 Basophils # (Auto) 0.0 CBC Comment DIFF FINAL Differential Comment Date/Time Procedure Status Source Growth 01/23/17 02:39 Urine Culture Received Urine Random Urine Pending 01/21/17 15:27 Aerobic Blood Culture - Preliminary Resulted Blood Peripheral NO GROWTH IN 2 DAYS 01/21/17 15:27 Anaerobic Blood Culture - Preliminary Resulted Blood Peripheral NO GROWTH IN 2 DAYS Imaging Last Impressions Chest X-Ray 01/21/17 0000 Signed Impressions: Service Date/Time: Saturday, January 21, 2017 13:19 - CONCLUSION: Large pleural based density left upper lobe is unchanged. Healing rib fracture on the right is unchanged. Diffuse interstitial prominence unchanged. Louis Potts MD Liver Biopsy CT 01/20/17 0000 Signed Impressions: Service Date/Time: Friday, January 20, 2017 14:58 - CONCLUSION: Uncomplicated CT guided biopsy. Brian Villanueva MD Cholangiopancreatography MRI 01/18/17 0000 Signed Impressions: Service Date/Time: Wednesday, January 18, 2017 07:26 - CONCLUSION: Common duct mildly increased in diameter proximally. Exam otherwise within normal limits. Дмитрий Britt MD Abdomen/Pelvis CT 01/17/17 0000 Signed Impressions: Service Date/Time: Tuesday, January 17, 2017 12:06 - CONCLUSION: 1. Large right-sided inguinal hernia containing a portion of the colon as well as the urinary bladder. This was present on the prior examination. 2. Postsurgical changes involving the left hip joint. No free fluid or loculated fluid collections are seen in the region of the left hip joint. 3. No calcified renal stones or hydronephrosis. Alistair Carrillo MD Lumbar Spine X-Ray 01/15/17 0000 Signed Impressions: Service Date/Time: Sunday, January 15, 2017 10:32 - CONCLUSION: 1. No acute abnormality. 2. Degenerative changes and scoliotic curvature as detailed above. 3. Wedge deformities involving T12 and L1. These either relate to old compression deformities or could relate to anatomical variance which is not uncommon at the cortical lumbar junction. Raj Nair Jr., MD Liver Ultrasound 01/15/17 0000 Signed Impressions: Service Date/Time: Sunday, January 15, 2017 13:28 - CONCLUSION: Hepatomegaly nonspecific. Gallbladder suggests borderline wall thickening of 4 mm and sludge with no evidence of stones and bile ducts appear normal. Jose J Nuñez MD Hip and Pelvis X-Ray 01/15/17 0000 Signed Impressions: Service Date/Time: Sunday, January 15, 2017 10:21 - CONCLUSION: Orthopedic hardware involving the left hip with good alignment. No acute abnormality. Raj Nair Jr., MD Femur X-Ray 01/15/17 0000 Signed Impressions: Service Date/Time: Sunday, January 15, 2017 10:21 - CONCLUSION: Intramedullary darrian and femoral neck screw with good alignment. Osteoarthritis of the hip and knee. Raj Nair Jr., MD Physical Exam HEENT: PERRLA; normocephalic; atraumatic CHEST: CTA CARDIAC: RRR ABDOMEN: Soft, nondistended, nontender; enlarged liver bowel sounds x 4 quadrants. EXTREMITIES: No clubbing, cyanosis, or edema. SKIN: Normal; no rash; no jaundice. CHOCOLATE TEMPERER: No focal deficits; Lethargic, oriented to self and place (Vivienne Wong) Assessment and Plan Plan ASSESSMENT: - Anemia, related to malignancy. S/P 3 units of blood transfusion. Pt has refused endoscopy. HH stable 8.9/26.6. No active bleeding. - Elevated LFTs, trending down, ? secondary to Nivolumab. liver bx pending. Hepatitis B IgM, HCV Ab negative, BRIDGET negative, AMA pending, Anti-Smooth Muscle Ab negative. MRCP (01/18/17)--- -->Common duct mildly increased in diameter proximally. Exam otherwise within normal limits. Abdomen/Pelvis CT ( 01/17/17) --> 1. Large right-sided inguinal hernia containing a portion of the colon as well as the urinary bladder. This was present on the prior examination. 2. Postsurgical changes involving the left hip joint. No free fluid or loculated fluid collections are seen in the region of the left hip joint. 3. No calcified renal stones or hydronephrosis. Liver US 01/15/17--> Hepatomegaly nonspecific. Gallbladder suggests borderline wall thickening of 4 mm and sludge with no evidence of stones and bile ducts appear normal. S/P Liver biopsy 01/20/17, pathology pending. -Non-small cell carcinoma of lung, stage 4, with mets to chest wall and bones. Diagnosed in early 2015. Failed chemotherapy with disease progression. Started on Nivolumab. Followed by Dr. Cordon. Oncology and Palliative Care following. PLAN: - LILY - Await liver biopsy - PPI - Monitor HH - Transfuse as necessary - Monitor LFTs - Further recommendation to follow based on results of above. - Patient seen and examined by Dr. Alonso and myself and this not is written on his behalf. (Vivienne Wong) Physician Comments Patient seen and examined Agree with above Continue with current supportive care Monitor labs Liver biopsy with minimal changes continue to monitor labs And probably pursue further imaging down the road and maybe even a PET scan. Not much to add from a GI standpoint we will sign off Patient follow-up with GI post discharge (Ambrocio Alonso MD) Vivienne Wong Jan 23, 2017 14:04 Ambrocio Alonso MD Jan 23, 2017 19:27
[2017-01-23 16:00] VITALS: BP 122/78; PULSE 103; RESP 18; TEMP 97; O2SAT 95
--- NOTE | 2017-01-23 16:20 | HHI.PR ---
Subjective Remarks slightly more alert today. Pt has difficulty finding a position of comfort. Poor PO intake. Objective Vitals Vital Signs Date Time Temp Pulse Resp B/P Pulse Ox O2 Delivery O2 Flow Rate FiO2 01/23/17 12:00 98.4 102 18 116/71 94 01/23/17 08:37 97.7 109 18 109/69 94 01/23/17 04:00 99.5 107 18 114/70 94 01/23/17 00:00 101.0 108 18 110/65 92 01/22/17 20:00 99.4 106 18 108/72 94 01/22/17 17:07 93 21 01/22/17 01/22/17 01/23/17 15:00 23:00 07:00 Intake Total 140 ml 240 ml Output Total 1100 ml 200 ml 425 ml Balance -960 ml -200 ml -185 ml Intake Oral 140 ml 240 ml Output Urine Total 1100 ml 200 ml 425 ml # Bowel Movements 2 Result Diagram: 01/23/17 0707 01/23/17 0707 Imaging Last Impressions Chest X-Ray 01/21/17 0000 Signed Impressions: Service Date/Time: Saturday, January 21, 2017 13:19 - CONCLUSION: Large pleural based density left upper lobe is unchanged. Healing rib fracture on the right is unchanged. Diffuse interstitial prominence unchanged. Louis Potts MD Liver Biopsy CT 01/20/17 0000 Signed Impressions: Service Date/Time: Friday, January 20, 2017 14:58 - CONCLUSION: Uncomplicated CT guided biopsy. Brian Villanueva MD Cholangiopancreatography MRI 01/18/17 0000 Signed Impressions: Service Date/Time: Wednesday, January 18, 2017 07:26 - CONCLUSION: Common duct mildly increased in diameter proximally. Exam otherwise within normal limits. Дмитрий Britt MD Abdomen/Pelvis CT 01/17/17 0000 Signed Impressions: Service Date/Time: Tuesday, January 17, 2017 12:06 - CONCLUSION: 1. Large right-sided inguinal hernia containing a portion of the colon as well as the urinary bladder. This was present on the prior examination. 2. Postsurgical changes involving the left hip joint. No free fluid or loculated fluid collections are seen in the region of the left hip joint. 3. No calcified renal stones or hydronephrosis. Alistair Carrillo MD Lumbar Spine X-Ray 01/15/17 0000 Signed Impressions: Service Date/Time: Sunday, January 15, 2017 10:32 - CONCLUSION: 1. No acute abnormality. 2. Degenerative changes and scoliotic curvature as detailed above. 3. Wedge deformities involving T12 and L1. These either relate to old compression deformities or could relate to anatomical variance which is not uncommon at the cortical lumbar junction. Raj Nair Jr., MD Liver Ultrasound 01/15/17 0000 Signed Impressions: Service Date/Time: Sunday, January 15, 2017 13:28 - CONCLUSION: Hepatomegaly nonspecific. Gallbladder suggests borderline wall thickening of 4 mm and sludge with no evidence of stones and bile ducts appear normal. Jose J Nuñez MD Hip and Pelvis X-Ray 01/15/17 0000 Signed Impressions: Service Date/Time: Sunday, January 15, 2017 10:21 - CONCLUSION: Orthopedic hardware involving the left hip with good alignment. No acute abnormality. Raj Nair Jr., MD Femur X-Ray 01/15/17 0000 Signed Impressions: Service Date/Time: Sunday, January 15, 2017 10:21 - CONCLUSION: Intramedullary darrian and femoral neck screw with good alignment. Osteoarthritis of the hip and knee. Raj Nair Jr., MD Objective Remarks GENERAL: This is a well-nourished, well-developed patient, in no apparent distress. CARDIOVASCULAR: Regular rate and rhythm without murmurs, gallops, or rubs. RESPIRATORY: Clear to auscultation. Breath sounds equal bilaterally. No wheezes , rales, or rhonchi. GASTROINTESTINAL: Abdomen soft, non-tender, nondistended. Normal active bowel sounds MUSCULOSKELETAL: Extremities without clubbing, cyanosis, or edema. NEURO: Alert & Oriented to self. 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 - Recent orif to left fumur for pathological fx - Prior to admission Pt had been falling at home, more confused. - Pt noted to have hyponatremia on admission NA 129, now improved 134 (01/23/17) - elevated LFT with fever...no obvious mets or biliary obstruction on imaging - GI questioning hepatitis related to chemo - liver Bx (01/20/17) --> hemosiderin - anemia d/t malignancy. Pt has been transfused 3 units PRBCs --> Hg 9.1 () - continued intermittent fever - Oncology does NOT feel that this is tumor related - nursing reports stools with a lot of mucous - will obtain stool studies, including C. Dif, O&P - PT - Pt will need SNF at the end of this hospitalization - stop zosyn (01/17 - 01/23/17) - oxycodone prn - pt wants continued aggressive care - Case d/w Dr. Ramos (01/21/17). If performance status improves then Radiation therapy 3-4 weeks following pt's ORIF (12/31), 10-15 treatments - Case d/w Dr. Cordon (01/23/17) - Pt started on fentanyl patch (01/22/17) - Pt started on megace (01/22/17) (2) Non-small cell carcinoma of lung, stage 4 Status: Chronic Plan: - comgmt with Oncology and Palliative Medicine - Pt has stage IV poorly differentiated [id number] lung cancer diagnosed in early 2015 with mets to the chest wall and bones - He has completed six cycles of carboplatin, Alimta and bevacizumab but was found to have disease progression in 05/2016. - Pt has also received focal radiation treatment to the chest wall. - Pt follows with Dr. Cordon and is on second line therapy with IV Zometa for bony disease and immunotherapy with Nivolumab. - Review of outpt records revealed his most recent PET/CT on 12/12/16 revealed new metastatic disease in the left proximal femur and right anterior 7th rib costochondral junction. - Case d/w pt & daughter Whit Saeed, [facility], at bedside - Pt asked if he would want resuscitation if needed. Pt answered clearly that he does NOT want that. - will change code status to DNR - Pt/daughter do want continued aggressive care short of resuscitation at this point. (3) Elevated liver enzymes Status: Acute Plan: see above (4) COPD (chronic obstructive pulmonary disease) Status: Chronic Plan: - Duonebs PRn (5) Anemia Status: Acute Plan: - Pt received 2 units of PRBCs post-operatively during recent admission. - Pt transfused additional 3 units PRBCs - repeat CBC in AM (6) Hypertension Status: Chronic Plan: - BP stable to low normal - pt currently off BP medications. (7) Testicular swelling Status: Acute Plan: testicular swelling with increase in temp will use cooling blanket as has elevated LFT and just had bx liver already on antibiotics will get u/a , patient is urinating and has no retention will also get urology evaluation and ultrasound Assessment and Plan as above Problem Qualifiers (1) Anemia: Qualified Code: D64.9 - Anemia, unspecified type Bill Eaton DO Jan 23, 2017 16:20
--- NOTE | 2017-01-23 17:12 | RADRPT ---
EXAM DATE/TIME: 01/23/2017 15:43 [facility] COMPARISON: No previous studies available for comparison. INDICATIONS : Scrotal swelling. MEDICAL HISTORY : Hypertension. Gastroesophageal reflux disease. Right inguinal hernia. Neuropathy. Congestive heart fa ilure. Anticoagulant therapy. Metestatic lung cancer. SURGICAL HISTORY : Orthopedic surgery, lumbar and hip. ENCOUNTER: Initial ACUITY: 2 days PAIN SCORE: 4/10 LOCATION: Bilateral scrotum. MEASUREMENTS: RIGHT TESTICLE: 2.2 x 2.9 x 1.7cm LEFT TESTICLE: 3.6 x 2.1 x 1.5cm FINDINGS: RIGHT TESTICLE: Homogeneous echotexture without intra or extratesticular mass. Blood flow is symmetric and within no rmal limits. Prominent epididymal cyst is noted. No varicocele. Small hydrocele. Epididymis is within normal limits. LEFT TESTICLE: Homogeneous echotexture without intra or extratesticular mass. Blood flow is symmetric and within no rmal limits. Small hydrocele is noted. No varicocele. Epididymis is within normal limits. SCROTUM: Within normal limits. CONCLUSION: Normal examination of the testes. Right-sided epididymal cyst and small bilateral hydroceles. Lousi Potts MD on January 23, 2017 at 17:09 Board Certified Radiologist. This report was verified electronically.
--- NOTE | 2017-01-23 19:04 | RADRPT ---
EXAM DATE/TIME: 01/23/2017 18:10 CORRECTION Corrected on: January 23, 2017; [facility] COMPARISON: HIP LEFT (AP&LAT 2/3VWS) W AP PELVIS, January 15, 2017, 10:21. FEMUR LEFT (AP & LAT/2VWS), January 15, 2017, 10:21. CT HIP LEFT W/O CONTRAST, January 23, 2017, 18:10. INDICATIONS : Left hip and leg pain, fever; recent femur surgery. RADIATION DOSE: 12.01 CTDIvol (mGy) MEDICAL HISTORY : Carcinoma, lung. Hypertension. Cardiovascular disease SURGICAL HISTORY : Left femur fracture repair. ENCOUNTER: Initial ACUITY: 2 days PAIN SCALE: 5/10 LOCATION: Left leg. TECHNIQUE: Volumetric scanning of the femur was performed. Using automated exposure control and adjustment of t he mA and/or kV according to patient size, radiation dose was kept as low as reasonably achievable to obtain optimal diagnostic quality images. FINDINGS: Right inguinal hernia is present with herniation of loops of bowel into the right scrotal sac. T here is evidence for prior internal fixation of left proximal femoral fracture with a fracture of the left greater trochanter not changed and the surgical hardware appears intact. CONCLUSION: Right inguinal hernia and intact with surgical changes involving the left femur. Neymar Scott MD on January 23, 2017 at 19:07 Board Certified Radiologist. This report was verified electronically.
--- NOTE | 2017-01-23 19:09 | RADRPT ---
EXAM DATE/TIME: 01/23/2017 18:10 [facility] COMPARISON: FEMUR LEFT (AP & LAT/2VWS), January 15, 2017, 10:21. FEMUR LEFT (AP & LAT/2VWS), December 31, 2016, 10:22. CT ABDOMEN & PELVIS W/O CONTRAST, January 17, 2017, 12:06. INDICATIONS : Left hip pain, fever. RADIATION DOSE: ; Reconstructed from previous dataset MEDICAL HISTORY : Cardiovascular disease. Hypertension. Carcinoma, lung. SURGICAL HISTORY : Left femur fracture repair. ENCOUNTER: Initial ACUITY: 2 days PAIN SCALE: 6/10 LOCATION: Left hip. TECHNIQUE: Volumetric scanning of the hip was performed. Using automated exposure control and adjustment of the mA and/or kV according to patient size, radiation dose was kept as low as reasonably achievable to o btain optimal diagnostic quality images. FINDINGS: Intramedullary darrian is present traversing the proximal femur with distal and proximal fixation sc rews. There is a fracture at the level of the greater trochanter which was present on the prior exami nations. Degenerative changes are present in both hips to a moderate degree. Right inguinal hernia is present with herniation of loops of bowel. There is slight nondescript fluid within the pseudocapsul e of the left hip joint may be post surgical change and/or related to old trauma. There are calcifica tions involving the gluteus muscles on the left side chronic in nature. CONCLUSION: Postsurgical changes on the left side involving the left proximal femur, chronic degenerative changes of the hips, right inguinal hernia and chronic calcifications of the left gluteus muscles. Neymar Scott MD on January 23, 2017 at 19:04 Board Certified Radiologist. This report was verified electronically.
[2017-01-23 20:00] VITALS: BP 122/82; PULSE 104; RESP 18; TEMP 97.7; O2SAT 94
[2017-01-23] MEDS: DOCUSATE SODIUM 50 MG/SENNA 8.6 MG TAB PO SCH (21:00)
[2017-01-23 21:03] LABS: C. DIFF EPI 027 PRESUMPTIVE NEGATIVE (NEGATIVE); C. DIFF TOXIN PCR NEGATIVE (NEGATIVE)
[2017-01-24] VITALS: BP 111/61; PULSE 104; RESP 17; TEMP 98.4; O2SAT 95
[2017-01-24 04:00] VITALS: BP 118/68; PULSE 103; RESP 17; TEMP 98.3; O2SAT 95
[2017-01-24] MEDS: ALPRAZolam 0.5 MG TAB PO PRN ×2 (05:29→23:59)
[2017-01-24 07:16] LABS: BASOPHIL % 0.2 % (0.0-2.0); HEMATOCRIT 26.9 % (39.0-51.0); HEMO FLAGS DIFF FINAL; LYMPH % 5.1 % (9.0-44.0); LYMPHOCYTE # 0.5 TH/MM3 (1.0-4.8); MEAN CORPUSCULAR HEMOGLOBIN 27.2 PG (27.0-34.0); MEAN CORPUSCULAR HGB CONC 32.8 % (32.0-36.0); MONO % 7.1 % (0.0-8.0); NEUT % 87.6 % (16.0-70.0); PLATELET COUNT 332 TH/MM3 (150-450); RED BLOOD COUNT 3.24 MIL/MM3 (4.50-5.90); RED CELL DISTRIBUTION WIDTH 17.6 % (11.6-17.2); WHITE BLOOD COUNT 10.2 TH/MM3 (4.0-11.0)
[2017-01-24 07:43] LABS: INDIRECT BILIRUBIN 0.5 MG/DL (0.0-0.8); POTASSIUM 3.3 MEQ/L (3.5-5.1); TOTAL BILIRUBIN ADULT 1.4 MG/DL (0.2-1.0)
[2017-01-24 08:00] VITALS: BP 118/69; PULSE 98; RESP 16; TEMP 97.5; O2SAT 99
[2017-01-24] MEDS ORDERED: POTASSIUM CHLORIDE 20 MEQ CONTROLLED RELEASE TAB PO ONE ×2 (10:00→10:45)
--- NOTE | 2017-01-24 10:30 | PD.ONC.PN ---
Subjective Subjective Remarks Afebrile overnight. Pt asleep in bed on approach. Awakens to gentle shaking, quickly falls back to sleep. He did state that his hip pain is somewhat better today. Objective Data Date Time Temp Pulse Resp B/P Pulse Ox O2 Delivery O2 Flow Rate FiO2 01/24/17 08:00 97.5 98 16 118/69 99 01/24/17 04:00 98.3 103 17 118/68 95 01/24/17 00:00 98.4 104 17 111/61 95 01/23/17 20:00 97.7 104 18 122/82 94 01/23/17 16:00 97.0 103 18 122/78 95 01/23/17 12:00 98.4 102 18 116/71 94 Result Diagram: 01/24/17 0632 01/24/17 0632 Laboratory Results Laboratory Tests Test 01/23/17 01/23/17 01/24/17 12:15 22:55 06:32 Stool C. difficile Toxin (PCR) NEGATIVE Stl C. difficile Toxin PRESUMPTIVE Epiderm 027 NEGATIVE Haptoglobin 628 MG/DL Lactate Dehydrogenase 135 U/L Blood Type O POSITIVE Direct Antiglobulin Test NEGATIVE (Monique) White Blood Count 10.2 TH/MM3 Red Blood Count 3.24 MIL/MM3 Hemoglobin 8.8 GM/DL Hematocrit 26.9 % Mean Corpuscular Volume 83.0 FL Mean Corpuscular Hemoglobin 27.2 PG Mean Corpuscular Hemoglobin 32.8 % Concent Red Cell Distribution Width 17.6 % Platelet Count 332 TH/MM3 Mean Platelet Volume 7.1 FL Neutrophils (%) (Auto) 87.6 % Lymphocytes (%) (Auto) 5.1 % Monocytes (%) (Auto) 7.1 % Eosinophils (%) (Auto) 0.0 % Basophils (%) (Auto) 0.2 % Neutrophils # (Auto) 9.0 TH/MM3 Lymphocytes # (Auto) 0.5 TH/MM3 Monocytes # (Auto) 0.7 TH/MM3 Eosinophils # (Auto) 0.0 TH/MM3 Basophils # (Auto) 0.0 TH/MM3 CBC Comment DIFF FINAL Differential Comment Sodium Level 133 MEQ/L Potassium Level 3.3 MEQ/L Chloride Level 98 MEQ/L Carbon Dioxide Level 24.0 MEQ/L Anion Gap 11 MEQ/L Blood Urea Nitrogen 12 MG/DL Creatinine 0.68 MG/DL Estimat Glomerular Filtration 140 ML/MIN Rate Random Glucose 135 MG/DL Calcium Level 8.2 MG/DL Total Bilirubin 1.4 MG/DL Direct Bilirubin 0.9 MG/DL Indirect Bilirubin 0.5 MG/DL Aspartate Amino Transf 35 U/L (AST/SGOT) Alanine Aminotransferase 55 U/L (ALT/SGPT) Alkaline Phosphatase 287 U/L Total Protein 7.8 GM/DL Albumin 1.4 GM/DL Culture Results Microbiology Date/Time Procedure Status Source Growth 01/21/17 15:16 Aerobic Blood Culture - Preliminary Resulted Blood Peripheral NO GROWTH IN 2 DAYS 01/21/17 15:16 Anaerobic Blood Culture - Preliminary Resulted Blood Peripheral NO GROWTH IN 2 DAYS 01/21/17 15:27 Aerobic Blood Culture - Preliminary Resulted Blood Peripheral NO GROWTH IN 2 DAYS 01/21/17 15:27 Anaerobic Blood Culture - Preliminary Resulted Blood Peripheral NO GROWTH IN 2 DAYS 01/23/17 02:39 Urine Culture Received Urine Random Urine Pending 01/23/17 12:15 Received Stool Stool Pending 01/23/17 12:15 Cyclospora Exam Resulted Stool Stool Pending 01/23/17 12:15 Cryptosporidium Exam Resulted Stool Stool Pending 01/23/17 12:15 Stool Pus (IRMA) - Final Resulted Stool Stool NO WBC'S SEEN 01/23/17 12:15 Giardia Antigen (IRMA) Resulted Stool Stool Pending 01/23/17 12:15 Stool Occult Blood (IRMA) - Final Resulted Stool Stool HEMOCCULT NEGATIVE Administered Medications Medications (Trade) Dose Ordered Sig/Shirin Route PRN Reason Start Time Stop Time Status Last Admin Dose Admin Alprazolam (Xanax) 0.5 mg Q6H PRN PO ANXIETY 01/15/17 13:15 01/24/17 05:29 Cyanocobalamin (Vitamin B12) 1,000 mcg DAILY PO 01/16/17 09:00 01/23/17 10:46 Pantoprazole Sodium (Protonix) 20 mg DAILY PO 01/16/17 09:00 01/23/17 10:46 Pyridoxine HCl (Vitamin B6) 100 mg DAILY PO 01/16/17 09:00 01/23/17 10:46 Calcium/Vitamin D (Oscal-D 250-125) 500 mg BID PO 01/15/17 21:00 01/23/17 21:11 Oxycodone HCl (Roxicodone) 5 mg Q4H PRN PO pain 01/15/17 18:15 01/24/17 05:29 Senna/Docusate Sodium (Claudia-Colace) 2 tab HS PO 01/16/17 21:00 01/18/17 22:00 Artificial Tears (Tears Naturale Opth Soln) 1 drop Q4H PRN RIGHT EYE irritation 01/20/17 14:00 01/22/17 20:04 Megestrol Acetate (Megace Liq) 400 mg DAILY PO 01/22/17 09:00 01/23/17 10:47 Fentanyl (Duragesic 25 Mcg Patch.72 Hr) 1 patch Q3D TD 01/22/17 09:00 01/22/17 09:35 Dexamethasone (Decadron) 4 mg Q12HR PO 01/23/17 09:00 01/23/17 21:11 Objective Remarks GENERAL: Elderly male, lying in bed asleep on approach in no distress. SKIN: Warm and dry. HEAD: Normocephalic. EYES: No injection or drainage. NECK: Supple, trachea midline. CARDIOVASCULAR: +S1/S2. No murmur. RESPIRATORY: Anterior eng with occasional rhonchi. GASTROINTESTINAL: Abdomen soft, non-tender, nondistended. EXTREMITIES: No cyanosis. SCD's to BLE. NEUROLOGICAL: Remains somewhat lethargic. Speech clear. PERRLA. Assessment/Plan Problem List: (1) Elevated LFTs Status: Acute Plan: --Liver biopsy shows no mets. --MRCP showed mildly dilated common bile duct, otherwise no concerns --GI following for elevated LFTs (2) Non-small cell carcinoma of lung, stage 4 Status: Chronic Plan: --Very deconditioned after femur surgery --Overall his disease burden is very low. +bony metastatic disease. --originally diagnosed in early 2015--at that point already had mets to bilateral lungs, and rib bones. Had treatment with Carboplatin, Alimta and Bevacizumab. --May 2016: disease progression, treatment with Nivolumab reduced disease burden --01/04/17: had prophylactic stabilizing of left femur --01/15/17: admitted with bilateral hip pain, and low back pain, weakness and frequent falls (3) Generalized weakness Status: Chronic Plan: due to deconditioning, recent hip surgery, anemia and dehydration. (4) Hyponatremia Status: Acute Plan: --stable (5) Pain Status: Acute Plan: --Avoid Tylenol at this time due to elevated liver functions. --currently on Fentanyl patch 25mcg + Oxycodone 5mg q4h prn pain (6) Febrile Status: Acute Plan: --?inflammatory fever --unclear etiology --will obtain CT hip, (recent surgery) --urine culture pending --remains on Zosyn Assessment 71y/o with metastatic NSCLC admitted for weakness, hip pain and a fall. h/o Stage IV poorly differentiated non-small cell lung cancer diagnosed in 2016 with mets to chest wall and bones. History of anemia. Chronic lower extremity edema. Osteoarthritis of the left shoulder. COPD. Systolic and diastolic CHF. Gout. Hypertension. Peripheral neuropathy. Plan 1. CT L hip with no acute findings from recent CT scan. Per pt pain is slightly improved today. 2. Lethargy remains; will check ammonia level. 3. Liver biopsy with no mets. 4. Replace K. 5. Monitor CBC; Stool was heme negative. Attending Statement The exam, history, and the medical decision-making described in the above note were completed with the assistance of the mid-level provider. I reviewed and agree with the findings presented. I attest that I had a [id number] encounter with the patient on the same day, and personally performed and documented my assessment and findings in the medical record. More alert today still very weak po intake poor/severe malnutrition. discussed with patient's daughter and patient. Will start TPN. orders placed Severe Deconditioning: PT Anemia: Hb 8.8 today.. No transfusion. Transfuse to keep Hb > 7.[address] Eaton d/w RN d/w patient's family Time spent: 30 minutes Will stay inpatient over the weekend. Plan to d/c early next week to rehab with TPN Gertrude Butler Jan 24, 2017 10:29 Tim Cordon MD Jan 25, 2017 00:09
[2017-01-24] MEDS: PANTOPRAZOLE SOD 20 MG DELAYED RELEASE TAB PO SCH (11:07)
[2017-01-24] MEDS: CYANOCOBALAMIN 1,000 MCG TAB PO SCH (11:07)
[2017-01-24] MEDS: DEXAMETHASONE 4 MG TAB PO SCH ×2 (11:07→21:20)
[2017-01-24] MEDS: PYRIDOXINE HCL 50 MG TAB PO SCH (11:07)
[2017-01-24] MEDS: MEGESTROL ACETATE SUSP 400 MG/10 ML CUP PO SCH (11:08)
[2017-01-24] MEDS: CALCIUM/VITAMIN D 250 MG/125 U TAB PO SCH ×2 (11:08→21:20)
[2017-01-24 12:37] VITALS: BP 112/73; PULSE 94; RESP 16; TEMP 97; O2SAT 96
--- NOTE | 2017-01-24 15:24 | HHI.PR ---
Subjective Remarks Nursing reports pt is able to tolerate pills,but poor effort & is only consuming a few bites of his meals. Pt has NOT been drinking his ensure. More lethargic today with garbled speech. Objective Vitals Vital Signs Date Time Temp Pulse Resp B/P Pulse Ox O2 Delivery O2 Flow Rate FiO2 01/24/17 12:37 97.0 94 16 112/73 96 01/24/17 08:00 97.5 98 16 118/69 99 01/24/17 04:00 98.3 103 17 118/68 95 01/24/17 00:00 98.4 104 17 111/61 95 01/23/17 20:00 97.7 104 18 122/82 94 01/23/17 16:00 97.0 103 18 122/78 95 01/23/17 01/23/17 01/24/17 15:00 23:00 07:00 Intake Total 230 ml 120 ml Output Total 250 ml 400 ml 300 ml Balance -250 ml -170 ml -180 ml Intake Oral 120 ml 120 ml IV Total 110 ml Output Urine Total 250 ml 400 ml 300 ml # Voids 1 1 # Bowel Movements 2 1 0 Result Diagram: 01/24/17 0632 01/24/17 0632 Imaging Last Impressions Scrotum Ultrasound 01/23/17 0000 Signed Impressions: Service Date/Time: January 15:43 - CONCLUSION: Normal examination of the testes. Right-sided epididymal cyst and small bilateral hydroceles. Louis Potts MD Lower Extremity CT 01/23/17 0000 Signed Impressions: Service Date/Time: January 18:10 - CONCLUSION: Postsurgical changes on the left side involving the left proximal femur, chronic degenerative changes of the hips, right inguinal hernia and chronic calcifications of the left gluteus muscles. Neymar Scott MD Chest X-Ray 01/21/17 0000 Signed Impressions: Service Date/Time: Saturday, January 21, 2017 13:19 - CONCLUSION: Large pleural based density left upper lobe is unchanged. Healing rib fracture on the right is unchanged. Diffuse interstitial prominence unchanged. Louis Potts MD Liver Biopsy CT 01/20/17 0000 Signed Impressions: Service Date/Time: Friday, January 20, 2017 14:58 - CONCLUSION: Uncomplicated CT guided biopsy. Brian Villanueva MD Cholangiopancreatography MRI 01/18/17 Signed Impressions: Service Date/Time: Wednesday, January 18, 2017 07:26 - CONCLUSION: Common duct mildly increased in diameter proximally. Exam otherwise within normal limits. Дмитрий Britt MD Abdomen/Pelvis CT 01/17/17 Signed Impressions: Service Date/Time: Tuesday, January 17, 2017 12:06 - CONCLUSION: 1. Large right-sided inguinal hernia containing a portion of the colon as well as the urinary bladder. This was present on the prior examination. 2. Postsurgical changes involving the left hip joint. No free fluid or loculated fluid collections are seen in the region of the left hip joint. 3. No calcified renal stones or hydronephrosis. Alistair Carrillo MD Lumbar Spine X-Ray 01/15/17 Signed Impressions: Service Date/Time: Sunday, January 15, 2017 10:32 - CONCLUSION: 1. No acute abnormality. 2. Degenerative changes and scoliotic curvature as detailed above. 3. Wedge deformities involving T12 and L1. These either relate to old compression deformities or could relate to anatomical variance which is not uncommon at the cortical lumbar junction. Raj Nair Jr., MD Liver Ultrasound 01/15/17 Signed Impressions: Service Date/Time: Sunday, January 15, 2017 13:28 - CONCLUSION: Hepatomegaly nonspecific. Gallbladder suggests borderline wall thickening of 4 mm and sludge with no evidence of stones and bile ducts appear normal. Jose J Nuñez MD Hip and Pelvis X-Ray 01/15/17 Signed Impressions: Service Date/Time: Sunday, January 15, 2017 10:21 - CONCLUSION: Orthopedic hardware involving the left hip with good alignment. No acute abnormality. Raj Nair Jr., MD Femur X-Ray 01/15/17 0000 Signed Impressions: Service Date/Time: Sunday, January 15, 2017 10:21 - CONCLUSION: Intramedullary darrian and femoral neck screw with good alignment. Osteoarthritis of the hip and knee. Raj Nair Jr., MD Objective Remarks GENERAL: This is a well-nourished, well-developed patient, in no apparent distress. CARDIOVASCULAR: Regular rate and rhythm without murmurs, gallops, or rubs. RESPIRATORY: Clear to auscultation. Breath sounds equal bilaterally. No wheezes , rales, or rhonchi. GASTROINTESTINAL: Abdomen soft, non-tender, nondistended. Normal active bowel sounds MUSCULOSKELETAL: Extremities without clubbing, cyanosis, or edema. NEURO: Alert & Oriented to self. 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 - Recent orif to left fumur for pathological fx - Prior to admission Pt had been falling at home, more confused. - Pt noted to have hyponatremia on admission NA 129, now improved 133 (01/24/17) - elevated LFT with fever...no obvious mets or biliary obstruction on imaging -- > nearly normalized 01/24/17 - GI questioning hepatitis related to chemo - liver Bx (01/20/17) --> hemosiderin - anemia d/t malignancy. Pt has been transfused 3 units PRBCs --> Hg 9.1 () - NO fever since MN 01/23/17 - Oncology does NOT feel that this is tumor related - nursing reports stools with a lot of mucous - stool studies (01/23/17) --> C. Dif negative, other stool studies pending - PT - stop zosyn (01/17 - 01/23/17) - oxycodone prn - pt wants continued aggressive care - Case d/w Dr. Ramos (01/21/17). If performance status improves then Radiation therapy 3-4 weeks following pt's ORIF (12/31), 10-15 treatments - Case d/w Dr. Cordon (01/24/17) --> starting TPN - Pt started on fentanyl patch (01/22/17) - Pt started on megace (01/22/17) (2) Non-small cell carcinoma of lung, stage 4 Status: Chronic Plan: - comgmt with Oncology and Palliative Medicine - Pt has stage IV poorly differentiated [id number] lung cancer diagnosed in early 2015 with mets to the chest wall and bones - He has completed six cycles of carboplatin, Alimta and bevacizumab but was found to have disease progression in 05/2016. - Pt has also received focal radiation treatment to the chest wall. - Pt follows with Dr. Cordon and is on second line therapy with IV Zometa for bony disease and immunotherapy with Nivolumab. - Review of outpt records revealed his most recent PET/CT on 12/12/16 revealed new metastatic disease in the left proximal femur and right anterior 7th rib costochondral junction. - Case d/w pt & daughter Whit Saeed, Health Care Surrogate, at bedside - Pt asked if he would want resuscitation if needed. Pt answered clearly that he does NOT want that. - will change code status to DNR - Pt/daughter do want continued aggressive care short of resuscitation at this point. (3) Elevated liver enzymes Status: Acute Plan: see above (4) COPD (chronic obstructive pulmonary disease) Status: Chronic Plan: - Duonebs PRn (5) Anemia Status: Acute Plan: - Pt received 2 units of PRBCs post-operatively during recent admission. - Pt transfused additional 3 units PRBCs - repeat CBC in AM (6) Hypertension Status: Chronic Plan: - BP stable to low normal - pt currently off BP medications. (7) Testicular swelling Status: Acute Plan: - testicular US (01/23/17) - normal testes - right sided epidymal cyst - small b/l hydroceles - Left hip CT 01/23 - post surgical changes of left proximal femur - right inguinal hernia Problem Qualifiers (1) Anemia: Qualified Code: D64.9 - Anemia, unspecified type Bill Eaton DO Jan 24, 2017 15:24
[2017-01-24 16:00] VITALS: BP 111/69; PULSE 97; RESP 16; TEMP 96; O2SAT 94
[2017-01-24 20:00] VITALS: BP 124/77; PULSE 98; RESP 18; TEMP 97.7; O2SAT 96
[2017-01-24] MEDS: DOCUSATE SODIUM 50 MG/SENNA 8.6 MG TAB PO SCH (20:24)
[2017-01-25] VITALS: BP 119/78; PULSE 96; RESP 18; TEMP 96.9; O2SAT 95
[2017-01-25 04:00] VITALS: BP 125/69; PULSE 94; RESP 18; TEMP 95.5; O2SAT 94
[2017-01-25 07:21] LABS: AUTOMATED NEUTROPHIL # 10.4 TH/MM3 (1.8-7.7); BASOPHIL # 0.1 TH/MM3 (0-0.2); BASOPHIL % 0.9 % (0.0-2.0); HEMATOCRIT 27.6 % (39.0-51.0); HEMO FLAGS DIFF FINAL; LYMPH % 5.3 % (9.0-44.0); LYMPHOCYTE # 0.6 TH/MM3 (1.0-4.8); MEAN CELL VOLUME 83.9 FL (80.0-100.0); MEAN CORPUSCULAR HEMOGLOBIN 27.3 PG (27.0-34.0); MEAN CORPUSCULAR HGB CONC 32.5 % (32.0-36.0); MONO % 6.8 % (0.0-8.0); PLATELET COUNT 360 TH/MM3 (150-450); RED BLOOD COUNT 3.29 MIL/MM3 (4.50-5.90); RED CELL DISTRIBUTION WIDTH 17.8 % (11.6-17.2)
[2017-01-25 07:27] LABS: INTERNATIONAL NORMALIZED RATIO 1.1 RATIO; PROTHROMBIN TIME - PATIENT 12.7 SEC (9.8-11.6)
[2017-01-25 07:54] LABS: ALT (GPT) 56 U/L (12-78); ANION GAP 10 MEQ/L (5-15); AST (GOT) 39 U/L (15-37); BICARBONATE 23.9 MEQ/L (21.0-32.0); BLOOD UREA NITROGEN 15 MG/DL (7-18); CHLORIDE 99 MEQ/L (98-107); GLOMERULAR FILTRATION RATE 145 ML/MIN (>89); MAGNESIUM 1.5 MG/DL (1.5-2.5); POTASSIUM 3.2 MEQ/L (3.5-5.1); SODIUM (NA) 133 MEQ/L (136-145)
[2017-01-25 08:00] VITALS: BP 136/79; PULSE 64; RESP 18; TEMP 95.8; O2SAT 98
[2017-01-25 08:09] LABS: ALKALINE PHOSPHATASE 263 U/L (45-117); TOTAL BILIRUBIN ADULT 1.2 MG/DL (0.2-1.0)
--- NOTE | 2017-01-25 09:08 | PD.ONC.PN ---
Subjective Subjective Remarks Afebrile overnight. Pt resting in bed. More alert today than yesterday. His po intake remains poor. He is still complaining of hip pain. Asking when his next pain pill is due. No SOB. Objective Data Date Time Temp Pulse Resp B/P Pulse Ox O2 Delivery O2 Flow Rate FiO2 01/25/17 08:00 95.8 64 18 136/79 98 01/25/17 04:00 95.5 94 18 125/69 94 01/25/17 00:00 96.9 96 18 119/78 95 01/24/17 20:00 97.7 98 18 124/77 96 01/24/17 18:45 16 01/24/17 16:00 96.0 97 16 111/69 94 01/24/17 12:37 97.0 94 16 112/73 96 01/25/17 01/25/17 01/25/17 07:00 15:00 23:00 Output Total 625 ml Balance -625 ml Result Diagram: 01/25/17 0637 01/25/17 0637 Laboratory Results Laboratory Tests Test 01/24/17 01/25/17 11:28 06:37 Ammonia 33 MCMOL/L Lactate Dehydrogenase 125 U/L White Blood Count 12.0 TH/MM3 Red Blood Count 3.29 MIL/MM3 Hemoglobin 9.0 GM/DL Hematocrit 27.6 % Mean Corpuscular Volume 83.9 FL Mean Corpuscular Hemoglobin 27.3 PG Mean Corpuscular Hemoglobin 32.5 % Concent Red Cell Distribution Width 17.8 % Platelet Count 360 TH/MM3 Mean Platelet Volume 7.4 FL Neutrophils (%) (Auto) 87.0 % Lymphocytes (%) (Auto) 5.3 % Monocytes (%) (Auto) 6.8 % Eosinophils (%) (Auto) 0.0 % Basophils (%) (Auto) 0.9 % Neutrophils # (Auto) 10.4 TH/MM3 Lymphocytes # (Auto) 0.6 TH/MM3 Monocytes # (Auto) 0.8 TH/MM3 Eosinophils # (Auto) 0.0 TH/MM3 Basophils # (Auto) 0.1 TH/MM3 CBC Comment DIFF FINAL Differential Comment Prothrombin Time 12.7 SEC Prothromb Time International 1.1 RATIO Ratio Sodium Level 133 MEQ/L Potassium Level 3.2 MEQ/L Chloride Level 99 MEQ/L Carbon Dioxide Level 23.9 MEQ/L Anion Gap 10 MEQ/L Blood Urea Nitrogen 15 MG/DL Creatinine 0.66 MG/DL Estimat Glomerular Filtration 145 ML/MIN Rate Random Glucose 110 MG/DL Calcium Level 9.0 MG/DL Magnesium Level 1.5 MG/DL Total Bilirubin 1.2 MG/DL Aspartate Amino Transf 39 U/L (AST/SGOT) Alanine Aminotransferase 56 U/L (ALT/SGPT) Alkaline Phosphatase 263 U/L Total Protein 8.1 GM/DL Albumin 1.5 GM/DL Triglycerides Level 107 MG/DL Culture Results Microbiology Date/Time Procedure Status Source Growth 01/23/17 02:39 Urine Culture - Preliminary Resulted Urine Random Urine <10,000 CFU/ML YEAST 01/23/17 12:15 - Final Complete Stool Stool NO ENTERIC PATHOGENS DETECTED BY PCR... 01/23/17 12:15 Cyclospora Exam Resulted Stool Stool Pending 01/23/17 12:15 Cryptosporidium Exam Resulted Stool Stool Pending 01/23/17 12:15 Stool Pus (IRMA) - Final Resulted Stool Stool NO WBC'S SEEN 01/23/17 12:15 Giardia Antigen (IRMA) Resulted Stool Stool Pending 01/23/17 12:15 Stool Occult Blood (IRMA) - Final Resulted Stool Stool HEMOCCULT NEGATIVE Administered Medications Medications (Trade) Dose Ordered Sig/Shirin Route PRN Reason Start Time Stop Time Status Last Admin Dose Admin Alprazolam (Xanax) 0.5 mg Q6H PRN PO ANXIETY 01/15/17 13:15 01/24/17 23:59 Cyanocobalamin (Vitamin B12) 1,000 mcg DAILY PO 01/16/17 09:00 01/24/17 11:07 Pantoprazole Sodium (Protonix) 20 mg DAILY PO 01/16/17 09:00 01/24/17 11:07 Pyridoxine HCl (Vitamin B6) 100 mg DAILY PO 01/16/17 09:00 01/24/17 11:07 Calcium/Vitamin D (Oscal-D 250-125) 500 mg BID PO 01/15/17 21:00 01/24/17 21:20 Oxycodone HCl (Roxicodone) 5 mg Q4H PRN PO pain 01/15/17 18:15 01/25/17 05:13 Senna/Docusate Sodium (Claudia-Colace) 2 tab HS PO 01/16/17 21:00 01/18/17 22:00 Artificial Tears (Tears Naturale Opth Soln) 1 drop Q4H PRN RIGHT EYE irritation 01/20/17 14:00 01/22/17 20:04 Megestrol Acetate (Megace Liq) 400 mg DAILY PO 01/22/17 09:00 01/24/17 11:08 Fentanyl (Duragesic 25 Mcg Patch.72 Hr) 1 patch Q3D TD 01/22/17 09:00 01/22/17 09:35 Dexamethasone (Decadron) 4 mg Q12HR PO 01/23/17 09:00 01/24/17 21:20 Objective Remarks GENERAL: Elderly male, lying in bed asleep on approach in no distress. SKIN: Warm and dry. HEAD: Normocephalic. EYES: No injection or drainage. NECK: Supple, trachea midline. CARDIOVASCULAR: +S1/S2. No murmur. RESPIRATORY: Anterior eng with occasional rhonchi. GASTROINTESTINAL: Abdomen soft, non-tender, nondistended. EXTREMITIES: No cyanosis. SCD's to BLE. NEUROLOGICAL: More alert today. Moving all extremities. Normal speech. Assessment/Plan Problem List: (1) Elevated LFTs Status: Resolved Plan: --Liver biopsy shows no mets. --MRCP showed mildly dilated common bile duct, otherwise no concerns --GI following for elevated LFTs (2) Non-small cell carcinoma of lung, stage 4 Status: Chronic Plan: --Very deconditioned after femur surgery --Overall his disease burden is very low. +bony metastatic disease. --originally diagnosed in early 2015--at that point already had mets to bilateral lungs, and rib bones. Had treatment with Carboplatin, Alimta and Bevacizumab. --May 2016: disease progression, treatment with Nivolumab reduced disease burden --01/04/17: had prophylactic stabilizing of left femur --01/15/17: admitted with bilateral hip pain, and low back pain, weakness and frequent falls (3) Generalized weakness Status: Chronic Plan: due to deconditioning, recent hip surgery, anemia and dehydration. (4) Hyponatremia Status: Acute Plan: --stable (5) Pain Status: Acute Plan: --currently on Fentanyl patch 25mcg + Oxycodone 5mg q4h prn pain Assessment 71y/o with metastatic NSCLC admitted for weakness, hip pain and a fall. h/o Stage IV poorly differentiated non-small cell lung cancer diagnosed in 2016 with mets to chest wall and bones. History of anemia. Chronic lower extremity edema. Osteoarthritis of the left shoulder. COPD. Systolic and diastolic CHF. Gout. Hypertension. Peripheral neuropathy. Plan 1. Pt with severe deconditioning, poor po intake. Will start him on PPN today. 2. Plan for rehab next week with PPN. 3. Once pt is stronger, he may be candidate for radiation to the L hip. 4. Daily CBC while an inpatient. Will transfuse for Hgb less than 7.5. Attending Statement The exam, history, and the medical decision-making described in the above note were completed with the assistance of the mid-level provider. I reviewed and agree with the findings presented. I attest that I had a [id number] encounter with the patient on the same day, and personally performed and documented my assessment and findings in the medical record. Mr. Lombardo was seen and examined, he continues to feel weak and reports pain particularly in his left hip. He is not been able to get up out of bed essentially remains bedbound. He tells me his appetite is not much improved. There are multiple family members at bedside who are obviously concerned. Recommendations: Continue supportive care, continue dexamethasone for appetite stimulation. Continue pain control, parenteral nutrition. Agree with above note as written by Mrs. Gertrude Butler. Gertrude Butler Jan 25, 2017 09:08 Montana Spain MD Jan 25, 2017 14:37
[2017-01-25] MEDS: ALPRAZolam 0.5 MG TAB PO PRN (09:26)
[2017-01-25] MEDS: fentaNYL 25 MCG/HR PATCH TD SCH (09:28)
[2017-01-25] MEDS: DEXAMETHASONE 4 MG TAB PO SCH ×2 (09:29→20:05)
[2017-01-25] MEDS: PANTOPRAZOLE SOD 20 MG DELAYED RELEASE TAB PO SCH (09:29)
[2017-01-25] MEDS: CALCIUM/VITAMIN D 250 MG/125 U TAB PO SCH ×2 (09:29→20:05)
[2017-01-25] MEDS: PYRIDOXINE HCL 50 MG TAB PO SCH (09:29)
[2017-01-25] MEDS: CYANOCOBALAMIN 1,000 MCG TAB PO SCH (09:29)
[2017-01-25] MEDS: MEGESTROL ACETATE SUSP 400 MG/10 ML CUP PO SCH ×2 (09:29→09:30)
[2017-01-25] MEDS: [UNRECOGNIZED DRUG - OTHER] T-DERMAL SCH (09:32)
[2017-01-25 11:50] VITALS: BP 124/77; PULSE 97; RESP 26; TEMP 97.7; O2SAT 94
[2017-01-25] MEDS: ENOXAPARIN SODIUM 40 MG/0.4 ML SYRINGE SQ SCH (15:30)
--- NOTE | 2017-01-25 16:13 | HHI.PR ---
Subjective Remarks No new complaints. Objective Vitals Vital Signs Date Time Temp Pulse Resp B/P Pulse Ox O2 Delivery O2 Flow Rate FiO2 01/25/17 11:50 97.7 97 26 124/77 94 01/25/17 08:00 95.8 64 18 136/79 98 01/25/17 04:00 95.5 94 18 125/69 94 01/25/17 00:00 96.9 96 18 119/78 95 01/24/17 20:00 97.7 98 18 124/77 96 01/24/17 18:45 16 01/24/17 01/24/17 01/25/17 15:00 23:00 07:00 Intake Total 580 ml Output Total 350 ml 625 ml Balance 230 ml -625 ml Intake Oral 580 ml Output Urine Total 350 ml 625 ml # Voids 1 # Bowel Movements 1 2 Result Diagram: 01/25/17 0637 01/25/17 0637 Imaging Last Impressions Scrotum Ultrasound 01/23/17 0000 Signed Impressions: Service Date/Time: January 15:43 - CONCLUSION: Normal examination of the testes. Right-sided epididymal cyst and small bilateral hydroceles. Louis Potts MD Lower Extremity CT 01/23/17 0000 Signed Impressions: Service Date/Time: January 18:10 - CONCLUSION: Postsurgical changes on the left side involving the left proximal femur, chronic degenerative changes of the hips, right inguinal hernia and chronic calcifications of the left gluteus muscles. Neymar Scott MD Chest X-Ray 01/21/17 0000 Signed Impressions: Service Date/Time: Saturday, January 21, 2017 13:19 - CONCLUSION: Large pleural based density left upper lobe is unchanged. Healing rib fracture on the right is unchanged. Diffuse interstitial prominence unchanged. Louis Potts MD Liver Biopsy CT 01/20/17 0000 Signed Impressions: Service Date/Time: Friday, January 20, 2017 14:58 - CONCLUSION: Uncomplicated CT guided biopsy. Brian Villanueva MD Cholangiopancreatography MRI 01/18/17 0000 Signed Impressions: Service Date/Time: Wednesday, January 18, 2017 07:26 - CONCLUSION: Common duct mildly increased in diameter proximally. Exam otherwise within normal limits. Дмитрий Britt MD Abdomen/Pelvis CT 01/17/17 0000 Signed Impressions: Service Date/Time: Tuesday, January 17, 2017 12:06 - CONCLUSION: 1. Large right-sided inguinal hernia containing a portion of the colon as well as the urinary bladder. This was present on the prior examination. 2. Postsurgical changes involving the left hip joint. No free fluid or loculated fluid collections are seen in the region of the left hip joint. 3. No calcified renal stones or hydronephrosis. Alistair Carrillo MD Lumbar Spine X-Ray 01/15/17 0000 Signed Impressions: Service Date/Time: Sunday, January 15, 2017 10:32 - CONCLUSION: 1. No acute abnormality. 2. Degenerative changes and scoliotic curvature as detailed above. 3. Wedge deformities involving T12 and L1. These either relate to old compression deformities or could relate to anatomical variance which is not uncommon at the cortical lumbar junction. Raj Nair Jr., MD Liver Ultrasound 01/15/17 0000 Signed Impressions: Service Date/Time: Sunday, January 15, 2017 13:28 - CONCLUSION: Hepatomegaly nonspecific. Gallbladder suggests borderline wall thickening of 4 mm and sludge with no evidence of stones and bile ducts appear normal. Jose J Nuñez MD Hip and Pelvis X-Ray 01/15/17 0000 Signed Impressions: Service Date/Time: Sunday, January 15, 2017 10:21 - CONCLUSION: Orthopedic hardware involving the left hip with good alignment. No acute abnormality. Raj Nair Jr., MD Femur X-Ray 01/15/17 0000 Signed Impressions: Service Date/Time: Sunday, January 15, 2017 10:21 - CONCLUSION: Intramedullary darrian and femoral neck screw with good alignment. Osteoarthritis of the hip and knee. Raj Nair Jr., MD Objective Remarks GENERAL: This is a well-nourished, well-developed patient, in no apparent distress. CARDIOVASCULAR: Regular rate and rhythm without murmurs, gallops, or rubs. RESPIRATORY: Clear to auscultation. Breath sounds equal bilaterally. No wheezes , rales, or rhonchi. GASTROINTESTINAL: Abdomen soft, non-tender, nondistended. Normal active bowel sounds MUSCULOSKELETAL: Extremities without clubbing, cyanosis, or edema. NEURO: Alert & Oriented to self. 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 - Recent orif to left fumur for pathological fx - Prior to admission Pt had been falling at home, more confused. - Pt noted to have hyponatremia on admission NA 129, now improved 133 (01/24/17) - elevated LFT with fever...no obvious mets or biliary obstruction on imaging -- > nearly normalized 01/24/17 - GI questioning hepatitis related to chemo - liver Bx (01/20/17) --> hemosiderin - anemia d/t malignancy. Pt has been transfused 3 units PRBCs --> Hg 9.1 () - NO fever since [place] 01/23/17 - Oncology does NOT feel that this is tumor related - nursing reports stools with a lot of mucous - stool studies (01/23/17) --> C. Dif negative, other stool studies pending - PT - stop zosyn (01/17 - 01/23/17) - oxycodone prn - pt wants continued aggressive care - Case d/w Dr. Ramos (01/21/17). If performance status improves then Radiation therapy 3-4 weeks following pt's ORIF (12/31), 10-15 treatments - Case d/w Dr. Cordon (01/24/17) --> trial of TPN per Oncology - Pt started on fentanyl patch (01/22/17) - Pt started on megace (01/22/17) - Hospice would be appropriate - If NO significant improvement by 01/27/17, then hospice should be involved in this case - I feel it is unlikely that pt will make a meaningful recovery (2) Non-small cell carcinoma of lung, stage 4 Status: Chronic Plan: - comgmt with Oncology and Palliative Medicine - Pt has stage IV poorly differentiated [id number] lung cancer diagnosed in early 2015 with mets to the chest wall and bones - He has completed six cycles of carboplatin, Alimta and bevacizumab but was found to have disease progression in 05/2016. - Pt has also received focal radiation treatment to the chest wall. - Pt follows with Dr. Cordon and is on second line therapy with IV Zometa for bony disease and immunotherapy with Nivolumab. - Review of outpt records revealed his most recent PET/CT on 12/12/16 revealed new metastatic disease in the left proximal femur and right anterior 7th rib costochondral junction. - Case d/w pt & daughter Whit Saeed, Health Care Surrogate, at bedside - Pt asked if he would want resuscitation if needed. Pt answered clearly that he does NOT want that. - will change code status to DNR - Pt/daughter do want continued aggressive care short of resuscitation at this point. (3) Elevated liver enzymes Status: Acute Plan: see above (4) COPD (chronic obstructive pulmonary disease) Status: Chronic Plan: - Duonebs PRn (5) Anemia Status: Acute Plan: - Pt received 2 units of PRBCs post-operatively during recent admission. - Pt transfused additional 3 units PRBCs - repeat CBC in AM (6) Hypertension Status: Chronic Plan: - BP stable to low normal - pt currently off BP medications. (7) Testicular swelling Status: Acute Plan: - testicular US (01/23/17) - normal testes - right sided epidymal cyst - small b/l hydroceles - Left hip CT 01/23 - post surgical changes of left proximal femur - right inguinal hernia Problem Qualifiers (1) Anemia: Qualified Code: D64.9 - Anemia, unspecified type Bill Eaton DO Jan 25, 2017 16:13
[2017-01-25] MEDS ORDERED: POTASSIUM CHLORIDE 20 MEQ CONTROLLED RELEASE TAB PO ONE (16:15)
[2017-01-25 17:00] VITALS: BP 135/76; PULSE 97; RESP 26; TEMP 95.5; O2SAT 96
[2017-01-25 20:00] VITALS: BP 137/83; PULSE 98; RESP 18; TEMP 97.7; O2SAT 95
[2017-01-25] MEDS ORDERED: CLINIMIX E 4.25/25 1000 mL- </= 42 mls/hr IV-CENTRAL SCH ×3 (20:00)
[2017-01-25] MEDS: DOCUSATE SODIUM 50 MG/SENNA 8.6 MG TAB PO SCH (20:10)
[2017-01-25] MEDS: FAT EMULSION 20% INJ 250 ML (@10 mls/hr) IV SCH (22:29)
[2017-01-25] MEDS: CLINIMIX E 4.25/5 1000 mL- </= 42 mls/hr IV SCH ×3 (22:29)
[2017-01-26] VITALS (7 sets, daily range): BP systolic 125–147; BP diastolic 78–93; PULSE 17–107; RESP 18–20; TEMP 96.4–97.8; O2SAT 94–98
[2017-01-26] MEDS: ALPRAZolam 0.5 MG TAB PO PRN ×3 (01:32→14:26)
[2017-01-26] MEDS: CYANOCOBALAMIN 1,000 MCG TAB PO SCH (08:06)
[2017-01-26] MEDS: DEXAMETHASONE 4 MG TAB PO SCH ×2 (08:07→21:06)
[2017-01-26] MEDS: CALCIUM/VITAMIN D 250 MG/125 U TAB PO SCH ×2 (08:07→21:06)
[2017-01-26] MEDS: PANTOPRAZOLE SOD 20 MG DELAYED RELEASE TAB PO SCH (08:07)
[2017-01-26] MEDS: PYRIDOXINE HCL 50 MG TAB PO SCH (08:08)
--- NOTE | 2017-01-26 12:44 | HHI.PR ---
Subjective Remarks Pt somewhat more alert today. But remains confused at times. Objective Vitals Vital Signs Date Time Temp Pulse Resp B/P Pulse Ox O2 Delivery O2 Flow Rate FiO2 01/26/17 10:00 97.7 93 18 127/81 94 01/26/17 03:59 97.3 93 18 135/88 98 01/26/17 00:00 97.8 17 18 136/78 96 01/25/17 20:00 97.7 98 18 137/83 95 01/25/17 17:00 95.5 97 26 135/76 96 01/25/17 01/25/17 01/26/17 15:00 23:00 07:00 Intake Total 240 ml 120 ml 480 ml Output Total 300 ml 600 ml Balance -60 ml -480 ml 480 ml Intake Oral 240 ml 120 ml 480 ml Output Urine Total 300 ml 600 ml # Voids 2 # Bowel Movements 1 1 0 Result Diagram: 01/25/17 0637 01/25/17 0637 Imaging Last Impressions Scrotum Ultrasound 01/23/17 0000 Signed Impressions: Service Date/Time: January 15:43 - CONCLUSION: Normal examination of the testes. Right-sided epididymal cyst and small bilateral hydroceles. Louis Potts MD Lower Extremity CT 01/23/17 0000 Signed Impressions: Service Date/Time: January 18:10 - CONCLUSION: Postsurgical changes on the left side involving the left proximal femur, chronic degenerative changes of the hips, right inguinal hernia and chronic calcifications of the left gluteus muscles. Neymar Scott MD Chest X-Ray 01/21/17 0000 Signed Impressions: Service Date/Time: Saturday, January 21, 2017 13:19 - CONCLUSION: Large pleural based density left upper lobe is unchanged. Healing rib fracture on the right is unchanged. Diffuse interstitial prominence unchanged. Louis Potts MD Liver Biopsy CT 01/20/17 0000 Signed Impressions: Service Date/Time: Friday, January 20, 2017 14:58 - CONCLUSION: Uncomplicated CT guided biopsy. Brian Villanueva MD Cholangiopancreatography MRI 01/18/17 0000 Signed Impressions: Service Date/Time: Wednesday, January 18, 2017 07:26 - CONCLUSION: Common duct mildly increased in diameter proximally. Exam otherwise within normal limits. Дмитрий Britt MD Abdomen/Pelvis CT 01/17/17 Signed Impressions: Service Date/Time: Tuesday, January 17, 2017 12:06 - CONCLUSION: 1. Large right-sided inguinal hernia containing a portion of the colon as well as the urinary bladder. This was present on the prior examination. 2. Postsurgical changes involving the left hip joint. No free fluid or loculated fluid collections are seen in the region of the left hip joint. 3. No calcified renal stones or hydronephrosis. Alistair Carrillo MD Lumbar Spine X-Ray 01/15/17 Signed Impressions: Service Date/Time: Sunday, January 15, 2017 10:32 - CONCLUSION: 1. No acute abnormality. 2. Degenerative changes and scoliotic curvature as detailed above. 3. Wedge deformities involving T12 and L1. These either relate to old compression deformities or could relate to anatomical variance which is not uncommon at the cortical lumbar junction. Raj Nair Jr., MD Liver Ultrasound 01/15/17 Signed Impressions: Service Date/Time: Sunday, January 15, 2017 13:28 - CONCLUSION: Hepatomegaly nonspecific. Gallbladder suggests borderline wall thickening of 4 mm and sludge with no evidence of stones and bile ducts appear normal. Jose J Nuñez MD Hip and Pelvis X-Ray 01/15/17 Signed Impressions: Service Date/Time: Sunday, January 15, 2017 10:21 - CONCLUSION: Orthopedic hardware involving the left hip with good alignment. No acute abnormality. Raj Nair Jr., MD Femur X-Ray 01/15/17 Signed Impressions: Service Date/Time: Sunday, January 15, 2017 10:21 - CONCLUSION: Intramedullary darrian and femoral neck screw with good alignment. Osteoarthritis of the hip and knee. Raj Nair Jr., MD Objective Remarks GENERAL: This is a well-nourished, well-developed patient, in no apparent distress. CARDIOVASCULAR: Regular rate and rhythm without murmurs, gallops, or rubs. RESPIRATORY: Clear to auscultation. Breath sounds equal bilaterally. No wheezes , rales, or rhonchi. GASTROINTESTINAL: Abdomen soft, non-tender, nondistended. Normal active bowel sounds MUSCULOSKELETAL: Extremities without clubbing, cyanosis, or edema. NEURO: Alert & Oriented x 2, but confused at times. 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 - Recent orif to left fumur for pathological fx - Prior to admission Pt had been falling at home, more confused. - Pt noted to have hyponatremia on admission NA 129, improved 133 (01/24/17) - elevated LFT with fever...no obvious mets or biliary obstruction on imaging -- > nearly normalized 01/24/17 - GI questioning hepatitis related to chemo - liver Bx (01/20/17) --> hemosiderin - anemia d/t malignancy. Pt has been transfused 3 units PRBCs --> Hg 9.1 () - NO fever since MN 01/23/17 - Oncology does NOT feel that this is tumor related - stool studies (01/23/17) --> C. Dif negative, other stool studies pending - PT - stop zosyn (01/17 - 01/23/17) - oxycodone prn - Case d/w Dr. Ramos (01/21/17). If performance status improves then Radiation therapy 3-4 weeks following pt's ORIF (12/31), 10-15 treatments - Case d/w Dr. Cordon (01/24/17) --> trial of TPN per Oncology - Pt started on fentanyl patch (01/22/17) - Pt started on megace (01/22/17) - Hospice would be appropriate - I feel it is unlikely that pt will make a meaningful recovery - Pt started on PPN per Oncology, bag start running in the evening 01/25/17 - Pt/family now request informational meeting with Hospice (2) Non-small cell carcinoma of lung, stage 4 Status: Chronic Plan: - comgmt with Oncology and Palliative Medicine - Pt has stage IV poorly differentiated [id number] lung cancer diagnosed in early 2015 with mets to the chest wall and bones - He has completed six cycles of carboplatin, Alimta and bevacizumab but was found to have disease progression in 05/2016. - Pt has also received focal radiation treatment to the chest wall. - Pt follows with Dr. Cordon and is on second line therapy with IV Zometa for bony disease and immunotherapy with Nivolumab. - Review of outpt records revealed his most recent PET/CT on 12/12/16 revealed new metastatic disease in the left proximal femur and right anterior 7th rib costochondral junction. - Case d/w pt & daughter Whit Saeed, Health Care Surrogate, at bedside (01/26/17) - DNR (3) Elevated liver enzymes Status: Acute Plan: see above (4) COPD (chronic obstructive pulmonary disease) Status: Chronic Plan: - Duonebs PRn (5) Anemia Status: Acute Plan: - Pt received 2 units of PRBCs post-operatively during recent admission. - Pt transfused additional 3 units PRBCs - repeat CBC in AM (6) Hypertension Status: Chronic Plan: - BP stable to low normal - pt currently off BP medications. (7) Testicular swelling Status: Acute Plan: - testicular US (01/23/17) - normal testes - right sided epidymal cyst - small b/l hydroceles - Left hip CT 01/23 - post surgical changes of left proximal femur - right inguinal hernia Problem Qualifiers (1) Anemia: Qualified Code: D64.9 - Anemia, unspecified type Bill Eaton DO Jan 26, 2017 12:44
[2017-01-26] MEDS: ENOXAPARIN SODIUM 40 MG/0.4 ML SYRINGE SQ SCH (13:52)
[2017-01-26] MEDS: DOCUSATE SODIUM 50 MG/SENNA 8.6 MG TAB PO SCH (20:52)
[2017-01-26] MEDS: CLINIMIX E 4.25/5 1000 mL- </= 42 mls/hr IV SCH ×3 (21:06)
[2017-01-26] MEDS: FAT EMULSION 20% INJ 250 ML (@10 mls/hr) IV SCH (21:07)
[2017-01-27] MEDS: ALPRAZolam 0.5 MG TAB PO PRN (00:07)
[2017-01-27 04:00] VITALS: BP 134/83; PULSE 103; RESP 17; TEMP 96.8; O2SAT 95
[2017-01-27 07:50] VITALS: BP 132/86; PULSE 110; RESP 20; TEMP 97.4; O2SAT 98
[2017-01-27 08:46] LABS: HEMATOCRIT 32.4 % (39.0-51.0); MEAN CELL VOLUME 82.6 FL (80.0-100.0); PLATELET COUNT 319 TH/MM3 (150-450); RED BLOOD COUNT 3.93 MIL/MM3 (4.50-5.90); REVIEW FLAG FINAL; WHITE BLOOD COUNT 10.2 TH/MM3 (4.0-11.0)
[2017-01-27] MEDS: PANTOPRAZOLE SOD 20 MG DELAYED RELEASE TAB PO SCH (09:00)
[2017-01-27] MEDS: CALCIUM/VITAMIN D 250 MG/125 U TAB PO SCH ×2 (09:00→20:35)
[2017-01-27] MEDS: MEGESTROL ACETATE SUSP 400 MG/10 ML CUP PO SCH (09:00)
[2017-01-27] MEDS: PYRIDOXINE HCL 50 MG TAB PO SCH (09:00)
[2017-01-27] MEDS: CYANOCOBALAMIN 1,000 MCG TAB PO SCH (09:00)
[2017-01-27 09:04] LABS: ALKALINE PHOSPHATASE 268 U/L (45-117); TOTAL BILIRUBIN ADULT 1.5 MG/DL (0.2-1.0)
[2017-01-27 09:15] LABS: ALT (GPT) 59 U/L (12-78); ANION GAP 10 MEQ/L (5-15); AST (GOT) 52 U/L (15-37); BICARBONATE 25.7 MEQ/L (21.0-32.0); BLOOD UREA NITROGEN 16 MG/DL (7-18); CHLORIDE 96 MEQ/L (98-107); GLOMERULAR FILTRATION RATE 152 ML/MIN (>89); SODIUM (NA) 132 MEQ/L (136-145)
[2017-01-27 09:16] LABS: POTASSIUM 3.4 MEQ/L (3.5-5.1)
--- NOTE | 2017-01-27 09:34 | HHI.PR ---
Subjective Remarks pt says he will meet with hospice today for comfort discussion. Objective Vitals heart reg lung cta abd s/nt ext no edema Vital Signs Date Time Temp Pulse Resp B/P Pulse Ox O2 Delivery O2 Flow Rate FiO2 01/27/17 04:00 96.8 103 17 134/83 95 01/26/17 23:52 97.2 107 19 147/82 95 01/26/17 20:00 96.8 102 19 139/85 94 01/26/17 16:00 96.4 104 20 143/93 95 01/26/17 13:28 96.6 100 18 125/79 96 01/26/17 10:00 97.7 93 18 127/81 94 01/26/17 01/26/17 01/27/17 15:00 23:00 07:00 Intake Total 480 ml 240 ml 240 ml Output Total 700 ml 1050 ml 400 ml Balance -220 ml -810 ml -160 ml Intake Oral 480 ml 240 ml 240 ml Output Urine Total 700 ml 1050 ml 400 ml # Voids 2 # Bowel Movements 0 1 Result Diagram: 01/27/17 0830 01/27/17 0830 Imaging Last Impressions Scrotum Ultrasound 01/23/17 0000 Signed Impressions: Service Date/Time: January 15:43 - CONCLUSION: Normal examination of the testes. Right-sided epididymal cyst and small bilateral hydroceles. Louis Potts MD Lower Extremity CT 01/23/17 0000 Signed Impressions: Service Date/Time: January 18:10 - CONCLUSION: Postsurgical changes on the left side involving the left proximal femur, chronic degenerative changes of the hips, right inguinal hernia and chronic calcifications of the left gluteus muscles. Neymar Scott MD Chest X-Ray 01/21/17 0000 Signed Impressions: Service Date/Time: Saturday, January 21, 2017 13:19 - CONCLUSION: Large pleural based density left upper lobe is unchanged. Healing rib fracture on the right is unchanged. Diffuse interstitial prominence unchanged. Louis Potts MD Liver Biopsy CT 01/20/17 0000 Signed Impressions: Service Date/Time: Friday, January 20, 2017 14:58 - CONCLUSION: Uncomplicated CT guided biopsy. Brian Villanueva MD Cholangiopancreatography MRI 01/18/17 0000 Signed Impressions: Service Date/Time: Wednesday, January 18, 2017 07:26 - CONCLUSION: Common duct mildly increased in diameter proximally. Exam otherwise within normal limits. Дмитрий Britt MD Abdomen/Pelvis CT 01/17/17 0000 Signed Impressions: Service Date/Time: Tuesday, January 17, 2017 12:06 - CONCLUSION: 1. Large right-sided inguinal hernia containing a portion of the colon as well as the urinary bladder. This was present on the prior examination. 2. Postsurgical changes involving the left hip joint. No free fluid or loculated fluid collections are seen in the region of the left hip joint. 3. No calcified renal stones or hydronephrosis. Alistair Carrillo MD Lumbar Spine X-Ray 01/15/17 0000 Signed Impressions: Service Date/Time: Sunday, January 15, 2017 10:32 - CONCLUSION: 1. No acute abnormality. 2. Degenerative changes and scoliotic curvature as detailed above. 3. Wedge deformities involving T12 and L1. These either relate to old compression deformities or could relate to anatomical variance which is not uncommon at the cortical lumbar junction. Raj Nair Jr., MD Liver Ultrasound 01/15/17 0000 Signed Impressions: Service Date/Time: Sunday, January 15, 2017 13:28 - CONCLUSION: Hepatomegaly nonspecific. Gallbladder suggests borderline wall thickening of 4 mm and sludge with no evidence of stones and bile ducts appear normal. Jose J Nuñez MD Hip and Pelvis X-Ray 01/15/17 0000 Signed Impressions: Service Date/Time: Sunday, January 15, 2017 10:21 - CONCLUSION: Orthopedic hardware involving the left hip with good alignment. No acute abnormality. Raj Nair Jr., MD Femur X-Ray 01/15/17 0000 Signed Impressions: Service Date/Time: Sunday, January 15, 2017 10:21 - CONCLUSION: Intramedullary darrian and femoral neck screw with good alignment. Osteoarthritis of the hip and knee. 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 - Recent orif to left fumur for pathological fx - Prior to admission Pt had been falling at home, more confused. - Pt noted to have hyponatremia on admission NA 129, improved 133 (01/24/17) - elevated LFT with fever...no obvious mets or biliary obstruction on imaging -- > nearly normalized 01/24/17 - GI questioning hepatitis related to chemo - liver Bx (01/20/17) --> hemosiderin - anemia d/t malignancy. Pt has been transfused 3 units PRBCs --> Hg 9.1 () - NO fever - Oncology does NOT feel that this is tumor related - stool studies (01/23/17) --> C. Dif negative, other stool studies pending - PT - stop zosyn (01/17 - 01/23/17) - oxycodone prn - Case d/w Dr. Ramos (01/21/17). If performance status improves then Radiation therapy 3-4 weeks following pt's ORIF (12/31), 10-15 treatments - Case d/w Dr. Cordon (01/24/17) --> trial of TPN per Oncology - Pt started on fentanyl patch (01/22/17) - Pt started on megace (01/22/17) - PT - Pt started on PPN per Oncology, bag start running in the evening 01/25/17 - Pt/family now request informational meeting with Hospice today. (2) Non-small cell carcinoma of lung, stage 4 Status: Chronic Plan: - comgmt with Oncology and Palliative Medicine - Pt has stage IV poorly differentiated [id number] lung cancer diagnosed in early 2015 with mets to the chest wall and bones - He has completed six cycles of carboplatin, Alimta and bevacizumab but was found to have disease progression in 05/2016. - Pt has also received focal radiation treatment to the chest wall. - Pt follows with Dr. Cordon and is on second line therapy with IV Zometa for bony disease and immunotherapy with Nivolumab. - Review of outpt records revealed his most recent PET/CT on 12/12/16 revealed new metastatic disease in the left proximal femur and right anterior 7th rib costochondral junction. - Case d/w pt & daughter Whit Saeed, Health Care Surrogate, at bedside (01/26/17) - DNR (3) Elevated liver enzymes Status: Acute Plan: see above (4) COPD (chronic obstructive pulmonary disease) Status: Chronic Plan: - Duonebs PRn (5) Anemia Status: Acute Plan: - Pt received 2 units of PRBCs post-operatively during recent admission. - Pt transfused additional 3 units PRBCs - repeat CBC in AM (6) Hypertension Status: Chronic Plan: - BP stable to low normal - pt currently off BP medications. (7) Testicular swelling Status: Acute Plan: - testicular US (01/23/17) - normal testes - right sided epidymal cyst - small b/l hydroceles - Left hip CT 01/23 - post surgical changes of left proximal femur - right inguinal hernia Problem Qualifiers (1) Anemia: Qualified Code: D64.9 - Anemia, unspecified type Fortunato Demarco MD Jan 27, 2017 09:34
[2017-01-27 11:23] VITALS: BP 118/76; PULSE 111; RESP 20; TEMP 96.2; O2SAT 97
[2017-01-27] MEDS: DEXAMETHASONE 4 MG TAB PO SCH ×2 (11:28→20:35)
--- NOTE | 2017-01-27 12:41 | PD.ONC.PN ---
Subjective Subjective Remarks Afebrile overnight. Patient's family waiting to speak with hospice today. Patient ate almost none of his breakfast today and has no plans to eat lunch. Has no complaints. Objective Data Date Time Temp Pulse Resp B/P Pulse Ox O2 Delivery O2 Flow Rate FiO2 01/27/17 11:23 96.2 111 20 118/76 97 01/27/17 07:50 97.4 110 20 132/86 98 01/27/17 04:00 96.8 103 17 134/83 95 01/26/17 23:52 97.2 107 19 147/82 95 01/26/17 20:00 96.8 102 19 139/85 94 01/26/17 16:00 96.4 104 20 143/93 95 01/26/17 13:28 96.6 100 18 125/79 96 01/27/17 01/27/17 01/27/17 07:00 15:00 23:00 Intake Total 240 ml Output Total 400 ml Balance -160 ml Result Diagram: 01/27/17 0830 01/27/17 0830 Laboratory Results Laboratory Tests Test 01/27/17 08:30 White Blood Count 10.2 TH/MM3 Red Blood Count 3.93 MIL/MM3 Hemoglobin 11.0 GM/DL Hematocrit 32.4 % Mean Corpuscular Volume 82.6 FL Mean Corpuscular Hemoglobin 28.0 PG Mean Corpuscular Hemoglobin 34.0 % Concent Red Cell Distribution Width 18.0 % Platelet Count 319 TH/MM3 Mean Platelet Volume 7.0 FL Sodium Level 132 MEQ/L Potassium Level 3.4 MEQ/L Chloride Level 96 MEQ/L Carbon Dioxide Level 25.7 MEQ/L Anion Gap 10 MEQ/L Blood Urea Nitrogen 16 MG/DL Creatinine 0.63 MG/DL Estimat Glomerular Filtration 152 ML/MIN Rate Random Glucose 103 MG/DL Calcium Level 9.0 MG/DL Total Bilirubin 1.5 MG/DL Aspartate Amino Transf 52 U/L (AST/SGOT) Alanine Aminotransferase 59 U/L (ALT/SGPT) Alkaline Phosphatase 268 U/L Total Protein 8.2 GM/DL Albumin 1.6 GM/DL Administered Medications Medications (Trade) Dose Ordered Sig/Shirin Route PRN Reason Start Time Stop Time Status Last Admin Dose Admin Alprazolam (Xanax) 0.5 mg Q6H PRN PO ANXIETY 01/15/17 13:15 01/27/17 00:07 Cyanocobalamin (Vitamin B12) 1,000 mcg DAILY PO 01/16/17 09:00 01/26/17 08:06 Pantoprazole Sodium (Protonix) 20 mg DAILY PO 01/16/17 09:00 01/26/17 08:07 Pyridoxine HCl (Vitamin B6) 100 mg DAILY PO 01/16/17 09:00 01/26/17 08:08 Calcium/Vitamin D (Oscal-D 250-125) 500 mg BID PO 01/15/17 21:00 01/26/17 21:06 Oxycodone HCl (Roxicodone) 5 mg Q4H PRN PO pain 01/15/17 18:15 01/27/17 11:29 Senna/Docusate Sodium (Claudia-Colace) 2 tab HS PO 01/16/17 21:00 01/18/17 22:00 Artificial Tears (Tears Naturale Opth Soln) 1 drop Q4H PRN RIGHT EYE irritation 01/20/17 14:00 01/22/17 20:04 Megestrol Acetate (Megace Liq) 400 mg DAILY PO 01/22/17 09:00 01/24/17 11:08 Fentanyl (Duragesic 25 Mcg Patch.72 Hr) 1 patch Q3D TD 01/22/17 09:00 01/25/17 09:28 Miscellaneous Information 1 Q3D T-DERMAL 01/25/17 09:00 01/25/17 09:32 Dexamethasone 4 mg 4 mg Q12HR PO 01/23/17 09:00 01/27/17 11:28 Multivitamins 10 ml/Folic Acid 1 mg/Amino Acids/ Electrolytes/ Dextrose 1,010.2 ml @ 42 mls/hr Q24H IV 01/25/17 20:00 01/26/17 21:06 Fat Emulsion Intravenous (Liposyn Iii 20% Inj) 250 ml @ 10 mls/hr Q24H IV 01/25/17 20:00 01/26/17 21:07 Enoxaparin Sodium (Lovenox Inj) 40 mg Q24H SQ 01/25/17 13:00 01/26/17 13:52 Objective Remarks GENERAL: Elderly male, lying supine in bed. SKIN: Warm and dry. HEAD: Normocephalic. EYES: No injection or drainage. NECK: Supple, trachea midline. CARDIOVASCULAR: Regular rate and rhythm RESPIRATORY: anterior eng clear. GASTROINTESTINAL: Abdomen soft, non-tender, nondistended. EXTREMITIES: No cyanosis NEUROLOGICAL: Awake, normal speech. Assessment/Plan Problem List: (1) Non-small cell carcinoma of lung, stage 4 Status: Chronic Plan: --Very deconditioned after femur surgery --Overall his disease burden is very low. +bony metastatic disease. --originally diagnosed in early 2015--at that point already had mets to bilateral lungs, and rib bones. Had treatment with Carboplatin, Alimta and Bevacizumab. --May 2016: disease progression, treatment with Nivolumab reduced disease burden --01/04/17: had prophylactic stabilizing of left femur --01/15/17: admitted with bilateral hip pain, and low back pain, weakness and frequent falls (2) Generalized weakness Status: Chronic Plan: due to deconditioning, recent hip surgery, anemia and dehydration. (3) Pain Status: Acute Plan: --currently on Fentanyl patch 25mcg + Oxycodone 5mg q4h prn pain Assessment 71y/o with metastatic NSCLC admitted for weakness, hip pain and a fall. h/o Stage IV poorly differentiated non-small cell lung cancer diagnosed in 2015 with mets to chest wall and bones. History of anemia. Chronic lower extremity edema. Osteoarthritis of the left shoulder. COPD. Systolic and diastolic CHF. Gout. Hypertension. Peripheral neuropathy. Plan 1. continue PPN 2. monitor CBC 3. no transfusion today Attending Statement The exam, history, and the medical decision-making described in the above note were completed with the assistance of the mid-level provider. I reviewed and agree with the findings presented. I attest that I had a [id number] encounter with the patient on the same day, and personally performed and documented my assessment and findings in the medical record. Patient is lethargic. family not present. They had discussion with palliative care and wants patient transitioned to hospice. continue comfort care. Angela Reed Jan 27, 2017 12:41 Tim Cordon MD Jan 27, 2017 20:59
--- NOTE | 2017-01-27 13:35 | HHI.HCPN ---
Reason for visit a. To assist with evaluation and management of symptoms including: pain, constipation and debility b. To assist medical decision maker(s) with: better understanding of current medical conditions; weighing benefits/burdens of medical treatment options; making medical treatment decisions. . Subjective/Interval History Patient seen in his room. Daughter and additional family members have bedside. Patient endorsing pain to left hip and left thigh. Worse with movement, alleviated by Oxycodone and rest. Patient currently on Fentanyl 25mcg patch in addition to Oxycodone 5mg PRN. Has received 3 doses of Oxycodone today and 5 doses yesterday moderate effect. Patient denies shortness of breath, n/v or abdominal pain. Continue endorsing poor appetite, eating sips and bites of his meals. Patient has been seen by urology -Dr. Rich for evaluation of testicular swelling, likely secondary to inguinal hernia. Scrotal ultrasound showing normal examination of the testes, right sided epididymal cyst and small bilateral hydroceles. CT of lower extremity showing right inguinal hernia and surgical changes involving the left femur. No surgical intervention recommended at this time. Patient afebrile, immense tachycardic with heart rate in the low 110s. Stable BP. Urine culture 01/23/17 growing Katty. Tolerating RA. Laboratory today including WBC 10.2, Hgb 11.0, platelet 319. Sodium 132, potassium 3.4, BUN/creatinine 16/0.63. Liver biopsy showing mild hemosiderosis and sinusoidal dilatation. Oncology following, patient has been seen by radiation oncology Dr. Ramos with plan for palliative radiation to hip if performance status improves. . Family/friend interactions Met with patient, daughter Whit an additional family members. Family reports patient worsening condition over the weekend to include increased debility, limited oral intake, and increase pain. Hospice philosophy and benefits were introduced during her prior meetings, patient and family electing to transition patient to comfort directed care with hospice services for pain and symptom management/end-of-life care given patient's increased burden of disease. Hospice consult has been placed. . Advance Directives Living Will: Never completed Health Care Surrogate: Copy in medical record Durable Power of [employer] Supervisor: Never completed Advance Directive Specifics Date completed: 01/16/2017. . Health Care Surrogate(s): Whit Jalloh as primary HCS and Jose J Mohan as alternate surrogate. . Documented care wishes: No living will has been completed. . Significant change in goals: No code. Transition patient to comfort-directed care with hospice services for pain and symptom management given patient's increased burden of disease and profound physical deconditioning. . Objective Vital Signs Date Time Temp Pulse Resp B/P Pulse Ox O2 Delivery O2 Flow Rate FiO2 01/27/17 11:23 96.2 111 20 118/76 97 01/27/17 07:50 97.4 110 20 132/86 98 01/27/17 04:00 96.8 103 17 134/83 95 01/26/17 23:52 97.2 107 19 147/82 95 01/26/17 20:00 96.8 102 19 139/85 94 01/26/17 16:00 96.4 104 20 143/93 95 01/26/17 13:28 96.6 100 18 125/79 96 Intake & Output 01/27/17 01/27/17 07:00 19:00 Intake Total 480 ml Output Total 650 ml Balance -170 ml Intake Oral 480 ml Output Urine Total 650 ml # Voids 2 # Bowel Movements 1 Physical Exam CONSTITUTIONAL/GENERAL: This is a thin, elderly patient in moderate distress secondary to pain. Appears weak, ill, moaning and grimacing with. TUBES/LINES/DRAINS: PIV's. SKIN: No jaundice, rashes, or lesions. No wounds seen anteriorly. Skin temperature appropriate. Not diaphoretic. HEAD: Atraumatic. Normocephalic. EYES: Pupils equal and round and reactive. Extraocular motions intact. No scleral icterus. No injection or drainage. ENT: Hearing grossly normal. Nose without bleeding or purulent drainage. NECK: Trachea midline. Supple, nontender. CARDIOVASCULAR: Regular rate and rhythm without murmurs, gallops, or rubs. No JVD. Peripheral pulses symmetric. RESPIRATORY/CHEST: Symmetric, unlabored respirations. Clear to auscultation. Breath sounds equal bilaterally. No wheezes, rales, or rhonchi. GASTROINTESTINAL: Abdomen soft, non-tender, distended. No guarding. Bowel sounds present. GENITOURINARY: Without palpable bladder distension. MUSCULOSKELETAL: Extremities without clubbing, cyanosis. No mottling or clubbing. NEUROLOGICAL: Awake and alert. Follows commands. Moves all extremities. verbal and able to communicate needs. PSYCHIATRIC: Anxious, moaning/facial grimacing noted. . Diagnostic Tests Laboratory Laboratory Tests Test 01/25/17 01/27/17 06:37 08:30 White Blood Count 12.0 TH/MM3 10.2 TH/MM3 (4.0-11.0) (4.0-11.0) Red Blood Count 3.29 MIL/MM3 3.93 MIL/MM3 (4.50-5.90) (4.50-5.90) Hemoglobin 9.0 GM/DL 11.0 GM/DL (13.0-17.0) (13.0-17.0) Hematocrit 27.6 % 32.4 % (39.0-51.0) (39.0-51.0) Mean Corpuscular Volume 83.9 FL 82.6 FL (80.0-100.0) (80.0-100.0) Mean Corpuscular Hemoglobin 27.3 PG 28.0 PG (27.0-34.0) (27.0-34.0) Mean Corpuscular Hemoglobin 32.5 % 34.0 % Concent (32.0-36.0) (32.0-36.0) Red Cell Distribution Width 17.8 % 18.0 % (11.6-17.2) (11.6-17.2) Platelet Count 360 TH/MM3 319 TH/MM3 (150-450) (150-450) Mean Platelet Volume 7.4 FL 7.0 FL (7.0-11.0) (7.0-11.0) Neutrophils (%) (Auto) 87.0 % (16.0-70.0) Lymphocytes (%) (Auto) 5.3 % (9.0-44.0) Monocytes (%) (Auto) 6.8 % (0.0-8.0) Eosinophils (%) (Auto) 0.0 % (0.0-4.0) Basophils (%) (Auto) 0.9 % (0.0-2.0) Neutrophils # (Auto) 10.4 TH/MM3 (1.8-7.7) Lymphocytes # (Auto) 0.6 TH/MM3 (1.0-4.8) Monocytes # (Auto) 0.8 TH/MM3 (0-0.9) Eosinophils # (Auto) 0.0 TH/MM3 (0-0.4) Basophils # (Auto) 0.1 TH/MM3 (0-0.2) CBC Comment DIFF FINAL Differential Comment Prothrombin Time 12.7 SEC (9.8-11.6) Prothromb Time International 1.1 RATIO Ratio Sodium Level 133 MEQ/L 132 MEQ/L (136-145) (136-145) Potassium Level 3.2 MEQ/L 3.4 MEQ/L (3.5-5.1) (3.5-5.1) Chloride Level 99 MEQ/L 96 MEQ/L (98-107) (98-107) Carbon Dioxide Level 23.9 MEQ/L 25.7 MEQ/L (21.0-32.0) (21.0-32.0) Anion Gap 10 MEQ/L (5-15) 10 MEQ/L (5-15) Blood Urea Nitrogen 15 MG/DL (7-18) 16 MG/DL (7-18) Creatinine 0.66 MG/DL 0.63 MG/DL (0.60-1.30) (0.60-1.30) Estimat Glomerular Filtration 145 ML/MIN 152 ML/MIN Rate (>89) (>89) Random Glucose 110 MG/DL 103 MG/DL (74-106) (74-106) Calcium Level 9.0 MG/DL 9.0 MG/DL (8.5-10.1) (8.5-10.1) Magnesium Level 1.5 MG/DL (1.5-2.5) Total Bilirubin 1.2 MG/DL 1.5 MG/DL (0.2-1.0) (0.2-1.0) Aspartate Amino Transf 39 U/L (15-37) 52 U/L (15-37) (AST/SGOT) Alanine Aminotransferase 56 U/L (12-78) 59 U/L (12-78) (ALT/SGPT) Alkaline Phosphatase 263 U/L 268 U/L (45-117) (45-117) Total Protein 8.1 GM/DL 8.2 GM/DL (6.4-8.2) (6.4-8.2) Albumin 1.5 GM/DL 1.6 GM/DL (3.4-5.0) (3.4-5.0) Triglycerides Level 107 MG/DL (42-150) Result Diagram: 01/27/17 0830 01/27/17 0830 Microbiology Microbiology Date/Time Procedure Status Source Growth 01/23/17 12:15 Stool Pus (IRMA) - Final Complete Stool Stool NO WBC'S SEEN 01/23/17 12:15 Stool Occult Blood (IRMA) - Final Complete Stool Stool HEMOCCULT NEGATIVE 01/23/17 12:15 - Final Complete Stool Stool NO ENTERIC PATHOGENS DETECTED BY PCR... 01/23/17 02:39 Urine Culture - Final Complete Urine Random Urine Katty Albicans Imaging Last Impressions Scrotum Ultrasound 01/23/17 0000 Signed Impressions: Service Date/Time: January 15:43 - CONCLUSION: Normal examination of the testes. Right-sided epididymal cyst and small bilateral hydroceles. Louis Potts MD Lower Extremity CT 01/23/17 0000 Signed Impressions: Service Date/Time: January 18:10 - CONCLUSION: Postsurgical changes on the left side involving the left proximal femur, chronic degenerative changes of the hips, right inguinal hernia and chronic calcifications of the left gluteus muscles. Neymar Scott MD Chest X-Ray 01/21/17 0000 Signed Impressions: Service Date/Time: Saturday, January 21, 2017 13:19 - CONCLUSION: Large pleural based density left upper lobe is unchanged. Healing rib fracture on the right is unchanged. Diffuse interstitial prominence unchanged. Louis Potts MD Liver Biopsy CT 01/20/17 0000 Signed Impressions: Service Date/Time: Friday, January 20, 2017 14:58 - CONCLUSION: Uncomplicated CT guided biopsy. Brian Villanueva MD Cholangiopancreatography MRI 01/18/17 0000 Signed Impressions: Service Date/Time: Wednesday, January 18, 2017 07:26 - CONCLUSION: Common duct mildly increased in diameter proximally. Exam otherwise within normal limits. Дмитрий Britt MD Abdomen/Pelvis CT 01/17/17 0000 Signed Impressions: Service Date/Time: Tuesday, January 17, 2017 12:06 - CONCLUSION: 1. Large right-sided inguinal hernia containing a portion of the colon as well as the urinary bladder. This was present on the prior examination. 2. Postsurgical changes involving the left hip joint. No free fluid or loculated fluid collections are seen in the region of the left hip joint. 3. No calcified renal stones or hydronephrosis. Alistair Carrillo MD Lumbar Spine X-Ray 01/15/17 Signed Impressions: Service Date/Time: Sunday, January 15, 2017 10:32 - CONCLUSION: 1. No acute abnormality. 2. Degenerative changes and scoliotic curvature as detailed above. 3. Wedge deformities involving T12 and L1. These either relate to old compression deformities or could relate to anatomical variance which is not uncommon at the cortical lumbar junction. Raj Nair Jr., MD Liver Ultrasound 01/15/17 0000 Signed Impressions: Service Date/Time: Sunday, January 15, 2017 13:28 - CONCLUSION: Hepatomegaly nonspecific. Gallbladder suggests borderline wall thickening of 4 mm and sludge with no evidence of stones and bile ducts appear normal. Jose J Nuñez MD Hip and Pelvis X-Ray 01/15/17 Signed Impressions: Service Date/Time: Sunday, January 15, 2017 10:21 - CONCLUSION: Orthopedic hardware involving the left hip with good alignment. No acute abnormality. Raj Nair Jr., MD Femur X-Ray 01/15/17 0000 Signed Impressions: Service Date/Time: Sunday, January 15, 2017 10:21 - CONCLUSION: Intramedullary darrian and femoral neck screw with good alignment. Osteoarthritis of the hip and knee. Raj Nair Jr., MD Procedures * 01/20/17 -Liver biopsy . Assessment and Plan Disease Oriented Problem List: (1) Non-small cell carcinoma of lung, stage 4 (2) Elevated LFTs (3) COPD (chronic obstructive pulmonary disease) Symptom Scale: (1) Pain 0-10 Scale: 10 Comment: Secondary to burden of disease and recent orthopedic surgery. (2) Generalized weakness Comment: progressive. (3) Constipation Comment: Chronic, opioid use. (4) Malnutrition Comment: Albumin 1.5 Pertinent Non-Medical Issues Psychosocial: . Has 4 children. Independent living. Spiritual: Jewish. Legal: No living will completed. Ethical issues impacting care: No living will completed. . Important Contacts [facility] Whit Mohan Alt [facility] Jose J Marques . . Prognosis Mr. Lombardo is a 71 y/o male with a medical history significant for stage IV poorly differentiated [id number] lung cancer diagnosed in early 2015 with mets to the bones. As per history, patient was initially treated with chemotherapy and immunotherapy but had disease progression in May 2016. Patient has also received radiation treatment to the chest wall. Most recent PET /CT on 12/12/16 revealed new metastatic disease in the left proximal femur and right anterior 7th rib costochondral junction, he underwent intramedullary nail fixation of left femur on 12/31/16 for impending pathologic fracture of left proximal femur secondary to metastatic lesion. Patient at high risk for further decline, complications and given his metastatic lung cancer, age, physical deconditioning, malnutrition and multiple comorbidities. . Code Status: No Code Plan * CODE STATUS: no code. DNR/DNI. * HEALTHCARE DECISION-MAKER: Patient designated Whit Lezamatom as primary HCS and Jose J Mohan as alternate surrogate. * GOALS OF CARE: 01/27/17 -Patient and family electing to transition patient to comfort-directed care with hospice services for pain and symptom management given patient's increased burden of disease and profound physical deconditioning. Currently not a candidate for systemic therapy or palliative radiation given poor performance status. Unlikely to tolerate rehabilitation secondary to burden of disease. * SYMPTOMS: ==Pain, secondary to burden of disease, recent ortho surgical intervention. Home regimen of Mason. same changed to Oxycodone secondary to elevated LFT's. Fentanyl patch 25mcg. oxycodone 5 mg every 4 hours as needed available. Has received 3 doses today. ==Weakness, physical deconditioning. Likely to worsen ==Constipation, secondary to opioids and bedrest. Senna-s and PRN Dulcolax sup. Constipation controlled, last BM this morning. == Malnutrition, albumin 1.5, poor oral intake. * Anticipatory guidance provided to patient and family. * Ongoing emotional support and active listening provided. * Palliative care contact information has been provided to patient and family. * Palliative care to follow-up to assist with symptom management and to further evaluate goals of medical treatment as the clinical course evolves. . Time Spent Total Floor Time (mins): 46 (Total time to include review of prior medical records, physical exam, goals of care conversation with patient and family and case discussion with hospice spiritual care coordinator.) >50% Counseling/Coord of Care: Yes Attestation To help prompt me to consider important information that might be impacting today's encounter and assessment, information from prior notes written by myself or my colleagues may have been "brought forward" into today's note. My signature on this note, however, is an attestation that I personally performed the exam, history, and/or decision-making noted today, and, unless otherwise indicated, the interactions with patient, family, and staff as well as the review of records all occurred today. I also attest that the listed assessment and stated plan reflect my best clinical judgment today based on the combination of historical information, prior notes, and today's exam/ interactions. When time spent is documented, it refers only to time spent today by the signer, or if indicated, combined time spent today by collaborating physician/nurse practitioner. Alesia Montague Jan 27, 2017 13:35
[2017-01-27] MEDS: ENOXAPARIN SODIUM 40 MG/0.4 ML SYRINGE SQ SCH (13:39)
[2017-01-27 15:30] VITALS: BP 121/80; PULSE 110; RESP 20; TEMP 97.5; O2SAT 96
[2017-01-27 20:00] VITALS: BP 131/78; PULSE 106; RESP 18; TEMP 97; O2SAT 97
[2017-01-27] MEDS: DOCUSATE SODIUM 50 MG/SENNA 8.6 MG TAB PO SCH (20:35)
[2017-01-27] MEDS: FAT EMULSION 20% INJ 250 ML (@10 mls/hr) IV SCH (20:35)
[2017-01-27] MEDS: CLINIMIX E 4.25/5 1000 mL- </= 42 mls/hr IV SCH ×3 (20:36)
[2017-01-28] VITALS: BP 129/75; PULSE 80; RESP 17; TEMP 98; O2SAT 96
[2017-01-28 04:00] VITALS: BP 125/76; PULSE 82; RESP 17; TEMP 98; O2SAT 97
[2017-01-28] MEDS: CALCIUM/VITAMIN D 250 MG/125 U TAB PO SCH (07:29)
[2017-01-28] MEDS: PANTOPRAZOLE SOD 20 MG DELAYED RELEASE TAB PO SCH (07:29)
[2017-01-28] MEDS: CYANOCOBALAMIN 1,000 MCG TAB PO SCH (07:30)
[2017-01-28] MEDS: PYRIDOXINE HCL 50 MG TAB PO SCH (07:30)
[2017-01-28] MEDS: MEGESTROL ACETATE SUSP 400 MG/10 ML CUP PO SCH (07:30)
[2017-01-28 08:00] VITALS: BP 124/72; PULSE 104; RESP 20; TEMP 98.8; O2SAT 98
--- NOTE | 2017-01-28 08:24 | HHI.DS ---
Discharge Summary Admission Date Jan 15, 2017 at 12:33 Discharge Date: Jan 28, 2017 Admitting Diagnosis weakness, falls (1) Generalized weakness Diagnosis: Principal (2) Non-small cell carcinoma of lung, stage 4 Diagnosis: Principal (3) Elevated liver enzymes Diagnosis: Principal (4) COPD (chronic obstructive pulmonary disease) Diagnosis: Secondary (5) Anemia Diagnosis: Secondary (6) Hypertension Diagnosis: Secondary (7) Testicular swelling Brief History Mr. 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 He has completed six cycles of carboplatin, Alimta and bevacizumab but was found to have disease progression in 05/2016. Pt has also received focal radiation treatment to the chest wall. Pt follows with Dr. Cordon and is on second line therapy with IV Zometa for bony disease and immunotherapy with Nivolumab. Review of outpt records revealed his most recent PET/CT on 12/12/16 revealed new metastatic disease in the left proximal femur and right anterior 7th rib costochondral junction. Pt was recently admitted to [facility] on 12/31/16 for impending pathologic fracture of left proximal femur secondary to metastatic lesion in proximal femur and underwent intramedullary nail fixation of left femur with Dr. Odell. Pt had post-operative anemia and received 2 units of PRBCs. He was discharged on 01/04/17 to home with [facility]/PT. Pt presented to the ED at [facility] on 01/15/17 with complaints of bilateral hip pain and lower back pain after a fall today at home. He states he has been using a walker to get around at home but today he was unsteady and felt generally weak and fell. He is unable to tell me any specific details about his fall. He complains more of pain on his left but also notes pain in the right hip and lower back. XRays in the ED did not reveal any acute fractures or issues with the recent hardware placement. Pt seems somewhat confused and unable to give a lot of details to me at the time of the exam. CBC/BMP: 01/27/17 0830 01/27/17 0830 Significant Findings Laboratory Tests Test 01/27/17 08:30 Red Blood Count 3.93 MIL/MM3 (4.50-5.90) Hemoglobin 11.0 GM/DL (13.0-17.0) Hematocrit 32.4 % (39.0-51.0) Red Cell Distribution Width 18.0 % (11.6-17.2) Sodium Level 132 MEQ/L (136-145) Potassium Level 3.4 MEQ/L (3.5-5.1) Chloride Level 96 MEQ/L (98-107) Total Bilirubin 1.5 MG/DL (0.2-1.0) Aspartate Amino Transf 52 U/L (15-37) (AST/SGOT) Alkaline Phosphatase 268 U/L (45-117) Albumin 1.6 GM/DL (3.4-5.0) Hospital Course - Pt has stage 4 nonsmall cell lung ca with bone mets. - Recent orif to left fumur for pathological fx - Prior to admission Pt had been falling at home, more confused. - Pt noted to have hyponatremia on admission NA 129, improved 133 - elevated LFT with fever...no obvious mets or biliary obstruction on imaging -- > nearly normalized 01/24/17 - GI questioning hepatitis related to chemo - liver Bx (01/20/17) --> hemosiderin - anemia d/t malignancy. Pt has been transfused 3 units PRBCs - - Oncology does NOT feel that this is tumor related - stool studies (01/23/17) --> C. Dif negative, other stool studies pending - Pt started on fentanyl patch (01/22/17) - Pt started on megace (01/22/17) - Pt started on PPN per Oncology, bag start running in the evening 01/25/17 - Pt and family ultimately decided for hospice care. transfer to care center for comfort care. Pt Condition on Discharge: Deteriorating Discharge Disposition: Hospice/Med Facility Discharge Instructions DIET: Follow Instructions for: As Tolerated, No Restrictions Activities you can perform: Regular-No Restrictions Fortunato Demarco MD Jan 28, 2017 08:24
[2017-01-28] MEDS: DEXAMETHASONE 4 MG TAB PO SCH (08:27)
[2017-01-28] MEDS: [UNRECOGNIZED DRUG - OTHER] T-DERMAL SCH (09:00)
[2017-01-28] MEDS: fentaNYL 25 MCG/HR PATCH TD SCH (09:48)
--- NOTE | 2017-01-28 10:36 | PD.ONC.PN ---
Subjective Subjective Remarks Afebrile overnight. Patient resting supine in bed. No complaints. Multiple family members at bedside. Objective Data Date Time Temp Pulse Resp B/P Pulse Ox O2 Delivery O2 Flow Rate FiO2 01/28/17 08:00 98.8 104 20 124/72 98 01/28/17 04:00 98.0 82 17 125/76 97 01/28/17 00:00 98.0 80 17 129/75 96 01/27/17 20:00 97.0 106 18 131/78 97 01/27/17 15:30 97.5 110 20 121/80 96 01/27/17 11:23 96.2 111 20 118/76 97 Result Diagram: 01/27/17 0830 01/27/17 0830 Administered Medications Medications (Trade) Dose Ordered Sig/Shirin Route PRN Reason Start Time Stop Time Status Last Admin Dose Admin Alprazolam (Xanax) 0.5 mg Q6H PRN PO ANXIETY 01/15/17 13:15 01/27/17 00:07 Cyanocobalamin (Vitamin B12) 1,000 mcg DAILY PO 01/16/17 09:00 01/26/17 08:06 Pantoprazole Sodium (Protonix) 20 mg DAILY PO 01/16/17 09:00 01/26/17 08:07 Pyridoxine HCl (Vitamin B6) 100 mg DAILY PO 01/16/17 09:00 01/26/17 08:08 Calcium/Vitamin D (Oscal-D 250-125) 500 mg BID PO 01/15/17 21:00 01/27/17 20:35 Oxycodone HCl (Roxicodone) 5 mg Q4H PRN PO pain 01/15/17 18:15 01/28/17 06:16 Senna/Docusate Sodium (Claudia-Colace) 2 tab HS PO 01/16/17 21:00 01/27/17 20:35 Artificial Tears (Tears Naturale Opth Soln) 1 drop Q4H PRN RIGHT EYE irritation 01/20/17 14:00 01/22/17 20:04 Megestrol Acetate (Megace Liq) 400 mg DAILY PO 01/22/17 09:00 01/24/17 11:08 Fentanyl (Duragesic 25 Mcg Patch.72 Hr) 1 patch Q3D TD 01/22/17 09:00 01/28/17 09:48 Miscellaneous Information 1 Q3D T-DERMAL 01/25/17 09:00 01/28/17 09:00 Dexamethasone 4 mg 4 mg Q12HR PO 01/23/17 09:00 01/27/17 20:35 Multivitamins 10 ml/Folic Acid 1 mg/Amino Acids/ Electrolytes/ Dextrose 1,010.2 ml @ 42 mls/hr Q24H IV 01/25/17 20:00 01/27/17 20:36 Fat Emulsion Intravenous (Liposyn Iii 20% Inj) 250 ml @ 10 mls/hr Q24H IV 01/25/17 20:00 01/27/17 20:35 Enoxaparin Sodium (Lovenox Inj) 40 mg Q24H SQ 01/25/17 13:00 01/27/17 13:39 Objective Remarks GENERAL: Elderly male, lying supine in bed. multiple family members in room with patient SKIN: Warm and dry. HEAD: Normocephalic. EYES: No injection or drainage. NECK: Supple, trachea midline. CARDIOVASCULAR: Regular rate and rhythm RESPIRATORY: anterior eng clear. GASTROINTESTINAL: Abdomen soft, non-tender, nondistended. EXTREMITIES: No cyanosis NEUROLOGICAL: Awake, but lethargic. Assessment/Plan Problem List: (1) Non-small cell carcinoma of lung, stage 4 Status: Chronic Plan: --Very deconditioned after femur surgery --Overall his disease burden is very low. +bony metastatic disease. --originally diagnosed in early 2015--at that point already had mets to bilateral lungs, and rib bones. Had treatment with Carboplatin, Alimta and Bevacizumab. --May 2016: disease progression, treatment with Nivolumab reduced disease burden --01/04/17: had prophylactic stabilizing of left femur --01/15/17: admitted with bilateral hip pain, and low back pain, weakness and frequent falls (2) Generalized weakness Status: Chronic Plan: due to deconditioning, recent hip surgery, anemia and dehydration. (3) Pain Status: Acute Plan: --currently on Fentanyl patch 25mcg + Oxycodone 5mg q4h prn pain Assessment 71y/o with metastatic NSCLC admitted for weakness, hip pain and a fall. h/o Stage IV poorly differentiated non-small cell lung cancer diagnosed in 2015 with mets to chest wall and bones. History of anemia. Chronic lower extremity edema. Osteoarthritis of the left shoulder. COPD. Systolic and diastolic CHF. Gout. Hypertension. Peripheral neuropathy. Plan 1. monitor CBC 2. continue supportive care Attending Statement The exam, history, and the medical decision-making described in the above note were completed with the assistance of the mid-level provider. I reviewed and agree with the findings presented. I attest that I had a [id number] encounter with the patient on the same day, and personally performed and documented my assessment and findings in the medical record. Discharge to hospice continue comfort measures Anglea Reed Jan 28, 2017 10:36 Tim Cordon MD Jan 28, 2017 20:15
[2017-01-28 12:00] VITALS: BP 122/72; PULSE 106; RESP 20; TEMP 98.5; O2SAT 97
[2017-01-28] MEDS: ENOXAPARIN SODIUM 40 MG/0.4 ML SYRINGE SQ SCH (13:00)
[2017-01-28] MEDS: ALPRAZolam 0.5 MG TAB PO PRN (13:20)
--- NOTE | 2017-01-30 16:54 | PQ ---
Physician Query Response Document PATIENT: NANCY DANIELSON : 1945 ADMIT DATE: 01/15/2017 12:33 PM DISCH DATE: 01/28/2017 2:52 PM RESPONDING PROVIDER #: Rbraithw QUERY TEXT: Malnutrition Severity Malnutrition is documented in the Medical Record. Please specify the severity Such as: -- Mild ? first degree -- Moderate ? second degree -- Severe ? third degree -- Severe malnutrition with marasmus -- Other, please specify The patient's Clinical Indicators include: 6. Malnutrition/low albumin - Line Manager consult - supplements with diet Check CBC/CMP in AM Angela Reed PAFeb 2016 12:17 Tim Cordon MDFeb 2016 20:18 If you have any additional questions/comments and/or concerns please do not hesitate to reach out to the CDI/Coding Hotline ext. [phone]. Query created by: Corrie Cramer on 01/29/2017 11:51 AM RESPONSE TEXT: Pt has moderate malnutrition. Electronically signed by: Fortunato Demarco MD 01/30/2017 4:50 PM
== END 2017-01-28 14:52 | disposition hospice, inpatient (51) | DRG 641 ==
LOC: NEPC 09:44 → NEDA 12:33 → HOCA 15:05
PROVIDERS: ADMIT Hospitalist; ATTEND Hospitalist
PROC: 30233N1 Transfusion of Nonautologous Red Blood Cells into Peripheral Vein, Percutaneous Approach (ICD-10-PCS; 2017-01-16)
PROC: 0FB03ZX Excision of Liver, Percutaneous Approach, Diagnostic (ICD-10-PCS; principal; 2017-01-20)
DX: E87.1 Hypo-osmolality and hyponatremia (principal); E86.0 Dehydration; E44.0 Moderate protein-calorie malnutrition; C79.51 Secondary malignant neoplasm of bone; C79.89 Secondary malignant neoplasm of other specified sites; I50.42 Chronic combined systolic (congestive) and diastolic (congestive) heart failure; R16.0 Hepatomegaly, not elsewhere classified; C34.90 Malignant neoplasm of unspecified part of unspecified bronchus or lung; D64.81 Anemia due to antineoplastic chemotherapy; E83.19 Other disorders of iron metabolism; J44.9 Chronic obstructive pulmonary disease, unspecified; M54.5 Low back pain; G89.29 Other chronic pain; M10.9 Gout, unspecified; I10 Essential (primary) hypertension; G62.9 Polyneuropathy, unspecified; K40.90 Unilateral inguinal hernia, without obstruction or gangrene, not specified as recurrent; M19.012 Primary osteoarthritis, left shoulder; T45.1X5A Adverse effect of antineoplastic and immunosuppressive drugs, initial encounter; R74.8 Abnormal levels of other serum enzymes; K59.00 Constipation, unspecified; Z68.25 Body mass index [BMI] 25.0-25.9, adult; Z87.891 Personal history of nicotine dependence; Z51.5 Encounter for palliative care; Z79.82 Long term (current) use of aspirin; W19.XXXA Unspecified fall, initial encounter; Y92.009 Unspecified place in unspecified non-institutional (private) residence as the place of occurrence of the external cause
CPT/HCPCS: 36430; 47000; 71010; 72110; 73502; 73552; 73700; 74176; 74181; 76377; 76705; 76870; 77012; 80048; 80053; 80076; 81001; 82140; 82272; 82607; 82747; 82948; 83010; 83520; 83615; 83735; 84478; 85014; 85018; 85025; 85027; 85610; 85730; 86038; 86256; 86317; 86705; 86803; 86850; 86880; 86900; 86901; 86920; 86922; 87040; 87086; 87205; 87207; 87328; 87329; 87493; 87506; 88307; 88313; 93005; 93975; 96374; J1650; J2250; J2270; J2543; J3010; J3480; J7030; J8540; P9016